=== PATIENT | female | born 1935 | race Caucasian/White ===

== ENCOUNTER → 2016-09-13 | Outpatient (REF) | payer MEDICARE, BC ==
[~2016-09-13] MED LIST: /RISE35TA OR; /WARF25TA OR; ACET65TA OR; ALBU83IN IN; AMITRIPTYLINE PO; ATENOLOL PO; DARV100T OR; I CAPS PO; LANOXIN 0.25 MG PO; NEXIUM PO; OYST500T58 OR; PRED5TAB OR; SIMVASTIN PO; THERGRAN OR; ZOVI5OIN EX; [UNRECOGNIZED DRUG - OTHER]; [UNRECOGNIZED DRUG - OTHER]; cholecalciferol OR; patient comment
[2016-09-13 12:52] LABS: INR 0.9
== END ==
LOC: M LAB REF 11:21
PROVIDERS: ATTEND Nurse Practitioner Adult Health
DX: R23.3 Spontaneous ecchymoses (principal)

== ENCOUNTER 2016-11-22 17:57 | Emergency (ER) | payer MEDICARE, BC ==
[~2016-11-22] VITALS: Ht 152.4 cm; Wt 50.0 kg
[2016-11-22] MEDS ORDERED: LANO0.1211 PO (18:19)
[2016-11-22] MEDS ORDERED: CALC600T60 PO (18:19)
[2016-11-22] MEDS ORDERED: SIMV40TA2 PO (18:19)
[2016-11-22] MEDS ORDERED: ICAPCAP PO (18:19)
[2016-11-22] MEDS ORDERED: AMIT10TA PO (18:19)
[2016-11-22] MEDS ORDERED: ATEN25TA PO (18:19)
[2016-11-22] MEDS ORDERED: VITA-137 PO (18:19)
[2016-11-22] MEDS ORDERED: PRED5TA PO (18:19)
[2016-11-22] MEDS ORDERED: NEXI40CA PO (18:19)
[2016-11-22] MEDS ORDERED: LEVALBUTEROL 1.25 MG/0.5 ML CONCENTRATE NEB NEB ONE (18:30)
[2016-11-22 18:45] LABS: BASO # 0.2 K/mm3 (0.0-0.2); EOS # 0.2 K/mm3 (0.0-0.50); EOS % 1.4 % (0.0-3.0); LARGE UNSTAINED CELL # 0.3 K/mm3 (0.0-0.4); LARGE UNSTAINED CELL % 1.9 % (0.0-4.0); LYMPH # 0.9 K/mm3 (1.5-4.5); LYMPH % 4.9 % (24.0-44.0); MEAN CORPUSCULAR HEMOGLOBIN 31.4 pg (27.0-33.0); MEAN CORPUSCULAR HGB CONC 34.3 g/dl (32.0-36.5); MEAN CORPUSCULAR VOLUME 91.6 fl (80.0-96.0); MONO # 0.7 K/mm3 (0.0-0.8); MONO % 4.1 % (0.0-5.0); NEUTROPHILS # 15.6 K/mm3 (1.8-7.7); NEUTROPHILS % 86.8 % (36.0-66.0); PLATELET COUNT, AUTOMATED 221 k/mm3 (150-450); RED CELL DISTRIBUTION WIDTH 13.8 % (11.5-14.5)
[2016-11-22 18:53] LABS: INR 0.97
[2016-11-22 19:19] LABS: ALBUMIN 3.5 GM/DL (3.2-5.2); ALKALINE PHOSPHATASE 36 U/L (45-117); ALT/SGPT 28 U/L (12-78); ANION GAP 11 MEQ/L (8-16); AST/SGOT 23 U/L (15-37); BILIRUBIN,DIRECT 0.1 MG/DL (0.0-0.2); BILIRUBIN,TOTAL 0.4 MG/DL (0.2-1.0); BLOOD UREA NITROGEN 24 MG/DL (7-18); CALCIUM LEVEL 8.8 MG/DL (8.8-10.2); CARBON DIOXIDE LEVEL 23 MEQ/L (21-32); CHLORIDE LEVEL 104 MEQ/L (98-107); CREATININE FOR GFR 1.08 MG/DL (0.55-1.02); GLUCOSE, FASTING 122 MG/DL (83-110); POTASSIUM SERUM 4.1 MEQ/L (3.5-5.1); SODIUM LEVEL 138 MEQ/L (136-145); TOTAL PROTEIN 7.9 GM/DL (6.4-8.2)
--- NOTE | 2016-11-22 19:41 | REP ---
Soft-tissue neck x-ray: Three views: History: Dyspnea and cough. Findings: The epiglottis and aryepiglottic folds are unremarkable. The patient is status post ventral discectomy and fusion plating across the C4-5 intervertebral disc space. There is straightening. Alignment is normal. Some vascular calcification is noted in the right neck. Glottic and subglottic airway are unremarkable. Impression: Status post ventral discectomy and fusion C4-5. Otherwise negative. Signed by Niraj Hernandez MD 11/23/2016 08:34 A
--- NOTE | 2016-11-22 19:41 | REP ---
Chest x-ray: Two views. History: Dyspnea and cough. Findings: The lungs are symmetrically aerated. There are some increased markings in the posterior lung base on the right consistent with an early infiltrate. These changes are subtle on frontal and lateral film. Lung zimmerman are otherwise clear. Pleural angles are sharp. Heart is not enlarged. The aorta is calcific and tortuous. EKG electrodes are seen. There is periarticular soft-tissue calcification adjacent to both shoulders. Impression: Subtle infiltrate right lower lobe posterolaterally. Consistent with pneumonia. Signed by Niraj Hernandez MD 11/23/2016 08:35 A
[2016-11-22 20:37] VITALS: BP 144/64
[2016-11-22] MEDS ORDERED: CEFUROXIME 500 MG TAB PO ONE (21:15)
[2016-11-22] MEDS ORDERED: CEFT500T3 PO (21:19)
--- NOTE | 2016-11-23 10:39 | ECGEPIP ---
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
== END 2016-11-22 21:39 | disposition home or self-care (01) ==
LOC: EDBD 17:57 → M ED 17:57
DX: R06.02 Shortness of breath (principal); R91.8 Other nonspecific abnormal finding of lung field; J45.909 Unspecified asthma, uncomplicated; J47.9 Bronchiectasis, uncomplicated; K21.9 Gastro-esophageal reflux disease without esophagitis; J32.9 Chronic sinusitis, unspecified; Z86.79 Personal history of other diseases of the circulatory system; Z88.8 Allergy status to other drugs, medicaments and biological substances; Z88.1 Allergy status to other antibiotic agents; Z88.6 Allergy status to analgesic agent; Z88.5 Allergy status to narcotic agent; Z88.2 Allergy status to sulfonamides; Z79.899 Other long term (current) drug therapy

== ENCOUNTER 2016-11-26 15:27 | Emergency (ER) | payer MEDICARE, BC ==
[~2016-11-26] VITALS: Ht 152.4 cm; Wt 50.9 kg
[~2016-11-26 15:27] MED LIST changes: +AMIT10TA PO; +ATEN25TA PO; +CALC600T60 PO; +CEFT500T3 PO; +ICAPCAP PO; +LANO0.1211 PO; +NEXI40CA PO; +PRED5TA PO; +SIMV40TA2 PO; +VITA-137 PO
[2016-11-26] MEDS ORDERED: CEFT500T3 (15:45)
[2016-11-26] MEDS ORDERED: PRED20TA (15:45)
[2016-11-26] MEDS ORDERED: methylPREDNISolone INJ 125 MG/2 ML VIAL (J2930) IV ONE (16:30)
[2016-11-26 16:48] LABS: EOS % 0.2 % (0.0-3.0); LARGE UNSTAINED CELL # 0.2 K/mm3 (0.0-0.4); LARGE UNSTAINED CELL % 1.7 % (0.0-4.0); LYMPH # 1.6 K/mm3 (1.5-4.5); LYMPH % 11.6 % (24.0-44.0); MEAN CORPUSCULAR HEMOGLOBIN 31.8 pg (27.0-33.0); MEAN CORPUSCULAR VOLUME 93.3 fl (80.0-96.0); MONO # 0.6 K/mm3 (0.0-0.8); MONO % 4.9 % (0.0-5.0); NEUTROPHILS # 10.1 K/mm3 (1.8-7.7); NEUTROPHILS % 81.5 % (36.0-66.0); PLATELET COUNT, AUTOMATED 260 k/mm3 (150-450); RED CELL DISTRIBUTION WIDTH 14.2 % (11.5-14.5); WHITE BLOOD COUNT 12.3 K/mm3 (4.0-10.0)
[2016-11-26 17:00] LABS: ANION GAP 11 MEQ/L (8-16); BLOOD UREA NITROGEN 40 MG/DL (7-18); CALCIUM LEVEL 9.1 MG/DL (8.8-10.2); CARBON DIOXIDE LEVEL 25 MEQ/L (21-32); CHLORIDE LEVEL 103 MEQ/L (98-107); CREATININE FOR GFR 1.27 MG/DL (0.55-1.02); GLOMERULAR FILTRATION RATE 43.1 (>32); GLUCOSE, FASTING 149 MG/DL (83-110); POTASSIUM SERUM 4.6 MEQ/L (3.5-5.1); SODIUM LEVEL 139 MEQ/L (136-145)
[2016-11-26] MEDS: IPRATROPIUM 0.5MG/ALBUTEROL 2.5MG INH SOL UD 3ML (DUONEB)(J7620) NEB PRN ×3 (17:02→17:34)
[2016-11-26 17:10] LABS: DIGOXIN LEVEL 0.9 NG/ML (0.5-2.0)
[2016-11-26 17:21] LABS: ABG BASE EXCESS 1.1 (-2.0-2.0); ABG HCO3 24.7 MEQ/L (22.0-26.0); ABG PARTIAL PRESSURE CO2 35.4 mmHg (35.0-45.0); ABG PARTIAL PRESSURE O2 112.3 mmHg (75.0-100.0); ABG STANDARD HCO3 25.5 MEQ/L (22.0-26.0); ABG TOTAL CO2 25.8 MEQ/L (23.0-31.0); ABG pH (ARTERIAL) 7.461 UNITS (7.350-7.450)
[2016-11-26] MEDS ORDERED: ISOVUE-370 76% 100ML VIAL (Q9967) As Ordered ONE (18:01)
--- NOTE | 2016-11-26 18:17 | REP ---
Chest x-ray: Two views: History: Dyspnea and cough. Comparison chest x-ray 11/22/2016. Findings: The aorta is slightly tortuous and calcific. There are clips in right upper quadrant of the abdomen. There are increased markings again noted in the right base. These are similar to but improved compared to the 11/22/2016. No new infiltrate is seen. There is no evidence of pleural effusion. Heart is not enlarged. Impression: Increased markings right base somewhat improved from 11/22/2016 study. No new infiltrate seen. Signed by Niraj Hernandez MD 11/26/2016 06:41 P
[2016-11-26] MEDS ORDERED: HYDROCORTISONE 0.5% CREAM 30 GM TOP ONE (18:30)
--- NOTE | 2016-11-26 18:37 | REP ---
CT pulmonary angiogram: With IV contrast: History: Shortness of breath. Comparison studies: 08/17/2004. Contrast dose: 75 cc's of Isovue [address] technique: Helical scanning is acquired and overlapping 1.5 mm and contiguous 3 mm axial images are reformatted. In addition, a 3-D work station is deployed to generate thick slab maximum intensity projection images in sagittal and coronal imaging projections. CT pulmonary angiographic findings: There is good opacification of the pulmonary arterial tree. There is no CT evidence of pulmonary embolism. The thoracic aorta shows some atherosclerotic calcification but is otherwise normal in contour and caliber and enhances homogeneously. There is a small sliding-type hiatal hernia. No pleural or pericardial effusion is seen. No hilar or mediastinal mass or adenopathy is observed. No pleural or pericardial effusion is seen. No adrenal lesion is observed. The visualized upper abdominal structures are otherwise unremarkable. Lung window settings show no evidence of infiltrate or mass. There is a calcified granuloma in the right upper lobe. Another tiny calcified granuloma is seen in the left upper lobe on page #29 of 105. There is a noncalcified pulmonary nodule in the superior segment of the left lower lobe visible on image number 46 of 105. This is 3 mm in greatest diameter. No other significant pulmonary nodule is seen. Maximal intensity projection images show no filling defect or vessel cutoff. Impression: 1. No CT evidence of pulmonary embolism. 2. Old granulomatous changes. 3. 3 mm noncalcified nodule superior segment left lower lobe. Consider follow-up chest CT study in 6-12 months. There are two other calcified granulomatous nodules. 4. Hiatal hernia. Signed by Niraj Hernandez MD 11/26/2016 06:43 P
[2016-11-26 19:01] VITALS: O2SAT 96
[2016-11-26] MEDS ORDERED: IPRASOL4 IN (19:23)
[2016-11-26 19:40] VITALS: BP 139/66
--- NOTE | 2016-11-27 09:41 | ECGEPIP ---
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
--- NOTE | 2016-11-27 10:05 | ED PDOC ---
Post-Departure Follow-Up radiology report faxed to Nida Zelaya MD Nov 27, 2016 10:05
== END 2016-11-26 19:41 | disposition home or self-care (01) ==
LOC: M ED 15:27
DX: J44.1 Chronic obstructive pulmonary disease with (acute) exacerbation (principal); R91.1 Solitary pulmonary nodule; R00.1 Bradycardia, unspecified; I10 Essential (primary) hypertension; J45.909 Unspecified asthma, uncomplicated; E78.5 Hyperlipidemia, unspecified; D64.9 Anemia, unspecified; M47.9 Spondylosis, unspecified; Z87.891 Personal history of nicotine dependence; Z88.8 Allergy status to other drugs, medicaments and biological substances; Z88.1 Allergy status to other antibiotic agents; Z88.5 Allergy status to narcotic agent; Z88.7 Allergy status to serum and vaccine; Z88.2 Allergy status to sulfonamides; Z79.899 Other long term (current) drug therapy; Z79.52 Long term (current) use of systemic steroids
CPT/HCPCS: 36600; 71020; 71275; 80048; 80162; 82550; 82553; 82803; 83880; 84484; 85025; 87040; 93005; 93041; 94640; 96374; 99284; J2930; Q9967

== ENCOUNTER → 2017-03-01 | Outpatient (REF) | payer MEDICARE, BC ==
[~2017-03-01] MED LIST changes: +CEFT500T3; +IPRASOL4 IN; +PRED20TA
== END ==
LOC: M LAB REF 13:23
PROVIDERS: ATTEND Internal Medicine
DX: Z79.899 Other long term (current) drug therapy (principal)

== ENCOUNTER 2017-06-14 09:11 | Emergency (ER) | payer MEDICARE, BC ==
[2017-06-14 10:14] LABS: BASO # 0.1 10^3/uL (0.0-0.2); BASO % 0.5 % (0.0-1.0); EOS # 0.7 10^3/uL (0.0-0.50); EOS % 5.7 % (0.0-3.0); HEMATOCRIT 34.1 % (36.0-47.0); HEMOGLOBIN 11.3 g/dl (12.0-16.0); IMMATURE GRANULOCYTE % 0.5 % (0-3.0); LYMPH # 1.8 10^3/uL (1.5-4.5); LYMPH % 13.9 % (24.0-44.0); MEAN CORPUSCULAR HEMOGLOBIN 31.2 pg (27.0-33.0); MEAN CORPUSCULAR HGB CONC 33.1 g/dl (32.0-36.5); MEAN CORPUSCULAR VOLUME 94.2 fl (80.0-96.0); MONO # 1.1 10^3/uL (0.0-0.8); MONO % 8.4 % (0.0-5.0); NEUTROPHILS # 9.2 10^3/uL (1.8-7.7); PLATELET COUNT, AUTOMATED 290 10^3/uL (150-450); RED BLOOD COUNT 3.62 10^6/uL (4.00-5.40); RED CELL DISTRIBUTION WIDTH 12.8 % (11.5-14.5); WHITE BLOOD COUNT 12.9 10^3/uL (4.0-10.0)
[2017-06-14 10:37] LABS: ANION GAP 7 MEQ/L (8-16); BLOOD UREA NITROGEN 20 MG/DL (7-18); C REACTIVE PROTEIN QUANTITATIV 1.82 MG/DL (0.00-0.30); CARBON DIOXIDE LEVEL 30 MEQ/L (21-32); CHLORIDE LEVEL 102 MEQ/L (98-107); CREATININE FOR GFR 1.19 MG/DL (0.55-1.30); GLOMERULAR FILTRATION RATE 46.3 (>32); GLUCOSE, FASTING 131 MG/DL (70-100); POTASSIUM SERUM 3.6 MEQ/L (3.5-5.1); SODIUM LEVEL 139 MEQ/L (136-145); URIC ACID 5.3 MG/DL (2.6-6.0)
[2017-06-14 10:47] LABS: ERYTHROCYTE SEDIMENTATION RATE 60 mm/hr (0-30)
== END 2017-06-14 11:42 | disposition home or self-care (01) ==
LOC: M ED 09:11
DX: M25.562 Pain in left knee (principal); I10 Essential (primary) hypertension; J45.909 Unspecified asthma, uncomplicated; K21.9 Gastro-esophageal reflux disease without esophagitis; Z79.899 Other long term (current) drug therapy; Z88.1 Allergy status to other antibiotic agents; Z88.8 Allergy status to other drugs, medicaments and biological substances; Z87.891 Personal history of nicotine dependence
CPT/HCPCS: 73590

== ENCOUNTER → 2017-08-20 | Outpatient (REF) | payer MEDICARE, BC ==
[2017-08-20 17:29] LABS: VITAMIN B12 LEVEL 576 PG/ML (247-911)
== END ==
LOC: M LAB REF 16:44
DX: N18.3 Chronic kidney disease, stage 3 (moderate) (principal)
CPT/HCPCS: 82607

== ENCOUNTER → 2017-09-02 | Outpatient (REF) | payer MEDICARE, BC ==
[2017-09-02 15:23] LABS: DIGOXIN LEVEL 0.8 NG/ML (0.5-2.0)
== END ==
LOC: M LAB REF 14:30
DX: Z79.899 Other long term (current) drug therapy (principal)
CPT/HCPCS: 80162

== ENCOUNTER 2017-09-22 08:21 | Emergency (ER) | payer MEDICARE, BC ==
[2017-09-22 08:57] LABS: BASO % 0.1 % (0.0-1.0); EOS # 3.1 10^3/uL (0.0-0.50); HEMATOCRIT 34.3 % (36.0-47.0); HEMOGLOBIN 11.6 g/dl (12.0-15.5); IMMATURE GRANULOCYTE % 0.5 % (0-3.0); LYMPH # 1.3 10^3/uL (1.5-4.5); LYMPH % 8.3 % (24.0-44.0); MEAN CORPUSCULAR HEMOGLOBIN 30.6 pg (27.0-33.0); MEAN CORPUSCULAR HGB CONC 33.8 g/dl (32.0-36.5); MEAN CORPUSCULAR VOLUME 90.5 fl (80.0-96.0); MONO # 1.3 10^3/uL (0.0-0.8); MONO % 8.1 % (0.0-5.0); NEUTROPHILS # 10.3 10^3/uL (1.8-7.7); PLATELET COUNT, AUTOMATED 307 10^3/uL (150-450); RED BLOOD COUNT 3.79 10^6/uL (4.00-5.40); RED CELL DISTRIBUTION WIDTH 13.9 % (11.5-14.5); WHITE BLOOD COUNT 16.1 10^3/uL (4.0-10.0)
[2017-09-22 09:01] LABS: KETONE, URINE AUTO RFX NEGATIVE (NEGATIVE); LEUKOCYTE ESTERASE UR AUTO RFX NEGATIVE (NEGATIVE); MUCUS, URINE RFX SMALL (NEGATIVE); NITRITE, URINE AUTO RFX NEGATIVE (NEGATIVE); RBC, URINE AUTO RFX 1 /HPF (0-3); SPECIFIC GRAVITY UR AUTO RFX 1.009 (1.002-1.035); SQUAM EPITHELIAL CELL UR AURFX 0 /HPF (0-6); WBC, URINE AUTO RFX 1 /HPF (0-3)
[2017-09-22] MEDS: NS 1,000 ML IV (09:09)
[2017-09-22] MEDS: ONDANSETRON 4MG/2ML VIAL (J2405) IV (09:11)
[2017-09-22] MEDS: MORPHINE 2 MG/ML 1ML SYRINGE (J2270) IV (09:12)
[2017-09-22 09:14] LABS: ALBUMIN 3.3 GM/DL (3.2-5.2); ALBUMIN/GLOBULIN RATIO 0.85 (1.00-1.93); ALKALINE PHOSPHATASE 69 U/L (45-117); ALT/SGPT 31 U/L (12-78); ANION GAP 9 MEQ/L (8-16); AST/SGOT 20 U/L (7-37); BILIRUBIN,DIRECT 0.1 MG/DL (0.0-0.2); BILIRUBIN,TOTAL 0.3 MG/DL (0.2-1.0); BLOOD UREA NITROGEN 20 MG/DL (7-18); CALCIUM LEVEL 8.5 MG/DL (8.8-10.2); CARBON DIOXIDE LEVEL 28 MEQ/L (21-32); CHLORIDE LEVEL 101 MEQ/L (98-107); CREATININE FOR GFR 1.06 MG/DL (0.55-1.30); GLUCOSE, FASTING 106 MG/DL (70-100); LIPASE 441 U/L (73-393); POTASSIUM SERUM 3.7 MEQ/L (3.5-5.1); SODIUM LEVEL 138 MEQ/L (136-145); TOTAL PROTEIN 7.2 GM/DL (6.4-8.2)
[2017-09-22] MEDS ORDERED: ISOVUE-370 76% 100ML VIAL (Q9967) As Ordered (09:26)
[2017-09-22] MEDS: NORCO, ANEXSIA 5/325MG TABLET (HYDROcodone/ACETAMINOPHEN) PO (12:11)
== END 2017-09-22 12:55 | disposition home or self-care (01) ==
LOC: M ED 08:21
DX: R10.9 Unspecified abdominal pain (principal); I10 Essential (primary) hypertension; E78.5 Hyperlipidemia, unspecified; N28.89 Other specified disorders of kidney and ureter; Z98.890 Other specified postprocedural states; Z87.891 Personal history of nicotine dependence; Z88.8 Allergy status to other drugs, medicaments and biological substances; Z88.1 Allergy status to other antibiotic agents; Z88.5 Allergy status to narcotic agent; Z88.2 Allergy status to sulfonamides
CPT/HCPCS: J2405

== ENCOUNTER → 2018-01-15 | Outpatient (CLI) | payer MEDICARE, BC ==
[~2018-01-15] MED LIST changes: -/RISE35TA OR; -/WARF25TA OR; -ACET65TA OR; -ALBU83IN IN; -AMIT10TA PO; -AMITRIPTYLINE PO; -ATEN25TA PO; -ATENOLOL PO; -CALC600T60 PO; -CEFT500T3; -CEFT500T3 PO; -DARV100T OR; +GASTROGRAFIN SOLUTION 30ML (Q9963) As Ordered; -I CAPS PO; -ICAPCAP PO; -IPRASOL4 IN; +ISOVUE-370 76% 100ML VIAL (Q9967) As Ordered; -LANO0.1211 PO; -LANOXIN 0.25 MG PO; -NEXI40CA PO; -NEXIUM PO; -OYST500T58 OR; -PRED20TA; -PRED5TA PO; -PRED5TAB OR; -SIMV40TA2 PO; -SIMVASTIN PO; -THERGRAN OR; -VITA-137 PO; -ZOVI5OIN EX; -[UNRECOGNIZED DRUG - OTHER]; -[UNRECOGNIZED DRUG - OTHER]; -cholecalciferol OR; -patient comment
== END ==
LOC: M RAD 15:41
DX: D30.00 Benign neoplasm of unspecified kidney (principal); K57.30 Diverticulosis of large intestine without perforation or abscess without bleeding; R10.31 Right lower quadrant pain; Z98.890 Other specified postprocedural states
CPT/HCPCS: Q9963

== ENCOUNTER 2018-02-24 11:32 | Emergency (ER) | payer MEDICARE, BC ==
[2018-02-24] MEDS: ONDANSETRON 4 MG ORAL DISINTEGRATING TAB (Q0162 PER 1MG) PO (15:30)
[2018-02-24] MEDS: MORPHINE 4 MG/ML 1ML VIAL/SYRINGE (J2270) IM (15:43)
[2018-02-24 15:48] LABS: BASO % 0.2 % (0.0-1.0); EOS # 0.4 10^3/uL (0.0-0.50); EOS % 3.3 % (0.0-3.0); HEMATOCRIT 37.2 % (36.0-47.0); HEMOGLOBIN 12.1 g/dl (12.0-15.5); IMMATURE GRANULOCYTE % 0.3 % (0-3.0); LYMPH # 1.3 10^3/uL (1.5-4.5); LYMPH % 11.4 % (24.0-44.0); MEAN CORPUSCULAR HEMOGLOBIN 31.6 pg (27.0-33.0); MEAN CORPUSCULAR HGB CONC 32.5 g/dl (32.0-36.5); MEAN CORPUSCULAR VOLUME 97.1 fl (80.0-96.0); MONO # 0.6 10^3/uL (0.0-0.8); MONO % 5.2 % (0.0-5.0); NEUTROPHILS # 9.2 10^3/uL (1.8-7.7); NEUTROPHILS % 79.6 % (36.0-66.0); PLATELET COUNT, AUTOMATED 223 10^3/uL (150-450); RED BLOOD COUNT 3.83 10^6/uL (4.00-5.40); RED CELL DISTRIBUTION WIDTH 14.4 % (11.5-14.5); WHITE BLOOD COUNT 11.6 10^3/uL (4.0-10.0)
[2018-02-24 16:10] LABS: ALBUMIN/GLOBULIN RATIO 1.14 (1.00-1.93); ALKALINE PHOSPHATASE 49 U/L (45-117); ALT/SGPT 36 U/L (12-78); ANION GAP 6 MEQ/L (8-16); AST/SGOT 22 U/L (7-37); BILIRUBIN,DIRECT 0.1 MG/DL (0.0-0.2); BILIRUBIN,TOTAL 0.4 MG/DL (0.2-1.0); BLOOD UREA NITROGEN 19 MG/DL (7-18); C REACTIVE PROTEIN QUANTITATIV 1.01 MG/DL (0.00-0.30); CALCIUM LEVEL 9.5 MG/DL (8.8-10.2); CARBON DIOXIDE LEVEL 27 MEQ/L (21-32); CHLORIDE LEVEL 103 MEQ/L (98-107); CREATININE FOR GFR 1.05 MG/DL (0.55-1.30); GLOMERULAR FILTRATION RATE 53.4 (>32); GLUCOSE, FASTING 117 MG/DL (70-100); POTASSIUM SERUM 4.7 MEQ/L (3.5-5.1); SODIUM LEVEL 136 MEQ/L (136-145); TOTAL PROTEIN 7.5 GM/DL (6.4-8.2)
[2018-02-24 18:31] LABS: ERYTHROCYTE SEDIMENTATION RATE 37 mm/hr (0-30)
[2018-02-24] MEDS: MORPHINE 10 MG/ML 1ML VIAL (J2270) IM (18:54)
== END 2018-02-24 20:40 | disposition home or self-care (01) ==
LOC: M ED 11:32
DX: G89.29 Other chronic pain (principal); M25.552 Pain in left hip; I10 Essential (primary) hypertension; E78.5 Hyperlipidemia, unspecified; K21.9 Gastro-esophageal reflux disease without esophagitis; K44.9 Diaphragmatic hernia without obstruction or gangrene; N28.1 Cyst of kidney, acquired; Z88.1 Allergy status to other antibiotic agents; Z88.5 Allergy status to narcotic agent; Z88.8 Allergy status to other drugs, medicaments and biological substances
CPT/HCPCS: J2270

== ENCOUNTER → 2018-03-12 | Outpatient (CLI) | payer MEDICARE, BC | LOC: M RAD 09:24 | DX: R60.0 Localized edema (principal); M89.9 Disorder of bone, unspecified; M16.12 Unilateral primary osteoarthritis, left hip | CPT/HCPCS: 73721 ==

== ENCOUNTER → 2018-04-18 | Outpatient (REF) | payer MEDICARE, BC ==
[~2018-04-18] MED LIST changes: +/RISE35TA OR; +/WARF25TA OR; +ACET65TA OR; +ALBU83IN IN; +AMIT10TA PO; +AMITRIPTYLINE PO; +ATEN25TA PO; +ATENOLOL PO; +CALC600T60 PO; +CEFT500T3; +CEFT500T3 PO; +COLA100C5 PO; +DARV100T OR; +GABA-1171 PO; -GASTROGRAFIN SOLUTION 30ML (Q9963) As Ordered; +I CAPS PO; +ICAPCAP PO; +IPRA0.00 IN; -ISOVUE-370 76% 100ML VIAL (Q9967) As Ordered; +LANO0.1211 PO; +LANOXIN 0.25 MG PO; +LIDO4SO TOP; +NEXI1CAP4 PO; +NEXI40CA PO; +NEXIUM PO; +NORCOTAB PO; +OMEP40CA2 PO; +OYST500T58 OR; +PRED20TA; +PRED5TA PO; +PRED5TAB OR; +SIMV40TA2 PO; +SIMVASTIN PO; +THERGRAN OR; +TIZA4CAP PO; +TRAM-533 PO; +VENTAER PO; +VITA-137 PO; +ZOFR4TAB14 PO; +ZOVI5OIN EX; +[UNRECOGNIZED DRUG - OTHER]; +[UNRECOGNIZED DRUG - OTHER]; +cholecalciferol OR; +patient comment
[2018-04-18 16:51] LABS: PERCENT SATURATION 28.7 % (13.2-45.0)
== END ==
LOC: M LAB REF 16:18
PROVIDERS: ATTEND Internal Medicine
DX: Z01.818 Encounter for other preprocedural examination (principal); D63.8 Anemia in other chronic diseases classified elsewhere; M25.552 Pain in left hip

== ENCOUNTER → 2018-04-21 | Outpatient (CLI) | payer MEDICARE, BC ==
--- NOTE | 2018-04-21 11:14 | REP ---
CHEST, TWO VIEWS: HISTORY: Preprocedure. COMPARISON: 11/26/2016 The lungs are clear. The heart is normal in size. The pulmonary vasculature is normal in appearance. The bony structure is intact. IMPRESSION: No acute disease. Electronically Signed by Irineo Jane MD 04/21/2018 11:22 A
== END ==
LOC: M SMT 10:21
PROVIDERS: ATTEND Internal Medicine Pulmonary Disease
DX: Z01.811 Encounter for preprocedural respiratory examination (principal)

== ENCOUNTER → 2018-05-06 | Outpatient (REF) | payer MEDICARE, BC | LOC: M LAB REF 17:33 | PROVIDERS: ATTEND Internal Medicine | DX: I47.1 Supraventricular tachycardia (principal) ==

== ENCOUNTER → 2018-05-27 | Outpatient (REF) | payer MEDICARE, BC ==
[2018-05-27 09:47] LABS: HEMATOCRIT 31.5 % (36.0-47.0); HEMOGLOBIN 10.1 g/dl (12.0-15.5); MEAN CORPUSCULAR HEMOGLOBIN 30.1 pg (27.0-33.0); MEAN CORPUSCULAR HGB CONC 32.1 g/dl (32.0-36.5); PLATELET COUNT, AUTOMATED 338 10^3/uL (150-450); RED BLOOD COUNT 3.35 10^6/uL (4.00-5.40); WHITE BLOOD COUNT 11.9 10^3/uL (4.0-10.0)
[2018-05-27 10:13] LABS: BLOOD UREA NITROGEN 15 MG/DL (7-18); CARBON DIOXIDE LEVEL 28 MEQ/L (21-32); CHLORIDE LEVEL 101 MEQ/L (98-107); CREATININE FOR GFR 0.92 MG/DL (0.55-1.30); GLOMERULAR FILTRATION RATE > 60.0 (>32); GLUCOSE, FASTING 100 MG/DL (70-100); POTASSIUM SERUM 3.5 MEQ/L (3.5-5.1); SODIUM LEVEL 138 MEQ/L (136-145)
== END ==
PROVIDERS: ATTEND Internal Medicine
DX: Z47.89 Encounter for other orthopedic aftercare (principal); Z98.890 Other specified postprocedural states; Z79.899 Other long term (current) drug therapy

== ENCOUNTER → 2018-06-03 | Outpatient (REF) | payer BC, MEDICARE ==
[2018-06-03 10:04] LABS: HEMOGLOBIN 10.7 g/dl (12.0-15.5); MEAN CORPUSCULAR HEMOGLOBIN 30.1 pg (27.0-33.0); MEAN CORPUSCULAR HGB CONC 31.5 g/dl (32.0-36.5); MEAN CORPUSCULAR VOLUME 95.8 fl (80.0-96.0); PLATELET COUNT, AUTOMATED 423 10^3/uL (150-450); RED BLOOD COUNT 3.55 10^6/uL (4.00-5.40); WHITE BLOOD COUNT 9.4 10^3/uL (4.0-10.0)
[2018-06-03 11:22] LABS: CALCIUM LEVEL 9.1 MG/DL (8.8-10.2); CREATININE FOR GFR 1.05 MG/DL (0.55-1.30); GLOMERULAR FILTRATION RATE 53.4 (>32); POTASSIUM SERUM 3.8 MEQ/L (3.5-5.1)
== END ==
PROVIDERS: ATTEND Internal Medicine
DX: Z47.1 Aftercare following joint replacement surgery (principal); Z98.890 Other specified postprocedural states; Z79.899 Other long term (current) drug therapy

== ENCOUNTER → 2018-08-28 | Outpatient (CLI) | payer MEDICARE, BC ==
[~2018-08-28] MED LIST changes: -/WARF25TA OR; +COUM1TAB18 OR; +HYDR-3715 PO; +LANO0.12 PO; -LANO0.1211 PO; -NORCOTAB PO
[2018-08-28 12:24] LABS: ALBUMIN 3.6 GM/DL (3.2-5.2); BILIRUBIN,TOTAL 0.4 MG/DL (0.2-1.0); CALCIUM LEVEL 9.2 MG/DL (8.8-10.2); CREATININE FOR GFR 1.18 MG/DL (0.55-1.30); GLOMERULAR FILTRATION RATE 46.7 (>32); POTASSIUM SERUM 3.9 MEQ/L (3.5-5.1); TOTAL PROTEIN 7.2 GM/DL (6.4-8.2)
== END ==
LOC: M LAB 10:45
PROVIDERS: ATTEND Internal Medicine Gastroenterology
DX: N28.9 Disorder of kidney and ureter, unspecified (principal)

== ENCOUNTER → 2018-09-08 | Outpatient (CLI) | payer MEDICARE, BC ==
--- NOTE | 2018-09-08 15:30 | REP ---
MRI abdomen without and with IV contrast: History: Evaluate right renal lesion. 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 Comparison is also made with July 27, [address] study. Technique: Axial and coronal T1 and T2-weighted scans are obtained. Sequences include spin-echo, fast spin echo, in and [id number], and dynamically acquired post contrast images. Gadolinium enhancement dose: 5 mL of intravenous Isovue 370 is administered. MRI findings: Pre and postcontrast imaging confirms the presence of a predominately fat containing peripheral right renal mass with areas of contrast enhancement consistent with the CT findings of angiomyolipoma. The lesion is more conspicuous by CT than it is by MRI scanning. No suspicious features. It is difficult to measure on MRI because its borders are not well demarcated between the fat containing lesion and the perinephric fat adjacent to it. It measures approximately 2.3 cm in right to left dimension by 3.4 cm cranial to caudal . No other renal mass lesion is observed. Kidneys enhance symmetrically. No adrenal lesion is seen. No hepatic or splenic masses observed. No pancreatic lesion is seen. There is evidence of fatty infiltration of the liver. 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 The lesions margins are better demarcated by CT scanning then by MRI imaging. Electronically Signed by Niraj Hernandez MD 09/08/2018 03:50 P
== END ==
LOC: M RAD 12:49
PROVIDERS: ATTEND Internal Medicine Gastroenterology
DX: N28.9 Disorder of kidney and ureter, unspecified (principal)

== ENCOUNTER → 2018-10-06 | Outpatient (REF) | payer MEDICARE, BC | LOC: M LAB REF 16:41 | PROVIDERS: ATTEND Internal Medicine | DX: Z79.899 Other long term (current) drug therapy (principal) ==

== ENCOUNTER → 2018-12-11 | Outpatient (CLI) | payer MEDICARE, BC ==
--- NOTE | 2018-12-11 13:04 | REP ---
MRI of the lumbar spine without contrast Indication: Low back pain. Comparison: CT abdomen pelvis of 01/15/2018. Technique: MRI of the lumbar spine was performed utilizing sagittal STIR, T1 and T2, and axial T1 and T2 weighted imaging. No intravenous contrast was administered. Findings: There is levoscoliosis of the lumbar spine with apex at L4-L5. There is right lateral subluxation of L3 on L4. There is one - 2 mm retrolisthesis of L2 on L3 and L3 on L4. There is heterogeneity of the marrow signal without suspicious focal lesion. There are multilevel degenerative changes including loss of disc height, disc desiccation, endplate irregularity and endplate marrow signal changes at L2-S1. There are focal superior endplate compression deformities of L3 and L4. Vertebral body heights are grossly maintained. The visualized spinal cord is normal. The conus medullaris terminates at the level of L1. There is similar asymmetric fatty atrophy of the right psoas muscle. There is partial fatty atrophy of the posterior paraspinal muscles, at the level of the sacrum. Level specific observations: L1-L2: Diffuse disc bulge. L2-L3: Diffuse disc bulge eccentric to the left. Moderate left neural foraminal narrowing. L3-L4: Diffuse disc bulge eccentric to the left. Lateral subluxation and retrolisthesis. Distortion of the thecal sac and moderate narrowing of the spinal canal. Severe bilateral neural foraminal narrowing. L4-L5: Diffuse disc bulge. Right greater than left facet hypertrophy. Mild narrowing of the spinal canal. Moderate to severe right and moderate left neural foraminal narrowing. L5-S1: Diffuse disc bulge with superimposed central disc protrusion. Bilateral facet arthropathy. Moderate to severe neural foraminal narrowing bilaterally. Impression: Right lateral subluxation of L3 on L4. Grade 1 retrolisthesis of L2 on L3 and L3 on L4. 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 Additionally, mild narrowing of the spinal canal at L4-L5. Multilevel bilateral neural foraminal narrowing, severe at L3-L4, moderate to severe at L4-L5 and L5-S1, and moderate left neural foraminal narrowing at L2-L3. Electronically Signed by Chucky Clark MD 12/11/2018 12:56 P
== END ==
LOC: M RAD 08:14
PROVIDERS: ATTEND Orthopaedic Surgery Orthopaedic Surgery of the Spine
DX: M47.816 Spondylosis without myelopathy or radiculopathy, lumbar region (principal); M48.061 Spinal stenosis, lumbar region without neurogenic claudication; M41.86 Other forms of scoliosis, lumbar region; M51.26 Other intervertebral disc displacement, lumbar region; M51.27 Other intervertebral disc displacement, lumbosacral region

== ENCOUNTER → 2018-12-30 | Outpatient (CLI) | payer MEDICARE, BC ==
--- NOTE | 2018-12-30 17:08 | REP ---
Maxillofacial CT study without contrast: History: Chronic pansinusitis. Comparison CT maxillofacial study August 16, 2015. CT findings: There is complete opacification of the frontal sinuses bilaterally. Extensive opacification is seen bilaterally through the ethmoid air cells. There is moderate mucosal thickening affecting the right sphenoid and mild fluid is seen in the left sphenoid sinus. Mastoid aeration is normal and symmetric. There is moderate mucosal thickening and some fluid in the maxillary sinuses bilaterally. Widely patent nasoantral windows are seen bilaterally. There is moderate mucosal thickening along the superior nolan of the maxillary sinuses bilaterally. This mucosal thickening is actually improved from the August 19, 2015 prior study. Bony nasal septum is in the midline. Turbinate soft tissues are unremarkable. The nasal ethmoid recesses are opacified with mucosal thickening but also improved somewhat from July 2015. There is thickening of the bony sinus nolan of the maxillary ethmoid and frontal sinuses indicating chronicity. Minimal carotid siphon vascular calcification is observed. No intraorbital abnormality is seen. Visualized intracranial structures show mild generalized atrophy. Impression: Findings consistent with chronic polysinusitis. Status post nasoantral window procedure bilaterally. These are widely patent. Moderate mucosal changes. Electronically Signed by Niraj Hernandez MD 12/30/2018 05:11 P
== END ==
LOC: M RAD 14:53
PROVIDERS: ATTEND Otolaryngology
DX: J32.4 Chronic pansinusitis (principal)

== ENCOUNTER → 2019-01-21 | Outpatient (CLI) | payer MEDICARE, BC ==
[~2019-01-21] MED LIST changes: -OMEP40CA2 PO; +OMEP40CA97 PO
--- NOTE | 2019-01-24 23:05 | ECWPNPC ---
PATIENT NAME: ASHER PRADHAN : 1935 GENDER: FEMALE VISIT DATE: 01/21/2019 DISCHARGE DATE: 01/21/19 0000 VISIT LOCKED DATE TIME: PHYSICIAN: ALEX MARROQUIN MD RESOURCE: ALEX MARROQUIN MD REASON FOR APPOINTMENT 1. LOW BACK PAIN HISTORY OF PRESENT ILLNESS PAIN SCREENING: PATIENT HAS A COMPLAINT OF ACUTE OR CHRONIC PAIN :YES 83 YEAR OLD FEMALE PATIENT WITH A HISTORY OF CHRONIC LOW BACK PAIN. THE PATIENT DESCRIBES THE PAIN ACHING, VERY PAINFUL, AND DAILY WITH A PAIN SCORE OF 7-10/10 DEPENDING ON PHYSICAL ACTIVITY. THE PATIENT STATES HER PAIN IS MAINLY OVER HER RIGHT LOW BACK AREA. THE PATIENT SAYS SHE HAS BEEN SUFFERING FROM THIS PAIN FOR A LONG TIME AND IT HAS BEEN AFFECTING HER ABILITY TO PERFORM HER DAILY ACTIVITIES SUCH COOKING, BAKING COOKIES, CLEANING HER HOUSE, AND GROCERY SHOPPING. THE PATIENT SAYS HER PAIN BEGINS WHILE SHE IS STANDING UP, AND SHE MUST SIT DOWN TO REST FOR A WHILE AND TAKE TYLENOL TO HELP RELIEVE HER PAIN. THE PATIENT MENTIONS SHE HAS HAD BILATERAL HIP REPLACEMENT WITH THE LEFT HIP DONE IN MAY OF THIS YEAR BY DR. RYAN VILLEGAS IN [place] AND THE RIGHT HIP REPLACED [place] [address] MAYBERRY AT [facility]. PATIENT DENIES UNEXPLAINABLE WEIGHT LOSS, FEVER, CHILLS, NEW CHANGES ON HER URINARY OR BOWEL CONTROL. FALL RISK SCREENING: SCREENING :NO FALLS REPORTED IN THE LAST YEAR CURRENT MEDICATIONS TAKING LANOXIN 0.[address] ARRIAGA 1 TABLET ORALLY ONCE A DAY TAKING ATENOLOL [address] ARRIAGA 1 TABLET ORALLY ONCE A DAY TAKING PREDNISONE [address] LAFLEUR 1 TABLET WITH FOOD OR MILK ORALLY ONCE A DAY TAKING AMITRIPTYLINE HCL [address] ARRIAGA 1 TABLET AT BEDTIME ORALLY AT NIGHT TAKING ICAPS MV OTC TABLET 2 TAB ORALLY DAILY TAKING CALCIUM 1200MG TABLET 1 TAB ORALLY DAILY TAKING VITAMIN D3 1000 UNIT TABLET 1 TABLET ORALLY ONCE A DAY TAKING SIMVASTATIN 20 MG TABLET 1 TABLET EVERY EVENING ORALLY DAILY TAKING BUDESONIDE 1 MG/2ML DR LAFLEUR NASAL INHALATION ONCE A DAY TAKING VANIQA 13.9 % CREAM 1 APPLICATION A THIN FILM TO AFFECTED AREA EXTERNALLY TWICE A DAY TO CHIN AND UPPER LIP TAKING TRETINOIN (EMOLLIENT) 0.05 % CREAM 1 APPLICATION A ARETHA-SIZED AMOUNT TO FACE IN THE EVENING EXTERNALLY ONCE A DAY TO FACE AT PM TAKING ESOMEPRAZOLE MAGNESIUM 20 MG CAPSULE DELAYED RELEASE 1 CAPSULE ORALLY ONCE A DAY TAKING HYDROCODONE-ACETAMINOPHEN 5-325 MG TABLET 1 TABLET NEEDED ORALLY EVERY 6 HRS NEEDED TAKING METFORMIN HCL ER 750 MG TABLET EXTENDED RELEASE 24 HOUR 1 TABLET WITH EVENING MEAL ORALLY ONCE A DAY NOT-TAKING NEXIUM [address] ZEPEDA 1 TAB ORALLY DAILY NOT-TAKING SALEX 6 % (LOTION) LOTION 1 APPLICATION TO BODY EXTERNALLY DAILY TO BODY MEDICATION LIST REVIEWED AND RECONCILED WITH THE PATIENT PAST MEDICAL HISTORY HYPERTENSION IRREGULAR HEART BEAT HYPERLIPIDEMIA ARTHRITIS ASTHMA ALLERGIES SULFA: RASH - ALLERGY TAVIST: SEVERE HEADACHES - ALLERGY GUIATEX: RASH - ALLERGY BIAXIN: RASH - ALLERGY CODEINE: SICK TO STOMACH - SIDE EFFECTS ERTHROMYCIN: RASH - ALLERGY DECLAMYCIN: RASH - ALLERGY DOXYCYCLINE: RASH/HEADACHE - ALLERGY TUSSIONEX: SICK TO STOMACH - SIDE EFFECTS DEMEROL: SICK TO STOMACH - SIDE EFFECTS ORUVAIL: RASH - ALLERGY SODIUM PENATOL: SICK TO STOMACH - SIDE EFFECTS SELDANE: HEADACHE - ALLERGY ROBITUSSIN: NOSEBLEED - ALLERGY AVELOX: SICK TO STOMACH/SORE MUSCLES - ALLERGY PNEUMONIA SHOT: ARM SWELL - ALLERGY ASPIRIN: COUGHING/WHEEZING - ALLERGY IBUPROFEN: CIUGHING/WHEEZING - ALLERGY CIPROFLOXACIN: DIARRHEA - SIDE EFFECTS LEVAQUIN: HEADACHE - SIDE EFFECTS CIPHENOXYLATE WITH ATROPINE: DIARRHEA - SIDE EFFECTS ALEVE: DYSPNEA - SIDE EFFECTS AMBIEN: NAUSEA/VOMITING - SIDE EFFECTS ATIVAN: NAUSEA/VOMITING - SIDE EFFECTS MORPHINE: NAUSEA/VOMITING - SIDE EFFECTS TOBRAMYCIN: HEADACHE - SIDE EFFECTS ALAZOPRAM: HEADACHE - SIDE EFFECTS AMOXICILLIN: HIVES - ALLERGY CEPHALEXIN: CHEST TIGHTNESS - ALLERGY CEFDINIR: NAUSEA/VOMITING - SIDE EFFECTS SURGICAL HISTORY CATARACT RIGHT EYE 11/23/09 HYSTERECTOMY 1981 RIGHT TOTAL HIP 01/2010 NASAL POLYPS REMOVED 02/29/2016 CATARACT LEFT EYE TONSILECTOMY 194 GALLBLADDER REMOVAL 08/2005 DISCECTOMY WITH PLATE IN NECK 1996 BOWEL RESECTION 1979 RIGHT HIP REPLACEMENT 02/07/2011 SINUS SURGERY 09/12/2010 RIGHT FOOT SURGERY 08/13/14 TOTAL LEFT HIP REPLACEMENT 05/19/18 FAMILY HISTORY FATHER: , DIAGNOSED WITH HYPERTENSION MOTHER: , HYPERTENSION SIBLINGS: , SISTER SKIN CANCER MOTHER NAD FATHER HAD HEART ISSUES, 2 SISTERS HAD BREAST CANCER. SOCIAL HISTORY GENERAL: TOBACCO USE ARE YOU A:FORMER SMOKER HOW LONG HAS IT BEEN SINCE YOU LAST SMOKED?> 10 YEARS OTHERS AT HOME: NONE. HOUSING: OWNS HOME. EDUCATION LEVEL OF EDUCATION:NOT FINISHED COLLEGE DIET: REGULAR. LANGUAGE LANGUAGES SPOKEN:[place] NEW PATIENT PAIN DIARY PATIENT DESCRIBES PAIN :ACHING, IT COMES AND GOES FROM 0-10, WHAT LEVEL IS YOUR PAIN TODAY?8 PRECIPITATING FACTORS ACTIVITIES LIKE CLEANING, VACCUMMING ECT ALLEVIATING FACTORS TYLENOL, REST IMPACT ON FUNCTION STATES SHE IS NOT ABLE TO DO MUCH SHE WOULD LIKE TO DO HAVE YOU BEEN SICK IN THE LAST WEEK (COLD, COUGH, FEVER, FLU, ETC)NO DO YOU TAKE ANY BLOOD THINNERS?NO DO YOU HAVE ANY RASHES OR OPEN SORES?NO ANY CHANGE IN BOWEL OR BLADDER CONTROL?NO ARE YOU ALLERGIC TO SHELLFISH OR IV DYE?NO ARE YOU DIABETIC?YES DO YOU HAVE A PACEMAKER OR DEFIBRILLATOR?NO HAVE YOU FALLEN IN THE LAST 6 MONTHS?NO DO YOU USE ANY TYPE OF TOBACCO (SMOKE, SMOKELESS, CHEW, ETC.)NO ARE YOU ABUSED, NEGLECTED, OR IN AN UNSAFE ENVIRONMENT?NO DO YOU HAVE THOUGHTS OF HURTING YOURSELF OR SOMEONE ELSE?NO DO YOU NEED ANY PRESCRIPTIONS?YES DO YOU HAVE ANY OTHER QUESTIONS OR CONCERNS?YES OPTIONS FOR PAIN CONTROL INTENSITY SCALE REVIEWEDNUMBER RECREATIONAL DRUG USE DRUG USE?NO PATIENT DENIES ABUSE OR MISSUSED OF ANY MEDICATION DENIES PATIENT DENIES USE OF ANY ILLEGAL SUBSTANCE INCLUDING MARIJUANA OR COCAINE DENIES EXERCISE: NO REGULAR EXERCISE. LEARNING BARRIERS / SPECIAL NEEDS BARRIERS TO LEARNING?NO HEARING IMPAIRED?NO VISION IMPAIRED?YES :CORRECTIVE LENSES COGNITIVELY IMPAIRED?NO READINESS TO LEARN?YES LEARNING PREFERENCES?NO LEARNING CAPABILITIES PRESENT?YES EMOTIONAL BARRIERS?NO SPECIAL DEVICES?NO STILL CLEANER NEEDED?NO PAIN CLINIC PFS, CLERGY, PUBLIC HEALTH REFERRALS PFS REFERRAL NEEDED?NO CLERGY REFERRAL NEEDED?NO PUBLIC HEALTH REFERRAL NEEDED?NO WAS THE PROVIDER NOTIFIED OF ANY PERTINENT INFO?YES HAS THE PATIENT BEEN EDUCATED REGARDING HIS/HER PLAN OF CARE?YES HAS THE PATIENT BEEN EDUCATED REGARDING PAIN, THE RISK FOR PAIN, THE IMPORTANCE OF EFFECTIVE PAIN MANAGEMENT, AND THE PAIN ASSESSMENT PROCESS?YES LATEX QUESTIONNAIRE LATEX ALLERGY : HAVE YOU EVER DEVELOPED ANY TYPE OF REACTION AFTER HANDLING LATEX PRODUCTS SUCH RUBBER GLOVES, CONDOMS, DIAPHRAGMS, BALLOONS, SOCKS, OR UNDERWEAR?NO LATEX ALLERGY : HAVE YOU EVER DEVELOPED ANY TYPE OF REACTION DURING OR AFTER DENTAL APPOINTMENT, VAGINAL/RECTAL EXAMINATION, SURGICAL PROCEDURE, OR ANY OTHER EXPOSURE?NO LATEX RISK : HAVE YOU EVER HAD ANY DIFFICULTY BREATHING OR HIVES AFTER EATING OR HANDLING ANY FRUITS, OR VEGETABLES; SUCH KIWI, BANANAS, STONE FRUITS, OR CHESTNUTSNO LATEX RISK : DO YOU HAVE A PREVIOUS PERSONAL HISTORY OF MORE THAN NINE SURGERIES, SPINA BIFIDA, OR REPEATED CATHERIZATIONS? YES - PLEASE INDICATE : > 9 SURGERIES LATEX RISK : ARE YOU FREQUENTLY EXPOSED TO LATEX PRODUCTS IN YOUR OCCUPATION?NO DATE ASKED : 01/21/2019 CAFFEINE CAFFEINE USE?NO ADVANCE DIRECTIVE ADVANCE DIRECTIVE DISCUSSED WITH PATIENT:YES WILLAM SUAREZ (DAUGHTER) [phone] SPIRITISM [id number] BAPTISM MARITAL STATUS: . ALCOHOL SCREENING DID YOU HAVE A DRINK CONTAINING ALCOHOL IN THE PAST YEAR?NO POINTS0 INTERPRETATIONNEGATIVE OCCUPATION: RETIRED. REVIEWED WITH PATIENT 01/21/19 1615 NLJ. HOSPITALIZATION/MAJOR DIAGNOSTIC PROCEDURE CATARACTS SURGERIES REVIEW OF SYSTEMS REVIEWED BY: PROVIDER: ALEX MARROQUIN MD . CONSTITUTIONAL: ANY CHANGE IN YOUR MEDICAL CONDITION? NO . CHILLS NO . FEVER NO . INFECTION: DO YOU HAVE NEW INFECTIONS? NO . DO YOU HAVE HISTORY OF MRSA? NO . MUSCULOSKELETAL: ANY NEW PATTERNS OF PAIN OR NUMBNESS? YES- ACHING PAIN IN LOW RIGHT SIDE OF BACK . SYTEMIC LUPUS NO . GASTROENTEROLOGY: ANY NEW CHANGE IN BOWEL CONTROL? NO . BARRETTS ESOPHAGUS NO . CIRRHOSIS NO . HEPATITIS NO . LIVER FAILURE NO . ACID REFLUX NO . UNEXPLAINED WEIGHT LOSS NO . GENITOURINARY: ANY NEW CHANGE IN BLADDER CONTROL? NO . IS THERE A CHANCE YOU COULD BE ? NO . HEMATOLOGY/LYMPH: DO YOU TAKE ANY BLOOD THINNERS? (FOR EXAMPLE- COUMADIN, PLAVIX, AGGRENOX, PLATEL, PRADAXA, OR XARELTO) NO . WHEN WAS YOUR LAST DOSE? DATE: TIME: . LOW PLATELET COUNT NO . SICKLE CELL DISEASE NO . VON WILLIEBRANDS NO . FACTOR V LEIDEN NO . THALLASEMIA NO . ANEMIA YES . EASY BRUISING NO . NEUROLOGY: HAVE YOU FALLEN IN THE PAST 12 MONTHS? NO . ANY NEW EXTREMITY NUMBNESS OR WEAKNESS? NO . HEAD INJURY NO . DEMENTIA NO . CEREBRAL PALSY NO . MULTIPLE SCLEROSIS NO . DIZZINESS NO . HEADACHE NO . STROKES NO . VERTIGO NO . CARDIOLOGY: DO YOU HAVE A PACEMAKER OR DEFIBRILLATOR? NO . ANGINA NO . HEART ATTACK NO . HEART SURGERY NO . CONGESTIVE HEART FAILURE/FLUID OVERLOAD NO . CHEST PAIN NO . HIGH BLOOD PRESSURE ON MEDICATION(S) . IRREGULAR HEART BEAT DIAGNOSED . RESPIRATORY: HAVE YOU BEEN SICK IN THE PAST WEEK? NO . FEVER NO . FLU LIKE SYMPTOMS? NO . CPAP NO . BYPAP NO . ASTHMA YES . EMPHYSEMA NO . CHRONIC LUNG DISEASES YES . SHORTNESS OF BREATH ON EXERTION NO . COUGH NO . SNORING NO . INTEGUMENTARY: DO YOU HAVE ANY RASHES OR OPEN SORES? NO . ALLERGIC/IMMUNO: ARE YOU ALLERGIC TO IV DYE? NO . ANY NEW ALLERGIES? NO . PSYCHIATRIC: DO YOU HAVE THOUGHTS OF HURTING YOURSELF OR SOMEONE ELSE? NO . ARE YOU ABUSED, NEGLECTED, OR IN AN UNSAFE ENVIRONMENT? NO . ENDOCRINOLOGY: ARE YOU DIABETIC? YES . THYROID DISORDER NO . OTHER: DO YOU NEED ANY PRESCRIPTIONS? NO . IF YES, PLEASE LIST: ____ . ANY NEW PROBLEMS WITH YOUR MEDICATIONS? NO . WHEN DID YOU LAST EAT? ____ . WHEN DID YOU LAST DRINK? ____ . WHAT DID YOU LAST DRINK? ____ . NAME OF PERSON DRIVING YOU HOME? ____ . DO YOU HAVE ANY OTHER QUESTIONS OR CONCERNS YES- WOULD LIKE TO KNOW WHAT OPTIONS ARE TO HELP WITH LOWER RIGHT BACK PAIN . VITAL SIGNS WT 112.2 LBS, HT 60 IN, BMI 21.91 INDEX, BP 143/67 MM HG, HR 78 /MIN, RR 18 /MIN, TEMP 97.2 F, OXYGEN SAT % 95%, SAFE IN ENV? (Y/N) YES, NA INITIALS AW 1502, REVIEWED BY: REILLY. EXAMINATION GENERAL EXAMINATION: PATIENT IS ALERT O X 3 AND COOPERATIVE. LUNGS CLEAR, TO AUSCULTATION. HEART: NO MURMURS OR GALLOPS; FACIAL CRANIAL NERVES ARE GROSSLY NORMAL. GOOD SYMMETRY OF FACIAL MUSCLE MOVEMENT. NORMAL VISUAL MALONEY. ANTALGIC WALK. TENDERNESS IN THE RIGHT LOW BACK AREA. PRESENCE OF BANDS OF TISSUE AND TRIGGER POINTS WITH RESTRICTION OF MOVEMENT OF THE RIGHT LOW BACK. MOVEMENT OVER THE RIGHT HIP PRODUCES PAIN. ASSESSMENTS MYALGIA, OTHER SITE - M79.18 (PRIMARY) LOW BACK PAIN - M54.5 OTHER CHRONIC PAIN - G89.29 RIGHT HIP PAIN - M25.551 TREATMENT MYALGIA, OTHER SITE CLINICAL NOTES: WE DISCUSSED SEVERAL ISSUES WITH MS. PRADHAN'S PAIN MANAGEMENT CASE. DUE TO THE TRIGGER POINTS, BANDS OF TISSUE, AND RESTRICTION OF MOVEMENT, I WOULD LIKE TO MOVE FORWARD WITH A TRIGGER POINT INJECTION AT THIS TIME. WE DISCUSSED THE BENEFITS, RISKS, AND ALTERNATIVES OF THE INJECTION AND THE PATIENT WOULD LIKE TO PROCEED. I WILL REQUEST FOR COPIES OF THE PATIENT'S RIGHT HIP IMAGING REPORTS. DEPENDING ON THE TRIGGER POINT INJECTION RESULTS, I MAY HAVE TO DISCUSS THE PATIENT'S CASE WITH HER ORTHOPEDIC SURGEON, DR. RYAN VILLEGAS IN [facility], REGARDING THE PATIENT'S RIGHT HIP PAIN. THE PATIENT WILL FOLLOW UP IN SEVERAL WEEKS AFTER HER INJECTION TO SEE HOW IT IS HELPING WITH HER PAIN. INSTRUCTIONS WERE GIVEN, QUESTIONS WERE ANSWERED, PATIENT REPORTS UNDERSTANDING AND AGREES WITH THE PLAN. I, DANIELE GAMBOA, DOCUMENTED THE ABOVE INFORMATION ACTING A SCRIBE FOR DR. MARROQUIN. I HAVE REVIEWED THE ABOVE DOCUMENT, WRITTEN BY DANIELE HENNING AND I VERIFY THAT IT IS ACCURATE. DEAR RONEL ZEPEDA MD: THANK YOU FOR YOUR KIND REFERRAL OF ASHER PRADHAN. IF YOU WANT TO DISCUSS HER CASE WITH ME PLEASE CALL ME AT THE PAIN CENTER AT [phone]. SINCERELY, ALEX MARROQUIN MD PAIN MEDICINE . PROCEDURE CODES FA211 ESTABILISHED PATIENT [facility] FACILITY CHARGE G8427 CURRENT MEDS W/DOSAGES DOCUMENTED G8730 PAIN ASSESS POS TOOL F/U PLAN DOC DISPOSITION & COMMUNICATION FOLLOW UP REASON: TPI ELECTRONICALLY SIGNED BY ALEX MARROQUIN MD, MD ON 01/24/2019 AT 04:54 PM EDT DISCLAIMER : THIS IS A VISIT SUMMARY EXTRACTED FROM THE Down CHART. IT IS NOT A COPY OF THE Blue [facility] PROGRESS NOTE. MONA
== END ==
LOC: M PAIN 15:00
PROVIDERS: ATTEND Anesthesiology
DX: M79.18 Myalgia, other site (principal); M54.5 Low back pain; G89.29 Other chronic pain; M25.551 Pain in right hip; I10 Essential (primary) hypertension; E11.9 Type 2 diabetes mellitus without complications; E78.5 Hyperlipidemia, unspecified; J45.909 Unspecified asthma, uncomplicated; Z96.643 Presence of artificial hip joint, bilateral; Z87.891 Personal history of nicotine dependence; Z88.1 Allergy status to other antibiotic agents; Z88.2 Allergy status to sulfonamides; Z88.5 Allergy status to narcotic agent; Z88.6 Allergy status to analgesic agent; Z88.7 Allergy status to serum and vaccine; Z88.8 Allergy status to other drugs, medicaments and biological substances; Z79.84 Long term (current) use of oral hypoglycemic drugs; Z79.899 Other long term (current) drug therapy

== ENCOUNTER → 2019-02-02 | Outpatient (CLI) | payer MEDICARE, BC ==
[~2019-02-02] MED LIST changes: +BUPIVACAINE HCL 0.25% 10 ML VIAL As Ordered ONE; +BUPIVACAINE HCL 0.25% 30 ML VIAL As Ordered ONE; +TRIAMCINOLONE ACETONIDE SUSP 40 MG/ML VIAL (J3301) As Ordered ONE; +diazePAM 2 MG TAB As Ordered ONE; +diphenhydrAMINE 25 MG CAP As Ordered ONE
--- NOTE | 2019-02-17 03:11 | ECWPNPC ---
PATIENT NAME: ASHER PRADHAN : 1935 GENDER: FEMALE VISIT DATE: 02/02/2019 DISCHARGE DATE: 02/02/19 1017 VISIT LOCKED DATE TIME: PHYSICIAN: ALEX MARROQUIN MD RESOURCE: ALEX MARROQUIN MD REASON FOR APPOINTMENT 1. PER SUNNI YOUSSEF WITH SONDRA HISTORY OF PRESENT ILLNESS HISTORY OF PRESENT ILLNESS: PAIN THE PATIENT DESCRIBES THE PAIN... FALL RISK SCREENING: SCREENING :NO FALLS REPORTED IN THE LAST YEAR CURRENT MEDICATIONS TAKING LANOXIN 0.[address] ARRIAGA 1 TABLET ORALLY ONCE A DAY TAKING ATENOLOL [address] ARRIAGA 1 TABLET ORALLY ONCE A DAY TAKING PREDNISONE [address] LAFLEUR 1 TABLET WITH FOOD OR MILK ORALLY ONCE A DAY, NOTES: 02/02/19 TAKING AMITRIPTYLINE HCL [address] ARRIAGA 1 TABLET AT BEDTIME ORALLY AT NIGHT TAKING ICAPS MV OTC TABLET 2 TAB ORALLY DAILY TAKING CALCIUM 1200MG TABLET 1 TAB ORALLY DAILY TAKING VITAMIN D3 1000 UNIT TABLET 1 TABLET ORALLY ONCE A DAY TAKING SIMVASTATIN 20 MG TABLET 1 TABLET EVERY EVENING ORALLY DAILY TAKING BUDESONIDE 1 MG/2ML DR LAFLEUR NASAL INHALATION ONCE A DAY TAKING VANIQA 13.9 % CREAM 1 APPLICATION A THIN FILM TO AFFECTED AREA EXTERNALLY TWICE A DAY TO CHIN AND UPPER LIP TAKING TRETINOIN (EMOLLIENT) 0.05 % CREAM 1 APPLICATION A ARETHA-SIZED AMOUNT TO FACE IN THE EVENING EXTERNALLY ONCE A DAY TO FACE AT PM TAKING ESOMEPRAZOLE MAGNESIUM 20 MG CAPSULE DELAYED RELEASE 1 CAPSULE ORALLY ONCE A DAY TAKING HYDROCODONE-ACETAMINOPHEN 5-325 MG TABLET 1 TABLET NEEDED ORALLY EVERY 6 HRS NEEDED, NOTES: > 2 WEEKS AGO TAKING METFORMIN HCL ER 750 MG TABLET EXTENDED RELEASE 24 HOUR 1 TABLET WITH EVENING MEAL ORALLY ONCE A DAY, NOTES: 02/01/19 NOT-TAKING NEXIUM [address] ZEPEDA 1 TAB ORALLY DAILY NOT-TAKING SALEX 6 % (LOTION) LOTION 1 APPLICATION TO BODY EXTERNALLY DAILY TO BODY MEDICATION LIST REVIEWED AND RECONCILED WITH THE PATIENT PAST MEDICAL HISTORY HYPERTENSION IRREGULAR HEART BEAT HYPERLIPIDEMIA ARTHRITIS ASTHMA ALLERGIES SULFA: RASH - ALLERGY TAVIST: SEVERE HEADACHES - ALLERGY GUIATEX: RASH - ALLERGY BIAXIN: RASH - ALLERGY CODEINE: SICK TO STOMACH - SIDE EFFECTS ERTHROMYCIN: RASH - ALLERGY DECLAMYCIN: RASH - ALLERGY DOXYCYCLINE: RASH/HEADACHE - ALLERGY TUSSIONEX: SICK TO STOMACH - SIDE EFFECTS DEMEROL: SICK TO STOMACH - SIDE EFFECTS ORUVAIL: RASH - ALLERGY SODIUM PENATOL: SICK TO STOMACH - SIDE EFFECTS SELDANE: HEADACHE - ALLERGY ROBITUSSIN: NOSEBLEED - ALLERGY AVELOX: SICK TO STOMACH/SORE MUSCLES - ALLERGY PNEUMONIA SHOT: ARM SWELL - ALLERGY ASPIRIN: COUGHING/WHEEZING - ALLERGY IBUPROFEN: CIUGHING/WHEEZING - ALLERGY CIPROFLOXACIN: DIARRHEA - SIDE EFFECTS LEVAQUIN: HEADACHE - SIDE EFFECTS CIPHENOXYLATE WITH ATROPINE: DIARRHEA - SIDE EFFECTS ALEVE: DYSPNEA - SIDE EFFECTS AMBIEN: NAUSEA/VOMITING - SIDE EFFECTS ATIVAN: NAUSEA/VOMITING - SIDE EFFECTS MORPHINE: NAUSEA/VOMITING - SIDE EFFECTS TOBRAMYCIN: HEADACHE - SIDE EFFECTS ALAZOPRAM: HEADACHE - SIDE EFFECTS AMOXICILLIN: HIVES - ALLERGY CEPHALEXIN: CHEST TIGHTNESS - ALLERGY CEFDINIR: NAUSEA/VOMITING - SIDE EFFECTS SURGICAL HISTORY CATARACT RIGHT EYE 11/23/09 HYSTERECTOMY 1980 RIGHT TOTAL HIP 01/2010 NASAL POLYPS REMOVED 02/29/2016 CATARACT LEFT EYE TONSILECTOMY 1943 GALLBLADDER REMOVAL 08/2005 DISCECTOMY WITH PLATE IN NECK 1995 BOWEL RESECTION 1979 RIGHT HIP REPLACEMENT 02/07/2011 SINUS SURGERY 09/12/2010 RIGHT FOOT SURGERY 08/13/14 TOTAL LEFT HIP REPLACEMENT 05/19/18 FAMILY HISTORY FATHER: , DIAGNOSED WITH HYPERTENSION MOTHER: , HYPERTENSION SIBLINGS: , SISTER SKIN CANCER MOTHER NAD FATHER HAD HEART ISSUES, 2 SISTERS HAD BREAST CANCER. SOCIAL HISTORY GENERAL: TOBACCO USE ARE YOU A:: FORMER SMOKER , HOW LONG HAS IT BEEN SINCE YOU LAST SMOKED?: > 10 YEARS. OTHERS AT HOME: NONE. HOUSING: OWNS HOME. EDUCATION LEVEL OF EDUCATION:NOT FINISHED COLLEGE DIET: REGULAR. LANGUAGE LANGUAGES SPOKEN:MEXICAN NEW PATIENT PAIN DIARY PATIENT DESCRIBES PAIN :ACHING, IT COMES AND GOES FROM 0-10, WHAT LEVEL IS YOUR PAIN TODAY?8 PRECIPITATING FACTORS ACTIVITIES LIKE CLEANING, VACCUMMING ECT ALLEVIATING FACTORS TYLENOL, REST IMPACT ON FUNCTION STATES SHE IS NOT ABLE TO DO MUCH SHE WOULD LIKE TO DO HAVE YOU BEEN SICK IN THE LAST WEEK (COLD, COUGH, FEVER, FLU, ETC)NO DO YOU TAKE ANY BLOOD THINNERS?NO DO YOU HAVE ANY RASHES OR OPEN SORES?NO ANY CHANGE IN BOWEL OR BLADDER CONTROL?NO ARE YOU ALLERGIC TO SHELLFISH OR IV DYE?NO ARE YOU DIABETIC?YES DO YOU HAVE A PACEMAKER OR DEFIBRILLATOR?NO HAVE YOU FALLEN IN THE LAST 6 MONTHS?NO DO YOU USE ANY TYPE OF TOBACCO (SMOKE, SMOKELESS, CHEW, ETC.)NO ARE YOU ABUSED, NEGLECTED, OR IN AN UNSAFE ENVIRONMENT?NO DO YOU HAVE THOUGHTS OF HURTING YOURSELF OR SOMEONE ELSE?NO DO YOU NEED ANY PRESCRIPTIONS?YES DO YOU HAVE ANY OTHER QUESTIONS OR CONCERNS?YES OPTIONS FOR PAIN CONTROL INTENSITY SCALE REVIEWEDNUMBER RECREATIONAL DRUG USE DRUG USE?NO PATIENT DENIES ABUSE OR MISSUSED OF ANY MEDICATION DENIES PATIENT DENIES USE OF ANY ILLEGAL SUBSTANCE INCLUDING MARIJUANA OR COCAINE DENIES EXERCISE: NO REGULAR EXERCISE. LEARNING BARRIERS / SPECIAL NEEDS BARRIERS TO LEARNING?NO HEARING IMPAIRED?NO VISION IMPAIRED?YES COGNITIVELY IMPAIRED?NO :CORRECTIVE LENSES READINESS TO LEARN?YES LEARNING PREFERENCES?NO LEARNING CAPABILITIES PRESENT?YES EMOTIONAL BARRIERS?NO SPECIAL DEVICES?NO ENCHILADA MAKER NEEDED?NO PAIN CLINIC PFS, CLERGY, PUBLIC HEALTH REFERRALS PFS REFERRAL NEEDED?NO CLERGY REFERRAL NEEDED?NO PUBLIC HEALTH REFERRAL NEEDED?NO WAS THE PROVIDER NOTIFIED OF ANY PERTINENT INFO?YES HAS THE PATIENT BEEN EDUCATED REGARDING HIS/HER PLAN OF CARE?YES HAS THE PATIENT BEEN EDUCATED REGARDING PAIN, THE RISK FOR PAIN, THE IMPORTANCE OF EFFECTIVE PAIN MANAGEMENT, AND THE PAIN ASSESSMENT PROCESS?YES LATEX QUESTIONNAIRE LATEX ALLERGY : HAVE YOU EVER DEVELOPED ANY TYPE OF REACTION AFTER HANDLING LATEX PRODUCTS SUCH RUBBER GLOVES, CONDOMS, DIAPHRAGMS, BALLOONS, SOCKS, OR UNDERWEAR?NO LATEX ALLERGY : HAVE YOU EVER DEVELOPED ANY TYPE OF REACTION DURING OR AFTER DENTAL APPOINTMENT, VAGINAL/RECTAL EXAMINATION, SURGICAL PROCEDURE, OR ANY OTHER EXPOSURE?NO DATE ASKED : 01/21/2019 LATEX RISK : HAVE YOU EVER HAD ANY DIFFICULTY BREATHING OR HIVES AFTER EATING OR HANDLING ANY FRUITS, OR VEGETABLES; SUCH KIWI, BANANAS, STONE FRUITS, OR CHESTNUTSNO LATEX RISK : DO YOU HAVE A PREVIOUS PERSONAL HISTORY OF MORE THAN NINE SURGERIES, SPINA BIFIDA, OR REPEATED CATHERIZATIONS? YES - PLEASE INDICATE : > 9 SURGERIES LATEX RISK : ARE YOU FREQUENTLY EXPOSED TO LATEX PRODUCTS IN YOUR OCCUPATION?NO CAFFEINE CAFFEINE USE?NO ADVANCE DIRECTIVE ADVANCE DIRECTIVE DISCUSSED WITH PATIENT:YES WILLAM SUAREZ (DAUGHTER) [phone] EPISCOPAL [id number] YAZDANISM MARITAL STATUS: . ALCOHOL SCREENING DID YOU HAVE A DRINK CONTAINING ALCOHOL IN THE PAST YEAR?NO POINTS0 INTERPRETATIONNEGATIVE OCCUPATION: RETIRED. REVIEWED WITH PATIENT 01/21/19 1615 NLJREVIEWED WITH PATIENT 02/02/19 LAS. HOSPITALIZATION/MAJOR DIAGNOSTIC PROCEDURE CATARACTS SURGERIES REVIEW OF SYSTEMS REVIEWED BY: PROVIDER: . CONSTITUTIONAL: ANY CHANGE IN YOUR MEDICAL CONDITION? NO . CHILLS NO . FEVER NO . INFECTION: DO YOU HAVE NEW INFECTIONS? YES WAS TREATED RECENTLY FOR A SINUS INFECTION, COMPLETED DOSE OF ANTIBIOTICS . DO YOU HAVE HISTORY OF MRSA? NO . MUSCULOSKELETAL: ANY NEW PATTERNS OF PAIN OR NUMBNESS? NO . GASTROENTEROLOGY: ANY NEW CHANGE IN BOWEL CONTROL? NO . GENITOURINARY: ANY NEW CHANGE IN BLADDER CONTROL? NO . IS THERE A CHANCE YOU COULD BE ? NO . HEMATOLOGY/LYMPH: DO YOU TAKE ANY BLOOD THINNERS? (FOR EXAMPLE- COUMADIN, PLAVIX, AGGRENOX, PLATEL, PRADAXA, OR XARELTO) NO . WHEN WAS YOUR LAST DOSE? DATE: TIME: . NEUROLOGY: HAVE YOU FALLEN IN THE PAST 12 MONTHS? NO . ANY NEW EXTREMITY NUMBNESS OR WEAKNESS? NO . CARDIOLOGY: DO YOU HAVE A PACEMAKER OR DEFIBRILLATOR? NO . RESPIRATORY: HAVE YOU BEEN SICK IN THE PAST WEEK? NO . FEVER NO . FLU LIKE SYMPTOMS? NO . COUGH NO . INTEGUMENTARY: DO YOU HAVE ANY RASHES OR OPEN SORES? NO . ALLERGIC/IMMUNO: ARE YOU ALLERGIC TO IV DYE? NO . ANY NEW ALLERGIES? NO . PSYCHIATRIC: DO YOU HAVE THOUGHTS OF HURTING YOURSELF OR SOMEONE ELSE? NO . ARE YOU ABUSED, NEGLECTED, OR IN AN UNSAFE ENVIRONMENT? NO . ENDOCRINOLOGY: ARE YOU DIABETIC? YES FBS 110 THIS AM . OTHER: DO YOU NEED ANY PRESCRIPTIONS? NO . IF YES, PLEASE LIST: ____ . ANY NEW PROBLEMS WITH YOUR MEDICATIONS? NO . WHEN DID YOU LAST EAT? ____02/01/19 1600 . WHEN DID YOU LAST DRINK? ____02/01/19 2100 . WHAT DID YOU LAST DRINK? ____WATER . NAME OF PERSON DRIVING YOU HOME? ____NIRANJAN PRADHAN . DO YOU HAVE ANY OTHER QUESTIONS OR CONCERNS NO . VITAL SIGNS WT 112.0 LBS, HT 60 IN, BMI 21.87 INDEX, BP 188/84 MM HG, HR 85 /MIN, RR 18 /MIN, TEMP 97.5 F, OXYGEN SAT % 97%, SAFE IN ENV? (Y/N) YES, NA INITIALS AW 0840, REVIEWED BY: ASSESSMENTS MYALGIA, OTHER SITE - M79.18 (PRIMARY) PROCEDURES PN TRIGGER POINT INJECTION WITH STEROIDS PRE PROCEDURE DIAGNOSIS 1. MYALGIA 2. PAIN AT RIGHT LOWER BACK AREA. POST PROCEDURE DIAGNOSIS 1. MYALGIA 2. PAIN AT RIGHT LOWER BACK AREA. PROCEDURE TRIGGER POINT INJECTION AT RIGHT LOWER BACK AREA. SURGEON DR. ALEX MARROQUIN CLINICAL LABORATORY SCIENCE PROFESSOR NONE ANESTHESIA LOCAL PRE PROCEDURE NOTE THE PATIENT HAS A HISTORY OF CHRONIC PAIN AT THE RIGHT LOWER BACK AREA. I EVALUATED THE PATIENT AND REVIEWED THE CHART. THERE IS EVIDENCE OF BANDS OF TISSUE WITH RESTRICTION OF MOVEMENT AND PRESENCE OF TRIGGER POINT AT THE AFFECTED AREA. I WENT OVER THE RISKS, ALTERNATIVES, AND BENEFITS ASSOCIATED WITH THIS PROCEDURE. THE PATIENT WOULD LIKE TO PROCEED AND GIVES CONSENT TO PERFORM THE PROCEDURE. THE PATIENT DENIES UNEXPLAINABLE WEIGHT LOSS, FEVER, CHILLS, OR NEW CHANGES IN URINARY OR BOWEL CONTROL DESCRIPTION OF PROCEDURE THE PATIENT WAS BROUGHT TO THE PROCEDURE ROOM AND PLACED IN THE SITTING POSITION. THE AREA WAS CLEANED WITH ALCOHOL. THE PROCEDURE WAS DONE USING ASEPTIC STERILE TECHNIQUE. I CHECKED LATERALITY AND THE LEVEL WHERE THE PROCEDURE WAS GOING TO BE PERFORMED WITH THE PATIENT AND THE SUPPORTING STAFF AT THE MOMENT OF THE TIME OUT IN THE PROCEDURE ROOM. USING A 25-GAUGE NEEDLE, TRIGGER POINTS WERE INJECTED AT THE RIGHT LOWER BACK AREA WITH A TOTAL OF 40 ML OF BUPIVACAINE 0.25% AND KENALOG 40 MG. THERE WAS NO EVIDENCE OF BLOOD, PARESTHESIA OR CEREBROSPINAL FLUID DURING THE PROCEDURE. THE PATIENT WAS SENT TO THE RECOVERY ROOM. THE PATIENT WAS MOVING THE EXTREMITIES AND DOING WELL. THERE WAS NO COMPLICATION DURING THE PROCEDURE POST PROCEDURE NOTE THE PATIENT WILL BE SEEN IN A FOLLOW UP IN THE NEXT FEW WEEKS. INSTRUCTIONS WERE GIVEN, QUESTIONS WERE ANSWERED, AND THE PATIENT EXPRESSED UNDERSTANDING AND AGREES WITH THE PLAN. I, DANIELE GAMBOA, DOCUMENTED THE ABOVE INFORMATION ACTING A SCRIBE FOR DR. MARROQUIN. I HAVE REVIEWED THE ABOVE DOCUMENT, WRITTEN BY DANIELE HENNING AND I VERIFY THAT IT IS ACCURATE. PROCEDURE CODES 97734 INJ TRIGGER POINT /2 [facility] [place] DISPOSITION & COMMUNICATION FOLLOW UP 3 WEEKS ELECTRONICALLY SIGNED BY ALEX MARROQUIN MD, MD ON 02/16/2019 AT 05:28 PM EST DISCLAIMER : THIS IS A VISIT SUMMARY EXTRACTED FROM THE [employer] CHART. IT IS NOT A COPY OF THE [employer] PROGRESS NOTE. MONA
== END ==
LOC: M PAIN 08:30
PROVIDERS: ATTEND Anesthesiology
DX: M79.18 Myalgia, other site (principal); I10 Essential (primary) hypertension; E11.9 Type 2 diabetes mellitus without complications; E78.5 Hyperlipidemia, unspecified; J45.909 Unspecified asthma, uncomplicated; Z96.643 Presence of artificial hip joint, bilateral; Z87.891 Personal history of nicotine dependence; Z88.1 Allergy status to other antibiotic agents; Z88.2 Allergy status to sulfonamides; Z88.5 Allergy status to narcotic agent; Z88.6 Allergy status to analgesic agent; Z88.7 Allergy status to serum and vaccine; Z88.8 Allergy status to other drugs, medicaments and biological substances; Z79.84 Long term (current) use of oral hypoglycemic drugs; Z79.899 Other long term (current) drug therapy
CPT/HCPCS: 20552; J3301

== ENCOUNTER → 2019-02-17 | Outpatient (CLI) | payer MEDICARE, BC ==
[~2019-02-17] MED LIST changes: -BUPIVACAINE HCL 0.25% 10 ML VIAL As Ordered ONE; -BUPIVACAINE HCL 0.25% 30 ML VIAL As Ordered ONE; -SIMV40TA2 PO; +SIMV40TA20 PO; -TRIAMCINOLONE ACETONIDE SUSP 40 MG/ML VIAL (J3301) As Ordered ONE; -diazePAM 2 MG TAB As Ordered ONE; -diphenhydrAMINE 25 MG CAP As Ordered ONE
--- NOTE | 2019-03-05 02:23 | ECWPNPC ---
PATIENT NAME: ASHER PRADHAN : 1935 GENDER: FEMALE VISIT DATE: 02/17/2019 DISCHARGE DATE: 02/17/19 0000 VISIT LOCKED DATE TIME: PHYSICIAN: JESSICA ANDERSON RESOURCE: JESSICA ANDERSON REASON FOR APPOINTMENT 1. POST TPI HISTORY OF PRESENT ILLNESS HISTORY OF PRESENT ILLNESS: HERE FOR POST PROCEDURE F/U.HAD TPI RIGHT LOW BACK AREA ON 02/02/19.REPORTING IMPROVED PAIN CONTROL SINCE PROCEDURE.REPORTING IMPROVED TOLERANCE TO SITTING IN CAR AND DRIVING.RATING PAIN VAS 0-5/10. PAIN THE PATIENT DESCRIBES THE PAIN... FALL RISK SCREENING: SCREENING :NO FALLS REPORTED IN THE LAST YEAR CURRENT MEDICATIONS TAKING LANOXIN 0.[address] ARRIAGA 1 TABLET ORALLY ONCE A DAY TAKING ATENOLOL [address] ARRIAGA 1 TABLET ORALLY ONCE A DAY TAKING PREDNISONE [address] LAFLEUR 1 TABLET WITH FOOD OR MILK ORALLY ONCE A DAY TAKING AMITRIPTYLINE HCL [address] ARRIAGA 1 TABLET AT BEDTIME ORALLY AT NIGHT TAKING ICAPS MV OTC TABLET 2 TAB ORALLY DAILY TAKING CALCIUM 1200MG TABLET 1 TAB ORALLY DAILY TAKING VITAMIN D3 1000 UNIT TABLET 1 TABLET ORALLY ONCE A DAY TAKING SIMVASTATIN 20 MG TABLET 1 TABLET EVERY EVENING ORALLY DAILY TAKING BUDESONIDE 1 MG/2ML DR LAFLEUR NASAL INHALATION ONCE A DAY TAKING VANIQA 13.9 % CREAM 1 APPLICATION A THIN FILM TO AFFECTED AREA EXTERNALLY TWICE A DAY TO CHIN AND UPPER LIP TAKING TRETINOIN (EMOLLIENT) 0.05 % CREAM 1 APPLICATION A ARETHA-SIZED AMOUNT TO FACE IN THE EVENING EXTERNALLY ONCE A DAY TO FACE AT PM TAKING ESOMEPRAZOLE MAGNESIUM 20 MG CAPSULE DELAYED RELEASE 1 CAPSULE ORALLY ONCE A DAY TAKING HYDROCODONE-ACETAMINOPHEN 5-325 MG TABLET 1 TABLET NEEDED ORALLY EVERY 6 HRS NEEDED TAKING METFORMIN HCL ER 750 MG TABLET EXTENDED RELEASE 24 HOUR 1 TABLET WITH EVENING MEAL ORALLY ONCE A DAY NOT-TAKING NEXIUM [address] ZEPEDA 1 TAB ORALLY DAILY NOT-TAKING SALEX 6 % (LOTION) LOTION 1 APPLICATION TO BODY EXTERNALLY DAILY TO BODY MEDICATION LIST REVIEWED AND RECONCILED WITH THE PATIENT PAST MEDICAL HISTORY HYPERTENSION IRREGULAR HEART BEAT HYPERLIPIDEMIA ARTHRITIS ASTHMA DM ALLERGIES SULFA: RASH - ALLERGY TAVIST: SEVERE HEADACHES - ALLERGY GUIATEX: RASH - ALLERGY BIAXIN: RASH - ALLERGY CODEINE: SICK TO STOMACH - SIDE EFFECTS ERTHROMYCIN: RASH - ALLERGY DECLAMYCIN: RASH - ALLERGY DOXYCYCLINE: RASH/HEADACHE - ALLERGY TUSSIONEX: SICK TO STOMACH - SIDE EFFECTS DEMEROL: SICK TO STOMACH - SIDE EFFECTS ORUVAIL: RASH - ALLERGY SODIUM PENATOL: SICK TO STOMACH - SIDE EFFECTS SELDANE: HEADACHE - ALLERGY ROBITUSSIN: NOSEBLEED - ALLERGY AVELOX: SICK TO STOMACH/SORE MUSCLES - ALLERGY PNEUMONIA SHOT: ARM SWELL - ALLERGY ASPIRIN: COUGHING/WHEEZING - ALLERGY IBUPROFEN: CIUGHING/WHEEZING - ALLERGY CIPROFLOXACIN: DIARRHEA - SIDE EFFECTS LEVAQUIN: HEADACHE - SIDE EFFECTS CIPHENOXYLATE WITH ATROPINE: DIARRHEA - SIDE EFFECTS ALEVE: DYSPNEA - SIDE EFFECTS AMBIEN: NAUSEA/VOMITING - SIDE EFFECTS ATIVAN: NAUSEA/VOMITING - SIDE EFFECTS MORPHINE: NAUSEA/VOMITING - SIDE EFFECTS TOBRAMYCIN: HEADACHE - SIDE EFFECTS ALAZOPRAM: HEADACHE - SIDE EFFECTS AMOXICILLIN: HIVES - ALLERGY CEPHALEXIN: CHEST TIGHTNESS - ALLERGY CEFDINIR: NAUSEA/VOMITING - SIDE EFFECTS SURGICAL HISTORY CATARACT RIGHT EYE 11/23/09 HYSTERECTOMY 1980 RIGHT TOTAL HIP 01/2010 NASAL POLYPS REMOVED 02/29/2016 CATARACT LEFT EYE TONSILECTOMY 1943 GALLBLADDER REMOVAL 08/2005 DISCECTOMY WITH PLATE IN NECK 1995 BOWEL RESECTION 1979 RIGHT HIP REPLACEMENT 02/07/2011 SINUS SURGERY 09/12/2010 RIGHT FOOT SURGERY 08/13/14 TOTAL LEFT HIP REPLACEMENT 05/19/18 FAMILY HISTORY FATHER: , DIAGNOSED WITH HYPERTENSION MOTHER: , HYPERTENSION SIBLINGS: , SISTER SKIN CANCER MOTHER NAD FATHER HAD HEART ISSUES, 2 SISTERS HAD BREAST CANCER. SOCIAL HISTORY GENERAL: TOBACCO USE ARE YOU A:: FORMER SMOKER , HOW LONG HAS IT BEEN SINCE YOU LAST SMOKED?: > 10 YEARS. OTHERS AT HOME: NONE. HOUSING: OWNS HOME. EDUCATION LEVEL OF EDUCATION:NOT FINISHED COLLEGE DIET: REGULAR. LANGUAGE LANGUAGES SPOKEN:CENTRAL AFRICAN NEW PATIENT PAIN DIARY PATIENT DESCRIBES PAIN :ACHING, IT COMES AND GOES FROM 0-10, WHAT LEVEL IS YOUR PAIN TODAY?8 PRECIPITATING FACTORS ACTIVITIES LIKE CLEANING, VACCUMMING ECT ALLEVIATING FACTORS TYLENOL, REST IMPACT ON FUNCTION STATES SHE IS NOT ABLE TO DO MUCH SHE WOULD LIKE TO DO HAVE YOU BEEN SICK IN THE LAST WEEK (COLD, COUGH, FEVER, FLU, ETC)NO DO YOU TAKE ANY BLOOD THINNERS?NO DO YOU HAVE ANY RASHES OR OPEN SORES?NO ANY CHANGE IN BOWEL OR BLADDER CONTROL?NO ARE YOU ALLERGIC TO SHELLFISH OR IV DYE?NO ARE YOU DIABETIC?YES DO YOU HAVE A PACEMAKER OR DEFIBRILLATOR?NO HAVE YOU FALLEN IN THE LAST 6 MONTHS?NO DO YOU USE ANY TYPE OF TOBACCO (SMOKE, SMOKELESS, CHEW, ETC.)NO ARE YOU ABUSED, NEGLECTED, OR IN AN UNSAFE ENVIRONMENT?NO DO YOU HAVE THOUGHTS OF HURTING YOURSELF OR SOMEONE ELSE?NO DO YOU NEED ANY PRESCRIPTIONS?YES DO YOU HAVE ANY OTHER QUESTIONS OR CONCERNS?YES OPTIONS FOR PAIN CONTROL INTENSITY SCALE REVIEWEDNUMBER RECREATIONAL DRUG USE DRUG USE?NO PATIENT DENIES ABUSE OR MISSUSED OF ANY MEDICATION DENIES PATIENT DENIES USE OF ANY ILLEGAL SUBSTANCE INCLUDING MARIJUANA OR COCAINE DENIES EXERCISE: NO REGULAR EXERCISE. LEARNING BARRIERS / SPECIAL NEEDS BARRIERS TO LEARNING?NO HEARING IMPAIRED?NO VISION IMPAIRED?YES COGNITIVELY IMPAIRED?NO :CORRECTIVE LENSES READINESS TO LEARN?YES LEARNING PREFERENCES?NO LEARNING CAPABILITIES PRESENT?YES EMOTIONAL BARRIERS?NO SPECIAL DEVICES?NO MACHINE SETTER AND REPAIRER NEEDED?NO PAIN CLINIC PFS, CLERGY, PUBLIC HEALTH REFERRALS PFS REFERRAL NEEDED?NO CLERGY REFERRAL NEEDED?NO PUBLIC HEALTH REFERRAL NEEDED?NO WAS THE PROVIDER NOTIFIED OF ANY PERTINENT INFO?YES HAS THE PATIENT BEEN EDUCATED REGARDING HIS/HER PLAN OF CARE?YES HAS THE PATIENT BEEN EDUCATED REGARDING PAIN, THE RISK FOR PAIN, THE IMPORTANCE OF EFFECTIVE PAIN MANAGEMENT, AND THE PAIN ASSESSMENT PROCESS?YES LATEX QUESTIONNAIRE LATEX ALLERGY : HAVE YOU EVER DEVELOPED ANY TYPE OF REACTION AFTER HANDLING LATEX PRODUCTS SUCH RUBBER GLOVES, CONDOMS, DIAPHRAGMS, BALLOONS, SOCKS, OR UNDERWEAR?NO LATEX ALLERGY : HAVE YOU EVER DEVELOPED ANY TYPE OF REACTION DURING OR AFTER DENTAL APPOINTMENT, VAGINAL/RECTAL EXAMINATION, SURGICAL PROCEDURE, OR ANY OTHER EXPOSURE?NO LATEX RISK : HAVE YOU EVER HAD ANY DIFFICULTY BREATHING OR HIVES AFTER EATING OR HANDLING ANY FRUITS, OR VEGETABLES; SUCH KIWI, BANANAS, STONE FRUITS, OR CHESTNUTSNO LATEX RISK : DO YOU HAVE A PREVIOUS PERSONAL HISTORY OF MORE THAN NINE SURGERIES, SPINA BIFIDA, OR REPEATED CATHERIZATIONS? YES - PLEASE INDICATE : > 9 SURGERIES LATEX RISK : ARE YOU FREQUENTLY EXPOSED TO LATEX PRODUCTS IN YOUR OCCUPATION?NO DATE ASKED : 01/21/2019 CAFFEINE CAFFEINE USE?NO ADVANCE DIRECTIVE ADVANCE DIRECTIVE DISCUSSED WITH PATIENT:YES WILLAM SUAREZ (DAUGHTER) [phone] AND YOGI PRADHAN (SON) RESTORATIONISM [id number] ALEVISM MARITAL STATUS: . ALCOHOL SCREENING DID YOU HAVE A DRINK CONTAINING ALCOHOL IN THE PAST YEAR?NO POINTS0 INTERPRETATIONNEGATIVE OCCUPATION: RETIRED. REVIEWED WITH PATIENT 01/21/19 1615 NLJREVIEWED WITH PATIENT 02/02/19 LASREVIEWED WITH PATIENT 02/17/19 [id number] JS. HOSPITALIZATION/MAJOR DIAGNOSTIC PROCEDURE CATARACTS SURGERIES REVIEW OF SYSTEMS REVIEWED BY: PROVIDER: JESSICA ROMERO . CONSTITUTIONAL: ANY CHANGE IN YOUR MEDICAL CONDITION? NO . CHILLS NO . FEVER NO . INFECTION: DO YOU HAVE NEW INFECTIONS? NO . DO YOU HAVE HISTORY OF MRSA? NO . MUSCULOSKELETAL: ANY NEW PATTERNS OF PAIN OR NUMBNESS? YES, PAIN HAS DECREASED SINCE INJECTION . GASTROENTEROLOGY: ANY NEW CHANGE IN BOWEL CONTROL? NO . GENITOURINARY: ANY NEW CHANGE IN BLADDER CONTROL? NO . IS THERE A CHANCE YOU COULD BE ? NO . HEMATOLOGY/LYMPH: DO YOU TAKE ANY BLOOD THINNERS? (FOR EXAMPLE- COUMADIN, PLAVIX, AGGRENOX, PLATEL, PRADAXA, OR XARELTO) NO . WHEN WAS YOUR LAST DOSE? DATE: TIME: . NEUROLOGY: HAVE YOU FALLEN IN THE PAST 12 MONTHS? NO . ANY NEW EXTREMITY NUMBNESS OR WEAKNESS? NO . CARDIOLOGY: DO YOU HAVE A PACEMAKER OR DEFIBRILLATOR? NO . RESPIRATORY: HAVE YOU BEEN SICK IN THE PAST WEEK? NO . FEVER NO . FLU LIKE SYMPTOMS? NO . COUGH NO . INTEGUMENTARY: DO YOU HAVE ANY RASHES OR OPEN SORES? NO . ALLERGIC/IMMUNO: ARE YOU ALLERGIC TO IV DYE? NO . ANY NEW ALLERGIES? NO . PSYCHIATRIC: DO YOU HAVE THOUGHTS OF HURTING YOURSELF OR SOMEONE ELSE? NO . ARE YOU ABUSED, NEGLECTED, OR IN AN UNSAFE ENVIRONMENT? NO . ENDOCRINOLOGY: ARE YOU DIABETIC? YES . OTHER: DO YOU NEED ANY PRESCRIPTIONS? NO . IF YES, PLEASE LIST: ____ . ANY NEW PROBLEMS WITH YOUR MEDICATIONS? NO . WHEN DID YOU LAST EAT? ____ . WHEN DID YOU LAST DRINK? ____ . WHAT DID YOU LAST DRINK? ____ . NAME OF PERSON DRIVING YOU HOME? ____ . DO YOU HAVE ANY OTHER QUESTIONS OR CONCERNS NO . VITAL SIGNS WT 112.8 LBS, HT 60 IN, BMI 22.03 INDEX, BP 159/71 MM HG, HR 57 /MIN, RR 16 /MIN, TEMP 97.5 F, OXYGEN SAT % 97%, SAFE IN ENV? (Y/N) YES, NA INITIALS RI 09:49, REVIEWED BY: AVELINA. EXAMINATION GENERAL EXAMINATION: GENERAL AWAKE,ALERT ,PLEASANT . PSYCH AFFECT NORMAL . LUNGS: LUNG MALONEY ARE CLEAR TO AUSCULTATION BILATERALLY. GOOD MOVEMENT OF AIR . HEART: S1, S2 IN A REGULAR RATE AND RHYTHM. NO SIGNIFICANT MURMURS, RUBS OR GALLOPS NOTED . MUSCULOSKELETAL: MUSCLE STRENGTH TESTING 4/5 BILATERAL LOWER EXTREMITIES. LUMBAR SACRAL SPINE TRIGGER POINTS:, ELICITED WITH PALPATION OVER RIGHT LUMBAR PARAVERTEBRAL MUSCLES AND RESTRICTION OF ROM IN THIS AREA. TENDER OVER RIGHT LUMBAR FACETS. ASSESSMENTS MYALGIA, OTHER SITE - M79.18 (PRIMARY) TREATMENT MYALGIA, OTHER SITE NOTES: CONTINUE HOME STRETCHING AND WALKING PROGRAM. PROCEDURE CODES FA211 ESTABILISHED PATIENT [facility] CHARGE DISPOSITION & COMMUNICATION FOLLOW UP 2 MONTHS ELECTRONICALLY SIGNED BY HEATHER MENARD ON 03/04/2019 AT 08:35 AM EST DISCLAIMER : THIS IS A VISIT SUMMARY EXTRACTED FROM THE [employer] CHART. IT IS NOT A COPY OF THE [employer] PROGRESS NOTE. MONA
== END ==
LOC: M PAIN 09:30
PROVIDERS: ATTEND Nurse Practitioner Family
DX: M79.18 Myalgia, other site (principal); I10 Essential (primary) hypertension; E78.5 Hyperlipidemia, unspecified; J45.909 Unspecified asthma, uncomplicated; E11.9 Type 2 diabetes mellitus without complications; Z96.643 Presence of artificial hip joint, bilateral; Z87.891 Personal history of nicotine dependence; Z88.1 Allergy status to other antibiotic agents; Z88.2 Allergy status to sulfonamides; Z88.5 Allergy status to narcotic agent; Z88.7 Allergy status to serum and vaccine; Z88.8 Allergy status to other drugs, medicaments and biological substances; Z79.84 Long term (current) use of oral hypoglycemic drugs; Z79.899 Other long term (current) drug therapy

== ENCOUNTER → 2019-04-06 | Outpatient (CLI) | payer MEDICARE, BC ==
--- NOTE | 2019-04-06 12:34 | REP ---
CT ABDOMEN AND PELVIS WITHOUT IV OR ORAL CONTRAST: HISTORY: Right lower quadrant pain and tenderness to palpation persists. Comparison CT study is from January 15, 2018. CT FINDINGS: Preliminary digital manager of internal audit radiograph demonstrates a normal bowel gas pattern and bilateral hip arthroplasties. There is a dextroconvex lumbar curve, and there are clips in the right upper quadrant. The lung bases are clear except for some right and left lower lobe fibrosis. No pleural effusion. The liver and the spleen are normal in size and homogeneous in texture. Gallbladder surgically absent. No adrenal lesion is seen. There is a small sliding-type hiatal hernia. No abnormality is noted in the pancreas. There is a peripheral, predominately fat-containing right renal mass measuring 2.4 cm in greatest diameter consistent with an angiomyolipoma. This is unchanged from the January 15, 2018 prior study. No other renal mass lesion is observed. No hydronephrosis or calculus is seen. Vascular calcifications noted in the aorta without evidence of aneurysm. The appendix is surgically absent. There is some scattered diverticulosis affecting the ascending colon. There is no CT evidence of diverticulitis. There is an anastomosis in the region of the rectosigmoid colon. Formed stool is present in this location. There is no evidence of obstructive findings. No abdominal wall defect is appreciated. No bony destructive lesion. IMPRESSION: Moderate formed stool in the region of the rectosigmoid anastomosis. Scattered right colonic diverticula. Vascular calcification. Stable benign angiomyolipoma right kidney. No acute abdominal or pelvic abnormality. Electronically Signed by Niraj Hernandez MD 04/06/2019 01:24 P
== END ==
LOC: M RAD 10:46
PROVIDERS: ATTEND Registered Nurse
DX: R10.9 Unspecified abdominal pain (principal)

== ENCOUNTER → 2019-04-24 | Outpatient (REF) | payer MEDICARE, BC | LOC: M LAB REF 11:59 | PROVIDERS: ATTEND Internal Medicine | DX: Z79.899 Other long term (current) drug therapy (principal); I12.9 Hypertensive chronic kidney disease with stage 1 through stage 4 chronic kidney disease, or unspecified chronic kidney disease; T38.0X5D Adverse effect of glucocorticoids and synthetic analogues, subsequent encounter ==

== ENCOUNTER → 2019-06-05 | Outpatient (CLI) | payer MEDICARE, BC ==
--- NOTE | 2019-06-09 00:18 | ECWPNPC ---
PATIENT NAME: TOO PRADHAN : 1935 GENDER: FEMALE VISIT DATE: 06/05/2019 DISCHARGE DATE: 06/05/19 1047 VISIT LOCKED DATE TIME: PHYSICIAN: JESSICA ANDERSON RESOURCE: JESSICA ANDERSON REASON FOR APPOINTMENT 1. LOW BACK PAIN HISTORY OF PRESENT ILLNESS HISTORY OF PRESENT ILLNESS: HERE FOR FOLLOW-UP OF CHRONIC LOW BACK PAIN, RIGHT GREATER THAN LEFT. HEAD TRIGGER POINT INJECTIONS IN JANUARY AND CONTINUES TO BENEFIT FROM THEM TO A CERTAIN EXTENT. DOES REPORT LEVELS OF 5-10 OVER 10 PERIODICALLY AND DESCRIBES PAIN STABBING AND BURNING. REVIEWED MRI. DISCUSSED TREATMENT OPTIONS. PAIN THE PATIENT DESCRIBES THE PAIN... FALL RISK SCREENING: SCREENING :NO FALLS REPORTED IN THE LAST YEAR CURRENT MEDICATIONS TAKING LANOXIN 0.[address] ARRIAGA 1 TABLET ORALLY ONCE A DAY TAKING ATENOLOL [address] ARRIAGA 1 TABLET ORALLY ONCE A DAY TAKING PREDNISONE [address] LAFLEUR 1 TABLET WITH FOOD OR MILK ORALLY ONCE A DAY TAKING AMITRIPTYLINE HCL [address] ARRIAGA 1 TABLET AT BEDTIME ORALLY AT NIGHT TAKING ICAPS MV OTC TABLET 2 TAB ORALLY DAILY TAKING CALCIUM 1200MG TABLET 1 TAB ORALLY DAILY TAKING VITAMIN D3 1000 UNIT TABLET 1 TABLET ORALLY ONCE A DAY TAKING SIMVASTATIN 20 MG TABLET 1 TABLET EVERY EVENING ORALLY DAILY TAKING BUDESONIDE 1 MG/2ML DR LAFLEUR NASAL INHALATION ONCE A DAY TAKING VANIQA 13.9 % CREAM 1 APPLICATION A THIN FILM TO AFFECTED AREA EXTERNALLY TWICE A DAY TO CHIN AND UPPER LIP TAKING TRETINOIN (EMOLLIENT) 0.05 % CREAM 1 APPLICATION A ARETHA-SIZED AMOUNT TO FACE IN THE EVENING EXTERNALLY ONCE A DAY TO FACE AT PM TAKING ESOMEPRAZOLE MAGNESIUM 20 MG CAPSULE DELAYED RELEASE 1 CAPSULE ORALLY ONCE A DAY TAKING HYDROCODONE-ACETAMINOPHEN 5-325 MG TABLET 1 TABLET NEEDED ORALLY EVERY 6 HRS NEEDED NOT-TAKING METFORMIN HCL ER 750 MG TABLET EXTENDED RELEASE 24 HOUR 1 TABLET WITH EVENING MEAL ORALLY ONCE A DAY NOT-TAKING NEXIUM [address] ZEPEDA 1 TAB ORALLY DAILY NOT-TAKING SALEX 6 % (LOTION) LOTION 1 APPLICATION TO BODY EXTERNALLY DAILY TO BODY MEDICATION LIST REVIEWED AND RECONCILED WITH THE PATIENT PAST MEDICAL HISTORY HYPERTENSION IRREGULAR HEART BEAT HYPERLIPIDEMIA ARTHRITIS ASTHMA DM ALLERGIES SULFA: RASH - ALLERGY TAVIST: SEVERE HEADACHES - ALLERGY GUIATEX: RASH - ALLERGY BIAXIN: RASH - ALLERGY CODEINE: SICK TO STOMACH - SIDE EFFECTS ERTHROMYCIN: RASH - ALLERGY DECLAMYCIN: RASH - ALLERGY DOXYCYCLINE: RASH/HEADACHE - ALLERGY TUSSIONEX: SICK TO STOMACH - SIDE EFFECTS DEMEROL: SICK TO STOMACH - SIDE EFFECTS ORUVAIL: RASH - ALLERGY SODIUM PENATOL: SICK TO STOMACH - SIDE EFFECTS SELDANE: HEADACHE - ALLERGY ROBITUSSIN: NOSEBLEED - ALLERGY AVELOX: SICK TO STOMACH/SORE MUSCLES - ALLERGY PNEUMONIA SHOT: ARM SWELL - ALLERGY ASPIRIN: COUGHING/WHEEZING - ALLERGY IBUPROFEN: CIUGHING/WHEEZING - ALLERGY CIPROFLOXACIN: DIARRHEA - SIDE EFFECTS LEVAQUIN: HEADACHE - SIDE EFFECTS CIPHENOXYLATE WITH ATROPINE: DIARRHEA - SIDE EFFECTS ALEVE: DYSPNEA - SIDE EFFECTS AMBIEN: NAUSEA/VOMITING - SIDE EFFECTS ATIVAN: NAUSEA/VOMITING - SIDE EFFECTS MORPHINE: NAUSEA/VOMITING - SIDE EFFECTS TOBRAMYCIN: HEADACHE - SIDE EFFECTS ALAZOPRAM: HEADACHE - SIDE EFFECTS AMOXICILLIN: HIVES - ALLERGY CEPHALEXIN: CHEST TIGHTNESS - ALLERGY CEFDINIR: RASH - SIDE EFFECTS SURGICAL HISTORY CATARACT RIGHT EYE 11/23/09 HYSTERECTOMY 1980 RIGHT TOTAL HIP 01/2010 NASAL POLYPS REMOVED 02/29/2016 CATARACT LEFT EYE TONSILECTOMY 1943 GALLBLADDER REMOVAL 08/2005 DISCECTOMY WITH PLATE IN NECK 1995 BOWEL RESECTION 1979 RIGHT HIP REPLACEMENT 02/07/2011 SINUS SURGERY 09/12/2010 RIGHT FOOT SURGERY 08/13/14 TOTAL LEFT HIP REPLACEMENT 05/19/18 FAMILY HISTORY FATHER: , DIAGNOSED WITH HYPERTENSION MOTHER: , HYPERTENSION SIBLINGS: , SISTER SKIN CANCER MOTHER NAD FATHER HAD HEART ISSUES, 2 SISTERS HAD BREAST CANCER. SOCIAL HISTORY GENERAL: TOBACCO USE ARE YOU A:: FORMER SMOKER , HOW LONG HAS IT BEEN SINCE YOU LAST SMOKED?: > 10 YEARS. OTHERS AT HOME: NONE. HOUSING: OWNS HOME. EDUCATION LEVEL OF EDUCATION:NOT FINISHED COLLEGE DIET: REGULAR. LANGUAGE LANGUAGES SPOKEN:WOLOF NEW PATIENT PAIN DIARY PATIENT DESCRIBES PAIN :ACHING, IT COMES AND GOES FROM 0-10, WHAT LEVEL IS YOUR PAIN TODAY?8 PRECIPITATING FACTORS ACTIVITIES LIKE CLEANING, VACCUMMING ECT ALLEVIATING FACTORS TYLENOL, REST IMPACT ON FUNCTION STATES SHE IS NOT ABLE TO DO MUCH SHE WOULD LIKE TO DO HAVE YOU BEEN SICK IN THE LAST WEEK (COLD, COUGH, FEVER, FLU, ETC)NO DO YOU TAKE ANY BLOOD THINNERS?NO DO YOU HAVE ANY RASHES OR OPEN SORES?NO ANY CHANGE IN BOWEL OR BLADDER CONTROL?NO ARE YOU ALLERGIC TO SHELLFISH OR IV DYE?NO ARE YOU DIABETIC?YES DO YOU HAVE A PACEMAKER OR DEFIBRILLATOR?NO HAVE YOU FALLEN IN THE LAST 6 MONTHS?NO DO YOU USE ANY TYPE OF TOBACCO (SMOKE, SMOKELESS, CHEW, ETC.)NO ARE YOU ABUSED, NEGLECTED, OR IN AN UNSAFE ENVIRONMENT?NO DO YOU HAVE THOUGHTS OF HURTING YOURSELF OR SOMEONE ELSE?NO DO YOU NEED ANY PRESCRIPTIONS?YES DO YOU HAVE ANY OTHER QUESTIONS OR CONCERNS?YES OPTIONS FOR PAIN CONTROL INTENSITY SCALE REVIEWEDNUMBER RECREATIONAL DRUG USE DRUG USE?NO PATIENT DENIES ABUSE OR MISSUSED OF ANY MEDICATION DENIES PATIENT DENIES USE OF ANY ILLEGAL SUBSTANCE INCLUDING MARIJUANA OR COCAINE DENIES EXERCISE: NO REGULAR EXERCISE. LEARNING BARRIERS / SPECIAL NEEDS BARRIERS TO LEARNING?NO HEARING IMPAIRED?NO VISION IMPAIRED?YES COGNITIVELY IMPAIRED?NO :CORRECTIVE LENSES READINESS TO LEARN?YES LEARNING PREFERENCES?NO LEARNING CAPABILITIES PRESENT?YES EMOTIONAL BARRIERS?NO SPECIAL DEVICES?NO CANE LOADER NEEDED?NO PAIN CLINIC PFS, CLERGY, PUBLIC HEALTH REFERRALS PFS REFERRAL NEEDED?NO CLERGY REFERRAL NEEDED?NO PUBLIC HEALTH REFERRAL NEEDED?NO WAS THE PROVIDER NOTIFIED OF ANY PERTINENT INFO?YES HAS THE PATIENT BEEN EDUCATED REGARDING HIS/HER PLAN OF CARE?YES HAS THE PATIENT BEEN EDUCATED REGARDING PAIN, THE RISK FOR PAIN, THE IMPORTANCE OF EFFECTIVE PAIN MANAGEMENT, AND THE PAIN ASSESSMENT PROCESS?YES LATEX QUESTIONNAIRE LATEX ALLERGY : HAVE YOU EVER DEVELOPED ANY TYPE OF REACTION AFTER HANDLING LATEX PRODUCTS SUCH RUBBER GLOVES, CONDOMS, DIAPHRAGMS, BALLOONS, SOCKS, OR UNDERWEAR?NO LATEX ALLERGY : HAVE YOU EVER DEVELOPED ANY TYPE OF REACTION DURING OR AFTER DENTAL APPOINTMENT, VAGINAL/RECTAL EXAMINATION, SURGICAL PROCEDURE, OR ANY OTHER EXPOSURE?NO DATE ASKED : 01/21/2019 LATEX RISK : HAVE YOU EVER HAD ANY DIFFICULTY BREATHING OR HIVES AFTER EATING OR HANDLING ANY FRUITS, OR VEGETABLES; SUCH KIWI, BANANAS, STONE FRUITS, OR CHESTNUTSNO LATEX RISK : DO YOU HAVE A PREVIOUS PERSONAL HISTORY OF MORE THAN NINE SURGERIES, SPINA BIFIDA, OR REPEATED CATHERIZATIONS? YES - PLEASE INDICATE : > 9 SURGERIES LATEX RISK : ARE YOU FREQUENTLY EXPOSED TO LATEX PRODUCTS IN YOUR OCCUPATION?NO CAFFEINE CAFFEINE USE?NO ADVANCE DIRECTIVE ADVANCE DIRECTIVE DISCUSSED WITH PATIENT:YES WILLAM SUAREZ (DAUGHTER) [phone] AND YOGI PRADHAN (SON) ANABAPTISM [id number] [facility] MARITAL STATUS: . ALCOHOL SCREENING DID YOU HAVE A DRINK CONTAINING ALCOHOL IN THE PAST YEAR?NO POINTS0 INTERPRETATIONNEGATIVE OCCUPATION: RETIRED. REVIEWED WITH PATIENT 01/21/19 3145 NLJREVIEWED WITH PATIENT 02/02/19 LASREVIEWED WITH PATIENT 02/17/19 8042 JS. HOSPITALIZATION/MAJOR DIAGNOSTIC PROCEDURE CATARACTS SURGERIES REVIEW OF SYSTEMS REVIEWED BY: PROVIDER: JESSICA ROMERO . CONSTITUTIONAL: ANY CHANGE IN YOUR MEDICAL CONDITION? NO . CHILLS NO . FEVER NO . INFECTION: DO YOU HAVE NEW INFECTIONS? NO . DO YOU HAVE HISTORY OF MRSA? NO . MUSCULOSKELETAL: ANY NEW PATTERNS OF PAIN OR NUMBNESS? NO . GASTROENTEROLOGY: ANY NEW CHANGE IN BOWEL CONTROL? NO . GENITOURINARY: ANY NEW CHANGE IN BLADDER CONTROL? NO . IS THERE A CHANCE YOU COULD BE ? NO . HEMATOLOGY/LYMPH: DO YOU TAKE ANY BLOOD THINNERS? (FOR EXAMPLE- COUMADIN, PLAVIX, AGGRENOX, PLATEL, PRADAXA, OR XARELTO) NO . WHEN WAS YOUR LAST DOSE? DATE: TIME: . NEUROLOGY: HAVE YOU FALLEN IN THE PAST 12 MONTHS? NO . ANY NEW EXTREMITY NUMBNESS OR WEAKNESS? NO . CARDIOLOGY: DO YOU HAVE A PACEMAKER OR DEFIBRILLATOR? NO . RESPIRATORY: HAVE YOU BEEN SICK IN THE PAST WEEK? NO . FEVER NO . FLU LIKE SYMPTOMS? NO . COUGH NO . INTEGUMENTARY: DO YOU HAVE ANY RASHES OR OPEN SORES? NO . ALLERGIC/IMMUNO: ARE YOU ALLERGIC TO IV DYE? NO . ANY NEW ALLERGIES? NO . PSYCHIATRIC: DO YOU HAVE THOUGHTS OF HURTING YOURSELF OR SOMEONE ELSE? NO . ARE YOU ABUSED, NEGLECTED, OR IN AN UNSAFE ENVIRONMENT? NO . ENDOCRINOLOGY: ARE YOU DIABETIC? NO, PRE-DIABETIC, DIET CONTROL . OTHER: DO YOU NEED ANY PRESCRIPTIONS? NO . IF YES, PLEASE LIST: ____ . ANY NEW PROBLEMS WITH YOUR MEDICATIONS? NO . WHEN DID YOU LAST EAT? ____ . WHEN DID YOU LAST DRINK? ____ . WHAT DID YOU LAST DRINK? ____ . NAME OF PERSON DRIVING YOU HOME? ____ . DO YOU HAVE ANY OTHER QUESTIONS OR CONCERNS NO . VITAL SIGNS WT 119.0 LBS, HT 60 IN, BMI 23.24 INDEX, BP 196/77 MM HG, HR 58 /MIN, RR 16 /MIN, TEMP 96.7 F, OXYGEN SAT % 98%, NA INITIALS AW 0942, REVIEWED BY: ELVIN SULLIVAN LPN. EXAMINATION GENERAL EXAMINATION: GENERAL AWAKE,ALERT ,PLEASANT . PSYCH AFFECT NORMAL . LUNGS: LUNG MALONEY ARE CLEAR TO AUSCULTATION BILATERALLY. GOOD MOVEMENT OF AIR . HEART: S1, S2 IN A REGULAR RATE AND RHYTHM. NO SIGNIFICANT MURMURS, RUBS OR GALLOPS NOTED . MUSCULOSKELETAL: MUSCLE STRENGTH TESTING 4/5 BILATERAL LOWER EXTREMITIES. LUMBAR: TRIGGER POINTS:, ELICITED WITH PALPATION OVER RIGHT LUMBAR PARAVERTEBRAL MUSCLES AND RESTRICTION OF ROM IN THIS AREA. TENDER OVER RIGHT LUMBAR FACETS. ASSESSMENTS MYALGIA, OTHER SITE - M79.18 (PRIMARY) TREATMENT MYALGIA, OTHER SITE NOTES: TPI RIGHT LOW BACK. PREVENTIVE MEDICINE PAIN CLINIC TEACHING: PROCEDURE TEACHING TRIGGER POINT INJECTION INFORMATION REVIEWED WITH PT, PT VERBALIZES UNDERSTANDING OF PROCEDURE INFORMATION REVIEWED. PT DECLINED PRINTED INFORMATION. PT ALSO VERBALIZES UNDERTANDING OF PRE PROCEDURE INSTRUCTIONS REVIEWED. 06/05/2019 1050 NLJ. DISPOSITION & COMMUNICATION FOLLOW UP POST (REASON: TPI RIGHT LOW BACK) ELECTRONICALLY SIGNED BY HEATHER MENARD ON 06/08/2019 AT 09:04 AM EDT DISCLAIMER : THIS IS A VISIT SUMMARY EXTRACTED FROM THE [employer] CHART. IT IS NOT A COPY OF THE [facility] PROGRESS NOTE. MONA
== END ==
LOC: M PAIN 09:45
PROVIDERS: ATTEND Nurse Practitioner Family
DX: M79.18 Myalgia, other site (principal)

== ENCOUNTER → 2019-09-15 | Outpatient (REF) | payer MEDICARE, BC ==
[~2019-09-15] MED LIST changes: +DIGO0.253 PO; +ESOM20CA25 PO; +GABA-1171; +HYDR-3713; +ICAPTAB PO
== END ==
LOC: M LAB REF 11:38
PROVIDERS: ATTEND Internal Medicine
DX: I47.1 Supraventricular tachycardia (principal)

== ENCOUNTER → 2019-10-30 | Outpatient (CLI) | payer MEDICARE, BC ==
--- NOTE | 2019-11-23 08:52 | REPMRS ---
Patient History The patient states she has not had a clinical breast exam in over a year. Family history of breast cancer at age 79 in sister, breast cancer at age 70 in sister. Digital Woman Screen Mammo: October 30, 2019 - Exam #: [id number] Bilateral CC and MLO view(s) were taken. Technologist: Jacqueline Babin, Technologist Prior study comparison: October 21, 2018, bilateral digital mammo screening bilat, performed at [facility]. September 29, 2014, bilateral digital mammo screening bilat, performed at [facility]. September 03, 2013, bilateral digital mammo screening bilat, performed at [facility]. FINDINGS: The breast tissue is heterogeneously dense. This may lower the sensitivity of mammography. There is a moderate amount of heterogeneously dense fibroglandular tissue which is fairly symmetric. There is no interval development of dominant mass, architectural distortion, or grouped microcalcification typical of malignancy. There has been no change in the appearance of the mammogram from the prior studies. 3-D tomosynthesis shows no additional findings. Report was delayed due to a malware attack on this facility. Assessment: BI-RADS/ACR category 1 mammogram. Negative Mammogram. Recommendation Routine screening mammogram of both breasts in 1 year (for women over age 40). This patient's Lifetime Breast Cancer RIsk is estimated at 1.2 %. This mammogram was interpreted with the aid of an FDA-approved computer-aided dectection system. Electronically Signed By: Denzel Hernandez MD 11/23/19 0857
== END ==
LOC: M WHC 12:55
PROVIDERS: ATTEND Internal Medicine
DX: Z12.31 Encounter for screening mammogram for malignant neoplasm of breast (principal)

== ENCOUNTER → 2019-12-28 | Outpatient (REF) | payer MEDICARE, BC | LOC: M LAB REF 16:35 | PROVIDERS: ATTEND Internal Medicine | DX: I47.1 Supraventricular tachycardia (principal) ==

== ENCOUNTER 2020-01-19 12:09 | Emergency (ER) | payer MEDICARE, BC ==
[~2020-01-19] VITALS: Ht 152.4 cm; Wt 47.7 kg
[~2020-01-19 12:09] MED LIST changes: -DIGO0.253 PO; -ESOM20CA25 PO; -GABA-1171; -HYDR-3713; -ICAPTAB PO
[2020-01-19] MEDS ORDERED: ESOM20CA25 PO (12:35)
[2020-01-19] MEDS ORDERED: ONDANSETRON 4 MG ORAL DISINTEGRATING TAB PO ONE (13:30)
[2020-01-19] MEDS ORDERED: MORPHINE 2 MG/ML 1ML VIAL (J2270) IM ONE (13:30)
--- NOTE | 2020-01-19 14:23 | REPVR ---
PROCEDURE INFORMATION: Exam: CT Lumbar Spine Without Contrast Exam date and time: 01/19/2020 1:52 PM Age: 84 years old Clinical indication: Low back pain; Additional info: Severe low back pain into R hip TECHNIQUE: Imaging protocol: Computed tomography images of the lumbar spine without contrast. Radiation optimization: All CT scans at this facility use at least one of these dose optimization techniques: automated exposure control; mA and/or kV adjustment per patient size (includes targeted exams where dose is matched to clinical indication); or iterative reconstruction. COMPARISON: MRI-Spine, L.S. 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 There is associated disc space narrowing most prominent to the left of midline at L2-L3 and L3-L4 levels and to the right of midline at L4-L5. Endplate sclerosis is also most prominent at these 3 levels. Intravertebral body disc herniations through the superior endplates of L3 and L4 to the right of midline are again noted. There is diffuse degenerative facet arthropathy and ligamentum flavum hypertrophy. T12-L1:No significant spinal canal stenosis or neural foraminal narrowing. L1-L2: No significant spinal canal stenosis or neural foraminal narrowing. L2-L3: Probable [id number] spinal canal stenosis. There is an asymmetrically bulging annulus which may narrow the left lateral recess where it could affect the left L3 nerve root. There is moderate narrowing of the left neural foramen. L3-L4: Mild retrolisthesis of L3 on L4 with diffusely bulging annulus results in probable moderate spinal canal stenosis with narrowing of both lateral recesses greater on right than left which may affect the exiting L4 nerve roots. There is bony stenosis of the right neural foramen and annular material narrows the left which may affect both L3 nerve roots. L4-L5: There is a large central/right paracentral disc herniation which is partially calcified. It extends inferiorly from the disc space causing moderate to severe spinal canal stenosis in combination with degenerative facet arthropathy and ligamentum flavum hypertrophy. There appears to be compression of both exiting L5 nerve roots greater on right than left. There is narrowing of the right neural foramen which may affect the right L4 nerve root. The left L4 nerve root does not appear to be compressed. L5-S1: There is a diffusely bulging annulus and possible central subligamentous disc herniation without significant spinal canal stenosis. There may be narrowing of the right lateral recess which could affect the right S1 nerve root. Both neural foramen are narrowed which may affect the L5 nerve roots. Soft tissues: Atherosclerosis. Other findings: There are bilateral total hip replacements. IMPRESSION: Most likely level of neural compromise is L4-L5 where there is a central/right paracentral disc herniation compressing the exiting right L5 nerve root. Other levels of neural compromise as above. Electronically signed by: Daija Wells On 01/19/2020 14:23:07 PM
--- NOTE | 2020-01-19 15:04 | REPVR ---
PROCEDURE INFORMATION: Exam: XR Right Hip with Pelvis when Performed Exam date and time: 01/19/2020 1:25 PM Age: 84 years old Clinical indication: Hip pain; Right hip; Additional info: Severe pain, no known injury TECHNIQUE: Imaging protocol: XR Right hip with pelvis when performed. Views: 2 or 3 views. COMPARISON: CT ABD PELVIS W/O CONTRAST 04/06/2019 11:01 AM FINDINGS: Bones/joints: No acute fracture or dislocation. There is a right total hip replacement. Hypertrophic bone formation is seen about the greater trochanter but it does not appear to be fused to the pelvis. There is also calcification likely due to enthesophyte or prior trauma among the inferior margin of the right inferior pubic ramus. Degeneration of the right sacroiliac joint. Degeneration is seen in the spine. Soft tissues: Surgical sutures or clips are seen within the pelvis. IMPRESSION: No acute fracture or dislocation is identified. Electronically signed by: Daija Wells On 01/19/2020 15:04:34 PM
[2020-01-19] MEDS ORDERED: LIDOCAINE 5% (LIDODERM) PATCH TD ONE (15:30)
[2020-01-19] MEDS ORDERED: ACETAMINOPHEN TAB 650MG DOSE (2X325MG) PO ONE (16:00)
[2020-01-19 16:02] VITALS: BP 160/72
--- NOTE | 2020-01-19 19:41 | ED PDOC ---
Post-Departure Follow-Up dr tsang faxed formal report of ct ls spine for fu Chris Ortiz MD Jan 19, 2020 19:41
[2020-01-19] MEDS ORDERED: **NOTE PATIENT COMMENT** MISC XX SCH (21:00)
== END 2020-01-19 16:16 | disposition home or self-care (01) ==
LOC: M ED 12:09
DX: M51.26 Other intervertebral disc displacement, lumbar region (principal); M54.16 Radiculopathy, lumbar region; M25.551 Pain in right hip; I48.91 Unspecified atrial fibrillation; E11.9 Type 2 diabetes mellitus without complications; I10 Essential (primary) hypertension; E78.5 Hyperlipidemia, unspecified; M19.90 Unspecified osteoarthritis, unspecified site; K21.9 Gastro-esophageal reflux disease without esophagitis; K44.9 Diaphragmatic hernia without obstruction or gangrene; Z87.891 Personal history of nicotine dependence; Z88.8 Allergy status to other drugs, medicaments and biological substances; Z88.2 Allergy status to sulfonamides; Z88.5 Allergy status to narcotic agent; Z88.6 Allergy status to analgesic agent; Z88.1 Allergy status to other antibiotic agents; Z88.7 Allergy status to serum and vaccine; Z88.4 Allergy status to anesthetic agent; Z79.899 Other long term (current) drug therapy
CPT/HCPCS: 72131; 73502; 96372; 99283; J2270; Q0162

== ENCOUNTER 2020-01-27 10:12 | Emergency (ER) | payer MEDICARE, BC ==
[~2020-01-27] VITALS: Ht 152.4 cm; Wt 52.4 kg
[~2020-01-27 10:12] MED LIST changes: +ESOM20CA25 PO
[2020-01-27] MEDS ORDERED: ICAPTAB PO (10:58)
[2020-01-27] MEDS ORDERED: DIGO0.253 PO (10:58)
--- NOTE | 2020-01-27 11:06 | REP ---
INDICATION: fall, prior THR. COMPARISON: Comparison pelvic x-ray is from November 20, 2013.. TECHNIQUE: AP view of the pelvis and AP and frogleg views of the right hip are presented. FINDINGS: The bony pelvic ring is intact. There are bilateral hip arthroplasties in place. There are surgical sutures in the central pelvis and clips bilaterally in the lower abdomen and pelvis. There is degenerative spondylosis change and a levoconvex curvature in the lower lumbar spine. The left hip arthroplasty is new since the 2013 study. There is no evidence of fracture of the pelvis or sacrum. SI joints and symphysis pubis are intact. AP and frogleg views of the right hip demonstrate some heterotopic bone formation adjacent to the greater trochanter superior and lateral aspect of the arthroplasty. There is tendon insertion site to calcification and spurring at the ischium. No fracture is seen. No subluxation. IMPRESSION: No acute fracture or subluxation. Status post bilateral hip arthroplasties and pelvic and abdominal surgery. <Electronically signed by Denezl Hernandez > 01/27/20 [id number]
[2020-01-27] MEDS ORDERED: NORCO, ANEXSIA 5/325MG TABLET (HYDROcodone/ACETAMINOPHEN) PO ONE (11:45)
[2020-01-27 12:15] VITALS: BP 148/74
== END 2020-01-27 12:26 | disposition home or self-care (01) ==
LOC: EDBD 10:12 → M ED 10:12
DX: S70.01XA Contusion of right hip, initial encounter (principal); W18.30XA Fall on same level, unspecified, initial encounter; Y92.098 Other place in other non-institutional residence as the place of occurrence of the external cause; I48.91 Unspecified atrial fibrillation; I10 Essential (primary) hypertension; E11.9 Type 2 diabetes mellitus without complications; E78.5 Hyperlipidemia, unspecified; K21.9 Gastro-esophageal reflux disease without esophagitis; K44.9 Diaphragmatic hernia without obstruction or gangrene; M51.36 Other intervertebral disc degeneration, lumbar region; Z96.643 Presence of artificial hip joint, bilateral; Z88.8 Allergy status to other drugs, medicaments and biological substances; Z88.1 Allergy status to other antibiotic agents; Z88.2 Allergy status to sulfonamides; Z88.6 Allergy status to analgesic agent; Z88.5 Allergy status to narcotic agent; Z88.7 Allergy status to serum and vaccine; Z79.899 Other long term (current) drug therapy

== ENCOUNTER 2020-01-30 15:17 | Emergency (ER) | payer MEDICARE, BC ==
[~2020-01-30] VITALS: Ht 157.5 cm; Wt 50.2 kg
[~2020-01-30 15:17] MED LIST changes: +DIGO0.253 PO; +ICAPTAB PO
[2020-01-30] MEDS ORDERED: GABA-1171 (15:46)
[2020-01-30] MEDS ORDERED: HYDR-3713 (15:46)
--- NOTE | 2020-01-30 16:59 | REP ---
INDICATION: pain swelling below knee. COMPARISON: Comparison study 12/21/2009.. FINDINGS: The deep veins are anechoic and fully compressible from the groin to the popliteal fossa in the right lower extremity. Color flow imaging is homogeneous. Spectral Doppler interrogation demonstrates intact respiratory variation in flow and normal manual augmentation of flow. There is no evidence of deep vein thrombosis. IMPRESSION: Negative right lower extremity duplex venous ultrasound. No evidence of deep vein thrombosis. <Electronically signed by Denzel Hernandez > 01/30/20 [id number]
[2020-01-30 17:41] VITALS: BP 173/71
== END 2020-01-30 17:44 | disposition home or self-care (01) ==
LOC: M ED 15:17
DX: M79.604 Pain in right leg (principal); M79.89 Other specified soft tissue disorders; I11.9 Hypertensive heart disease without heart failure; M54.9 Dorsalgia, unspecified; G89.29 Other chronic pain; Z87.891 Personal history of nicotine dependence; Z88.8 Allergy status to other drugs, medicaments and biological substances; Z88.1 Allergy status to other antibiotic agents; Z88.7 Allergy status to serum and vaccine; Z88.5 Allergy status to narcotic agent; Z88.4 Allergy status to anesthetic agent; Z79.899 Other long term (current) drug therapy

== ENCOUNTER → 2020-03-04 | Outpatient (CLI) | payer MEDICARE, BC ==
[~2020-03-04] MED LIST changes: +GABA-1171; +HYDR-3713
== END ==
LOC: M LABSMTC 10:29
PROVIDERS: ATTEND Anesthesiology
DX: Z20.828 Contact with and (suspected) exposure to other viral communicable diseases (principal)

== ENCOUNTER → 2020-03-09 | Outpatient (CLI) | payer MEDICARE, BC ==
[~2020-03-09] MED LIST changes: +BUPIVACAINE HCL 0.25% 10ML VIAL As Ordered ONE; +BUPIVACAINE HCL 0.25% 30ML VIAL As Ordered ONE; +TRIAMCINOLONE ACETONIDE SUSP 40 MG/ML VIAL (J3301) As Ordered ONE; +diazePAM 2 MG TAB As Ordered ONE; +diphenhydrAMINE 25MG CAP As Ordered ONE
--- NOTE | 2020-03-10 01:51 | ECWPNPC ---
PATIENT NAME: TOO PRADHAN : 1935 GENDER: FEMALE VISIT DATE: 03/09/2020 DISCHARGE DATE: 03/09/20 1010 VISIT LOCKED DATE TIME: PHYSICIAN: ALEX MARROQUIN MD RESOURCE: ALEX MARROQUIN MD REASON FOR APPOINTMENT 1. TRIGGER POINT INJECTION RIGHT LOWER BACK HISTORY OF PRESENT ILLNESS GENERAL: -. FALL RISK SCREENING: SCREENING :ONE FALL WITH INJURY IN THE PAST YEAR PAIN SCREENING: PATIENT HAS A COMPLAINT OF ACUTE OR CHRONIC PAIN :YES LOCATION OF PAIN:RIGHT HIP INTENSITY OF PAIN (SCALE OF 1 TO 10):10 WHAT DOES YOUR PAIN FEEL LIKE:ACHING, INTERMITTENT, SHARP, TENDER DURATION:INTERMITTENT PAIN IS INCREASED BY:ACTIVITIES, PROLONGED STANDING PAIN IS DECREASED BY:USE OF PAIN MEDICATIONS, SITTING NURSING NOTE: -. PAIN CENTER INTAKE QUESTIONS: DO YOU HAVE A HISTORY OF MRSA? :NO DO YOU TAKE A BLOOD THINNERS? :NO DO YOU HAVE ANY BLEEDING DISORDERS? :NO ANY NEW NUMBNESS OR WEAKNESS IN YOUR LEGS OR ARMS? :YES NOTES NEW NUMBNESS RIGHT LEG KNEE TO FOOT ANY PACEMAKER,DEFIBRILLATOR, OR DORSAL COLUMN STIMULATOR? :NO DO YOU HAVE ANY RASHES OR OPEN SORES? :NO ARE YOU ALLERGIC TO IV DYE? :NO ARE YOU DIABETIC? :YES FSBS THIS AM 103 ANY NEW PROBLEMS WITH YOUR MEDICATIONS? :NO HAVE YOU RECEIVED A VACCINE IN THE PAST 30 DAYS? :NO DO YOU PLAN TO RECEIVE A VACCINE IN THE NEXT 21 DAYS? :NO DO YOU TAKE ANY IMMUNOSUPPRESSIVE MEDICATIONS? :YES ON PREDNISONE DAILY ANY HISTORY OF SEIZURES? :NO ANY HISTORY OF CARDIAC ISSUES OR EVENTS? :NO DO YOU HAVE SLEEP APNEA? :NO ANY RECENT HEAD INJURY? :NO DO YOU HAVE ANY NEW INFECTIONS? :NO IS THERE A CHANCE YOU COULD BE ? :NO ARE YOU BREAST FEEDING? :NO WHEN DID YOU LAST EAT? : 03/08 1700 WHEN DID YOU LAST DRINK? : 03/09 0500 WHAT DID YOU LAST DRINK? : WATER NAME OF PERSON DRIVING YOU HOME? : NIRANJAN PRADHAN DO YOU HAVE ANY OTHER QUESTIONS OR CONCERNS? : NONE CURRENT MEDICATIONS TAKING LANOXIN 0.[address] ARRIAGA 1 TABLET ORALLY ONCE A DAY, NOTES: 03/07 TAKING ATENOLOL [address] ARRIAGA 1 TABLET ORALLY ONCE A DAY, NOTES: 03/08 0800 TAKING PREDNISONE [address] LAFLEUR 1 TABLET WITH FOOD OR MILK ORALLY ONCE A DAY, NOTES: 03/08 800 TAKING AMITRIPTYLINE HCL [address] ARRIAGA 1 TABLET AT BEDTIME ORALLY AT NIGHT, NOTES: 03/08 2000 TAKING ICAPS MV OTC TABLET 2 TAB ORALLY DAILY, NOTES: 03/08 800 TAKING CALCIUM 1200MG TABLET 1 TAB ORALLY DAILY, NOTES: 03/08 800 TAKING VITAMIN D3 1000 UNIT TABLET 1 TABLET ORALLY ONCE A DAY, NOTES: 03/08 800 TAKING SIMVASTATIN 20 MG TABLET 1 TABLET EVERY EVENING ORALLY DAILY, NOTES: 03/08 2000 TAKING BUDESONIDE 1 MG/2ML DR LAFLEUR NASAL INHALATION ONCE A DAY, NOTES: 03/07 TAKING ESOMEPRAZOLE MAGNESIUM 20 MG CAPSULE DELAYED RELEASE 1 CAPSULE ORALLY ONCE A DAY, NOTES: 03/08 800 TAKING HYDROCODONE-ACETAMINOPHEN 5-325 MG TABLET 1 TABLET NEEDED ORALLY EVERY 6 HRS NEEDED, NOTES: NONE RECENT TAKING BENADRYL 25 MG TABLET 1-2 TAB ORALLY BEFORE BEDTIME NEEDED, NOTES: 03/08 2000 NOT-TAKING VANIQA 13.9 % CREAM 1 APPLICATION A THIN FILM TO AFFECTED AREA EXTERNALLY TWICE A DAY TO CHIN AND UPPER LIP NOT-TAKING TRETINOIN (EMOLLIENT) 0.05 % CREAM 1 APPLICATION A ARETHA-SIZED AMOUNT TO FACE IN THE EVENING EXTERNALLY ONCE A DAY TO FACE AT PM NOT-TAKING METFORMIN HCL ER 750 MG TABLET EXTENDED RELEASE 24 HOUR 1 TABLET WITH EVENING MEAL ORALLY ONCE A DAY NOT-TAKING NEXIUM [address] ZEPEDA 1 TAB ORALLY DAILY NOT-TAKING SALEX 6 % (LOTION) LOTION 1 APPLICATION TO BODY EXTERNALLY DAILY TO BODY MEDICATION LIST REVIEWED AND RECONCILED WITH THE PATIENT PAST MEDICAL HISTORY HYPERTENSION IRREGULAR HEART BEAT HYPERLIPIDEMIA ARTHRITIS ASTHMA DM CATARACTS LOW BACK PAIN ALLERGIES SULFA: RASH - ALLERGY TAVIST: SEVERE HEADACHES - ALLERGY GUIATEX: RASH - ALLERGY BIAXIN: RASH - ALLERGY CODEINE: SICK TO STOMACH - SIDE EFFECTS ERTHROMYCIN: RASH - ALLERGY DECLAMYCIN: RASH - ALLERGY DOXYCYCLINE: RASH/HEADACHE - ALLERGY TUSSIONEX: SICK TO STOMACH - SIDE EFFECTS DEMEROL: SICK TO STOMACH - SIDE EFFECTS ORUVAIL: RASH - ALLERGY SODIUM PENATOL: SICK TO STOMACH - SIDE EFFECTS SELDANE: HEADACHE - ALLERGY ROBITUSSIN: NOSEBLEED - ALLERGY AVELOX: SICK TO STOMACH/SORE MUSCLES - ALLERGY PNEUMONIA SHOT: ARM SWELL - ALLERGY ASPIRIN: COUGHING/WHEEZING - ALLERGY IBUPROFEN: CIUGHING/WHEEZING - ALLERGY CIPROFLOXACIN: DIARRHEA - SIDE EFFECTS LEVAQUIN: HEADACHE - SIDE EFFECTS CIPHENOXYLATE WITH ATROPINE: DIARRHEA - SIDE EFFECTS ALEVE: DYSPNEA - SIDE EFFECTS AMBIEN: NAUSEA/VOMITING - SIDE EFFECTS ATIVAN: NAUSEA/VOMITING - SIDE EFFECTS MORPHINE: NAUSEA/VOMITING - SIDE EFFECTS TOBRAMYCIN: HEADACHE - SIDE EFFECTS ALAZOPRAM: HEADACHE - SIDE EFFECTS AMOXICILLIN: HIVES - ALLERGY CEPHALEXIN: CHEST TIGHTNESS - ALLERGY CEFDINIR: RASH - SIDE EFFECTS SURGICAL HISTORY CATARACT RIGHT EYE 11/23/09 HYSTERECTOMY 1981 RIGHT TOTAL HIP 01/2010 NASAL POLYPS REMOVED 02/29/2016 CATARACT LEFT EYE TONSILECTOMY 194 GALLBLADDER REMOVAL 08/2005 DISCECTOMY WITH PLATE IN NECK 1995 BOWEL RESECTION 1979 RIGHT HIP REPLACEMENT 02/07/2011 SINUS SURGERY 09/12/2010 RIGHT FOOT SURGERY 08/13/14 TOTAL LEFT HIP REPLACEMENT 05/19/18 FAMILY HISTORY FATHER: , DIAGNOSED WITH HYPERTENSION MOTHER: , HYPERTENSION SIBLINGS: , SISTER SKIN CANCER MOTHER NAD FATHER HAD HEART ISSUES, 2 SISTERS HAD BREAST CANCER. SOCIAL HISTORY GENERAL: TOBACCO USE ARE YOU A:: FORMER SMOKER , HOW LONG HAS IT BEEN SINCE YOU LAST SMOKED?: > 10 YEARS. LATEX QUESTIONNAIRE LATEX ALLERGY : HAVE YOU EVER DEVELOPED ANY TYPE OF REACTION AFTER HANDLING LATEX PRODUCTS SUCH RUBBER GLOVES, CONDOMS, DIAPHRAGMS, BALLOONS, SOCKS, OR UNDERWEAR?NO LATEX ALLERGY : HAVE YOU EVER DEVELOPED ANY TYPE OF REACTION DURING OR AFTER DENTAL APPOINTMENT, VAGINAL/RECTAL EXAMINATION, SURGICAL PROCEDURE, OR ANY OTHER EXPOSURE?NO LATEX RISK : HAVE YOU EVER HAD ANY DIFFICULTY BREATHING OR HIVES AFTER EATING OR HANDLING ANY FRUITS, OR VEGETABLES; SUCH KIWI, BANANAS, STONE FRUITS, OR CHESTNUTSNO LATEX RISK : DO YOU HAVE A PREVIOUS PERSONAL HISTORY OF MORE THAN NINE SURGERIES, SPINA BIFIDA, OR REPEATED CATHERIZATIONS? YES - PLEASE INDICATE : > 9 SURGERIES LATEX RISK : ARE YOU FREQUENTLY EXPOSED TO LATEX PRODUCTS IN YOUR OCCUPATION?NO DATE ASKED : 03/08/2020 ALCOHOL SCREENING DID YOU HAVE A DRINK CONTAINING ALCOHOL IN THE PAST YEAR?NO POINTS0 INTERPRETATIONNEGATIVE RECREATIONAL DRUG USE DRUG USE?NO PATIENT DENIES ABUSE OR MISSUSED OF ANY MEDICATION DENIES PATIENT DENIES USE OF ANY ILLEGAL SUBSTANCE INCLUDING MARIJUANA OR COCAINE DENIES CAFFEINE CAFFEINE USE?NO SABIANIST [id number] YAZDANISM LANGUAGE LANGUAGES SPOKEN:CAPE VERDEAN EDUCATION LEVEL OF EDUCATION:NOT FINISHED COLLEGE LEARNING BARRIERS / SPECIAL NEEDS BARRIERS TO LEARNING?NO HEARING IMPAIRED?NO VISION IMPAIRED?YES COGNITIVELY IMPAIRED?NO :CORRECTIVE LENSES READINESS TO LEARN?YES LEARNING PREFERENCES?NO LEARNING CAPABILITIES PRESENT?YES EMOTIONAL BARRIERS?NO SPECIAL DEVICES?NO 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 DIET: REGULAR. EXERCISE: NO REGULAR EXERCISE. MARITAL STATUS: . OTHERS AT HOME: NONE. PAIN CLINIC PFS, CLERGY, PUBLIC HEALTH REFERRALS PFS REFERRAL NEEDED?NO CLERGY REFERRAL NEEDED?NO PUBLIC HEALTH REFERRAL NEEDED?NO WAS THE PROVIDER NOTIFIED OF ANY PERTINENT INFO?YES HAS THE PATIENT BEEN EDUCATED REGARDING HIS/HER PLAN OF CARE?YES HAS THE PATIENT BEEN EDUCATED REGARDING PAIN, THE RISK FOR PAIN, THE IMPORTANCE OF EFFECTIVE PAIN MANAGEMENT, AND THE PAIN ASSESSMENT PROCESS?YES HOUSING: OWNS HOME. ADVANCE DIRECTIVE ADVANCE DIRECTIVE DISCUSSED WITH PATIENT:YES WILLAM SUAREZ (DAUGHTER) [phone] AND YOGI PRADHAN (SON) PAT REVIEWED 03/08/20. HOSPITALIZATION/MAJOR DIAGNOSTIC PROCEDURE SURGERIES VITAL SIGNS WT 108.4 LBS, HT 60 IN, BMI 21.17 INDEX, BP 179/78 MM HG, HR 76 /MIN, RR 18 /MIN, TEMP 97.9 F, OXYGEN SAT % 97%, SAFE IN ENV? (Y/N) Y, NA INITIALS AW 0846, REVIEWED BY: Heydi GABRIEL RN 0907. EXAMINATION GENERAL EXAMINATION: THE PATIENT IS ALERT, ORIENTED TIMES THREE AND COOPERATIVE. HEART SHOWS REGULAR RHYTHM, NO MURMURS AND NO GALLOPS. LUNGS ARE CLEAR TO AUSCULTATION. ASSESSMENTS MYALGIA, OTHER SITE - M79.18 (PRIMARY) TREATMENT MYALGIA, OTHER SITE MEDICATION: BENADRYL TAB 25MG ORALLY (DIPHENHYDRAMINE)LUDWIG GABRIEL 03/09/2020 9:17:19 AM > LOT #[id number] EXP 05/2022 AYO VALENTIN 03/09/2020 9:19:49 AM > VERIFIED LUDWIG GABRIEL 03/09/2020 9:21:56 AM > ADMINISTERED MEDICATION: VALIUM TAB 2MG ORALLY (DIAZEPAM)LUDWIG GABRIEL 03/09/2020 9:18:09 AM > LOT # [id number] EXP. 04/2020 AYO VALENTIN 03/09/2020 9:19:19 AM > VERIFIED LUDWIG GABRIEL 03/09/2020 9:22:21 AM > ADMINISTERED PROCEDURES PAIN NURSING RECORD PRE-PROCEDURE IV SITE N/A, PRE-PROCEDURE ORAL MEDICATIONS SEE MEDICATION ORDERS PROCEDURE IN ROOM 0846, PHYSICIAN IN ROOM 0945, START 0949, FINISH 0953, PHYSICIAN OUT OF ROOM 0954, OUT OF ROOM 1009, STEROID KENALOG, O2 N/A, RA, ECG N/A, PATIENT SHIELDED NO, SAFETY STRAP NO, PREP ALCOHOL BY DR. MARROQUIN, IV INFUSED N/A, DRESSING TEGADERM BY Heydi GABRIEL RN LOC: ROSSI GABRIELITA 03/09/2020 9:25:00 AM > 1. ALERT, ORIENTED RESP: HARVEYLUDWIG 03/09/2020 9:25:06 AM > 1. REGULAR, NO DYSPNEA COLOR: HARVEYLUDWIG 03/09/2020 9:25:09 AM > 1. PINK SKIN: HARVEYLUDWIG 03/09/2020 9:25:12 AM > 1. WARM, DRY POSITION: HARVEYLUDWIG 03/09/2020 9:25:15 AM > 4. OTHER-SITTING NOTES POST PAIN 0, DRESSING SITE DRY AND INTACT, IV N/A, GAIT STEADY, TEACHING COMPLETED, PATIENT ACKNOWLEDGES UNDERSTANDING YES, PATIENT DISCHARGED AT 1009 DISCHARGE: POST PAIN 0, DRESSING SITE DRY AND INTACT, IV N/A, GAIT STEADY, TEACHING COMPLETED, PATIENT ACKNOWLEDGES UNDERSTANDING YES, PATIENT DISCHARGED AT 1009 PN TRIGGER POINT INJECTION WITH STEROIDS PRE PROCEDURE DIAGNOSIS 1. MYALGIA 2. PAIN AT RIGHT LOWER BACK AREA POST PROCEDURE DIAGNOSIS 1. MYALGIA 2. PAIN AT RIGHT LOWER BACK AREA PROCEDURE TRIGGER POINT INJECTION AT RIGHT LOWER BACK AREA SURGEON DR. ALEX MARROQUIN CAUL FAT PULLER NONE ANESTHESIA LOCAL PRE PROCEDURE NOTE THE PATIENT HAS A HISTORY OF CHRONIC PAIN AT THE RIGHT LOWER BACK AREA. I EVALUATED THE PATIENT AND REVIEWED THE CHART. THERE IS EVIDENCE OF BANDS OF TISSUE WITH RESTRICTION OF MOVEMENT AND PRESENCE OF TRIGGER POINT AT THE RIGHT LOWER BACK AREA. I WENT OVER THE RISKS, ALTERNATIVES, AND BENEFITS ASSOCIATED WITH THIS PROCEDURE. I DISCUSSED THAT THE USE OF STEROIDS MAY CONTRIBUTE TO IMMUNOSUPPRESSION OF THE PATIENT'S BODY AGAINST INFECTIONS SUCH COVID-19. THE PATIENT IS AWARE OF THE POTENTIAL COMPLICATIONS ASSOCIATED WITH THIS VIRUS, INCLUDING, BUT NOT LIMITED TO, . THE PATIENT WOULD LIKE TO PROCEED AND GIVE CONSENT TO PERFORMED THE PROCEDURE. THE PATIENT DENIES UNEXPLAINABLE WEIGHT LOSS, FEVER, CHILLS, OR NEW CHANGES IN URINARY OR BOWEL CONTROL. THE PATIENT IS COVID-19 NEGATIVE DESCRIPTION OF PROCEDURE THE PATIENT WAS BROUGHT TO THE PROCEDURE ROOM AND PLACED IN THE SITTING POSITION. THE AREA WAS CLEANED WITH ALCOHOL. THE PROCEDURE WAS DONE USING ASEPTIC STERILE TECHNIQUE. A TIMEOUT WAS PERFORMED WHERE LATERALITY AND THE SITE OF THE PROCEDURE WERE CHECKED AND CONFIRMED WITH EVERYONE IN THE ROOM. USING A 25-GAUGE NEEDLE, TRIGGER POINTS WERE INJECTED AT THE RIGHT LOWER BACK AREA WITH A TOTAL OF 40 ML OF BUPIVACAINE 0.25% AND KENALOG 40 MG. THE MEDICATIONS WERE VERIFIED WITH THE NURSE. THERE WAS NO EVIDENCE OF BLOOD OR PARESTHESIA DURING THE PROCEDURE. THE PATIENT WAS SENT TO THE RECOVERY ROOM. THE PATIENT WAS MOVING THE EXTREMITIES AND DOING WELL. THERE WERE NO COMPLICATIONS DURING THE PROCEDURE. ESTIMATED BLOOD LOSS WAS LESS THAN 5 ML POST PROCEDURE NOTE DEPENDING ON THE RESULT, CONSIDER AN EPIDURAL AT L4-L5. THE PROCEDURE DONE WAS DISCUSSED WITH THE PATIENT. THE PATIENT WILL BE SEEN IN A FOLLOW UP IN THE NEXT FEW WEEKS. I AM LOOKING FOR LONG LASTING PAIN RELIEF FOR THE PATIENT WITH THIS INTERVENTION. INSTRUCTIONS WERE GIVEN, QUESTIONS WERE ANSWERED, AND THE PATIENT EXPRESSED UNDERSTANDING AND AGREES WITH THE PLAN. I, CLINT HAMILTON, DOCUMENTED THE ABOVE INFORMATION ACTING A SCRIBE FOR DR. MARROQUIN. I HAVE REVIEWED THE ABOVE DOCUMENT, WRITTEN BY CLINT HAMILTON, RUST PROOFER, AND I VERIFY THAT IT IS ACCURATE PROCEDURE CODES 88055 INJ TRIGGER POINT 04/02 [facility] DISPOSITION & COMMUNICATION FOLLOW UP FOLLOW UP WITH HEAT TREATER APPRENTICE (REASON: POST TRIGGER POINT INJECTION RIGHT LOWER BACK ) ELECTRONICALLY SIGNED BY ALEX MARROQUIN MD, MD ON 03/09/2020 AT 12:07 PM EST DISCLAIMER : THIS IS A VISIT SUMMARY EXTRACTED FROM THE [employer] CHART. IT IS NOT A COPY OF THE [employer] PROGRESS NOTE. MONA
== END ==
LOC: M PAIN 08:30
PROVIDERS: ATTEND Anesthesiology
DX: M79.18 Myalgia, other site (principal); E11.9 Type 2 diabetes mellitus without complications; J45.909 Unspecified asthma, uncomplicated; Z96.643 Presence of artificial hip joint, bilateral; Z87.891 Personal history of nicotine dependence; Z88.1 Allergy status to other antibiotic agents; Z88.2 Allergy status to sulfonamides; Z88.5 Allergy status to narcotic agent; Z88.6 Allergy status to analgesic agent; Z88.7 Allergy status to serum and vaccine; Z88.8 Allergy status to other drugs, medicaments and biological substances; Z79.899 Other long term (current) drug therapy
CPT/HCPCS: 20552; J3301

== ENCOUNTER → 2020-04-07 | Outpatient (CLI) | payer MEDICARE, BC ==
[~2020-04-07] MED LIST changes: -BUPIVACAINE HCL 0.25% 10ML VIAL As Ordered ONE; -BUPIVACAINE HCL 0.25% 30ML VIAL As Ordered ONE; -TRIAMCINOLONE ACETONIDE SUSP 40 MG/ML VIAL (J3301) As Ordered ONE; -diazePAM 2 MG TAB As Ordered ONE; -diphenhydrAMINE 25MG CAP As Ordered ONE
--- NOTE | 2020-04-09 00:16 | ECWPNPC ---
PATIENT NAME: TOO PRADHAN : 1935 GENDER: FEMALE VISIT DATE: 04/07/2020 DISCHARGE DATE: 04/07/20 1526 VISIT LOCKED DATE TIME: PHYSICIAN: JESSICA ANDERSON RESOURCE: JESSICA ANDERSON REASON FOR APPOINTMENT 1. POST TPI [id number] HISTORY OF PRESENT ILLNESS GENERAL: PATIENT IS AGREEABLE TO TELEPHONE VISIT TODAY. HAD TRIGGER POINT INJECTIONS OF RIGHT LOWER BACK ON 03/09/2020. REPORTING ONLY A FEW DAYS OF RELIEF AND THEN PAIN RETURNED TO BASELINE. PAIN HAS BEEN SEVERE OVER THE PAST 3 WEEKS. STATES SHE WAS ATTENDING PHYSICAL THERAPY PER REFERRAL OF PRIMARY CARE AND FEELS THOUGH THEY INJURED HER RIGHT LOWER EXTREMITY. SHE FINDS IT DIFFICULT TO STAND OR VACUUM. MRI OF THE LUMBOSACRAL SPINE DONE IN DECEMBER 2019 IS REVIEWED. 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 SHE WANTS TO TALK TO A SURGEON IN [place] BUT IS UNABLE TO GO AT THIS POINT DUE TO COVID 19. DENIES BOWEL OR BLADDER INCONTINENCE. REPORTING NORMAL SLEEP AT NIGHT. HAS MULTIPLE MEDICATION INTOLERANCES. CANNOT TAKE MEDICATION TOPICAL DUE TO LOCAL REACTION. ALLERGIC TO NONSTEROIDAL ANTI-INFLAMMATORY DRUGS. USING TYLENOL DURING THE DAY WITH SOME IMPROVEMENT. DISCUSSED POSSIBILITY OF DOING LUMBAR EPIDURAL STEROID INJECTION. SHE IS AWARE OF POTENTIAL RISKS TO INCLUDE DECREASED IMMUNE STATUS WITH USE OF PREDNISONE FOR 7-10 DAYS POSTPROCEDURE. UNDERSTANDS THE POTENTIAL FOR INCREASE RISK OF INFECTION POST PROCEDURE. PATIENT WOULD LIKE TO DISCUSS WITH HER DAUGHTER AND MAY CALL US BACK TO MOVE FORWARD WITH THIS BUT AT THIS POINT DOES NOT WANT TO PROCEED. -. FALL RISK SCREENING: SCREENING :NO FALLS REPORTED IN THE LAST YEAR PAIN SCREENING: PATIENT HAS A COMPLAINT OF ACUTE OR CHRONIC PAIN :YES LOCATION OF PAIN:RIGHT HIP INTENSITY OF PAIN (SCALE OF 1 TO 10):8 WHAT DOES YOUR PAIN FEEL LIKE:ACHING, SHARP DURATION:CONTINOUS, CONSTANT, ALL DAY PAIN IS INCREASED BY:OTHERS MAKING COOKIES PAIN IS DECREASED BY:SITTING NURSING NOTE: -. PAIN CENTER INTAKE QUESTIONS: DO YOU HAVE A HISTORY OF MRSA? :NO DO YOU TAKE A BLOOD THINNERS? :YES DO YOU HAVE ANY BLEEDING DISORDERS? :NO ANY PACEMAKER,DEFIBRILLATOR, OR DORSAL COLUMN STIMULATOR? :NO DO YOU HAVE ANY RASHES OR OPEN SORES? :NO ARE YOU ALLERGIC TO IV DYE? :NO ARE YOU DIABETIC? :NO ANY NEW PROBLEMS WITH YOUR MEDICATIONS? :NO HAVE YOU RECEIVED A VACCINE IN THE PAST 30 DAYS? :NO DO YOU PLAN TO RECEIVE A VACCINE IN THE NEXT 21 DAYS? :NO DO YOU NEED ANY PRESCRIPTION? :NO DO YOU TAKE ANY IMMUNOSUPPRESSIVE MEDICATIONS? :NO IS THERE A CHANCE YOU COULD BE ? :NO ARE YOU BREAST FEEDING? :NO CURRENT MEDICATIONS TAKING LANOXIN 0.[address] ARRIAGA 1 TABLET ORALLY ONCE A DAY TAKING ATENOLOL [address] ARRIAGA 1 TABLET ORALLY ONCE A DAY TAKING PREDNISONE [address] LAFLEUR 1 TABLET WITH FOOD OR MILK ORALLY ONCE A DAY TAKING AMITRIPTYLINE HCL [address] ARRIAGA 1 TABLET AT BEDTIME ORALLY AT NIGHT TAKING ICAPS MV OTC TABLET 2 TAB ORALLY DAILY TAKING CALCIUM 1200MG TABLET 1 TAB ORALLY DAILY TAKING VITAMIN D3 1000 UNIT TABLET 1 TABLET ORALLY ONCE A DAY TAKING SIMVASTATIN 20 MG TABLET 1 TABLET EVERY EVENING ORALLY DAILY TAKING BUDESONIDE 1 MG/2ML DR LAFLEUR NASAL INHALATION ONCE A DAY TAKING ESOMEPRAZOLE MAGNESIUM 20 MG CAPSULE DELAYED RELEASE 1 CAPSULE ORALLY ONCE A DAY TAKING BENADRYL 25 MG TABLET 1-2 TAB ORALLY BEFORE BEDTIME NEEDED NOT-TAKING HYDROCODONE-ACETAMINOPHEN 5-325 MG TABLET 1 TABLET NEEDED ORALLY EVERY 6 HRS NEEDED NOT-TAKING VANIQA 13.9 % CREAM 1 APPLICATION A THIN FILM TO AFFECTED AREA EXTERNALLY TWICE A DAY TO CHIN AND UPPER LIP NOT-TAKING TRETINOIN (EMOLLIENT) 0.05 % CREAM 1 APPLICATION A ARETHA-SIZED AMOUNT TO FACE IN THE EVENING EXTERNALLY ONCE A DAY TO FACE AT PM NOT-TAKING METFORMIN HCL ER 750 MG TABLET EXTENDED RELEASE 24 HOUR 1 TABLET WITH EVENING MEAL ORALLY ONCE A DAY NOT-TAKING NEXIUM [address] ZEPEDA 1 TAB ORALLY DAILY NOT-TAKING SALEX 6 % (LOTION) LOTION 1 APPLICATION TO BODY EXTERNALLY DAILY TO BODY MEDICATION LIST REVIEWED AND RECONCILED WITH THE PATIENT PAST MEDICAL HISTORY HYPERTENSION IRREGULAR HEART BEAT HYPERLIPIDEMIA ARTHRITIS ASTHMA DM CATARACTS LOW BACK PAIN ALLERGIES SULFA: RASH - ALLERGY TAVIST: SEVERE HEADACHES - ALLERGY GUIATEX: RASH - ALLERGY BIAXIN: RASH - ALLERGY CODEINE: SICK TO STOMACH - SIDE EFFECTS ERTHROMYCIN: RASH - ALLERGY DECLAMYCIN: RASH - ALLERGY DOXYCYCLINE: RASH/HEADACHE - ALLERGY TUSSIONEX: SICK TO STOMACH - SIDE EFFECTS DEMEROL: SICK TO STOMACH - SIDE EFFECTS ORUVAIL: RASH - ALLERGY SODIUM PENATOL: SICK TO STOMACH - SIDE EFFECTS SELDANE: HEADACHE - ALLERGY ROBITUSSIN: NOSEBLEED - ALLERGY AVELOX: SICK TO STOMACH/SORE MUSCLES - ALLERGY PNEUMONIA SHOT: ARM SWELL - ALLERGY ASPIRIN: COUGHING/WHEEZING - ALLERGY IBUPROFEN: CIUGHING/WHEEZING - ALLERGY CIPROFLOXACIN: DIARRHEA - SIDE EFFECTS LEVAQUIN: HEADACHE - SIDE EFFECTS CIPHENOXYLATE WITH ATROPINE: DIARRHEA - SIDE EFFECTS ALEVE: DYSPNEA - SIDE EFFECTS AMBIEN: NAUSEA/VOMITING - SIDE EFFECTS ATIVAN: NAUSEA/VOMITING - SIDE EFFECTS MORPHINE: NAUSEA/VOMITING - SIDE EFFECTS TOBRAMYCIN: HEADACHE - SIDE EFFECTS ALAZOPRAM: HEADACHE - SIDE EFFECTS AMOXICILLIN: HIVES - ALLERGY CEPHALEXIN: CHEST TIGHTNESS - ALLERGY CEFDINIR: RASH - SIDE EFFECTS SURGICAL HISTORY CATARACT RIGHT EYE 11/23/09 HYSTERECTOMY 1980 RIGHT TOTAL HIP 01/2010 NASAL POLYPS REMOVED 02/29/2016 CATARACT LEFT EYE TONSILECTOMY 1943 GALLBLADDER REMOVAL 08/2005 DISCECTOMY WITH PLATE IN NECK 1995 BOWEL RESECTION 1979 RIGHT HIP REPLACEMENT 02/07/2011 SINUS SURGERY 09/12/2010 RIGHT FOOT SURGERY 08/13/14 TOTAL LEFT HIP REPLACEMENT 05/19/18 FAMILY HISTORY FATHER: , DIAGNOSED WITH HYPERTENSION MOTHER: , HYPERTENSION SIBLINGS: , SISTER SKIN CANCER MOTHER NAD FATHER HAD HEART ISSUES, 2 SISTERS HAD BREAST CANCER. SOCIAL HISTORY GENERAL: TOBACCO USE ARE YOU A:: FORMER SMOKER , HOW LONG HAS IT BEEN SINCE YOU LAST SMOKED?: > 10 YEARS. LATEX QUESTIONNAIRE LATEX ALLERGY : HAVE YOU EVER DEVELOPED ANY TYPE OF REACTION AFTER HANDLING LATEX PRODUCTS SUCH RUBBER GLOVES, CONDOMS, DIAPHRAGMS, BALLOONS, SOCKS, OR UNDERWEAR?NO LATEX ALLERGY : HAVE YOU EVER DEVELOPED ANY TYPE OF REACTION DURING OR AFTER DENTAL APPOINTMENT, VAGINAL/RECTAL EXAMINATION, SURGICAL PROCEDURE, OR ANY OTHER EXPOSURE?NO LATEX RISK : HAVE YOU EVER HAD ANY DIFFICULTY BREATHING OR HIVES AFTER EATING OR HANDLING ANY FRUITS, OR VEGETABLES; SUCH KIWI, BANANAS, STONE FRUITS, OR CHESTNUTSNO LATEX RISK : DO YOU HAVE A PREVIOUS PERSONAL HISTORY OF MORE THAN NINE SURGERIES, SPINA BIFIDA, OR REPEATED CATHERIZATIONS? YES - PLEASE INDICATE : > 9 SURGERIES LATEX RISK : ARE YOU FREQUENTLY EXPOSED TO LATEX PRODUCTS IN YOUR OCCUPATION?NO DATE ASKED : 04/07/2020 ALCOHOL SCREENING DID YOU HAVE A DRINK CONTAINING ALCOHOL IN THE PAST YEAR?NO POINTS0 INTERPRETATIONNEGATIVE RECREATIONAL DRUG USE DRUG USE?NO PATIENT DENIES ABUSE OR MISSUSED OF ANY MEDICATION DENIES PATIENT DENIES USE OF ANY ILLEGAL SUBSTANCE INCLUDING MARIJUANA OR COCAINE DENIES CAFFEINE CAFFEINE USE?NO ORIENTAL ORTHODOX [id number] VOODOO LANGUAGE LANGUAGES SPOKEN:KAZAKH EDUCATION LEVEL OF EDUCATION:NOT FINISHED COLLEGE LEARNING BARRIERS / SPECIAL NEEDS BARRIERS TO LEARNING?NO HEARING IMPAIRED?NO VISION IMPAIRED?YES COGNITIVELY IMPAIRED?NO :CORRECTIVE LENSES READINESS TO LEARN?YES LEARNING PREFERENCES?NO LEARNING CAPABILITIES PRESENT?YES EMOTIONAL BARRIERS?NO SPECIAL DEVICES?NO 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 DIET: REGULAR. EXERCISE: NO REGULAR EXERCISE. MARITAL STATUS: . OTHERS AT HOME: NONE. PAIN CLINIC PFS, CLERGY, PUBLIC HEALTH REFERRALS PFS REFERRAL NEEDED?NO CLERGY REFERRAL NEEDED?NO PUBLIC HEALTH REFERRAL NEEDED?NO WAS THE PROVIDER NOTIFIED OF ANY PERTINENT INFO?YES HAS THE PATIENT BEEN EDUCATED REGARDING HIS/HER PLAN OF CARE?YES HAS THE PATIENT BEEN EDUCATED REGARDING PAIN, THE RISK FOR PAIN, THE IMPORTANCE OF EFFECTIVE PAIN MANAGEMENT, AND THE PAIN ASSESSMENT PROCESS?YES HOUSING: OWNS HOME. ADVANCE DIRECTIVE ADVANCE DIRECTIVE DISCUSSED WITH PATIENT:YES WILLAM SUAREZ (DAUGHTER) [phone] AND YOGI PRADHAN (SON) PAT REVIEWED 03/08/20. HOSPITALIZATION/MAJOR DIAGNOSTIC PROCEDURE SURGERIES REVIEW OF SYSTEMS CONSTITUTIONAL: ANY RECENT FEVER NO . CHILLS NO . WEIGHT CHANGE OF UNKNOWN REASONS NO . GASTROENTEROLOGY: NEW UNEXPLAINABLE CHANGES IN BOWEL CONTROL NO . CONSTIPATION NO . GENITOURINARY: ANY NEW CHANGE IN BLADDER CONTROL? NO . NEUROLOGY: NEW ONSET DIZZINESS OR NEUROLOGICAL CHANGES NOT MENTIONED NO . NEW NUMBNESS OR PAIN PATTERNS NOT MENTIONED AND PERTINENT TO TODAY'S VISIT NO . CARDIOLOGY: NEW CHEST PRESSURE NO . NEW CHEST PAIN NO . RESPIRATORY: UNEXPLAINABLE COUGH NO . NEW SHORTNESS OF BREATH NO . 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 SHE WILL CALL US BACK IF SHE WOULD LIKE TO PROCEED. DISPOSITION & COMMUNICATION FOLLOW UP PATIENT WILL CALL FOR FOLLOW-UP (REASON: LOW BACK PAIN/RIGHT LEG PAIN/L4-5 DISC HERNIATION WITH RADICULOPATHY) ELECTRONICALLY SIGNED BY HEATHER MENARD ON 04/08/2020 AT 02:49 PM EST DISCLAIMER : THIS IS A VISIT SUMMARY EXTRACTED FROM THE [employer] CHART. IT IS NOT A COPY OF THE [employer] PROGRESS NOTE. MONA
== END ==
LOC: M PAIN 14:45
PROVIDERS: ATTEND Nurse Practitioner Family
DX: M51.27 Other intervertebral disc displacement, lumbosacral region (principal); M54.17 Radiculopathy, lumbosacral region; I10 Essential (primary) hypertension; E78.5 Hyperlipidemia, unspecified; J45.909 Unspecified asthma, uncomplicated; E11.9 Type 2 diabetes mellitus without complications; Z79.52 Long term (current) use of systemic steroids; Z79.899 Other long term (current) drug therapy; Z88.2 Allergy status to sulfonamides; Z88.5 Allergy status to narcotic agent; Z88.6 Allergy status to analgesic agent; Z88.1 Allergy status to other antibiotic agents; Z88.8 Allergy status to other drugs, medicaments and biological substances; Z88.0 Allergy status to penicillin

== ENCOUNTER → 2020-06-07 | Outpatient (CLI) | payer MEDICARE, BC ==
[~2020-06-07] MED LIST changes: -AMIT10TA PO; +AMIT10TA7 PO
--- NOTE | 2020-06-07 15:00 | REP ---
INDICATION: PAIN COMPARISON: None. TECHNIQUE: AP and frog-lateral views of the right hip hip FINDINGS: Evidence for prior replacement with normal positioning and appearance to the femoral and acetabular components. Underlying age-related degenerative changes are appreciated. No acute fracture or dislocation. IMPRESSION: Osteopenia and degenerative changes. <Electronically signed by Som Rico > 06/07/20 [id number]
--- NOTE | 2020-06-07 15:00 | REP ---
INDICATION: PAIN COMPARISON: None. TECHNIQUE: AP and frog-lateral views of the right femur. FINDINGS: Right hip replacement with associated degenerative changes. No acute fracture or dislocation. Surrounding soft tissues are normal. IMPRESSION: Degenerative changes. No acute fracture or dislocation. <Electronically signed by Som Rico > 06/07/20 1994
--- NOTE | 2020-06-07 15:01 | REP ---
INDICATION: PAIN COMPARISON: None. TECHNIQUE: AP, lateral, bilateral oblique and sunrise views. FINDINGS: Generalized age-related changes are appreciated. No evidence for acute fracture or dislocation. No effusion. IMPRESSION: Generalized age-related changes. <Electronically signed by Som Rico > 06/07/20 [id number]
--- NOTE | 2020-06-07 15:02 | REP ---
INDICATION: PAIN COMPARISON: None. TECHNIQUE: AP and lateral views of the right tibia/fibula. FINDINGS: Generalized age-related changes. No acute fracture or dislocation. Surrounding soft tissues are unremarkable. IMPRESSION: Generalized age-related changes. No acute fracture or dislocation. <Electronically signed by Som Rico > 06/07/20 2141
== END ==
LOC: M WUC 14:18
PROVIDERS: ATTEND Physician Assistant Medical
DX: M16.11 Unilateral primary osteoarthritis, right hip (principal); M85.88 Other specified disorders of bone density and structure, other site; Z96.641 Presence of right artificial hip joint; M25.551 Pain in right hip; M79.661 Pain in right lower leg; I47.1 Supraventricular tachycardia

== ENCOUNTER → 2020-06-07 | Outpatient (REF) | payer MEDICARE, BC | LOC: M LAB REF 12:23 | PROVIDERS: ATTEND Internal Medicine | DX: I47.1 Supraventricular tachycardia (principal) ==

== ENCOUNTER → 2020-06-21 | Outpatient (CLI) | payer MEDICARE, BC ==
--- NOTE | 2020-06-21 14:55 | REP ---
INDICATION: LOW BACK PAIN. COMPARISON: Comparison radiographs are from October 28, 2018.. TECHNIQUE: Five views. FINDINGS: Bilateral hip prostheses are noted. There are clips in the right upper quadrant the abdomen and sclera since sutures are scattered about the pelvis. Moderate stool is seen. Bowel gas pattern is unremarkable. Sacrum and SI joints are intact. There is a dextroconvex lumbar scoliotic curve which is unchanged. There is moderate diffuse degenerative disc narrowing and sclerosis at each level from 05/04 through 07 04. Vascular calcifications noted in a normal caliber aorta. Lumbar vertebral body heights are preserved. There is some straightening visible on lateral radiograph unchanged. There is no evidence of spondylolysis or spondylolisthesis. Lateral view shows vacuum phenomena at L2-3 and L4-5 disc level unchanged. IMPRESSION: Moderate degenerative spondylosis changes in the lumbar spine radiographically stable from October 28, 2018. There is a dextroconvex lumbar curvature. No acute abnormality. <Electronically signed by Denzel Hernandez > 06/21/20 [id number]
[2020-06-21 18:27] LABS: FREE T3 3.2 PG/ML (2.2-4.0); FREE T4 0.79 NG/DL (0.76-1.46); FREE THYROXINE INDEX 2.3 % (1.3-4.8); THYROID STIMULATING HORMONE 1.78 uIU/ML (0.358-3.740); THYROXINE (T4) 6.8 UG/DL (4.5-12.0)
[2020-06-23 11:08] LABS: SSA SJOGRENS A <0.2 AI (0.0-0.9); SSB SJOGRENS B <0.2 AI (0.0-0.9)
== END ==
LOC: M WUC 10:21
PROVIDERS: ATTEND Physician Assistant Medical
DX: H02.89 Other specified disorders of eyelid (principal); M47.816 Spondylosis without myelopathy or radiculopathy, lumbar region; Z79.899 Other long term (current) drug therapy

== ENCOUNTER → 2020-06-27 | Outpatient (REF) | payer MEDICARE, BC | LOC: M LAB REF 16:32 | PROVIDERS: ATTEND Internal Medicine | DX: N39.0 Urinary tract infection, site not specified (principal) ==

== ENCOUNTER → 2020-08-13 | Outpatient (CLI) | payer MEDICARE, BC ==
--- NOTE | 2020-08-15 10:01 | REPVR ---
PROCEDURE INFORMATION: Exam: MR Lumbar Spine Without Contrast Exam date and time: 08/13/2020 10:24 AM Age: 85 years old Clinical indication: Low back pain. TECHNIQUE: Imaging protocol: Multiplanar magnetic resonance images of the lumbar spine without intravenous contrast. COMPARISON: MRI-Spine, L.S. without con 12/11/2018 8:48 AM FINDINGS: Vertebrae: There is moderate right lateral subluxation of L3 on L4, reported previously. Spinal cord: Normal signal. No cord compression. L1-L2: There is degenerative disc disease including disc space narrowing and dessication. There is mild disc bulging. There is facet arthropathy and ligamentum flavum hypertrophy. There is mild bilateral neuroforaminal narrowing. L2-L3: There is disc space narrowing and desiccation. There are moderate degenerative end plate changes at this level. There is a moderate disc/osteophyte complex that flattens the ventral thecal sac. There is a superimposed left foraminal disc herniation. There is severe left-sided neuroforaminal narrowing. There is mild right-sided neuroforaminal narrowing. There is facet arthropathy and ligamentum flavum hypertrophy. L3-L4: There is mild retrolisthesis at this level. There is disc space narrowing and desiccation. There are moderate degenerative end plate changes at this level. There is exuberant bilateral facet arthropathy and ligamentum flavum hypertrophy. There is severe bilateral neural foraminal narrowing. There is severe spinal canal stenosis, worse than prior study. L4-L5: There is disc space narrowing and desiccation. There are moderate degenerative end plate changes at this level. There is a moderate disc bulge with a moderate superimposed broad-based right paracentral/foraminal disc herniation. There is severe right-sided neuroforaminal narrowing. There is compromise of the right lateral recess. There is moderate left-sided neuroforaminal narrowing. There is facet arthropathy and ligamentum flavum hypertrophy. There is moderate spinal canal stenosis. L5-S1: There is disc space narrowing and desiccation. There are moderate degenerative end plate changes at this level. There is a moderate disc/osteophyte complex that flattens the ventral thecal sac. Disc bulging extends into both neural foramen causing moderate/severe bilateral neural foraminal narrowing. There is facet arthropathy and ligamentum flavum hypertrophy. Soft tissues: Unremarkable. Stomach and bowel: There is a large amount of dense stool in the rectosigmoid colon. IMPRESSION: 1. Advanced multilevel degenerative changes causing variable degrees of spinal canal and neuroforaminal narrowing as described above. There is severe spinal canal stenosis at L3/4, worse compared to prior study. There is severe multilevel neural foraminal narrowing. Please see details above. 2. There is moderate right lateral subluxation of L3 on L4, reported previously. 3. There is a large amount of dense stool in the rectosigmoid colon. Electronically signed by: Hunter Fisher On 08/15/2020 10:00:49 AM
== END ==
LOC: M RAD 09:25
PROVIDERS: ATTEND Physician Assistant Surgical
DX: M54.5 Low back pain (principal)

== ENCOUNTER → 2020-09-07 | Outpatient (CLI) | payer MEDICARE, BC ==
--- NOTE | 2020-09-09 00:49 | ECWPNPC ---
PATIENT NAME: TOO PRADHAN : 1935 GENDER: FEMALE VISIT DATE: 09/07/2020 DISCHARGE DATE: 09/07/20 1022 VISIT LOCKED DATE TIME: PHYSICIAN: JESSICA ANDERSON RESOURCE: JESSICA ANDERSON REASON FOR APPOINTMENT 1. SIJ/TRAMADOL HISTORY OF PRESENT ILLNESS DEPRESSION SCREENING: PHQ-2 (2015 EDITION) LITTLE INTEREST OR PLEASURE IN DOING THINGS?NOT AT ALL FEELING DOWN, DEPRESSED, OR HOPELESS?NOT AT ALL TOTAL SCORE0 GENERAL: HERE FOR FOLLOW-UP OF CHRONIC LOW BACK PAIN. WAS SEEN IN [facility] RECENTLY AND MRI WAS DONE ON 08/13/2020. THIS IS SHOWING ADVANCED MULTILEVEL DEGENERATIVE CHANGES AND SEVERE SPINAL STENOSIS THAT IS WORSE COMPARED TO THE PRIOR STUDY. THEY HAD SUGGESTED WE DO A SACROILIAC JOINT BLOCK. SPOKE AT LENGTH TODAY REGARDING INJECTIONS AND POTENTIAL RISKS AND BENEFITS. PATIENT HAS A HISTORY OF MULTIPLE DRUG ALLERGIES AND HAS AN ALLERGY TO LOCAL ANESTHETICS WELL. SHE ALSO TAKES PREDNISONE DAILY. WE DISCUSSED INCREASED RISK FOR IMMUNE SYSTEM SUPPRESION WITH USE OF STEROIDS. CURRENTLY USING TRAMADOL 50 MG TABLET A HALF TABLET WHEN SHE IS HAVING SEVERE PAIN THAT IS VERY HELPFUL. SHE IS AFRAID TO BECOME ADDICTED TO MEDICATION. AFTER A LONG DISCUSSION SHE HAS AGREED TO CONTINUE WITH MEDICATION RATHER THEN RISKING INJECTIONS. -. FALL RISK SCREENING: SCREENING : NO FALLS REPORTED IN THE LAST YEAR. PAIN SCREENING: PATIENT HAS A COMPLAINT OF ACUTE OR CHRONIC PAIN :YES LOCATION OF PAIN:LOW BACK INTENSITY OF PAIN (SCALE OF 1 TO 10):0 WHAT DOES YOUR PAIN FEEL LIKE: NOT IN ANY PAIN RIGHT NOW BECAUSE SHE IS SITTING DOWN DURATION:CONTINOUS, CONSTANT, ALL DAY PAIN IS INCREASED BY:ACTIVITIES PAIN IS DECREASED BY:SITTING NURSING NOTE: -. PAIN CENTER INTAKE QUESTIONS: DO YOU HAVE A HISTORY OF MRSA? :NO DO YOU TAKE A BLOOD THINNERS? :YES DO YOU HAVE ANY BLEEDING DISORDERS? :NO ANY PACEMAKER,DEFIBRILLATOR, OR DORSAL COLUMN STIMULATOR? :NO DO YOU HAVE ANY RASHES OR OPEN SORES? :NO ARE YOU ALLERGIC TO IV DYE? :NO ARE YOU DIABETIC? :NO BORDER LINE ANY NEW PROBLEMS WITH YOUR MEDICATIONS? :NO HAVE YOU RECEIVED A VACCINE IN THE PAST 30 DAYS? :NO DO YOU PLAN TO RECEIVE A VACCINE IN THE NEXT 21 DAYS? :NO DO YOU NEED ANY PRESCRIPTION? :NO DO YOU TAKE ANY IMMUNOSUPPRESSIVE MEDICATIONS? :NO IS THERE A CHANCE YOU COULD BE ? :NO ARE YOU BREAST FEEDING? :NO CURRENT MEDICATIONS TAKING LANOXIN 0.[address] ARRIAGA 1 TABLET ORALLY ONCE A DAY TAKING ATENOLOL [address] ARRIAGA 1 TABLET ORALLY ONCE A DAY TAKING PREDNISONE [address] LAFLEUR 1 TABLET WITH FOOD OR MILK ORALLY ONCE A DAY TAKING AMITRIPTYLINE HCL [address] ARRIAGA 1 TABLET AT BEDTIME ORALLY AT NIGHT TAKING ICAPS MV OTC TABLET 2 TAB ORALLY DAILY TAKING CALCIUM 1200MG TABLET 1 TAB ORALLY DAILY TAKING VITAMIN D3 1000 UNIT TABLET 1 TABLET ORALLY ONCE A DAY TAKING SIMVASTATIN 20 MG TABLET 1 TABLET EVERY EVENING ORALLY DAILY TAKING BUDESONIDE 1 MG/2ML DR LAFLEUR NASAL INHALATION ONCE A DAY TAKING ESOMEPRAZOLE MAGNESIUM 20 MG CAPSULE DELAYED RELEASE 1 CAPSULE ORALLY ONCE A DAY TAKING BENADRYL 25 MG TABLET 1-2 TAB ORALLY BEFORE BEDTIME NEEDED TAKING TRAMADOL HCL 50 MG TABLET 1.2 TABLET NEEDED ORALLY ONCE A DAY NOT-TAKING HYDROCODONE-ACETAMINOPHEN 5-325 MG TABLET 1 TABLET NEEDED ORALLY EVERY 6 HRS NEEDED NOT-TAKING VANIQA 13.9 % CREAM 1 APPLICATION A THIN FILM TO AFFECTED AREA EXTERNALLY TWICE A DAY TO CHIN AND UPPER LIP NOT-TAKING TRETINOIN (EMOLLIENT) 0.05 % CREAM 1 APPLICATION A ARETHA-SIZED AMOUNT TO FACE IN THE EVENING EXTERNALLY ONCE A DAY TO FACE AT PM NOT-TAKING METFORMIN HCL ER 750 MG TABLET EXTENDED RELEASE 24 HOUR 1 TABLET WITH EVENING MEAL ORALLY ONCE A DAY NOT-TAKING NEXIUM [address] ARRIAGAG 1 TAB ORALLY DAILY NOT-TAKING SALEX 6 % (LOTION) LOTION 1 APPLICATION TO BODY EXTERNALLY DAILY TO BODY MEDICATION LIST REVIEWED AND RECONCILED WITH THE PATIENT PAST MEDICAL HISTORY HYPERTENSION IRREGULAR HEART BEAT HYPERLIPIDEMIA ARTHRITIS ASTHMA DM CATARACTS LOW BACK PAIN ALLERGIES SULFA: RASH - ALLERGY TAVIST: SEVERE HEADACHES - ALLERGY GUIATEX: RASH - ALLERGY BIAXIN: RASH - ALLERGY CODEINE: SICK TO STOMACH - SIDE EFFECTS ERTHROMYCIN: RASH - ALLERGY DECLAMYCIN: RASH - ALLERGY DOXYCYCLINE: RASH/HEADACHE - ALLERGY TUSSIONEX: SICK TO STOMACH - SIDE EFFECTS DEMEROL: SICK TO STOMACH - SIDE EFFECTS ORUVAIL: RASH - ALLERGY SODIUM PENATOL: SICK TO STOMACH - SIDE EFFECTS SELDANE: HEADACHE - ALLERGY ROBITUSSIN: NOSEBLEED - ALLERGY AVELOX: SICK TO STOMACH/SORE MUSCLES - ALLERGY PNEUMONIA SHOT: ARM SWELL - ALLERGY ASPIRIN: COUGHING/WHEEZING - ALLERGY IBUPROFEN: CIUGHING/WHEEZING - ALLERGY CIPROFLOXACIN: DIARRHEA - SIDE EFFECTS LEVAQUIN: HEADACHE - SIDE EFFECTS CIPHENOXYLATE WITH ATROPINE: DIARRHEA - SIDE EFFECTS ALEVE: DYSPNEA - SIDE EFFECTS AMBIEN: NAUSEA/VOMITING - SIDE EFFECTS ATIVAN: NAUSEA/VOMITING - SIDE EFFECTS MORPHINE: NAUSEA/VOMITING - SIDE EFFECTS TOBRAMYCIN: HEADACHE - SIDE EFFECTS ALAZOPRAM: HEADACHE - SIDE EFFECTS AMOXICILLIN: HIVES - ALLERGY CEPHALEXIN: CHEST TIGHTNESS - ALLERGY CEFDINIR: RASH - SIDE EFFECTS HYDROCODONE-ACETAMINOPHEN: ISTING - SIDE EFFECTS SOCIAL HISTORY GENERAL: TOBACCO USE ARE YOU A:FORMER SMOKER 1969 HOW LONG HAS IT BEEN SINCE YOU LAST SMOKED?> 10 YEARS LATEX QUESTIONNAIRE LATEX ALLERGY : HAVE YOU EVER DEVELOPED ANY TYPE OF REACTION AFTER HANDLING LATEX PRODUCTS SUCH RUBBER GLOVES, CONDOMS, DIAPHRAGMS, BALLOONS, SOCKS, OR UNDERWEAR?NO LATEX ALLERGY : HAVE YOU EVER DEVELOPED ANY TYPE OF REACTION DURING OR AFTER DENTAL APPOINTMENT, VAGINAL/RECTAL EXAMINATION, SURGICAL PROCEDURE, OR ANY OTHER EXPOSURE?NO LATEX RISK : HAVE YOU EVER HAD ANY DIFFICULTY BREATHING OR HIVES AFTER EATING OR HANDLING ANY FRUITS, OR VEGETABLES; SUCH KIWI, BANANAS, STONE FRUITS, OR CHESTNUTSNO LATEX RISK : DO YOU HAVE A PREVIOUS PERSONAL HISTORY OF MORE THAN NINE SURGERIES, SPINA BIFIDA, OR REPEATED CATHERIZATIONS? YES - PLEASE INDICATE : > 9 SURGERIES LATEX RISK : ARE YOU FREQUENTLY EXPOSED TO LATEX PRODUCTS IN YOUR OCCUPATION?NO DATE ASKED : 09/07/2020 ALCOHOL USE: YES, VERY LITTLE ON JALYN. ALCOHOL SCREENING DID YOU HAVE A DRINK CONTAINING ALCOHOL IN THE PAST YEAR?NO POINTS0 INTERPRETATIONNEGATIVE RECREATIONAL DRUG USE DRUG USE?NO PATIENT DENIES ABUSE OR MISSUSED OF ANY MEDICATION DENIES PATIENT DENIES USE OF ANY ILLEGAL SUBSTANCE INCLUDING MARIJUANA OR COCAINE DENIES CAFFEINE CAFFEINE USE?NO CAODAISM [id number] LANGUAGE LANGUAGES SPOKEN:SLOVENIAN EDUCATION LEVEL OF EDUCATION:NOT FINISHED COLLEGE LEARNING BARRIERS / SPECIAL NEEDS BARRIERS TO LEARNING?NO HEARING IMPAIRED?NO VISION IMPAIRED?YES :CORRECTIVE LENSES COGNITIVELY IMPAIRED?NO READINESS TO LEARN?YES LEARNING PREFERENCES?NO LEARNING CAPABILITIES PRESENT?YES EMOTIONAL BARRIERS?NO SPECIAL DEVICES?YES :CANE, WALKER NEEDED BOOKING CLERK NEEDED?NO DOMESTIC VIOLENCE DO YOU FEEL SAFE IN YOUR ENVIRONMENT?YES OCCUPATION: RETIRED. DIET: REGULAR. EXERCISE: NO REGULAR EXERCISE. MARITAL STATUS: . OTHERS AT HOME: NONE. - PFS REFERRAL NEEDED?NO CLERGY REFERRAL NEEDED?NO PUBLIC HEALTH REFERRAL NEEDED?NO WAS THE PROVIDER NOTIFIED OF ANY PERTINENT INFO?YES HAS THE PATIENT BEEN EDUCATED REGARDING HIS/HER PLAN OF CARE?YES HAS THE PATIENT BEEN EDUCATED REGARDING PAIN, THE RISK FOR PAIN, THE IMPORTANCE OF EFFECTIVE PAIN MANAGEMENT, AND THE PAIN ASSESSMENT PROCESS?YES HOUSING: OWNS HOME. ADVANCE DIRECTIVE ADVANCE DIRECTIVE DISCUSSED WITH PATIENT:YES WILLAM SUAREZ (DAUGHTER) [phone] AND YOGI PRADHAN (SON) PAT REVIEWED 03/08/20. REVIEW OF SYSTEMS CONSTITUTIONAL: ANY RECENT FEVER NO . CHILLS NO . WEIGHT CHANGE OF UNKNOWN REASONS NO . GASTROENTEROLOGY: NEW UNEXPLAINABLE CHANGES IN BOWEL CONTROL NO . CONSTIPATION NO . GENITOURINARY: ANY NEW CHANGE IN BLADDER CONTROL? NO . NEUROLOGY: NEW ONSET DIZZINESS OR NEUROLOGICAL CHANGES NOT MENTIONED NO . NEW NUMBNESS OR PAIN PATTERNS NOT MENTIONED AND PERTINENT TO TODAY'S VISIT NO . CARDIOLOGY: NEW CHEST PRESSURE NO . PATIENT DENIES NO . RESPIRATORY: UNEXPLAINABLE COUGH NO . NEW SHORTNESS OF BREATH NO . VITAL SIGNS WT 111.4 LBS, HT 60 IN, BMI 21.75 INDEX, BP 150/67 MM HG, REPEAT BP 138/60 MM HG, HR 61 /MIN, RR 18 /MIN, TEMP 98.0 F, OXYGEN SAT % 97%, SAFE IN ENV? (Y/N) YES, NA INITIALS [place] 09:14T.JUANITA CALLE. EXAMINATION GENERAL EXAMINATION: GENERALNO ACUTE DISTRESS, WELL NOURISHED AND HYDRATED. PSYCHAPPROPRIATE MOOD AND AFFECT . LUNGS:CLEAR TO AUSCULTATION BILATERALLY, NO WHEEZES, RHONCHI, RALES. HEART:NO MURMURS, REGULAR RATE AND RHYTHM. LUMBAR:TENDERNESS NOTED OVER RIGHT SACROILIAC JOINT . . DIAGNOSTIC TESTS REVIEWED MRI L/S SPINE-08/13/20. 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 ADVISED TO USE TRAMADOL 50 MG TABLET HALF A TABLET MORNING AND NIGHT FOR CHRONIC PAIN. ADVISED TO TAKE COLACE 100 MG CAPSULE DAILY TO PREVENT CONSTIPATION. FOLLOW-UP IS SCHEDULED IN 6 WEEKS. PROCEDURE CODES FA211 ESTABILISHED PATIENT [facility] CHARGE DISPOSITION & COMMUNICATION FOLLOW UP 6 WEEKS (REASON: MED MGMNT/TRAMADOL) ELECTRONICALLY SIGNED BY HEATHER MENARD ON 09/08/2020 AT 01:28 PM EDT DISCLAIMER : THIS IS A VISIT SUMMARY EXTRACTED FROM THE [employer] CHART. IT IS NOT A COPY OF THE [employer] PROGRESS NOTE. STEVEND
== END ==
LOC: M PAIN 09:30
PROVIDERS: ATTEND Nurse Practitioner Family
DX: M51.36 Other intervertebral disc degeneration, lumbar region (principal); I10 Essential (primary) hypertension; E78.5 Hyperlipidemia, unspecified; J45.909 Unspecified asthma, uncomplicated; E11.9 Type 2 diabetes mellitus without complications; Z79.891 Long term (current) use of opiate analgesic; Z79.52 Long term (current) use of systemic steroids; Z79.899 Other long term (current) drug therapy; Z87.891 Personal history of nicotine dependence; Z88.2 Allergy status to sulfonamides; Z88.1 Allergy status to other antibiotic agents; Z88.8 Allergy status to other drugs, medicaments and biological substances; Z88.5 Allergy status to narcotic agent; Z88.0 Allergy status to penicillin; Z88.6 Allergy status to analgesic agent

== ENCOUNTER → 2020-10-25 | Outpatient (CLI) | payer MEDICARE, BC ==
[~2020-10-25] MED LIST changes: +OMEP40CA4 PO; -OMEP40CA97 PO
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
== END ==
LOC: M PAIN 09:45
PROVIDERS: ATTEND Nurse Practitioner Family
DX: M51.36 Other intervertebral disc degeneration, lumbar region (principal); G62.9 Polyneuropathy, unspecified; I10 Essential (primary) hypertension; E78.5 Hyperlipidemia, unspecified; J45.909 Unspecified asthma, uncomplicated; E11.9 Type 2 diabetes mellitus without complications; M54.5 Low back pain; Z87.891 Personal history of nicotine dependence; Z79.891 Long term (current) use of opiate analgesic; Z79.899 Other long term (current) drug therapy; Z88.1 Allergy status to other antibiotic agents; Z88.2 Allergy status to sulfonamides; Z88.8 Allergy status to other drugs, medicaments and biological substances; Z88.5 Allergy status to narcotic agent; Z88.6 Allergy status to analgesic agent

== ENCOUNTER → 2020-11-04 | Outpatient (CLI) | payer MEDICARE, BC ==
[~2020-11-04] MED LIST changes: +AMLO1TAB25 PO; +D31000TA2 PO; +ESOM0.1C PO; +FLUT22IN INH; +IPRA2IN NEB; +MI-A80CH PO; +MORP15TASA PO; +MORP4INJ2 IV; +SIMV20TA22 PO; +VENTAER INH; -VENTAER PO
== END ==
LOC: M WHC 09:39
PROVIDERS: ATTEND Internal Medicine
DX: R92.2 Inconclusive mammogram (principal)

== ENCOUNTER → 2020-11-10 | Outpatient (CLI) | payer MEDICARE, BC ==
[~2020-11-10] MED LIST changes: -AMLO1TAB25 PO; -D31000TA2 PO; -ESOM0.1C PO; -FLUT22IN INH; -IPRA2IN NEB; -MI-A80CH PO; -MORP15TASA PO; -MORP4INJ2 IV; -SIMV20TA22 PO; -VENTAER INH; +VENTAER PO
--- NOTE | 2020-11-10 11:25 | REP ---
INDICATION: ADDL VIEWS/LEFT BREAST ONEYDA DENSITY. COMPARISON: Comparison mammography November 04, 2020, October 30, 2019, October 21, 2018. TECHNIQUE: Magnified focal spot-compression CC, mL, and MLO views of the left breast upper outer quadrant region are acquired. This mammogram was interpreted with the aid of an FDA-approved computer-aided detection system. FINDINGS: The area in question on the screening mammogram from November 04, 2020 is seen to compress away to stromal elements which appear normal and are unchanged from remote prior mammograms. No mass lesion seen. No spiculation or suspicious calcification noted. Breast parenchyma remains dense as before. The Volpara volumetric breast density pattern is C. : IMPRESSION: BIRADS/ACR category 1 negative mammographic and sonographic findings. This patient's Tyrer-Cuzick lifetime breast cancer risk assessment score is 0.6%. RECOMMENDATION: Repeat screening mammography recommended 1 year (for women over 40). The patient letter being requested is M1 dense. <Electronically signed by Denzel Hernandez > 11/10/20 [id number]
== END ==
LOC: M WHC 10:45
PROVIDERS: ATTEND Internal Medicine
DX: R92.8 Other abnormal and inconclusive findings on diagnostic imaging of breast (principal)
CPT/HCPCS: 77065; G0279

== ENCOUNTER → 2020-11-29 | Outpatient (REF) | payer MEDICARE, BC ==
[~2020-11-29] MED LIST changes: +AMLO1TAB25 PO; +D31000TA2 PO; +ESOM0.1C PO; +FLUT22IN INH; +IPRA2IN NEB; +MI-A80CH PO; +MORP15TASA PO; +MORP4INJ2 IV; +SIMV20TA22 PO; +VENTAER INH; -VENTAER PO
== END ==
LOC: M LAB REF 16:15
PROVIDERS: ATTEND Physician Assistant Medical
DX: N39.0 Urinary tract infection, site not specified (principal)

== ENCOUNTER → 2021-01-26 | Outpatient (CLI) | payer MEDICARE, BC ==
[~2021-01-26] MED LIST changes: -AMLO1TAB25 PO; -MI-A80CH PO; -SIMV20TA22 PO
== END ==
LOC: M PAIN 10:00
PROVIDERS: ATTEND Anesthesiology
DX: M51.16 Intervertebral disc disorders with radiculopathy, lumbar region (principal); M79.10 Myalgia, unspecified site; J45.909 Unspecified asthma, uncomplicated; E11.9 Type 2 diabetes mellitus without complications; Z96.643 Presence of artificial hip joint, bilateral; Z87.891 Personal history of nicotine dependence; Z88.1 Allergy status to other antibiotic agents; Z88.2 Allergy status to sulfonamides; Z88.5 Allergy status to narcotic agent; Z88.6 Allergy status to analgesic agent; Z88.7 Allergy status to serum and vaccine; Z88.8 Allergy status to other drugs, medicaments and biological substances; Z79.899 Other long term (current) drug therapy

== ENCOUNTER 2021-01-31 10:06 | Inpatient (IN) | payer OTHER, MEDICARE, BC ==
[~2021-01-31] VITALS: Ht 144.8 cm; Wt 51.7 kg
[2021-01-31] MEDS: VITAMIN D 1,000 INTERNATIONAL UNITS TABLET PO SCH (09:00)
[~2021-01-31 10:06] MED LIST changes: -D31000TA2 PO; -ESOM0.1C PO; -FLUT22IN INH; -IPRA2IN NEB; -MORP15TASA PO; -MORP4INJ2 IV
[2021-01-31] MEDS ORDERED: MORPHINE 4 MG/ML 1ML VIAL/SYRINGE (J2270) IV ONE (10:15)
[2021-01-31] MEDS ORDERED: MORPHINE 4 MG/ML 1ML VIAL/SYRINGE (J2270) As Ordered ONE (10:15)
[2021-01-31] MEDS ORDERED: ONDANSETRON 4MG/2ML VIAL IV ONE (10:15)
[2021-01-31] MEDS ORDERED: ONDANSETRON 4MG/2ML VIAL As Ordered ONE (10:15)
[2021-01-31 10:31] LABS: VENOUS BASE EXCESS -1.6 (-2.0-2.0); VENOUS HCO3 22.7 MEQ/L (23.0-27.0); VENOUS O2 SATURATION 99.2 % (60.0-80.0); VENOUS PARTIAL PRESSURE CO2 36.9 mmHg (38.0-50.0); VENOUS PH 7.406 UNITS (7.330-7.430); VENOUS STANDARD HCO3 23.2 MEQ/L; VENOUS TOTAL CO2 23.8 MEQ/L (24.0-28.0)
--- NOTE | 2021-01-31 10:36 | REP ---
INDICATION: trauma. COMPARISON: 01/27/2020. TECHNIQUE: AP view pelvis. FINDINGS: There is no evidence of acute fracture or dislocation. Bilateral hip prostheses are in place and well aligned. Degenerative changes are noted of the lower lumbar spine. Metallic clips are seen in the pelvis. IMPRESSION: No acute fracture or dislocation. <Electronically signed by León Baum > 01/31/21 1033
--- NOTE | 2021-01-31 10:37 | REP ---
INDICATION: trauma. COMPARISON: None. TECHNIQUE: Single portable AP view of the chest was performed. FINDINGS: There is no acute infiltrate or pulmonary edema. Lungs are clear. The heart is not significantly enlarged. The mediastinal silhouette is unremarkable. There is calcific plaque in the thoracic aorta. The visualized osseous structures are intact. IMPRESSION: No acute pulmonary disease. <Electronically signed by León Baum > 01/31/21 1031
[2021-01-31 10:38] LABS: BASO % 0.3 % (0.0-1.0); EOS # 0.7 10^3/uL (0.0-0.5); EOS % 5.3 % (0.0-3.0); HEMATOCRIT 36.1 % (36.0-47.0); HEMOGLOBIN 11.9 g/dl (12.0-15.5); LYMPH % 16.2 % (24.0-44.0); MEAN CORPUSCULAR HEMOGLOBIN 31.9 pg (27.0-33.0); MEAN CORPUSCULAR VOLUME 96.8 fl (80.0-96.0); MONO # 0.9 10^3/uL (0.0-0.8); MONO % 7.5 % (2.0-8.0); NEUTROPHILS # 8.4 10^3/uL (1.5-8.5); NEUTROPHILS % 68.8 % (36.0-66.0); PLATELET COUNT, AUTOMATED 189 10^3/uL (150-450); RED BLOOD COUNT 3.73 10^6/uL (4.00-5.40); WHITE BLOOD COUNT 12.2 10^3/uL (4.0-10.0)
[2021-01-31] MEDS ORDERED: ISOVUE-370 76% 100ML VIAL As Ordered ONE (10:45)
[2021-01-31 10:58] LABS: INR 0.95; PARTIAL THROMBOPLASTIN TIME 26.1 SECONDS (25.9-37.0); PROTHROMBIN TIME 13.1 SECONDS (12.7-14.5)
[2021-01-31 11:00] LABS: ALBUMIN 3.4 GM/DL (3.2-5.2); ALT/SGPT 41 U/L (12-78); AMYLASE 63 U/L (25-115); BILIRUBIN,DIRECT 0.1 MG/DL (0.0-0.2); BILIRUBIN,TOTAL 0.4 MG/DL (0.2-1.0); CK-MB VALUE MASS < 1.0 NG/ML (<3.6); CPK CREATINE PHOSPHOKINASE 72 U/L (26-192); LIPASE 179 U/L (73-393); MB/CK RELATIVE INDEX 1.39 (< OR =4); TOTAL PROTEIN 7.1 GM/DL (6.4-8.2); TROPONIN I < 0.02 NG/ML (< 0.10)
--- NOTE | 2021-01-31 11:17 | REP ---
INDICATION: trauma. COMPARISON: CT maxillofacial 12/30/2018. TECHNIQUE: Axial soft tissue and bone window images performed with coronal reconstructions provided. FINDINGS: Lateral ventricles are dilated in proportion to the diffuse cerebral atrophy is greatest in the temporal and frontal lobes but present throughout 3rd and 4th ventricles are also proportionate periventricular, centrum semiovale and subcortical white matter low-density changes consistent with chronic small vessel ischemic disease. Basal ganglia are symmetric and without acute finding there is no intra or extra-axial hemorrhage, acute infarct, mass or mass effect. No midline shift. The posterior fossa shows no hemorrhage or gross mass. Basal cisterns are intact. The calvarium is without fracture. Mastoid aeration symmetric and normal. The sinuses show opacification of most of the ethmoids with mucosal thickening and air-fluid levels in the frontal and sphenoids as well as portions of maxillary sinuses included. IMPRESSION: 1. Ventricular atrophy with proportionate ventricular size. No vascular territory infarct, intracranial hemorrhage, mass or mass effect. Chronic small vessel white matter ischemic changes, diffuse. 2. Extensive chronic sinus disease with acute and chronic changes. Mastoids intact. Skull base and calvarium otherwise unremarkable. 3. No other significant or acute finding. <Electronically signed by Jaime More > 01/31/21 [id number]
--- NOTE | 2021-01-31 11:25 | REP ---
INDICATION: trauma. COMPARISON: Soft tissue neck x-rays 11/22/2016. TECHNIQUE: Trauma protocol with coronal and sagittal bone window reconstructions. FINDINGS: Plate and screw fixation anteriorly at C4-5 noted as on radiographs. This is a solid bony fusion. Hardware intact. A couple of mm of anterolisthesis of C3 on C4. C2-3 and C3-4 disc space heights are generally maintained. There is marked narrowing at C5-6 less at C6-7 posterior osteophytes are seen at both of those levels. Couple of mm of anterolisthesis of C7 on T1 noted, all of this chronic change. No acute compression deformity. Dens intact. There are degenerative changes at the dens articulation with the anterior arch of C1. The dens shows normal relationship to the lateral masses of C1 on coronal images. The ring of C1 is intact. Craniocervical and cervicothoracic junction alignment are normal. The spinous processes, lamina, pedicles and facets are without acute fracture. Transverse processes and foramina were intact. There is facet arthropathy at multiple levels in the posterior osteophytes as described these contribute to central canal stenosis at C5-6 minimally at C6-7 and uncinate spurring with mild foraminal encroachment on the right at C2-3, C3-4 and on the left at C5-6. Foramina marginally adequate at C6-7 an ample at C7-T1. Those portions of the 1st 4 ribs included were unremarkable. There is no prevertebral swelling or malalignment. Visualized soft tissues unremarkable. Lung apices the were clear IMPRESSION: 1. Status post C4-5 anterior cervical discectomy and fusion with hardware intact in the disc space solidly fused. 2. No compression fracture or malalignment there are a couple of mm of anterolisthesis of C4 on 5 and C7 on T1 related to some facet arthropathy. 3. Foraminal encroachment at levels of described due to uncinate spurring. No acute finding there. Some mild central canal stenosis at levels described. No definite acute finding. <Electronically signed by Jaime More > 01/31/21 1120
[2021-01-31] MEDS: MORPHINE 4 MG/ML 1ML VIAL/SYRINGE (J2270) IV PRN ×3 (11:32→21:01)
--- NOTE | 2021-01-31 11:34 | REP ---
INDICATION: trauma. COMPARISON: 06/23/2018. TECHNIQUE: CT chest performed following the intravenous administration of 100 cc of Isovue 370. Sagittal and coronal reconstruction images are performed. FINDINGS: Lungs: There is a calcified granuloma in the right apex. There is mild scattered interstitial fibrosis bilaterally. Mediastinum: No adenopathy. Mariely: No adenopathy. Axilla: No adenopathy. Pleura: No effusion. Heart: Not enlarged. Thoracic aorta: No aneurysm or dissection. Upper abdominal structures: There is a small hiatal hernia. Visualized osseous structures: There are mild degenerative changes of the spine without compression deformity. IMPRESSION: No acute findings in the chest as discussed above. <Electronically signed by León Baum > 01/31/21 [id number]
--- NOTE | 2021-01-31 11:38 | REP ---
INDICATION: trauma. COMPARISON: 04/06/2019 TECHNIQUE: Bolus 100 mL Isovue 370 scanning through the abdomen and pelvis with coronal and sagittal reconstructions. FINDINGS: Utility Clerk image shows the bilateral total hip arthroplasties. CT abdomen: There is no hepatosplenomegaly, focal hepatic or splenic lesion nor adjacent ascites. Gallbladder surgically absent. A small hiatal hernia. Adrenal glands are normal. Kidneys show some lobation and peripherally at the interpolar region on the right is a complex predominately fatty lesion from renal cortex representing an angiomyolipoma, stable. There is no hydronephrosis, stone or other renal mass. Pancreas is unremarkable. There are few scattered diverticula in the colon without signs of diverticulitis in the abdomen proper. Small bowel loops are without dilatation or air-fluid levels. The aorta shows atherosclerotic calcification without aneurysm or dissection. There is no periaortic, other retroperitoneal or mesenteric pathologic sized lymphadenopathy. Lung window review of all CT slices shows no perforation or free air in the abdomen or pelvis. Bone windows show degenerative disc changes and vacuum phenomena throughout the lumbar region with small Schmorl's nodes but findings all stable compared to 2020. Some facet arthropathy noted. Visualized lower ribs intact. No acute fractures. CT pelvis: Sacrum, SI joints and iliac bones show no acute finding. There is bilateral total hip arthroplasty with spray artifact limiting evaluation of the pelvis but the acetabulae visible were unremarkable and without evidence of an acute fracture. Superior and inferior pubic rami, symphysis pubis and that portion of the proximal femur included are unremarkable on each side. I do not see pelvic free fluid. Bladder is only partially evaluated and shows evidence for pelvic floor muscular relaxation. Anastomotic suture line again noted in the rectosigmoid colon. No midline ventral hernia. Cecum extends toward the inguinal canal but not into it. No obstruction, mass or air-fluid levels in the small bowel loops or colon. No sign of colitis or diverticulitis. No ascites. Subcutaneous fat in the abdominal wall shows no hematoma. IMPRESSION: 1. There is no intra-abdominal or pelvic mass, free fluid or free air. No retroperitoneal hematomas, subcutaneous contusions or other traumatic signs. 2. 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 3. Status post bilateral total hip arthroplasty. No visible fracture or bony destructive lesion. There are chronic degenerative changes in the spine. 4. No solid organ traumatic changes. 5. Small hiatal hernia. No acute inflammatory process. <Electronically signed by Jaime More > 01/31/21 [id number]
[2021-01-31 12:11] LABS: APPEARANCE, URINE CLEAR (CLEAR); BACTERIA, URINE AUTO NEGATIVE (NEGATIVE); BILIRUBIN, URINE AUTO NEGATIVE (NEGATIVE); BLOOD, URINE BLOOD NEGATIVE (NEGATIVE); COLOR, URINE STRAW (YELLOW); GLUCOSE, URINE (UA) AUTO NEGATIVE (NEGATIVE); KETONE, URINE AUTO NEGATIVE (NEGATIVE); LEUKOCYTE ESTERASE, URINE AUTO NEGATIVE (NEGATIVE); NITRITE, URINE AUTO NEGATIVE (NEGATIVE); PROTEIN, URINE AUTO NEGATIVE (NEGATIVE); RBC, URINE AUTO 1 /HPF (0-3); SPECIFIC GRAVITY URINE AUTO 1.026 (1.002-1.035); SQUAMOUS EPITHELIAL CELL UR AU 0 /HPF (0-6); UROBILINOGEN, URINE AUTO 0.2 mg/dL (0.0-2.0); WBC, URINE AUTO 1 /HPF (0-3)
[2021-01-31 12:29] LABS: RSV AMPLIFICATION NEGATIVE (NEGATIVE)
--- NOTE | 2021-01-31 12:58 | REP ---
INDICATION: trauma COMPARISON: Right lower leg 06/07/2020. Left lower leg 06/14/2017. TECHNIQUE: AP and lateral lower legs bilaterally. FINDINGS: There is no evidence of acute fracture, dislocation, or intrinsic bone disease. IMPRESSION: No fracture or dislocation. <Electronically signed by León Baum > 01/31/21 1063
[2021-01-31] MEDS ORDERED: HumuLIN R (REGULAR) INSULIN (NovoLIN R) **100U/ML** PER UNIT IV ONE (13:20)
[2021-01-31] MEDS ORDERED: MAALOX 30 ML SUSP *UDC PO PRN (14:00)
[2021-01-31] MEDS ORDERED: ONDANSETRON 4MG/2ML VIAL IV PRN (14:00)
[2021-01-31] MEDS ORDERED: MOM 30ML SUSPENSION UDC PO PRN (14:00)
[2021-01-31] MEDS ORDERED: FLUT22IN INH (14:05)
[2021-01-31] MEDS ORDERED: IPRA2IN NEB (14:05)
[2021-01-31] MEDS ORDERED: PRED5TA PO (14:05)
[2021-01-31] MEDS ORDERED: D31000TA2 PO (14:05)
[2021-01-31] MEDS ORDERED: ESOM0.1C PO (14:06)
[2021-01-31] MEDS ORDERED: HOME MED LIST COMPLETE! XX SCH (14:10)
[2021-01-31] MEDS ORDERED: IPRATROPIUM 0.5MG/ALBUTEROL 2.5MG INH SOL UD 3ML (DUONEB) NEB PRN (14:10)
--- OUTSIDE RECORDS SUMMARY | 2021-01-31 14:10 | CCD | Continuity of Care Document ---
Author Author Chloe CALABRESE PA Organization Unknown Address [address] [place] [address] Phone [phone] Care Team Providers Care De Icer Element Winder Name Role Phone Aki Pugh MD AUTM [phone] David Mccoy JR, MD AUTM Unavailable Zoie Aldrich MD AUTM [phone] Kris Roa MD AUTM [phone] [facility] [phone] Dale Rommel DO AUTM [phone] [facility] - biomedical engineering technologist AUTM Problems Active Problems Provider Date Conduction disorder of the heart David Mccoy MD Onset : 12/17/1997 Palpitations David Mccoy MD Onset: 12/17/1997 Pain in limb HEATHER Pleitez Onset: 12/07/2010 Paroxysmal supraventricular tachycardia HEATHER Pleitez Onset: 01/16/2011 Nasal polyp David Mccoy MD Onset: 01/16/2011 Pure hypercholesterolemia David Mccoy MD Onset: 01/16 Bronchiolectasis David Mccoy MD Onset: 01/16/2011 Essential hypertension David Mccoy MD Onset: 01/17/20 11 Gastroesophageal reflux disease GARRETT Dawn Onset : 01/16/2011 Asthma without status asthmaticus David Mccoy MD Onse t: 01/16/2011 Chronic sinusitis David Mccoy MD Onset: 01/16/2011 Anemia David Mccoy MD Onset: 05/08/2018 Social History Type Date Description Comments Sex Unknown ETOH Use Rarely consumes wine Tobacco Use Start: Unknown End: Unknown Patient is a former smoker SMOKED FOR 30YRS 1 1/2 PACKS A DAY Allergies, Adverse Reactions, Alerts Active Allergies Criticality Reaction | Severity Comments Date Sulfa Unable to assess criticality 01/20/2010 Tavist D Unable to assess criticality 01/20/2010 Ibuprofen Unable to assess criticality asthma asthma 12/01/2010 Lidoderm Unable to assess criticality rash 12/01/2010 Amoxicillin Unable to assess criticality Hives,Troubl e Breathing 02/20/2013 Cephalexin Unable to assess criticality Chest Pain R ed Head To Toe 05/19/2013 Guiatex LA Unable to assess criticality Rash 05/19/2013 Aleve Unable to assess criticality Wheezing 05/19/2013 Ambien Unable to assess criticality Dizzy, Stoma ch Upset 05/19/2013 Ativan Unable to assess criticality SOB, Dizzy C oordination 05/19/2013 Penicillins Unable to assess criticality | Severe 10/19/2013 Cefuroxime Unable to assess criticality Rash 01/30/2017 Erythromycin Unable to assess criticality Rash 01/30/2017 Cipro Unable to assess criticality Rash 01/30/2017 Doxycycline Unable to assess criticality Rash 01/30/2017 Biaxin Unable to assess criticality Rash 01/30/2017 Avelox Unable to assess criticality Nausea 01/30/2017 Declomycin Unable to assess criticality Rash 01/30/2017 Tussionex Unable to assess criticality N/V 01/30/2017 Demerol Unable to assess criticality N/V 01/30/2017 Guaifenesin Unable to assess criticality Nose bleed 01/30/2017 Codeine Unable to assess criticality Nausea 01/30/2017 Pneumovax Unable to assess criticality Arm swelled 01/30/2017 Aspirin Unable to assess criticality Cough, wheez ing 01/30/2017 Levaquin Unable to assess criticality bad headache 01/30/2017 Morphine Unable to assess criticality N/V 01/30/2017 Alprazolam Unable to assess criticality Terrible Hea dache 01/30/2017 Tobramycin Unable to assess criticality Headache, As thma problems 01/30/2017 Medications Active Medications SIG Qnty Indications Ordering Provide r Date Nitrofurantoin Monohyd Macro 100mg Capsules 1 by mouth twice a day x 5 days 10caps AMI Saha JR 11/29/2020 Shingrix 50mcg/0.5ML Suspension Re c administer 0.5 milliliters intramuscular, repeat in 2 to 6 months 2units David Mccoy MD 09/20/2020 Albuterol Sulfate (2 .5mg/3ML) 0.083% Nebulizer Use Via Via Nebulizer Four Times A Day 1050units Co quinten Mccoy MD 02/18/2020 Esomeprazole Magnesium 20mg Capsul es DR 1 by mouth every day 90caps David Mccoy MD 020 Benzonatate 200mg Capsules take one capsule three times daily as needed for cough 30caps J01.90 David Mccoy MD 01/16/2019 Flovent HFA 220mcg/Act Aerosol 2 puffs bid J45.21 Lore Hyde M.D. 10/07/19 19 Prednisone 5mg Tablets Take 1 Tablet Daily 90tabs David Mccoy MD 10/06/2018 Ipratropium [place] 0.03% Solution 2 sprays each nostril 2-3x/day as needed 90ml John Claros FNP 07/23/2018 Atenolol 25mg Tablets take 1 tablet daily 90tabs David Mccoy MD 06/24/2017 Ipratropium [place] 0.02% Solution use 1 vial via nebulizer four times a day 360units David newell MD 12/04/2016 Vitamin D-3 1000Unit Capsules 1 by mouth every day Acacia Renteria, GARRETT 06/06/2016 Digoxin 250mcg Tablets Take 1 Tablet Every Other Day 45tabs David Mccoy MD 12/29/2013 Icaps Capsules 1 po qd David Mccoy MD 07/18/2011 Vaniqa 13.9% Cream apply a thin layer to face two times a day 8 hours apart. do not wash for 4 hours 45units David Mccoy MD 02/13/2011 Amitriptyline HCL 10mg Tablets Take 1 Tablet AT Bedtime 90tabs Ally Campos DO 01/16/2011 Ventolin HFA 108(90Base) mcg/Act A erosol inhale 2 puffs by mouth four times a day as needed 54units David Mccoy MD 09/01/2010 Cod Liver Oil/Low Vitamin A Capsules Acacia Renteria, GARRETT 08/23/2010 Simvastatin 20mg Tablets take 1 tablet at bedtime *lupin* 90tabs David Mccoy MD 09/17/2008 Nebulizer Misc use as direct ed 1units David Mccoy MD 05/07/2008 Calcium 1200 [id number] Chew tabs 1 by mouth every day Unknown Budesonide 0.5mg/2ML Suspension via neb twice a day 120ml David Mccoy MD Gabapentin 100mg Capsules take one capsule by mouth three times a day Unknown Medications Administered in Office Medication SIG Qnty Indications Ordering Provider Date Covid-19 vaccine, Unspecified Inj ection Unknown 05/23/2020 Covid-19 vaccine, Unspecified Inj ection Unknown 04/25/2020 Administration Of Flu Vaccine Inj suzanne Mccoy MD 12/28/2019 Administration Of Flu Vaccine Inj suzanne Mccoy MD 01/08/2019 Administration Of Flu Vaccine Inj suzanne Mccoy MD 01/02/2018 Administration Of Flu Vaccine Inj suzanne Mccoy MD 01/08/2017 Administration Of Flu Vaccine Inj suzanne Mccoy MD 02/13/2016 Administration Of Flu Vaccine Inj ection Acacia Renteria, GARRETT 12/27/2014 Administration Of Flu Vaccine Inj suzanne Mccoy MD 01/22/2014 Administration Of Flu Vaccine Inj ectkatelyn Mccoy MD 01/16/2013 Administration Of Flu Vaccine Inj suzanne Mccoy MD 01/04/2012 Administration Of Flu Vaccine Inj suzanne Mccoy MD 01/16/2011 Administration Of Flu Vaccine Inj ection Hyacinth Lovell [facility] 12/20/2009 Administration Of Flu Vaccine Inj suzanne Mccoy MD 01/03/2009 Administration Of Flu Vaccine Inj suzanne Mccoy MD 01/06/2008 Administration Of Flu Vaccine Inj ection David Mccoy MD 01/23/2007 Administration Of Flu Vaccine Inj olegarioion David Mccoy MD 01/11/2005 Administration Of Flu Vaccine Inj olegarioion David Mccoy MD 01/06/2004 Administration Of Flu Vaccine Inj ection AcaciaGARRETT Mendoza 01/05/2003 Administration Of Flu Vaccine Inj ection GARRETT Nunez 01/05/2002 Administration Of Flu Vaccine Inj ection David Mccoy MD 01/09/2001 Immunizations CPT Code Status Date Vaccine Lot # [id number] Given 12/28/2019 Influenza Vaccin e Quadrivalent Preser/Antibiotic Free Im Use [id number] 88700 Given 01/08/2019 Influenza Vaccin e Quadrivalent Preser/Antibiotic Free Im Use [id number] 25093 Given 01/02/2018 Influenza Virus Vaccine, Quadrivalent ([id number]), Derived From Cell 73852 Given 01/08/2017 Influenza Vaccin e Quadrivalent Preser/Antibiotic Free Im Use [id number] Q2037 Given 02/13/2016 Fluvirin Virus Vaccine 31631 01 32431 Given 12/20/2015 Adacel- Tetanus Diphtheria P ertussis (Age64 & Under) [id number] Q2037 Given 12/27/2014 Fluvirin Virus Vaccine 90179 01 Q2037 Given 01/22/2014 Fluvirin Virus Vaccine 07375 21 Q2037 Given 01/16/2013 Fluvirin Virus Vaccine 77682 01 Q2037 Given 01/04/2012 Fluvirin Virus Vaccine Q2037 Given 01/04/2012 Fluvirin Virus Vaccine Q2037 Given 01/16/2011 Fluvirin Virus Vaccine 80734 Given 05/22/2009 Influenza Virus Vaccine 34860 Given 01/03/2009 Influenza Virus Vaccine 44338 Given 01/06/2008 Influenza Virus Vaccine 91845 Given 01/23/2007 Influenza Virus Vaccine 95995 Given 01/11/2005 Influenza Virus Vaccine 37778 Given 01/06/2004 Influenza Virus Vaccine 60615 Given 01/05/2003 Influenza Virus Vaccine 56944 Given 01/05/2002 Influenza Virus Vaccine 73271 Given 01/09/2001 Influenza Virus Vaccine 91588 Given 03/06/2000 Pneumovax 23 90455 Given 01/20/1999 Influenza Virus Vaccine 08883 Given 01/03/1998 Influenza Virus Vaccine Vital Signs Date Vital Result Comment 11/29/2020 2:32pm BP Systolic 120 mmHg BP Diastolic 60 mmHg Heart Rate 60 /min Height 59 inches 4'11" Weight 107.00 lb BMI (Body Mass Index) 21.6 kg/m2 11/01/2020 10:27am BP Systolic 132 mmHg BP Diastolic 678 mmHg Heart Rate 70 /min Height 59 inches 4'11" Weight 108.00 lb BMI (Body Mass Index) 21.8 kg/m2 Results Test Acquired Date Facility Test Result H/L Range Note Ua Dipstick Only 11/29/2020 [facility] Supervisor Wound: [place] [address] [phone] Urine Color YELLOW Yellow Urine Appearance CLOUDY Abnormal Clear Urine PH 6.5 units 5.0 - 9.0 Urine Specific [place] 1.015 1.005 - 1.030 Urine Leukocytes LARGE Abnormal Negative Urine Blood SMALL Abnormal Negative Urine Protein 1+ Abnormal Negative -Trace Urine Glucose NEGATIVE mg/dL Negative Urine Nitrite POSITIVE Abnormal Negative Urine Ketone NEGATIVE mg/dL Negative Urine Bilirubin NEGATIVE Negative Urine Urobilinogen 0.2 mg/dL 0.2 - 1.0 Laboratory test finding 11/29/2020 [facility] [address] [place] [address] [phone] Urine Culture FULL REPORT IN L <SEE NOTE> Normal 1 Complete Blood Count 11/01/2020 [facility] Supervisor Wound: [place] [address] [phone] WBC 12.7 x10*3/UL High 4.1 - 10.9 RBC 3.80 x10*6/UL Low 4.20 - 6.30 Hemoglobin 12.0 g/dL 12.0 - 18.0 Hematocrit 34.4 % Low 37.0 - 51.0 MCV 90.6 fL 80.0 - 97.0 MCH 31.5 pg 26.0 - 32.0 MCHC 34.8 g/dL 31.0 - 38.0 RDW 14.0 % High 11.6 - 13.7 PLT 246 x10*3/UL 140 - 440 MPV 9.1 FL 7.8 - 11.0 Lymph % 10.1 % 10.0 - 58.5 Mid % 3.3 % 1.7 - 9.3 Neut % 86.6 % 37.0 - 92.0 Lymph # 1.2 x10*3/UL 0.6 - 4.1 Mid # 0.5 x10*3/UL 0.1 - 0.6 Neut # 11.0 x10*3/UL High 2.0 - 7.8 A1c 11/01/2020 [facility] , Supervisor Wound: [place] [address] [phone] Hba1c 6.3 % High <5.7 2 Est Avg Glucose 134 mg/dL High 60 - 110 Comprehensive Chem Profile 11/01/2020 [facility], Supervisor Wound: [place] [address] [phone] Glucose 136 mg/dL High 74 - 99 3 BUN 37 mg/dL High 7 - 18 Creatinine 1.4 mg/dL High 0.6 - 1.3 Sodium 140 mEq/L 136 - 145 Potassium 4.6 mEq/L 3.5 - 5.1 Chloride 102 mEq/L 98 - 107 Carbon Dioxide 27 mEq/L 21 - 32 Calcium 9.7 mg/dL 8.5 - 10.1 Alk. Phosphatase 43 mg/dL Low 46 - 116 Total Bilirubin 0.6 mg/dL 0.2 - 1.0 Ast (Sgot) 24 U/L 15 - 37 Alt (SGPT) 42 U/L 12 - 78 Albumin 3.7 g/dL 3.4 - 5.0 Total Protein 7.3 g/dL 6.4 - 8.2 A/G Ratio 1.03 CALC 1.00 - 1.90 GFR 36 mL/min Low >60 GFR 43 mL/min Low >60 4 Ua Dipstick Only 06/27/2020 [facility] , Supervisor Wound: [place] [address] [phone] Urine Color YELLOW Yellow Urine Appearance CLOUDY Abnormal Clear Urine PH 6.0 units 5.0 - 9.0 Urine Specific [place] 1.020 1.005 - 1.030 Urine Leukocytes LARGE Abnormal Negative Urine Blood LARGE Abnormal Negative Urine Protein 3+ Abnormal Negative -Trace Urine Glucose NEGATIVE mg/dL Negative Urine Nitrite POSITIVE Abnormal Negative Urine Ketone NEGATIVE mg/dL Negative Urine Bilirubin NEGATIVE Negative Urine Urobilinogen 0.2 mg/dL 0.2 - 1.0 Laboratory test finding 06/27/[address] [address] [phone] Urine Culture FULL REPORT IN L <SEE NOTE> Normal 5 Thyroid Profile 06/21/2020 [facility] nter [address] [place] [address] [phone] T Uptake 34 % Normal 30-39 Thyroxine (T4) 6.8 g/dL Normal 4.5-12.0 Free Thyroxine Index 2.3 % Normal 1.3-4.8 Thyroid Stimulating Hormone 1.780 uIU/ML Normal 0.358-3.740 Anti-Sjogrens A&B Antibodies 06/21/[address] [address] [phone] Ssa Sjogrens A <0.2 AI Normal 0.0-0.9 SSB Sjogrens B <0.2 AI Normal 0.0-0.9 6 Laboratory test finding 06/21/[address] [address] [phone] Free T3 3.2 pg/mL Normal 2.2-4.0 7 Free T4 0.79 ng/dL Normal 0.76-1.46 8 Laboratory test finding 06/07/[address] [address] [phone] Digoxin Level 0.7 NG/ML Normal 0.5-2.0 9 Complete Blood Count 06/07/2020 [facility] Supervisor Wound: [place] [address] [phone] WBC 8.3 x10*3/UL 4.1 - 10.9 RBC 3.65 x10*6/UL Low 4.20 - 6.30 Hemoglobin 12.0 g/dL 12.0 - 18.0 Hematocrit 34.0 % Low 37.0 - 51.0 MCV 93.2 fL 80.0 - 97.0 MCH 33.0 pg High 26.0 - 32.0 MCHC 35.4 g/dL 31.0 - 38.0 RDW 12.6 % 11.6 - 13.7 PLT 218 x10*3/UL 140 - 440 MPV 8.3 FL 7.8 - 11.0 Lymph % 22.4 % 10.0 - 58.5 Mid % 6.3 % 1.7 - 9.3 Neut % 71.3 % 37.0 - 92.0 Lymph # 1.8 x10*3/UL 0.6 - 4.1 Mid # 0.6 x10*3/UL 0.1 - 0.6 Neut # 5.9 x10*3/UL 2.0 - 7.8 Comprehensive Chem Profile 06/07/2020 [facility] Supervisor Wound: [place] [address] [phone] Glucose 95 mg/dL 74 - 99 10 BUN 30 mg/dL High 7 - 18 Creatinine 1.3 mg/dL 0.6 - 1.3 Sodium 142 mEq/L 136 - 145 Potassium 3.9 mEq/L 3.5 - 5.1 Chloride 103 mEq/L 98 - 107 Carbon Dioxide 30 mEq/L 21 - 32 Calcium 8.9 mg/dL 8.5 - 10.1 Alk. Phosphatase 34 mg/dL Low 46 - 116 Total Bilirubin 0.4 mg/dL 0.2 - 1.0 Ast (Sgot) 22 U/L 15 - 37 Alt (SGPT) 35 U/L 12 - 78 Albumin 3.8 g/dL 3.4 - 5.0 Total Protein 7.4 g/dL 6.4 - 8.2 A/G Ratio 1.06 CALC 1.00 - 1.90 GFR 39 mL/min Low >60 GFR 47 mL/min Low >60 11 1 FULL REPORT IN LAB NOTES ([facility] and [facility]). ORGANISM 1: ESCHERICHIA COLI COLONY COUNT >100,000 ORGANISM 1: ESCHERICHIA COLI ESCHERICHIA COLI: REACTION TRIMETHOPRIM/SULFAMETHOXAZOLE IV 160mg TMP & 800mg SMXq6h <=20 S TRIMETHOPRIM/SULFAMETHOXAZOLE PO Bactrim DS Bid <=20 S AMPICILLIN IV 500mg q6h <=2 S AMPICILLIN PO 500mg q6h fasting <=2 S GENTAMICIN IV 80mg q8h <=1 S NITROFURANTOIN PO 100mg BID <=16 S CEFAZOLIN IV 1gm q8h <=4 S LEVOFLOXACIN IV 500mg qd <=0.12 S LEVOFLOXACIN PO 250mg qd <=0.12 S LEVOFLOXACIN PO 500mg qd <=0.12 S TOBRAMYCIN IV 80mg q8h <=1 S CEFTRIAXONE IV 1gm q24h <=1 S CEFTAZIDIME IV 1gm q8h <=1 S AMPICILLIN/SULBACTAM IV 1.5g q6h <=2 S PIPERACILLIN/TAZOBACTAM IV 2.25 gm q6h <=4 S AZTREONAM IV 1gm q8h <=1 S ERTAPENEM IV 1gm qd <=0.5 S MEROPENEM IV 1 gm q8h <=0.25 S MEROPENEM IV 500 mg q8h <=0.25 S TIGECYCLINE IV 50mg q12h <=0.5 S CEFEPIME IV 1 gm q12h <=1 S CEFEPIME IV 2 gm q12h <=1 S EXTD BRD SPCTRM BETA LACTAMASE IV NEGATIVE FOR ESBL 2 Lab Result Notes: Pre-Diabetes 5.7 - 6.4 % Diabetes = or > 6.5% 3 100-125 mg/dL PRE-DIABET ES/FASTING >126 mg/dL DIABETES/FASTING 4 CHRONIC KIDNEY DISEASE STAGI NG PER NKF STAGE I & II GFR >= 60 NORMAL TO MILDLY DECREASED STAGE III GFR 30-59 MODERATELY DECREASED STAGE IV GFR 15-29 SEVERELY DECREASED STAGE V GFR <15 VERY LITTLE GFR LEFT ESRD GFR <15 ON AGING DEPARTMENT SUPERVISOR 5 FULL REPORT IN LAB NOTES ([facility] and [facility]). ORGANISM 1: ESCHERICHIA COLI COLONY COUNT >100,000 ORGANISM 1: ESCHERICHIA COLI ESCHERICHIA COLI: REACTION TRIMETHOPRIM/SULFAMETHOXAZOLE IV 160mg TMP & 800mg SMXq6h <=20 S TRIMETHOPRIM/SULFAMETHOXAZOLE PO Bactrim DS Bid <=20 S AMPICILLIN IV 500mg q6h 4 S AMPICILLIN PO 500mg q6h fasting 4 S GENTAMICIN IV 80mg q8h <=1 S NITROFURANTOIN PO 100mg BID <=16 S CEFAZOLIN IV 1gm q8h <=4 S LEVOFLOXACIN IV 500mg qd <=0.12 S LEVOFLOXACIN PO 250mg qd <=0.12 S LEVOFLOXACIN PO 500mg qd <=0.12 S TOBRAMYCIN IV 80mg q8h <=1 S CEFTRIAXONE IV 1gm q24h <=1 S CEFTAZIDIME IV 1gm q8h <=1 S AMPICILLIN/SULBACTAM IV 1.5g q6h <=2 S PIPERACILLIN/TAZOBACTAM IV 2.25 gm q6h <=4 S AZTREONAM IV 1gm q8h <=1 S ERTAPENEM IV 1gm qd <=0.5 S MEROPENEM IV 1 gm q8h <=0.25 S MEROPENEM IV 500 mg q8h <=0.25 S TIGECYCLINE IV 50mg q12h <=0.5 S CEFEPIME IV 1 gm q12h <=1 S CEFEPIME IV 2 gm q12h <=1 S EXTD BRD SPCTRM BETA LACTAMASE IV NEGATIVE FOR ESBL 6 Performed at: RN - [facility] [address] [id number] Supervisor Wound: Cathryn Presley MD, Phone: [phone] 7 note:<nlbl:demographic_chang ed> 8 note:<nlbl:demographic_chang ed> 9 note:<nlbl:demographic_chang ed> 10 100-125 mg/dL PRE-DIABET ES/FASTING >126 mg/dL DIABETES/FASTING 11 CHRONIC KIDNEY DISEASE STAGI NG PER NKF STAGE I & II GFR >= 60 NORMAL TO MILDLY DECREASED STAGE III GFR 30-59 MODERATELY DECREASED STAGE IV GFR 15-29 SEVERELY DECREASED STAGE V GFR <15 VERY LITTLE GFR LEFT ESRD GFR <15 ON AGING DEPARTMENT SUPERVISOR Procedures Date Code Description Status 11/29/2020 64762 Office/Outpatient Established SF MDM 10-19 Min Completed 11/10/2020 [id number] Mammogram Completed 11/01/2020 29103 Office/Outpatient Established Mo d MDM 30-39 Min Completed 06/27/2020 44599 Office/Outpatient Established Mo d MDM 30-39 Min Completed 06/07/2020 40537 Office/Outpatient Established Lo w MDM 20-29 Min Completed 12/15/2019 [id number] Diabetic Retinal Eye Exam Comple [facility] 11/23/2019 [id number] Mammogram Completed 10/21/2018 [id number] Mammogram Completed 10/10/2017 [id number] Bone Mineral Density Test Comple [facility] 10/10/2017 [id number] Mammogram Completed 10/04/2016 [id number] Mammogram Completed 09/04/2016 [id number] Colonoscopy Completed 08/13/2016 [id number] Colonoscopy Completed 10/04/2015 [id number] Mammogram Completed 09/01/2015 [id number] Bone Mineral Density Test Comple joycelyn 02/03/2015 [id number] Mammogram Completed 09/29/2014 [id number] Mammogram Completed 09/03/2013 [id number] Mammogram Completed 02/05/2013 [id number] Bone Mineral Density Test Comple joycelyn 09/02/2012 [id number] Mammogram Completed 08/08/2012 [id number] Diabetic Foot Exam Completed 05/26/2012 [id number] Diabetic Foot Exam Completed 09/17/2011 [id number] Mammogram Completed 08/28/2011 [id number] Diabetic Retinal Eye Exam Comple joycelyn 03/19/2011 [id number] Mammogram Completed 12/15/2010 [id number] Diabetic Retinal Eye Exam Comple joycelyn 09/13/2010 [id number] Mammogram Completed 09/07/2010 [id number] Mammogram Completed 05/05/2010 [id number] Mammogram Completed 08/30/2009 [id number] Mammogram Completed 09/07/2008 [id number] Mammogram Completed 08/26/2008 [id number] Bone Mineral Density Test Comple joycelyn 08/20/2008 [id number] Mammogram Completed Medical Devices Description No Information Available Encounters Type Date Location Provider Dx Diagnosis Office Visit 11/29/2020 2:40p [facility] Calabrese JR, PA N39.0 Urinary tract infection, sit e not specified Office Visit 11/01/2020 10:40a [facility] PA[facility]ree Mccoy MD 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 N18.30 Chronic kidney disease, stag e 3 unspecified J45.40 Moderate persistent asthma, uncomplicated Z79.52 extermination inspector (current) use of s ystemic steroids 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 I47.1 Supraventricular tachycardia K21.9 Gastro-esophageal reflux dis ease without esophagitis R31.9 Hematuria, unspecified Z13.89 Encounter for screening for other disorder Office Visit 06/07/2020 2:00p [facility] Robles JR M54.5 Low back pain M79.604 Pain in right leg Assessments Date Code Description Provider 11/29/2020 N39.0 Urinary tract infection, site no t specified AMI Saha JR 11/01/2020 I12.9 Hypertensive chronic kidney disease with stage 1 through stage 4 chronic kidney disease, or unspecified chronic kidney disease David cMcoy MD 11/01/2020 N18.30 Chronic kidney disease, stage 3 unspecified David Mccoy MD 11/01/2020 J45.40 Moderate persistent asthma, unco mplicated David Mccoy MD 11/01/2020 Z79.52 group home (current) use of syste amira steroids David Mccoy MD 11/01/2020 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 David Mccoy MD 11/01/2020 T38.0x5D Adverse effect of gl ucocorticoids and synthetic analogues, subsequent encounter David Mccoy MD 11/01/2020 K21.9 Gastro-esophageal reflux disease without esophagitis David Mccoy MD 11/01/2020 I47.1 Supraventricular tachycardia Col jackson Mccoy MD 11/01/2020 M54.5 Low back pain David bowers MD 06/27/2020 M79.604 Pain in right leg David arcos MD 06/27/2020 I12.9 Hypertensive chronic kidney disease with stage 1 through stage 4 chronic kidney disease, or unspecified chronic kidney disease Dvaid Mccoy MD 06/27/2020 N18.30 Chronic kidney disease, stage 3 unspecified David Mccoy MD 06/27/2020 J45.40 Moderate persistent asthma, unco mplicated David Mccoy MD 06/27/2020 Z79.52 extermination inspector (current) use of syste amira steroids David Mccoy MD 06/27/2020 T38.0x5A Adverse effect of gl ucocorticoids and synthetic analogues, initial encounter David Mccoy MD 06/27/2020 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 David Mccoy MD 06/27/2020 I47.1 Supraventricular tachycardia Col jackson Mccoy MD 06/27/2020 K21.9 Gastro-esophageal reflux disease without esophagitis David Mccoy MD 06/27/2020 R31.9 Hematuria, unspecified David Mccoy MD 06/27/2020 Z13.89 Encounter for screening for othe r disorder David Mccoy MD 06/21/2020 M35.00 Sicca syndrome, unspecified Geo jennifer Mccoy MD 06/21/2020 M35.00 Sicca syndrome, unspecified Lab Schedule 06/07/2020 M54.5 Low back pain AMI Grimaldo JR 06/07/2020 I47.1 Supraventricular tachycardia Col jackson Mccoy MD 06/07/2020 M79.604 Pain in right leg AMI Yeh JR 06/07/2020 I47.1 Supraventricular tachycardia Lab Schedule 06/07/2020 I12.9 Hypertensive chronic kidney disease with stage 1 through stage 4 chronic kidney disease, or unspecified chronic kidney disease David Mccoy MD 06/07/2020 I12.9 Hypertensive chronic kidney disease with stage 1 through stage 4 chronic kidney disease, or unspecified chronic kidney disease Lab Schedule 06/07/2020 N18.30 Chronic kidney disease, stage 3 unspecified David Mccoy MD 06/07/2020 N18.30 Chronic kidney disease, stage 3 unspecified Lab Schedule Plan of Treatment Future Appointment(s):* 05/05/2021 9:20 am - David Mccoy MD at [facility] * 12/19/2020 8:30 am - Nurse Schedule at [facility] 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
--- OUTSIDE RECORDS SUMMARY | 2021-01-31 14:10 | CCD | Continuity of Care Document ---
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 Onset: 06/30/2015 Steroid Aki Pugh M.D. Onset: 06/16/2014 Extrinsic asthma with asthma attack Aki Pugh M.D. O nset: 12/17/2013 Chronic rhinitis Aki Pugh M.D. Onset: 06/16/2013 Underweight Aki Pugh M.D. Onset: 11/06/2010 Ex-smoker Aki Pugh M.D. Onset: 11/06/2010 Diagnostic dye allergy Aki Pugh M.D. Onset: 011 Allergic asthma without status asthmaticus Aki Pugh M.D. Onset: 05/16/2010 Steroid Aki Pugh M.D. Onset: 05/16/2010 Bronchiolectasis Aki Pugh M.D. Onset: 05/16/2010 Chronic sinusitis Aki Pugh M.D. Onset: 05/16/2010 Mild intermittent asthma Rommel Barr D.O. Onset: 04/15/19 18 Other nonspecific abnormal finding of lung field Rommel Barr D.O. Onset: 04/15/2017 Drug-induced bradycardia Rommel Barr D.O. Onset: 07/30/19 18 Cough Rommel Barr D.O. Onset: 06/25/2018 Social History Type Date Description Comments Sex Unknown Tobacco Use Start: Unknown End: Unknown Patient is a former smoker hx: 1ppd x 24 yrs, quit 1977 Smoking Status Reviewed: 12/02/20 Patient is a former smoker hx : 1ppd x 24 yrs, quit 1977 Allergies, Adverse Reactions, Alerts Active Allergies Criticality Reaction | Severity Comments Date Tylenol Unable to assess criticality 09/04/2011 Sulfa Unable to assess criticality 09/04/2011 Biaxin Unable to assess criticality 09/04/2011 Robitussin Allery/Cough Unable to assess criticality 09/04/2011 Tavist Unable to assess criticality 09/04/2011 Codeine Unable to assess criticality 09/04/2011 Erythromycin Unable to assess criticality 09/04/2011 Demerol Unable to assess criticality 09/04/2011 Doxycycline Unable to assess criticality 09/04/2011 Ibuprofen Unable to assess criticality 09/04/2011 Clindamycin Unable to assess criticality 09/04/2011 Avelox Unable to assess criticality 09/04/2011 Tobramycin Unable to assess criticality 09/04/2011 Morphine Unable to assess criticality 09/04/2011 Ciprofloxacin Unable to assess criticality BAD DIARRHEA 09/10/2011 Amoxicillin Unable to assess criticality 03/10/2013 Penicillin Unable to assess criticality 07/09/2013 Cephalexin Unable to assess criticality 07/09/2013 Cefuroxime Unable to assess criticality 11/30/2016 Xanax Unable to assess criticality H/A 01/24/2009 IVP Dye Unable to assess criticality Skin Rashes/Hives 09/23/2007 Diphenoxylate/Atropine Unable to assess criticality 03/14/2007 Aleve Unable to assess criticality 03/14/2007 Ciprofloxacin HCL Unable to assess criticality 03/14/2007 Aspirin Unable to assess criticality 03/14/2007 Clindamycin HCL Unable to assess criticality 03/14/2007 Pneumovax 23/1 Dose Unable to assess criticality 03/14/2007 Robitussin Allergy/Cough Unable to assess criticality 03/14/2007 Seldane Unable to assess criticality 03/14/2007 Oruvail Unable to assess criticality 03/14/2007 Tussionex Pennkinetic Extended Release Unable to assess criticality 03/14/2007 Declomycin Unable to assess criticality 03/14/2007 Guiadex DH Unable to assess criticality 03/14/2007 Ropivacaine Unable to assess criticality 04/22/2018 Cefdinir Unable to assess criticality Hives 09/01/2019 Hydrocodone Unable to assess criticality Itching 06/06/2020 Medications Active Medications SIG Qnty Indications Ordering Provide r Date Ipratropium [place] 0.06% Solution 2 intranasal puffs twice a day 1units R91.8 Rommel Barr D.O. Flovent HFA 220mcg/Act Aerosol 2 puff twice a day 12gm Rommel Barr D.O. 04/22/2018 Atenolol 25mg Tablets 1 by mouth every day 30tabs Unknown Lanoxin 0.25mg Tablets 1 by mouth every other day Unknown Icaps Capsules 2 by mouth ev mckinley Unknown Amitriptyline HCL 10mg Tablets 1 by mouth every day 90tabs Unknown Simvastatin 20mg Tablets 1 by mouth every day Unknown Vitamin D3 Complete Tablets 1 by mouth every day Unknown Ipratropium [place]/Albuterol Sulfate 0.5-2.5(3)mg/3ML Solution 1 vial via neb four times a day as needed Unknown Prednisone 5mg Tablets 1 by mouth every day 90tabs J32.4 Unknown Ventolin HFA 108(90Base) mcg/Act A erosol 2 puffs four times a day as needed Unknown Budesonide 32mcg/Act Suspension 2 intranasal puffs twice a day Unknown Immunizations CPT Code Status Date Vaccine Lot # [id number] Given 01/07/2019 Afluria, Quadrivalent, 0.5ml , [facility]# [id number] 90659 Given 01/25/2016 Influenza Virus Split 3 Yrs And Above For Intramuscular Use 58676 Given 01/14/2014 Influenza Virus Split 3 Yrs And Above For Intramuscular Use Q2036 Given 01/09/2012 Influenza Vaccine 3 Years Of Age Or Older (Flulaval) Q2036 Given 01/10/2011 Influenza Vaccine 3 Years Of Age Or Older (Flulaval) 07137 Given 01/11/2010 Influenza Virus Split 3 Yrs And Above For Intramuscular Use 48521 Given 12/09/2007 Influenza Vaccine 84307 Given Unknown Influenza Vaccine Vital Signs Date Vital Result Comment 12/02/2020 8:44am BP Systolic 128 mmHg BP Diastolic 72 mmHg Heart Rate 59 /min O2 % BldC Oximetry 99 % Height 60 inches 5'0" Weight 108.00 lb BMI (Body Mass Index) 21.1 kg/m2 [facility] Body Weight 100 lb Weight 48.989 kg BSA (Body Surface Area) 1.44 m2 11/23/2020 8:42am BP Systolic 110 mmHg BP Diastolic 60 mmHg Heart Rate 63 /min O2 % BldC Oximetry 97 % Height 60 inches 5'0" Weight 109.00 lb BMI (Body Mass Index) 21.3 kg/m2 [facility] Body Weight 100 lb Weight 49.442 kg BSA (Body Surface Area) 1.44 m2 Results Test Acquired Date Facility Test Result H/L Range Note FVL/[place] 12/02/2020 [facility] SEE IMAGE FVC-Pred 1.96 L FVC-Pre 2.00 L FVC-%Pred-Pre 102 L FVC-LLN 1.35 L Fev1-Pred 1.43 L Fev1-Pre 1.53 L Fev1-%Pred-Pre 107 L Fev1-LLN 0.92 L Fev6-Pred 1.83 L Fev6-Pre 2.00 L Fev6-%Pred-Pre 109 L Fev6-LLN 1.23 L Psd5gqz-Lojl 73 % Cou9maa-Zgj 76 % Vhq5kvf-%Pred-Pre 104 % Mrj7lbk-SRW 63 % Izr2zho-Ceeo 93 % Apr4tqp-Wbi 100 % Ewb2wrx-%Pred-Pre 107 % FEFMax-Pred 3.80 L/E/sec FEFMax-Pre 4.30 L/E/sec FEFMax-%Pred-Pre 113 L/E/sec FEFMax-LLN 2.29 L/E/sec Ovc9999-Jzpf 0.98 L/E/sec Urz2989-Xwd 1.23 L/E/sec Csf7671-%Pred-Pre 125 L/E/sec Llj3967-POV -0.11 L/E/sec ExpTime-Pre 5.64 sec Usx5rau9-Yecm 77 % Bqc3yyt0-Gzd 76 % Jre8vwu2-%Pred-Pre 99 % Nyi0mfr1-CFK 68 % FVL/Severo 11/23/2020 [facility] PD[facility]eport SEE IMAGE FVC-Pred 1.96 L FVC-Pre 1.71 L FVC-%Pred-Pre 87 L FVC-LLN 1.35 L Fev1-Pred 1.43 L Fev1-Pre 1.10 L Fev1-%Pred-Pre 76 L Fev1-LLN 0.92 L Fev6-Pred 1.83 L Fev6-Pre 1.71 L Fev6-%Pred-Pre 93 L Fev6-LLN 1.23 L Jdh1xno-Bwka 73 % Skg8yto-Jsc 65 % Fnl4aap-%Pred-Pre 88 % Har3tum-RVY 63 % Lcj6cov-Edne 93 % Vqt3jbv-Rob 100 % Dhu2vnb-%Pred-Pre 107 % FEFMax-Pred 3.80 L/E/sec FEFMax-Pre 2.93 L/E/sec FEFMax-%Pred-Pre 77 L/E/sec FEFMax-LLN 2.29 L/E/sec Vzb4603-Czso 0.98 L/E/sec Qjv2844-Agu 0.57 L/E/sec Afx6647-%Pred-Pre 57 L/E/sec Hak7205-ZLN -0.11 L/E/sec ExpTime-Pre 5.84 sec Mle6hnv2-Rgnw 77 % Xpt9ksm2-Nta 65 % Iqn2bta3-%Pred-Pre 83 % Hns3qvw2-OYJ 68 % FVL/Severo 06/06/2020 [facility] PDFReport SEE IMAGE FVC-Pred 1.96 L FVC-Pre 1.83 L FVC-%Pred-Pre 93 L FVC-LLN 1.35 L Fev1-Pred 1.43 L Fev1-Pre 1.24 L Fev1-%Pred-Pre 86 L Fev1-LLN 0.92 L Fev6-Pred 1.83 L Fev6-Pre 1.83 L Fev6-%Pred-Pre 100 L Fev6-LLN 1.23 L Yrp5ano-Rscc 73 % Mvw8oal-Vii 68 % Qpy5njr-%Pred-Pre 92 % Ldi0kna-OTU 63 % Dnl9tup-Nbbk 93 % Kvo0tfe-Fat 100 % Ufn8mmu-%Pred-Pre 107 % FEFMax-Pred 3.80 L/E/sec FEFMax-Pre 3.73 L/E/sec FEFMax-%Pred-Pre 98 L/E/sec FEFMax-LLN 2.29 L/E/sec Beq1851-Kwda 0.98 L/E/sec Prl7148-Ude 0.71 L/E/sec Cxx0396-%Pred-Pre 72 L/E/sec Mes5854-FTU -0.11 L/E/sec ExpTime-Pre 6.03 sec Btz2qmv8-Ozgs 77 % Vqf8kpv4-Col 68 % Fvq9jdm3-%Pred-Pre 88 % Xnm6jdl5-LNO 68 % Procedures Date Code Description Status 11/23/2020 08669 Office/Outpatient Established Mo d MDM 30-39 Min Completed 11/23/2020 82836 Spirometry Completed 06/06/2020 80847 Office/Outpatient Established Lo w MDM 20-29 Min Completed 06/06/2020 27483 Spirometry Completed Medical Devices Description No Information Available Encounters Type Date Location Provider Dx Diagnosis Office Visit 11/23/2020 9:00a [facility] Rommel Se garrett D.O. J45.20 Mild intermittent asthma, uncomplicated Z87.891 Personal history of nicotine dependence Office Visit 06/06/2020 10:30a [facility] Rommel Se tami, D.O. J45.20 Mild intermittent asthma, uncomplicated Z87.891 Personal history of nicotine dependence Assessments Date Code Description Provider 12/02/2020 J45.20 Mild intermittent asthma, uncomp licated Rommel Sears, D.O. 12/02/2020 Z87.891 Personal history of nicotine dep endence Rommel Sears, D.O. 11/23/2020 J45.20 Mild intermittent asthma, uncomp licated Rommel Sears, D.O. 11/23/2020 Z87.891 Personal history of nicotine dep endence Rommel Sears, D.O. 06/06/2020 J45.20 Mild intermittent asthma, uncomp licated Rommel Barr D.O. 06/06/2020 Z87.891 Personal history of nicotine dep salazar Barr D.O. Plan of Treatment 12/02/2020 - Rommel Barr D.O.* J45.20 Mild intermittent asthma, uncomplicated * Z87.891 Personal history of nicotine dependence * * New Labs:* FVL/Severo, Ordered: 12/02/20 * Follow up:* Follow up in 4 months with severo Functional Status Functional Condition Comment Date Status Independent with all ADL's Activ e Independent with all IADL's Acti ve Mental Status Mental Condition Comment Date Status Cognitive ability not impaired A ctive Referrals Description No Information Available
--- OUTSIDE RECORDS SUMMARY | 2021-01-31 14:10 | CCD | Continuity of Care Document ---
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 Name Role Phone Aki Pugh MD AUTM [phone] David Mccoy JR, MD AUTM Unavailable Zoie Aldrich MD AUTM [phone] Kris Roa MD AUTM [phone] [facility] AUT[facility] [phone] Dale Rommel DO AUTM [phone] [facility] - director of pediatric rehabilitation AUTM [phone] Problems Active Problems Provider Date Conduction disorder [...] FOR 30YRS 1 1/2 PACKS A DAY Allergies and adverse reactions Active Allergies Criticality Reaction | Severity Comments [...] Daily 90tabs David Mccoy MD 10/06/2018 Ipratropium [place] 0.03% Solution 2 sprays each nostril 2-3x/day as needed 90ml John Claros FNP 07/23/2018 Atenolol 25mg Tablets take 1 tablet daily 90tabs David Mccoy MD 06/24/2017 Ipratropium [place] 0.02% Solution use 1 vial via nebulizer [...] 1units David Mccoy MD 05/07/2008 Calcium 1200 [id number] Chew tabs 1 by mouth every day Unknown Budesonide 0.5mg/2ML Suspension via neb twice a day 120ml David Mccoy MD Gabapentin 100mg Capsules take one capsule by mouth three times a day Unknown Medications Administered in Office Medication SIG Qnty Indications Ordering Provider Date Administration Of Flu Vaccine Inj suzanne Mccoy MD 12/29/2020 Covid-19 vaccine, Unspecified Inj ection Unknown 05/23/2020 Covid-19 vaccine, Unspecified Inj ection Unknown 04/25/2020 Administration Of Flu Vaccine Inj suzanne Mccoy MD 12/28/2019 Administration Of Flu Vaccine Inj olegarioion David Mccoy MD 01/08/2019 Administration Of Flu Vaccine Inj suzanne Mccoy MD 01/02/2018 Administration Of Flu Vaccine Inj suzanne Mccoy MD 01/08/2017 Administration Of Flu Vaccine Inj suzanne Mccoy MD 02/13/2016 Administration Of Flu Vaccine Inj ection Acacia Renteria, GARRETT 12/27/2014 Administration Of Flu Vaccine Inj ection David Mccoy MD 01/22/2014 Administration Of Flu Vaccine Inj suzanne Mccoy MD 01/16/2013 Administration Of Flu Vaccine Inj olegarioion David Mccoy MD 01/04/2012 Administration Of Flu Vaccine Inj suzanne Mccoy MD 01/16/2011 Administration Of Flu Vaccine Inj ection JONNATHAN PleitezP 12/20/2009 Administration Of Flu Vaccine Inj suzanne Mccoy MD 01/03/2009 Administration Of Flu Vaccine Inj suzanne Mccoy MD 01/06/2008 Administration Of Flu Vaccine Inj ection David Mccoy MD 01/23/2007 Administration Of Flu Vaccine Inj ection David Mccoy MD 01/11/2005 Administration Of Flu Vaccine Inj olegarioion David Mccoy MD 01/06/2004 Administration Of Flu Vaccine Inj ection Acacia Renteria, GARRETT 01/05/2003 Administration Of Flu Vaccine Inj ection Acacia Renteria, GARRETT 01/05/2002 Administration Of Flu Vaccine Inj ection David Mccoy MD 01/09/2001 Immunizations CPT Code Status Date Vaccine Lot # [id number] Given 12/29/2020 Influenza Vaccin e Quadrivalent Preser/Antibiotic Free Im Use [id number] 59155 Given 12/28/2019 Influenza Vaccin e Quadrivalent Preser/Antibiotic Free Im Use [id number] 27422 Given 01/08/2019 Influenza Vaccin e Quadrivalent Preser/Antibiotic Free Im Use [id number] 81536 Given 01/02/2018 Influenza Virus Vaccine, Quadrivalent (Cciiv4), Derived From Cell 63454 Given 01/08/2017 Influenza Vaccin e Quadrivalent Preser/Antibiotic Free Im Use [id number] Q2037 Given 02/13/2016 Fluvirin Virus Vaccine 89690 01 80923 Given 12/20/2015 Adacel- Tetanus Diphtheria P ertussis [id number] Q2037 Given 12/27/2014 Fluvirin Virus Vaccine 82770 01 Q2037 Given 01/22/2014 Fluvirin Virus Vaccine 61711 21 Q2037 Given 01/16/2013 Fluvirin Virus Vaccine 56909 01 Q2037 Given 01/04/2012 Fluvirin Virus Vaccine Q2037 Given 01/04/2012 Fluvirin Virus Vaccine Q2037 Given 01/16/2011 Fluvirin Virus Vaccine 01232 Given 05/22/2009 Influenza Virus Vaccine 53596 Given 01/03/2009 Influenza Virus Vaccine 39292 Given 01/06/2008 Influenza Virus Vaccine 91983 Given 01/23/2007 Influenza Virus Vaccine 83095 Given 01/11/2005 Influenza Virus Vaccine 98221 Given 01/06/2004 Influenza Virus Vaccine 59008 Given 01/05/2003 Influenza Virus Vaccine 73135 Given 01/05/2002 Influenza Virus Vaccine 33364 Given 01/09/2001 Influenza Virus Vaccine 81105 Given 03/06/2000 Pneumovax 23 18062 Given 01/20/1999 Influenza Virus Vaccine 87280 Given 01/03/1998 Influenza Virus Vaccine Vital Signs [...] H/L Range Note Ua Dipstick Only 11/29/2020 [facility] Sort Line: Dr David Mccoy [place], [place] [id number] [phone] Urine Color YELLOW Yellow Urine Appearance CLOUDY Abnormal Clear Urine PH 6.5 units 5.0 - 9.0 Urine Specific [place] 1.015 1.005 - 1.030 Urine Leukocytes LARGE Abnormal Negative Urine Blood SMALL Abnormal Negative Urine Protein 1+ Abnormal Negative -Trace Urine Glucose NEGATIVE mg/dL Negative Urine Nitrite POSITIVE Abnormal Negative Urine Ketone NEGATIVE mg/dL Negative Urine Bilirubin NEGATIVE Negative Urine Urobilinogen 0.2 mg/dL 0.2 - 1.0 Laboratory test finding 11/29/2020 [facility] [address] [place] [address] [phone] Urine Culture FULL REPORT IN L <SEE NOTE> Normal 1 Complete Blood Count 11/01/2020 [facility] Sort Line: [place] [address] [phone] WBC 12.7 x10*3/UL High 4.1 - 10.9 [...] x10*3/UL High 2.0 - 7.8 A1c 11/01/2020 [facility] Sort Line: Dr David Mccoy [place], [place] [address] [phone] Hba1c 6.3 % High <5.7 2 Est Avg Glucose 134 mg/dL High 60 - 110 Comprehensive Chem Profile 11/01/2020 [facility], Sort Line: Dr David Mccoy [place], [place] [id number] [phone] Glucose 136 mg/dL High 74 - 99 [...] >60 GFR 43 mL/min Low >60 4 1 FULL REPORT IN LAB NOTES (eC [...] LITTLE GFR LEFT ESRD GFR <15 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 Procedures Date Code Description Status 11/29/2020 60511 Office/Outpatient Established SF MDM 10-19 Min Completed 11/10/2020 [id number] Mammogram Completed 11/01/2020 37754 Office/Outpatient Established Mo d MDM 30-39 Min Completed 12/15/2019 [id number] [facility] 11/23/2019 [id number] Mammogram Completed 10/21/2018 [id number] Mammogram Completed 10/10/2017 [id number] [facility] 10/10/2017 [id number] Mammogram Completed 10/04/2016 [id number] Mammogram Completed 09/04/2016 [id number] Colonoscopy Completed 08/13/2016 [id number] Colonoscopy Completed 10/04/2015 [id number] Mammogram Completed 09/01/2015 [id number] Bone Mineral Density Test Comple [facility] 02/03/2015 [id number] Mammogram Completed 09/29/2014 [id number] Mammogram Completed 09/03/2013 [id number] Mammogram Completed 02/05/2013 [id number] Bone Mineral Density Test Comple joycelyn 09/02/2012 [id number] Mammogram Completed 08/08/2012 [id number] Diabetic Foot Exam Completed 05/26/2012 [id number] Diabetic Foot Exam Completed 09/17/2011 [id number] Mammogram Completed 08/28/2011 [id number] Diabetic Retinal Eye Exam Comple joycelyn 03/19/2011 [id number] Mammogram Completed 12/15/2010 [id number] Diabetic Retinal Eye Exam Comple joycelyn 09/13/2010 [id number] Mammogram Completed 09/07/2010 [id number] Mammogram Completed 05/05/2010 [id number] Mammogram Completed 08/30/2009 [id number] Mammogram Completed 09/07/2008 [id number] Mammogram Completed 08/26/2008 [id number] Bone Mineral Density Test Comple joycelyn 08/20/2008 [id number] Mammogram Completed Medical Devices Description No Information Available Encounters Type Date Location Provider Dx Diagnosis Office Visit 11/29/2020 2:40p [facility], PA N39.0 Urinary tract infection, sit e not specified Office Visit 11/01/2020 10:40a [facility] M[facility]oy MD 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 N18.30 Chronic kidney disease, stag e 3 unspecified J45.40 Moderate persistent asthma, uncomplicated Z79.52 over 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 targeting 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 (current) use of s ystemic steroids 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 T38.0x5D Adverse effect of glucocort/ synth analog, subs K21.9 Gastro-esophageal reflux dis ease without esophagitis I47.1 Supraventricular tachycardia M54.5 Low back pain Assessments Date Code Description Provider 12/29/2020 Z23 Encounter for immunization Colli hiwot Mccoy MD 12/29/2020 Z23 Encounter for immunization Nurse Schedule 11/29/2020 N39.0 Urinary tract infection, site no t specified AMI Saha JR 11/01/2020 I12.9 Hypertensive chronic kidney disease with stage 1 through stage 4 chronic kidney disease, or unspecified chronic kidney disease David Mccoy MD 11/01/2020 N18.30 Chronic kidney disease, stage 3 unspecified David Mccoy MD 11/01/2020 J45.40 Moderate persistent asthma, unco mplicated David Mccoy MD 11/01/2020 Z79.52 USP (current) use of syste amira steroids David [...] M54.5 Low back pain David bowers MD Plan of Treatment Future Appointment(s):* 05/05/2021 9:20 am - David Mccoy MD at [facility] 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
--- OUTSIDE RECORDS SUMMARY | 2021-01-31 14:10 | CCD | Continuity of Care Document ---
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 [phone] Problems Active Problems Provider Date Conduction disorder [...] Daily 90tabs David Mccoy MD 10/06/2018 Ipratropium [place] 0.03% Solution 2 sprays each nostril 2-3x/day as needed 90ml John Claros FNP 07/23/2018 Atenolol 25mg Tablets take 1 tablet daily 90tabs David Mccoy MD 06/24/2017 Ipratropium [place] 0.02% Solution use 1 vial via nebulizer [...] 1units David Mccoy MD 05/07/2008 Calcium 1200 [id number] Chew tabs 1 by mouth every day [...] 12/28/2019 Administration Of Flu Vaccine Inj olegarioion Dvaid Mccoy MD 01/08/2019 Administration Of Flu Vaccine Inj olegarioion David Mccoy MD 01/02/2018 Administration Of Flu Vaccine [...] MD 01/04/2012 Administration Of Flu Vaccine Inj ection David Mccoy MD 01/16/2011 Administration Of Flu Vaccine Inj ection Hyacinth Lovell TIE SAWYER 12/20/2009 Administration Of Flu Vaccine Inj suzanne Mccoy MD 01/03/2009 Administration Of Flu Vaccine Inj suzanne Mccoy MD 01/06/2008 Administration Of Flu Vaccine Inj ection David Mccoy MD 01/23/2007 Administration Of Flu Vaccine Inj olegarioion David Mccoy MD 01/11/2005 Administration Of Flu Vaccine Inj olegarioion David Mccoy MD 01/06/2004 Administration Of Flu Vaccine Inj ection Acaciacarline Renteria, GARRETT 01/05/2003 Administration Of Flu Vaccine Inj ection Acacia Renteria, GARRETT 01/05/2002 Administration Of Flu Vaccine Inj ection David Mccoy MD 01/09/2001 Immunizations CPT Code Status Date Vaccine Lot # [id number] Given 12/29/2020 Influenza Vaccin e Quadrivalent Preser/Antibiotic Free Im Use [id number] 66862 Given 12/28/2019 Influenza Vaccin e Quadrivalent Preser/Antibiotic Free Im Use [id number] 12158 Given 01/08/2019 Influenza Vaccin e Quadrivalent Preser/Antibiotic Free Im Use [id number] 70202 Given 01/02/2018 Influenza Virus Vaccine, Quadrivalent ([id number]), Derived From Cell 46122 Given 01/08/2017 Influenza Vaccin e Quadrivalent Preser/Antibiotic Free Im Use [id number] Q2037 Given 02/13/2016 Fluvirin Virus Vaccine 30557 01 22440 Given 12/20/2015 Adacel- Tetanus Diphtheria P ertussis [id number] Q2037 Given 12/27/2014 Fluvirin Virus Vaccine 20530 01 Q2037 Given 01/22/2014 Fluvirin Virus Vaccine 48990 21 Q2037 Given 01/16/2013 Fluvirin Virus Vaccine 14909 01 Q2037 Given 01/04/2012 Fluvirin Virus Vaccine Q2037 Given 01/04/2012 Fluvirin Virus Vaccine Q2037 Given 01/16/2011 Fluvirin Virus Vaccine 55215 Given 05/22/2009 Influenza Virus Vaccine 75898 Given 01/03/2009 Influenza Virus Vaccine 81174 Given 01/06/2008 Influenza Virus Vaccine 87464 Given 01/23/2007 Influenza Virus Vaccine 03991 Given 01/11/2005 Influenza Virus Vaccine 95710 Given 01/06/2004 Influenza Virus Vaccine 82024 Given 01/05/2003 Influenza Virus Vaccine 97907 Given 01/05/2002 Influenza Virus Vaccine 20836 Given 01/09/2001 Influenza Virus Vaccine 16448 Given 03/06/2000 Pneumovax 23 51773 Given 01/20/1999 Influenza Virus Vaccine 44617 Given 01/03/1998 Influenza Virus Vaccine Vital Signs [...] H/L Range Note Ua Dipstick Only 11/29/2020 [facility] Primary Teacher: Dr David Mccoy [place], [place] [id number] [phone] Urine Color YELLOW Yellow Urine Appearance CLOUDY Abnormal Clear Urine PH 6.5 units 5.0 - 9.0 Urine Specific [place] 1.015 1.005 - 1.030 Urine Leukocytes LARGE Abnormal Negative Urine Blood SMALL Abnormal Negative Urine Protein 1+ Abnormal Negative -Trace Urine Glucose NEGATIVE mg/dL Negative Urine Nitrite POSITIVE Abnormal Negative Urine Ketone NEGATIVE mg/dL Negative Urine Bilirubin NEGATIVE Negative Urine Urobilinogen 0.2 mg/dL 0.2 - 1.0 Laboratory test finding 11/29/2020 [facility] [address] [place] [address] [phone] Urine Culture FULL REPORT IN L <SEE NOTE> Normal 1 Complete Blood Count 11/01/2020 [facility] Primary Teacher: Dr David Mccoy [place], [place] [id number] [phone] WBC 12.7 x10*3/UL High 4.1 - 10.9 [...] x10*3/UL High 2.0 - 7.8 A1c 11/01/2020 [facility] , Primary Teacher: Dr David Mccoy [place], [place] [id number] [phone] Hba1c 6.3 % High <5.7 2 Est Avg Glucose 134 mg/dL High 60 - 110 Comprehensive Chem Profile 11/01/2020 [facility], Primary Teacher: Dr David Mccoy [place], [place] [id number] [phone] Glucose 136 mg/dL High 74 - 99 [...] LITTLE GFR LEFT ESRD GFR <15 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 Procedures Date Code Description Status 11/29/2020 50927 Office/Outpatient Established SF MDM 10-19 Min Completed 11/10/2020 [id number] Mammogram Completed 11/01/2020 18759 Office/Outpatient Established Mo d MDM 30-39 Min Completed 12/15/2019 [id number] Diabetic Retinal Eye Exam Comple [facility] 11/23/2019 [id number] Mammogram Completed 10/21/2018 [id number] Mammogram Completed 10/10/2017 [id number] Bone Mineral Density Test Comple [facility] 10/10/2017 [id number] Mammogram Completed 10/04/2016 [id number] Mammogram Completed 09/04/2016 [id number] Colonoscopy Completed 08/13/2016 [id number] Colonoscopy Completed 10/04/2015 [id number] Mammogram Completed 09/01/2015 [id number] Bone Mineral Density Test Comple joycelyn 02/03/2015 [id number] Mammogram Completed 09/29/2014 [id number] Mammogram Completed 09/03/2013 [id number] Mammogram Completed 02/05/2013 [id number] Bone Mineral Density Test Comple joycelyn 09/02/2012 [id number] Mammogram Completed 08/08/2012 [id number] Diabetic Foot Exam Completed 05/26/2012 [id number] Diabetic Foot Exam Completed 09/17/2011 [id number] Mammogram Completed 08/28/2011 [id number] Diabetic Retinal Eye Exam Comple joycelyn 03/19/2011 [id number] Mammogram Completed 12/15/2010 [id number] Diabetic Retinal Eye Exam Comple joycelyn 09/13/2010 [id number] Mammogram Completed 09/07/2010 [id number] Mammogram Completed 05/05/2010 [id number] Mammogram Completed 08/30/2009 [id number] Mammogram Completed 09/07/2008 [id number] Mammogram Completed 08/26/2008 [id number] Bone Mineral Density Test Comple joycelyn 08/20/2008 [id number] Mammogram Completed Medical Devices Description No Information Available Encounters Type Date Location Provider Dx Diagnosis Office Visit 11/29/2020 2:40p [facility] Robles JR N39.0 Urinary tract infection, sit e not specified Office Visit 11/01/2020 10:40a [facility] PAubree Mccoy MD 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 N18.30 Chronic kidney disease, stag e 3 unspecified J45.40 Moderate persistent asthma, uncomplicated Z79.52 correction (current) use of s ystemic steroids 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 T38.0x5D Adverse effect of glucocort/ synth analog, subs K21.9 Gastro-esophageal reflux dis ease without esophagitis I47.1 Supraventricular tachycardia M54.5 Low back pain Assessments Date Code Description Provider 11/29/2020 N39.0 Urinary tract infection, site no t specified AMI Saha JR 11/01/2020 I12.9 Hypertensive chronic kidney disease with stage 1 through stage 4 chronic kidney disease, or unspecified chronic kidney disease David Mccoy MD 11/01/2020 N18.30 Chronic kidney disease, stage 3 unspecified David Mccoy MD 11/01/2020 J45.40 Moderate persistent asthma, unco mplicated David Mccoy MD 11/01/2020 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
--- OUTSIDE RECORDS SUMMARY | 2021-01-31 14:11 | CCD | Continuity of Care Document ---
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 [phone] Problems Active Problems Provider Date Conduction disorder [...] Daily 90tabs David Mccoy MD 10/06/2018 Ipratropium [place] 0.03% Solution 2 sprays each nostril 2-3x/day as needed 90ml John Claros FNP 07/23/2018 Atenolol 25mg Tablets take 1 tablet daily 90tabs David Mccoy MD 06/24/2017 Ipratropium [place] 0.02% Solution use 1 vial via nebulizer [...] 1units David Mccoy MD 05/07/2008 Calcium 1200 [id number] Chew tabs 1 by mouth every day [...] Of Flu Vaccine Inj ection Hyacinth Lovell [facility] 12/20/2009 Administration Of Flu Vaccine Inj [...] CPT Code Status Date Vaccine Lot # [id number] Given 12/28/2019 Influenza Vaccin e Quadrivalent Preser/Antibiotic Free Im Use 267449 89836 Given 01/08/2019 Influenza Vaccin e Quadrivalent Preser/Antibiotic Free Im Use 996238 31221 Given 01/02/2018 Influenza Virus Vaccine, Quadrivalent (Cciiv4), Derived From Cell 95326 Given 01/08/2017 Influenza Vaccin e Quadrivalent Preser/Antibiotic Free Im Use [id number] Q2037 Given 02/13/2016 Fluvirin Virus Vaccine 23090 01 92961 Given 12/20/2015 Adacel- Tetanus Diphtheria P ertussis (Age64 & Under) [id number] Q2037 Given 12/27/2014 Fluvirin Virus Vaccine 78176 01 Q2037 Given 01/22/2014 Fluvirin Virus Vaccine 85708 21 Q2037 Given 01/16/2013 Fluvirin Virus Vaccine 36106 01 Q2037 Given 01/04/2012 Fluvirin Virus Vaccine Q2037 Given 01/04/2012 Fluvirin Virus Vaccine Q2037 Given 01/16/2011 Fluvirin Virus Vaccine 17799 Given 05/22/2009 Influenza Virus Vaccine 86449 Given 01/03/2009 Influenza Virus Vaccine 85044 Given 01/06/2008 Influenza Virus Vaccine 73553 Given 01/23/2007 Influenza Virus Vaccine 36664 Given 01/11/2005 Influenza Virus Vaccine 72877 Given 01/06/2004 Influenza Virus Vaccine 77373 Given 01/05/2003 Influenza Virus Vaccine 15084 Given 01/05/2002 Influenza Virus Vaccine 80667 Given 01/09/2001 Influenza Virus Vaccine 57703 Given 03/06/2000 Pneumovax 23 60209 Given 01/20/1999 Influenza Virus Vaccine 44766 Given 01/03/1998 Influenza Virus Vaccine Vital Signs [...] H/L Range Note Ua Dipstick Only 11/29/2020 [facility] Feeder Catcher: [place] [address] [phone] Urine Color YELLOW Yellow Urine Appearance CLOUDY Abnormal Clear Urine PH 6.5 units 5.0 - 9.0 Urine Specific [place] 1.015 1.005 - 1.030 Urine Leukocytes LARGE Abnormal Negative Urine Blood SMALL Abnormal Negative Urine Protein 1+ Abnormal Negative -Trace Urine Glucose NEGATIVE mg/dL Negative Urine Nitrite POSITIVE Abnormal Negative Urine Ketone NEGATIVE mg/dL Negative Urine Bilirubin NEGATIVE Negative Urine Urobilinogen 0.2 mg/dL 0.2 - 1.0 Laboratory test finding 11/29/2020 [facility] [address] [place] [address] [phone] Urine Culture <pending> Complete Blood Count 11/01/2020 [facility] Feeder Catcher: [place] [address] [phone] WBC 12.7 x10*3/UL High 4.1 - 10.9 [...] x10*3/UL High 2.0 - 7.8 A1c 11/01/2020 [facility] , Feeder Catcher: [place] [address] [phone] Hba1c 6.3 % High <5.7 1 Est Avg Glucose 134 mg/dL High 60 - 110 Comprehensive Chem Profile 11/01/2020 [facility], Feeder Catcher: Dr [place] [address] [phone] Glucose 136 mg/dL High 74 - 99 2 BUN 37 mg/dL High 7 - 18 [...] Low >60 GFR 43 mL/min Low >60 3 Ua Dipstick Only 06/27/2020 [facility] Fe[facility] Cat[facility]: Dr David [place] [address] [phone] Urine Color YELLOW Yellow Urine Appearance CLOUDY Abnormal Clear Urine PH 6.0 units 5.0 - 9.0 Urine Specific Abrams 1.020 1.005 - 1.030 Urine Leukocytes LARGE Abnormal Negative Urine Blood LARGE Abnormal Negative Urine Protein 3+ Abnormal Negative -Trace Urine Glucose NEGATIVE mg/dL Negative Urine Nitrite POSITIVE Abnormal Negative Urine Ketone NEGATIVE mg/dL Negative Urine Bilirubin NEGATIVE Negative Urine Urobilinogen 0.2 mg/dL 0.2 - 1.0 Laboratory test finding 06/27/[address] [address] [phone] Urine Culture FULL REPORT IN L <SEE NOTE> Normal 4 Thyroid Profile 06/21/2020 [facility] [address] [place] [address] [phone] T Uptake 34 % Normal 30-39 Thyroxine (T4) 6.8 g/dL Normal 4.5-12.0 Free Thyroxine Index 2.3 % Normal 1.3-4.8 Thyroid Stimulating Hormone 1.780 uIU/ML Normal 0.358-3.740 Anti-Sjogrens A&B Antibodies 06/21/[address] [address] [phone] Ssa Sjogrens A <0.2 AI Normal 0.0-0.9 SSB Sjogrens B <0.2 AI Normal 0.0-0.9 5 Laboratory test finding 06/21/[address] [address] [phone] Free T3 3.2 pg/mL Normal 2.2-4.0 6 Free T4 0.79 ng/dL Normal 0.76-1.46 7 Laboratory test finding 06/07/[address] [address] [phone] Digoxin Level 0.7 NG/ML Normal 0.5-2.0 8 Complete Blood Count 06/07/2020 [facility] Feeder Catcher: [place] [address] [phone] WBC 8.3 x10*3/UL 4.1 - 10.9 RBC [...] 2.0 - 7.8 Comprehensive Chem Profile 06/07/2020 [facility] Feeder Catcher: [place] [address] [phone] Glucose 95 mg/dL 74 - 99 9 BUN 30 mg/dL High 7 - 18 [...] Low >60 GFR 47 mL/min Low >60 10 1 Lab Result Notes: Pre-Diabetes 5.7 - 6.4 % Diabetes = or > 6.5% 2 100-125 mg/dL PRE-DIABET ES/FASTING >126 mg/dL DIABETES/FASTING 3 CHRONIC KIDNEY DISEASE STAGI NG PER NKF STAGE I & II GFR >= 60 NORMAL TO MILDLY DECREASED STAGE III GFR 30-59 MODERATELY DECREASED STAGE IV GFR 15-29 SEVERELY DECREASED STAGE V GFR <15 VERY LITTLE GFR LEFT ESRD GFR <15 ON INDUSTRIAL GAS 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 4 FULL REPORT IN LAB NOTES (eC W [...] SPCTRM BETA LACTAMASE IV NEGATIVE FOR ESBL 5 Performed at: RN - [facility] [address] [id number] Feeder Catcher: Cathryn Presley MD, Phone: [phone] 6 note:<nlbl:demographic_chang ed> 7 note:<nlbl:demographic_chang ed> 8 note:<nlbl:demographic_[facility] ed> 9 100-125 mg/dL PRE-DIABET ES/FASTING >126 mg/dL DIABETES/FASTING 10 CHRONIC KIDNEY DISEASE STAGI NG PER NKF STAGE I & II GFR >= 60 NORMAL TO MILDLY DECREASED STAGE III GFR 30-59 MODERATELY DECREASED STAGE IV GFR 15-29 SEVERELY DECREASED STAGE V GFR <15 VERY LITTLE GFR LEFT ESRD GFR <15 ON INDUSTRIAL GAS SERVICER HELPER Procedures Date Code Description Status 11/10/2020 [id number] Mammogram Completed 11/01/2020 12406 Office/Outpatient Established Mo d MDM 30-39 Min Completed 06/27/2020 16835 Office/Outpatient Established Mo d MDM 30-39 Min Completed 06/07/2020 01426 Office/Outpatient Established Lo w MDM 20-29 Min Completed 12/15/2019 [id number] Diabetic Retinal Eye Exam Comple joycelyn 11/23/2019 [id number] Mammogram Completed 10/21/2018 [id number] Mammogram Completed 10/10/2017 [id number] Bone Mineral Density Test Comple joycelyn 10/10/2017 [id number] Mammogram Completed 10/04/2016 [id number] Mammogram Completed 09/04/2016 [id number] Colonoscopy Completed 08/13/2016 [id number] Colonoscopy Completed 10/04/2015 [id number] Mammogram Completed 09/01/2015 [id number] Bone Mineral Density Test Comple joycelyn 02/03/2015 [id number] Mammogram Completed 09/29/2014 [id number] Mammogram Completed 09/03/2013 [id number] Mammogram Completed 02/05/2013 [id number] Bone Mineral Density Test Comple joycelyn 09/02/2012 [id number] Mammogram Completed 08/08/2012 [id number] Diabetic Foot Exam Completed 05/26/2012 [id number] Diabetic Foot Exam Completed 09/17/2011 [id number] Mammogram Completed 08/28/2011 [id number] Diabetic Retinal Eye Exam Comple [facility] 03/19/2011 [id number] Mammogram Completed 12/15/2010 [id number] Diabetic Retinal Eye Exam Comple [facility] 09/13/2010 [id number] Mammogram Completed 09/07/2010 [id number] Mammogram Completed 05/05/2010 [id number] Mammogram Completed 08/30/2009 [id number] Mammogram Completed 09/07/2008 [id number] Mammogram Completed 08/26/2008 [id number] Bone Mineral Density Test Comple joycelyn 08/20/2008 [id number] Mammogram Completed Medical Devices Description No Information Available Encounters Type Date Location Provider Dx Diagnosis Office Visit 11/01/2020 10:40a [facility] 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 AMI Henderson JR M54.5 Low back pain M79.604 Pain [...] unco mplicated David Mccoy MD 11/01/2020 Z79.52 halfway (current) use of syste amira steroids David [...] unspecified chronic kidney disease David Mccoy MD 06/27/2020 N18.30 Chronic kidney disease, stage 3 unspecified David Mccoy MD 06/27/2020 J45.40 Moderate persistent asthma, unco mplicated David Mccoy MD 06/27/2020 Z79.52 halfway (current) use of syste amira steroids David [...] 9:20 am - David Mccoy MD at [facility] * 12/19/2020 8:30 am - Nurse Schedule at [facility] 11/29/2020 - AMI Saha JR* N39.0 Urinary tract infection, site not specified * All * New Medication:* Nitrofurantoin Monohyd Macro 100 mg - 1 by mouth twice a day x 5 days Functional Status Description No Information Available Mental Status Description No Information Available Referrals Refer to Reason for Referral Status Appt Date Kris Roa MD CONSULT FOR RT LOWER LEG PAIN Closed 07/25/2020 [facility] [address] [place] [address] [phone]
--- OUTSIDE RECORDS SUMMARY | 2021-01-31 14:11 | CCD | Continuity of Care Document ---
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 Problems Active Problems Provider Date Conduction [...] Daily 90tabs David Mccoy MD 10/06/2018 [facility] 0.03% Solution 2 sprays each nostril 2-3x/day as needed 90ml John Claros FNP 07/23/2018 Atenolol 25mg Tablets take 1 tablet daily 90tabs aDvid Mccoy MD 06/24/2017 [facility] 0.02% Solution use 1 vial via nebulizer [...] 1units David Mccoy MD 05/07/2008 Calcium 1200 [id number] Chew tabs 1 by mouth every day [...] Of Flu Vaccine Inj ection Hyacinth [facility] 12/20/2009 Administration Of Flu Vaccine Inj [...] CPT Code Status Date Vaccine Lot # [id number] Given 12/28/2019 Influenza Vaccin e Quadrivalent Preser/Antibiotic Free Im Use [id number] 68817 Given 01/08/2019 Influenza Vaccin e Quadrivalent Preser/Antibiotic Free Im Use [id number] 06235 Given 01/02/2018 Influenza Virus Vaccine, Quadrivalent ([id number]), Derived From Cell 48162 Given 01/08/2017 Influenza Vaccin e Quadrivalent Preser/Antibiotic Free Im Use [id number] Q2037 Given 02/13/2016 Fluvirin Virus Vaccine 75292 01 45082 Given 12/20/2015 Adacel- Tetanus Diphtheria P ertussis (Age64 & Under) [id number] Q2037 Given 12/27/2014 Fluvirin Virus Vaccine 94703 01 Q2037 Given 01/22/2014 Fluvirin Virus Vaccine 18382 21 Q2037 Given 01/16/2013 Fluvirin Virus Vaccine 53420 01 Q2037 Given 01/04/2012 Fluvirin Virus Vaccine Q2037 Given 01/04/2012 Fluvirin Virus Vaccine Q2037 Given 01/16/2011 Fluvirin Virus Vaccine 33744 Given 05/22/2009 Influenza Virus Vaccine 40783 Given 01/03/2009 Influenza Virus Vaccine 30119 Given 01/06/2008 Influenza Virus Vaccine 09401 Given 01/23/2007 Influenza Virus Vaccine 57153 Given 01/11/2005 Influenza Virus Vaccine 27377 Given 01/06/2004 Influenza Virus Vaccine 26030 Given 01/05/2003 Influenza Virus Vaccine 29616 Given 01/05/2002 Influenza Virus Vaccine 28829 Given 01/09/2001 Influenza Virus Vaccine 93379 Given 03/06/2000 Pneumovax 23 32138 Given 01/20/1999 Influenza Virus Vaccine 88963 Given 01/03/1998 Influenza Virus Vaccine Vital Signs [...] H/L Range Note Ua Dipstick Only 11/29/2020 [facility] Drafter Apprentice: [place] [address] [phone] Urine Color YELLOW Yellow Urine Appearance CLOUDY Abnormal Clear Urine PH 6.5 units 5.0 - 9.0 Urine Specific [place] 1.015 1.005 - 1.030 Urine Leukocytes LARGE Abnormal Negative Urine Blood SMALL Abnormal Negative Urine Protein 1+ Abnormal Negative -Trace Urine Glucose NEGATIVE mg/dL Negative Urine Nitrite POSITIVE Abnormal Negative Urine Ketone NEGATIVE mg/dL Negative Urine Bilirubin NEGATIVE Negative Urine Urobilinogen 0.2 mg/dL 0.2 - 1.0 Laboratory test finding 11/29/2020 [facility] [address] [place] [address] [phone] Urine Culture <pending> Complete Blood Count 11/01/2020 [facility] Drafter Apprentice: [place] [address] [phone] WBC 12.7 x10*3/UL High 4.1 - 10.9 [...] x10*3/UL High 2.0 - 7.8 A1c 11/01/2020 [facility] , Drafter Apprentice: [place] [address] [phone] Hba1c 6.3 % High <5.7 1 Est Avg Glucose 134 mg/dL High 60 - 110 Comprehensive Chem Profile 11/01/2020 [facility], Drafter Apprentice: [place] [address] [phone] Glucose 136 mg/dL High 74 - 99 [...] Low >60 3 Ua Dipstick Only 06/27/2020 [facility] Drafter Apprentice: Dr [place] [address] [phone] Urine Color YELLOW Yellow Urine Appearance CLOUDY Abnormal Clear Urine PH 6.0 units 5.0 - 9.0 Urine Specific [place] 1.020 1.005 - 1.030 Urine Leukocytes LARGE Abnormal Negative Urine Blood LARGE Abnormal Negative Urine Protein 3+ Abnormal Negative -Trace Urine Glucose NEGATIVE mg/dL Negative Urine Nitrite POSITIVE Abnormal Negative Urine Ketone NEGATIVE mg/dL Negative Urine Bilirubin NEGATIVE Negative Urine Urobilinogen 0.2 mg/dL 0.2 - 1.0 Laboratory test finding 06/27/[address] [address] [phone] Urine Culture FULL REPORT IN L <SEE NOTE> Normal 4 Thyroid Profile 06/21/2020 [facility] nter [address] [place] [address] [phone] T Uptake 34 % Normal 30-39 Thyroxine (T4) 6.8 g/dL Normal 4.5-12.0 Free Thyroxine Index 2.3 % Normal 1.3-4.8 Thyroid Stimulating Hormone 1.780 uIU/ML Normal 0.358-3.740 Anti-Sjogrens A&B Antibodies 06/21/[address] [address] [phone] Ssa Sjogrens A <0.2 AI Normal 0.0-0.9 SSB Sjogrens B <0.2 AI Normal 0.0-0.9 5 Laboratory test finding 06/21/[address] [address] [phone] Free T3 3.2 pg/mL Normal 2.2-4.0 6 Free T4 0.79 ng/dL Normal 0.76-1.46 7 Laboratory test finding 06/07/[address] [address] [phone] Digoxin Level 0.7 NG/ML Normal 0.5-2.0 8 Complete Blood Count 06/07/2020 [facility] Drafter Apprentice: [place] [address] [phone] WBC 8.3 x10*3/UL 4.1 - 10.9 RBC [...] 2.0 - 7.8 Comprehensive Chem Profile 06/07/2020 [facility] Drafter Apprentice: [place] [address] [phone] Glucose 95 mg/dL 74 - 99 9 [...] LITTLE GFR LEFT ESRD GFR <15 ON HEAD MACHINIST 4 FULL REPORT IN LAB NOTES (eC [...] ESBL 5 Performed at: RN - [facility] [address] [id number] Drafter Apprentice: Cathryn Presley MD, Phone: [phone] 6 note:<nlbl:demographic_chang ed> 7 note:<nlbl:demographic_chang ed> 8 note:<nlbl:demographic_[facility] ed> 9 100-125 mg/dL PRE-DIABET ES/FASTING >126 mg/dL DIABETES/FASTING 10 CHRONIC KIDNEY DISEASE STAGI NG PER NKF STAGE I & II GFR >= 60 NORMAL TO MILDLY DECREASED STAGE III GFR 30-59 MODERATELY DECREASED STAGE IV GFR 15-29 SEVERELY DECREASED STAGE V GFR <15 VERY LITTLE GFR LEFT ESRD GFR <15 ON HEAD MACHINIST Procedures Date Code Description Status 11/10/2020 [id number] Mammogram Completed 11/01/2020 44090 Office/Outpatient Established Mo d MDM 30-39 Min Completed 06/27/2020 86245 Office/Outpatient Established Mo d MDM 30-39 Min Completed 06/07/2020 84219 Office/Outpatient Established Lo w MDM 20-29 Min Completed 12/15/2019 [id number] Diabetic Retinal Eye Exam Comple joycelyn 11/23/2019 [id number] Mammogram Completed 10/21/2018 [id number] Mammogram Completed 10/10/2017 [id number] Bone Mineral Density Test Comple joycelyn 10/10/2017 [id number] Mammogram Completed 10/04/2016 [id number] Mammogram Completed 09/04/2016 [id number] Colonoscopy Completed 08/13/2016 [id number] Colonoscopy Completed 10/04/2015 [id number] Mammogram Completed 09/01/2015 [id number] Bone Mineral Density Test Comple joycelyn 02/03/2015 [id number] Mammogram Completed 09/29/2014 [id number] Mammogram Completed 09/03/2013 [id number] Mammogram Completed 02/05/2013 [id number] Bone Mineral Density Test Comple joycelyn 09/02/2012 [id number] Mammogram Completed 08/08/2012 [id number] Diabetic Foot Exam Completed 05/26/2012 [id number] Diabetic Foot Exam Completed 09/17/2011 [id number] Mammogram Completed 08/28/2011 [id number] Diabetic Retinal Eye Exam Comple [facility] 03/19/2011 [id number] Mammogram Completed 12/15/2010 [id number] Diabetic Retinal Eye Exam Comple [facility] 09/13/2010 [id number] Mammogram Completed 09/07/2010 [id number] Mammogram Completed 05/05/2010 [id number] Mammogram Completed 08/30/2009 [id number] Mammogram Completed 09/07/2008 [id number] Mammogram Completed 08/26/2008 [id number] Bone Mineral Density Test Comple joycelyn 08/20/2008 [id number] Mammogram Completed Medical Devices Description No Information Available Encounters Type Date Location Provider Dx Diagnosis Office Visit 11/01/2020 10:40a [facility] 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 AMI Henderson JR M54.5 Low [...] unco mplicated David Mccoy MD 11/01/2020 Z79.52 longterm (current) use of syste amira steroids David [...] unco mplicated David Mccoy MD 06/27/2020 Z79.52 longterm (current) use of syste amira steroids David [...] 9:20 am - David Mccoy MD at [facility] * 12/19/2020 8:30 am - Nurse Schedule at [facility] 11/29/2020 - AMI Saha JR* [...] FOR RT LOWER LEG PAIN Closed 07/25/2020 [facility] [address] [place] [address] [phone]
--- OUTSIDE RECORDS SUMMARY | 2021-01-31 14:11 | CCD | Continuity of Care Document ---
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 10/07/19 19 Prednisone 5mg Tablets Take 1 Tablet Daily 90tabs David Mccoy MD 10/06/2018 Ipratropium [place] 0.03% Solution 2 sprays each nostril 2-3x/day as needed 90ml John Claros FNP 07/23/2018 Atenolol 25mg Tablets take 1 tablet daily 90tabs David Mccoy MD 06/24/2017 Ipratropium [place] 0.02% Solution use 1 vial via nebulizer [...] 1units David Mccoy MD 05/07/2008 Calcium 1200 [id number]-Kdyk Chew tabs 1 by mouth every day [...] Of Flu Vaccine Inj ection Hyacinth Lovell [facility] 12/20/2009 Administration Of Flu Vaccine Inj [...] CPT Code Status Date Vaccine Lot # [id number] Given 12/28/2019 Influenza Vaccin e Quadrivalent Preser/Antibiotic Free Im Use [id number] 01926 Given 01/08/2019 Influenza Vaccin e Quadrivalent Preser/Antibiotic Free Im Use [id number] 54016 Given 01/02/2018 Influenza Virus Vaccine, Quadrivalent (Cciiv4), Derived From Cell 09096 Given 01/08/2017 Influenza Vaccin e Quadrivalent Preser/Antibiotic Free Im Use 146249 Q2037 Given 02/13/2016 Fluvirin Virus Vaccine 45227 01 48369 Given 12/20/2015 Adacel- Tetanus Diphtheria P ertussis (Age64 & Under) [id number] Q2037 Given 12/27/2014 Fluvirin Virus Vaccine 55022 01 Q2037 Given 01/22/2014 Fluvirin Virus Vaccine 76219 21 Q2037 Given 01/16/2013 Fluvirin Virus Vaccine 21602 01 Q2037 Given 01/04/2012 Fluvirin Virus Vaccine Q2037 Given 01/04/2012 Fluvirin Virus Vaccine Q2037 Given 01/16/2011 Fluvirin Virus Vaccine 00375 Given 05/22/2009 Influenza Virus Vaccine 89288 Given 01/03/2009 Influenza Virus Vaccine 98780 Given 01/06/2008 Influenza Virus Vaccine 76573 Given 01/23/2007 Influenza Virus Vaccine 74161 Given 01/11/2005 Influenza Virus Vaccine 83883 Given 01/06/2004 Influenza Virus Vaccine 88056 Given 01/05/2003 Influenza Virus Vaccine 80310 Given 01/05/2002 Influenza Virus Vaccine 38007 Given 01/09/2001 Influenza Virus Vaccine 54599 Given 03/06/2000 Pneumovax 23 14120 Given 01/20/1999 Influenza Virus Vaccine 70625 Given 01/03/1998 Influenza Virus Vaccine Vital Signs [...] H/L Range Note Ua Dipstick Only 11/29/2020 [facility] Car Cleaning Supervisor: [place] [address] [phone] Urine Color YELLOW Yellow Urine Appearance CLOUDY Abnormal Clear Urine PH 6.5 units 5.0 - 9.0 Urine Specific [place] 1.015 1.005 - 1.030 Urine Leukocytes LARGE Abnormal Negative Urine Blood SMALL Abnormal Negative Urine Protein 1+ Abnormal Negative -Trace Urine Glucose NEGATIVE mg/dL Negative Urine Nitrite POSITIVE Abnormal Negative Urine Ketone NEGATIVE mg/dL Negative Urine Bilirubin NEGATIVE Negative Urine Urobilinogen 0.2 mg/dL 0.2 - 1.0 Laboratory test finding 11/29/2020 [facility] [address] [place] [address] [phone] Urine Culture <pending> Complete Blood Count 11/01/2020 [facility] Car Cleaning Supervisor: [place] [address] [phone] WBC 12.7 x10*3/UL High 4.1 - 10.9 [...] x10*3/UL High 2.0 - 7.8 A1c 11/01/2020 [facility] , Car Cleaning Supervisor: [place] [address] [phone] Hba1c 6.3 % High <5.7 1 Est Avg Glucose 134 mg/dL High 60 - 110 Comprehensive Chem Profile 11/01/2020 [facility], Car Cleaning Supervisor: [place] [address] [phone] Glucose 136 mg/dL High 74 - 99 [...] Low >60 3 Ua Dipstick Only 06/27/2020 [facility] Car Cleaning Supervisor: [place] [address] [phone] Urine Color YELLOW Yellow Urine Appearance CLOUDY Abnormal Clear Urine PH 6.0 units 5.0 - 9.0 Urine Specific [place] 1.020 1.005 - 1.030 Urine Leukocytes LARGE Abnormal Negative Urine Blood LARGE Abnormal Negative Urine Protein 3+ Abnormal Negative -Trace Urine Glucose NEGATIVE mg/dL Negative Urine Nitrite POSITIVE Abnormal Negative Urine Ketone NEGATIVE mg/dL Negative Urine Bilirubin NEGATIVE Negative Urine Urobilinogen 0.2 mg/dL 0.2 - 1.0 Laboratory test finding 06/27/[address] [address] [phone] Urine Culture FULL REPORT IN L <SEE NOTE> Normal 4 Thyroid Profile 06/21/2020 [facility] nter [address] [place] [address] [phone] T Uptake 34 % Normal 30-39 Thyroxine (T4) 6.8 g/dL Normal 4.5-12.0 Free Thyroxine Index 2.3 % Normal 1.3-4.8 Thyroid Stimulating Hormone 1.780 uIU/ML Normal 0.358-3.740 Anti-Sjogrens A&B Antibodies 06/21/[address] [address] [phone] Ssa Sjogrens A <0.2 AI Normal 0.0-0.9 SSB Sjogrens B <0.2 AI Normal 0.0-0.9 5 Laboratory test finding 06/21/[address] [address] [phone] Free T3 3.2 pg/mL Normal 2.2-4.0 6 Free T4 0.79 ng/dL Normal 0.76-1.46 7 Laboratory test finding 06/07/[address] [address] [phone] Digoxin Level 0.7 NG/ML Normal 0.5-2.0 8 Complete Blood Count 06/07/2020 [facility] Car Cleaning Supervisor: [place] [address] [phone] WBC 8.3 x10*3/UL 4.1 - 10.9 RBC [...] 2.0 - 7.8 Comprehensive Chem Profile 06/07/2020 [facility] Car Cleaning Supervisor: [place] [address] [phone] Glucose 95 mg/dL 74 - 99 9 [...] LITTLE GFR LEFT ESRD GFR <15 ON HANDICRAFTS TEACHER 4 FULL REPORT IN LAB NOTES (eC [...] ESBL 5 Performed at: RN - [facility] [address] [id number] Car Cleaning Supervisor: Cathryn Presley MD, Phone: [phone] 6 note:<nlbl:demographic_chang ed> 7 note:<nlbl:demographic_chang ed> 8 note:<nlbl:demographic_[facility] ed> 9 100-125 mg/dL PRE-DIABET ES/FASTING >126 mg/dL DIABETES/FASTING 10 CHRONIC KIDNEY DISEASE STAGI NG PER NKF STAGE I & II GFR >= 60 NORMAL TO MILDLY DECREASED STAGE III GFR 30-59 MODERATELY DECREASED STAGE IV GFR 15-29 SEVERELY DECREASED STAGE V GFR <15 VERY LITTLE GFR LEFT ESRD GFR <15 ON HANDICRAFTS TEACHER Procedures Date Code Description Status 11/10/2020 [id number] Mammogram Completed 11/01/2020 53623 Office/Outpatient Established Mo d MDM 30-39 Min Completed 06/27/2020 53263 Office/Outpatient Established Mo d MDM 30-39 Min Completed 06/07/2020 25405 Office/Outpatient Established Lo w MDM 20-29 Min Completed 12/15/2019 [id number] Diabetic Retinal Eye Exam Comple joycelyn 11/23/2019 [id number] Mammogram Completed 10/21/2018 [id number] Mammogram Completed 10/10/2017 [id number] Bone Mineral Density Test Comple joycelyn 10/10/2017 [id number] Mammogram Completed 10/04/2016 [id number] Mammogram Completed 09/04/2016 [id number] Colonoscopy Completed 08/13/2016 [id number] Colonoscopy Completed 10/04/2015 [id number] Mammogram Completed 09/01/2015 [id number] Bone Mineral Density Test Comple joycelyn 02/03/2015 [id number] Mammogram Completed 09/29/2014 [id number] Mammogram Completed 09/03/2013 [id number] Mammogram Completed 02/05/2013 [id number] Bone Mineral Density Test Comple joycelyn 09/02/2012 [id number] Mammogram Completed 08/08/2012 [id number] Diabetic Foot Exam Completed 05/26/2012 [id number] Diabetic Foot Exam Completed 09/17/2011 [id number] Mammogram Completed 08/28/2011 [id number] Diabetic Retinal Eye Exam Comple [facility] 03/19/2011 [id number] Mammogram Completed 12/15/2010 [id number] Diabetic Retinal Eye Exam Comple [facility] 09/13/2010 [id number] Mammogram Completed 09/07/2010 [id number] Mammogram Completed 05/05/2010 [id number] Mammogram Completed 08/30/2009 [id number] Mammogram Completed 09/07/2008 [id number] Mammogram Completed 08/26/2008 [id number] Bone Mineral Density Test Comple joycelyn 08/20/2008 [id number] Mammogram Completed Medical Devices Description No Information Available Encounters Type Date Location Provider Dx Diagnosis Office Visit 11/01/2020 10:40a [facility] 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 AMI Henderson JR M54.5 Low [...] unco mplicated David Mccoy MD 11/01/2020 Z79.52 detention (current) use of syste amira steroids David [...] unco mplicated David Mccoy MD 06/27/2020 Z79.52 detention (current) use of syste amira steroids David [...] 9:20 am - David Mccoy MD at [facility] * 12/19/2020 8:30 am - Nurse Schedule at [facility] 11/29/2020 - AMI Saha JR* [...] FOR RT LOWER LEG PAIN Closed 07/25/2020 [facility] [address] [place] [address] [phone]
--- OUTSIDE RECORDS SUMMARY | 2021-01-31 14:11 | CCD | Continuity of Care Document ---
Author Author Chloe SIMS PA Organization Unknown Address [address] [place] [address] Phone [phone] Care Team Providers Care Hand Miter Operator Name Role Phone Aki Pugh MD AUTM [phone] David Mccoy JR, MD AUTM Unavailable Zoie Aldrich MD AUTM [phone] Kris Roa MD AUTM [phone] [facility] AUTM [phone] Dale Rommel DO AUTM [phone] [facility] - bonderizer operator AUTM [phone] Problems Active Problems Provider Date Conduction disorder [...] Daily 90tabs David Mccoy MD 10/06/2018 Ipratropium [place] 0.03% Solution 2 sprays each nostril 2-3x/day as needed 90ml John Claros FNP 07/23/2018 Atenolol 25mg Tablets take 1 tablet daily 90tabs David Mccoy MD 06/24/2017 Ipratropium [place] 0.02% Solution use 1 vial via nebulizer [...] 1units David Mccoy MD 05/07/2008 Calcium 1200 [id number] Chew tabs 1 by mouth every day [...] Of Flu Vaccine Inj ection Hyacinth Lovell [facility] 12/20/2009 Administration Of Flu Vaccine Inj suzanne [...] CPT Code Status Date Vaccine Lot # 34274 Given 12/28/2019 Influenza Vaccin e Quadrivalent Preser/Antibiotic Free Im Use [id number] 00256 Given 01/08/2019 Influenza Vaccin e Quadrivalent Preser/Antibiotic Free Im Use 085549 31973 Given 01/02/2018 Influenza Virus Vaccine, Quadrivalent ([id number]), Derived From Cell 78601 Given 01/08/2017 Influenza Vaccin e Quadrivalent Preser/Antibiotic Free Im Use 252179 Q2037 Given 02/13/2016 Fluvirin Virus Vaccine 31784 01 39962 Given 12/20/2015 Adacel- Tetanus Diphtheria P ertussis (Age64 & Under) [id number] Q2037 Given 12/27/2014 Fluvirin Virus Vaccine 24201 01 Q2037 Given 01/22/2014 Fluvirin Virus Vaccine 11465 21 Q2037 Given 01/16/2013 Fluvirin Virus Vaccine 92932 01 Q2037 Given 01/04/2012 Fluvirin Virus Vaccine Q2037 Given 01/04/2012 Fluvirin Virus Vaccine Q2037 Given 01/16/2011 Fluvirin Virus Vaccine 91015 Given 05/22/2009 Influenza Virus Vaccine 46136 Given 01/03/2009 Influenza Virus Vaccine 49111 Given 01/06/2008 Influenza Virus Vaccine 51120 Given 01/23/2007 Influenza Virus Vaccine 23696 Given 01/11/2005 Influenza Virus Vaccine 94280 Given 01/06/2004 Influenza Virus Vaccine 73611 Given 01/05/2003 Influenza Virus Vaccine 78453 Given 01/05/2002 Influenza Virus Vaccine 65160 Given 01/09/2001 Influenza Virus Vaccine 09529 Given 03/06/2000 Pneumovax 23 88052 Given 01/20/1999 Influenza Virus Vaccine 03904 Given 01/03/1998 Influenza Virus Vaccine Vital Signs [...] H/L Range Note Ua Dipstick Only 11/29/2020 [facility] Steam Tank Operator: [place] [address] [phone] Urine Color YELLOW Yellow Urine Appearance CLOUDY Abnormal Clear Urine PH 6.5 units 5.0 - 9.0 Urine Specific [place] 1.015 1.005 - 1.030 Urine Leukocytes LARGE Abnormal Negative Urine Blood SMALL Abnormal Negative Urine Protein 1+ Abnormal Negative -Trace Urine Glucose NEGATIVE mg/dL Negative Urine Nitrite POSITIVE Abnormal Negative Urine Ketone NEGATIVE mg/dL Negative Urine Bilirubin NEGATIVE Negative Urine Urobilinogen 0.2 mg/dL 0.2 - 1.0 Laboratory test finding 11/29/2020 [facility] [address] [place] [address] [phone] Urine Culture FULL REPORT IN L <SEE NOTE> Normal 1 Complete Blood Count 11/01/2020 [facility] Steam Tank Operator: [place] [address] [phone] WBC 12.7 x10*3/UL High 4.1 - 10.9 [...] x10*3/UL High 2.0 - 7.8 A1c 11/01/2020 [facility] , Steam Tank Operator: [place] [address] [phone] Hba1c 6.3 % High <5.7 2 Est Avg Glucose 134 mg/dL High 60 - 110 Comprehensive Chem Profile 11/01/2020 [facility], Steam Tank Operator: [place] [address] [phone] Glucose 136 mg/dL High 74 - 99 [...] Low >60 4 Ua Dipstick Only 06/27/2020 [facility] , Steam Tank Operator: Dr [place] [address] [phone] Urine Color YELLOW Yellow Urine Appearance CLOUDY Abnormal Clear Urine PH 6.0 units 5.0 - 9.0 Urine Specific [place] 1.020 1.005 - 1.030 Urine Leukocytes LARGE Abnormal Negative Urine Blood LARGE Abnormal Negative Urine Protein 3+ Abnormal Negative -Trace Urine Glucose NEGATIVE mg/dL Negative Urine Nitrite POSITIVE Abnormal Negative Urine Ketone NEGATIVE mg/dL Negative Urine Bilirubin NEGATIVE Negative Urine Urobilinogen 0.2 mg/dL 0.2 - 1.0 Laboratory test finding 06/27/[address] [address] [phone] Urine Culture FULL REPORT IN L <SEE NOTE> Normal 5 Thyroid Profile 06/21/2020 [facility] nter [address] [place] [address] [phone] T Uptake 34 % Normal 30-39 Thyroxine (T4) 6.8 g/dL Normal 4.5-12.0 Free Thyroxine Index 2.3 % Normal 1.3-4.8 Thyroid Stimulating Hormone 1.780 uIU/ML Normal 0.358-3.740 Anti-Sjogrens A&B Antibodies 06/21/[address] [address] [phone] Ssa Sjogrens A <0.2 AI Normal 0.0-0.9 SSB Sjogrens B <0.2 AI Normal 0.0-0.9 6 Laboratory test finding 06/21/[address] [address] [phone] Free T3 3.2 pg/mL Normal 2.2-4.0 7 Free T4 0.79 ng/dL Normal 0.76-1.46 8 Laboratory test finding 06/07/[address] [address] [phone] Digoxin Level 0.7 NG/ML Normal 0.5-2.0 9 Complete Blood Count 06/07/2020 [facility] Steam Tank Operator: [place] [address] [phone] WBC 8.3 x10*3/UL 4.1 - 10.9 RBC [...] 2.0 - 7.8 Comprehensive Chem Profile 06/07/2020 [facility] Steam Tank Operator: [place] [address] [phone] Glucose 95 mg/dL 74 - 99 10 [...] LITTLE GFR LEFT ESRD GFR <15 ON SPECIAL SERVICES DIRECTOR 5 FULL REPORT IN LAB NOTES (eC [...] ESBL 6 Performed at: RN - [facility] [address] [id number] Steam Tank Operator: Cathryn Presley MD, Phone: [phone] 7 note:<nlbl:demographic_chang ed> 8 note:<nlbl:demographic_chang ed> 9 note:<nlbl:demographic_chang ed> 10 100-125 mg/dL PRE-DIABET ES/FASTING >126 mg/dL DIABETES/FASTING 11 CHRONIC KIDNEY DISEASE STAGI NG PER NKF STAGE I & II GFR >= 60 NORMAL TO MILDLY DECREASED STAGE III GFR 30-59 MODERATELY DECREASED STAGE IV GFR 15-29 SEVERELY DECREASED STAGE V GFR <15 VERY LITTLE GFR LEFT ESRD GFR <15 ON SPECIAL SERVICES DIRECTOR Procedures Date Code Description Status 11/10/2020 [id number] Mammogram Completed 11/01/2020 96478 Office/Outpatient Established Mo d MDM 30-39 Min Completed 06/27/2020 46530 Office/Outpatient Established Mo d MDM 30-39 Min Completed 06/07/2020 35483 Office/Outpatient Established Lo w MDM 20-29 Min Completed 12/15/2019 [id number] Diabetic Retinal Eye Exam Comple [facility] 11/23/2019 [id number] Mammogram Completed 10/21/2018 [id number] Mammogram Completed 10/10/2017 [id number] Bone Mineral Density Test Comple [facility] 10/10/2017 [id number] Mammogram Completed 10/04/2016 [id number] Mammogram Completed 09/04/2016 [id number] Colonoscopy Completed 08/13/2016 [id number] Colonoscopy Completed 10/04/2015 [id number] Mammogram Completed 09/01/2015 [id number] Bone Mineral Density Test Comple joycelyn 02/03/2015 [id number] Mammogram Completed 09/29/2014 [id number] Mammogram Completed 09/03/2013 [id number] Mammogram Completed 02/05/2013 [id number] Bone Mineral Density Test Comple joycelyn 09/02/2012 [id number] Mammogram Completed 08/08/2012 [id number] Diabetic Foot Exam Completed 05/26/2012 [id number] Diabetic Foot Exam Completed 09/17/2011 [id number] Mammogram Completed 08/28/2011 [id number] Diabetic Retinal Eye Exam Comple joycelyn 03/19/2011 [id number] Mammogram Completed 12/15/2010 [id number] Diabetic Retinal Eye Exam Comple joycelyn 09/13/2010 [id number] Mammogram Completed 09/07/2010 [id number] Mammogram Completed 05/05/2010 [id number] Mammogram Completed 08/30/2009 [id number] Mammogram Completed 09/07/2008 [id number] Mammogram Completed 08/26/2008 [id number] Bone Mineral Density Test Comple joycelyn 08/20/2008 [id number] Mammogram Completed Medical Devices Description No Information Available Encounters Type Date Location Provider Dx Diagnosis Office Visit 11/01/2020 10[facility] 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 N18.30 Chronic kidney disease, stag e 3 unspecified J45.40 Moderate persistent asthma, uncomplicated 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 s ystemic steroids 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 T38.0x5D Adverse effect of glucocort/ synth analog, subs K21.9 Gastro-esophageal reflux dis ease without esophagitis I47.1 Supraventricular tachycardia M54.5 Low back pain Office Visit 06/27/2020 11:00a [facility] MD M79.604 Pain in right leg I12.9 Hypertensive chronic kidney disease w stg 1-4/unsp chr kdny N18.30 Chronic kidney disease, stag e 3 unspecified J45.40 Moderate persistent asthma, uncomplicated 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 AMI Henderson JR M54.5 Low [...] unco mplicated David Mccoy MD 11/01/2020 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 syste amira steroids David [...] mplicated David Mccoy MD 06/27/2020 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 syste amira steroids David Mccoy MD 06/27/2020 T38.0x5A Adverse effect of gl ucocorticoids and synthetic analogues, initial encounter David Mcocy MD 06/27/2020 E09.22 Drug or chemical ind [...] 9:20 am - David Mccoy MD at [facility] * 12/19/2020 8:30 am - Nurse Schedule at [facility] 11/01/2020 - David Mccoy MD* I12.9 Hypertensive chronic kidney disease with stage 1 through stage 4 chronic kidney disease, or unspecified chronic kidney disease * N18.30 Chronic kidney disease, stage 3 unspecified * J45.40 Moderate persistent asthma, uncomplicated * 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 systemic steroids * [...] FOR RT LOWER LEG PAIN Closed 07/25/2020 [facility] [address] [place] [address] [phone]
--- OUTSIDE RECORDS SUMMARY | 2021-01-31 14:11 | CCD | Continuity of Care Document ---
Author Author Chloe SIMS PA Organization Unknown Address [address] [place] [address] Phone [phone] Care Team Providers Care Histology Specialist Name Role Phone Aki Pugh MD AUTM [phone] David Mccoy JR, MD AUTM Unavailable Zoie Aldrich MD AUTM [phone] Kris Roa MD AUTM [phone] [facility] AUTM [phone] Dale Rommel DO AUTM [phone] [facility] A - chief port director AUTM [phone] Problems Active Problems Provider Date Conduction disorder [...] Daily 90tabs David Mccoy MD 10/06/2018 Ipratropium [place] 0.03% Solution 2 sprays each nostril 2-3x/day as needed 90ml John Claros FNP 07/23/2018 Atenolol 25mg Tablets take 1 tablet daily 90tabs David Mccoy MD 06/24/2017 Ipratropium [place] 0.02% Solution use 1 vial via nebulizer [...] Misc use as direct ed 1units David Mccyo MD 05/07/2008 Calcium 1200 [id number] Chew tabs 1 by mouth every day [...] Of Flu Vaccine Inj ection Hyacinth Lovell [facility] 12/20/2009 Administration Of Flu Vaccine Inj [...] CPT Code Status Date Vaccine Lot # 54728 Given 12/28/2019 Influenza Vaccin e Quadrivalent Preser/Antibiotic Free Im Use [id number] 98812 Given 01/08/2019 Influenza Vaccin e Quadrivalent Preser/Antibiotic Free Im Use 735152 10192 Given 01/02/2018 Influenza Virus Vaccine, Quadrivalent (Cciiv4), Derived From Cell 64730 Given 01/08/2017 Influenza Vaccin e Quadrivalent Preser/Antibiotic Free Im Use [id number] Q2037 Given 02/13/2016 Fluvirin Virus Vaccine 32592 01 34454 Given 12/20/2015 Adacel- Tetanus Diphtheria P ertussis (Age64 & Under) [id number] Q2037 Given 12/27/2014 Fluvirin Virus Vaccine 74668 01 Q2037 Given 01/22/2014 Fluvirin Virus Vaccine 16261 21 Q2037 Given 01/16/2013 Fluvirin Virus Vaccine 21069 01 Q2037 Given 01/04/2012 Fluvirin Virus Vaccine Q2037 Given 01/04/2012 Fluvirin Virus Vaccine Q2037 Given 01/16/2011 Fluvirin Virus Vaccine 52370 Given 05/22/2009 Influenza Virus Vaccine 47806 Given 01/03/2009 Influenza Virus Vaccine 44690 Given 01/06/2008 Influenza Virus Vaccine 03687 Given 01/23/2007 Influenza Virus Vaccine 50146 Given 01/11/2005 Influenza Virus Vaccine 68118 Given 01/06/2004 Influenza Virus Vaccine 63339 Given 01/05/2003 Influenza Virus Vaccine 82280 Given 01/05/2002 Influenza Virus Vaccine 27586 Given 01/09/2001 Influenza Virus Vaccine 24781 Given 03/06/2000 Pneumovax 23 87027 Given 01/20/1999 Influenza Virus Vaccine 28834 Given 01/03/1998 Influenza Virus Vaccine Vital Signs [...] H/L Range Note Ua Dipstick Only 11/29/2020 [facility] White Sugar Syrup Operator: [place] [address] [phone] Urine Color YELLOW Yellow Urine Appearance CLOUDY Abnormal Clear Urine PH 6.5 units 5.0 - 9.0 Urine Specific [place] 1.015 1.005 - 1.030 Urine Leukocytes LARGE Abnormal Negative Urine Blood SMALL Abnormal Negative Urine Protein 1+ Abnormal Negative -Trace Urine Glucose NEGATIVE mg/dL Negative Urine Nitrite POSITIVE Abnormal Negative Urine Ketone NEGATIVE mg/dL Negative Urine Bilirubin NEGATIVE Negative Urine Urobilinogen 0.2 mg/dL 0.2 - 1.0 Laboratory test finding 11/29/2020 [facility] [address] [place] [address] [phone] Urine Culture <pending> Complete Blood Count 11/01/2020 [facility] White Sugar Syrup Operator: [place] [address] [phone] WBC 12.7 x10*3/UL High 4.1 - 10.9 [...] x10*3/UL High 2.0 - 7.8 A1c 11/01/2020 [facility] , White Sugar Syrup Operator: [place] [address] [phone] Hba1c 6.3 % High <5.7 1 Est Avg Glucose 134 mg/dL High 60 - 110 Comprehensive Chem Profile 11/01/2020 [facility] [place] Sugar Syrup Operator: [place] David [place] [address] [phone] Glucose 136 mg/dL High 74 - 99 [...] Low >60 3 Ua Dipstick Only 06/27/2020 [facility] [place] Sugar Syrup Operator: Dr David [place] [address] [phone] Urine Color YELLOW Yellow Urine Appearance CLOUDY Abnormal Clear Urine PH 6.0 units 5.0 - 9.0 Urine Specific [place] 1.020 1.005 - 1.030 Urine Leukocytes LARGE Abnormal Negative Urine Blood LARGE Abnormal Negative Urine Protein 3+ Abnormal Negative -Trace Urine Glucose NEGATIVE mg/dL Negative Urine Nitrite POSITIVE Abnormal Negative Urine Ketone NEGATIVE mg/dL Negative Urine Bilirubin NEGATIVE Negative Urine Urobilinogen 0.2 mg/dL 0.2 - 1.0 Laboratory test finding 06/27/[address] [address] [phone] Urine Culture FULL REPORT IN L <SEE NOTE> Normal 4 Thyroid Profile 06/21/2020 [facility] nter [address] [place] [address] [phone] T Uptake 34 % Normal 30-39 Thyroxine (T4) 6.8 g/dL Normal 4.5-12.0 Free Thyroxine Index 2.3 % Normal 1.3-4.8 Thyroid Stimulating Hormone 1.780 uIU/ML Normal 0.358-3.740 Anti-Sjogrens A&B Antibodies 06/21/[address] [address] [phone] Ssa Sjogrens A <0.2 AI Normal 0.0-0.9 SSB Sjogrens B <0.2 AI Normal 0.0-0.9 5 Laboratory test finding 06/21/[address] [address] [phone] Free T3 3.2 pg/mL Normal 2.2-4.0 6 Free T4 0.79 ng/dL Normal 0.76-1.46 7 Laboratory test finding 06/07/[address] [address] [phone] Digoxin Level 0.7 NG/ML Normal 0.5-2.0 8 Complete Blood Count 06/07/2020 [facility] White Sugar Syrup Operator: [place] [address] [phone] WBC 8.3 x10*3/UL 4.1 - 10.9 RBC [...] 2.0 - 7.8 Comprehensive Chem Profile 06/07/2020 [facility] White Sugar Syrup Operator: [place] [address] [phone] Glucose 95 mg/dL 74 - 99 9 [...] LITTLE GFR LEFT ESRD GFR <15 ON DIRECTOR PATIENT FINANCIAL SERVICES 4 FULL REPORT IN LAB NOTES (eC [...] ESBL 5 Performed at: RN - [facility] [address] [id number] White Sugar Syrup Operator: Cathryn Presley MD, Phone: [phone] 6 note:<nlbl:demographic_chang ed> 7 note:<nlbl:demographic_chang ed> 8 note:<nlbl:demographic_[facility] ed> 9 100-125 mg/dL PRE-DIABET ES/FASTING >126 mg/dL DIABETES/FASTING 10 CHRONIC KIDNEY DISEASE STAGI NG PER NKF STAGE I & II GFR >= 60 NORMAL TO MILDLY DECREASED STAGE III GFR 30-59 MODERATELY DECREASED STAGE IV GFR 15-29 SEVERELY DECREASED STAGE V GFR <15 VERY LITTLE GFR LEFT ESRD GFR <15 ON DIRECTOR PATIENT FINANCIAL SERVICES Procedures Date Code Description Status 11/10/2020 [id number] Mammogram Completed 11/01/2020 05339 Office/Outpatient Established Mo d MDM 30-39 Min Completed 06/27/2020 83164 Office/Outpatient Established Mo d MDM 30-39 Min Completed 06/07/2020 60043 Office/Outpatient Established Lo w MDM 20-29 Min Completed 12/15/2019 [id number] Diabetic Retinal Eye Exam Comple [facility] 11/23/2019 [id number] Mammogram Completed 10/21/2018 [id number] Mammogram Completed 10/10/2017 [id number] Bone Mineral Density Test Comple joycelyn 10/10/2017 [id number] Mammogram Completed 10/04/2016 [id number] Mammogram Completed 09/04/2016 [id number] Colonoscopy Completed 08/13/2016 [id number] Colonoscopy Completed 10/04/2015 [id number] Mammogram Completed 09/01/2015 [id number] Bone Mineral Density Test Comple joycelyn 02/03/2015 [id number] Mammogram Completed 09/29/2014 [id number] Mammogram Completed 09/03/2013 [id number] Mammogram Completed 02/05/2013 [id number] Bone Mineral Density Test Comple joycelyn 09/02/2012 [id number] Mammogram Completed 08/08/2012 [id number] Diabetic Foot Exam Completed 05/26/2012 [id number] Diabetic Foot Exam Completed 09/17/2011 [id number] Mammogram Completed 08/28/2011 [id number] Diabetic Retinal Eye Exam Comple [facility] 03/19/2011 [id number] Mammogram Completed 12/15/2010 [id number] Diabetic Retinal Eye Exam Comple [facility] 09/13/2010 [id number] Mammogram Completed 09/07/2010 [id number] Mammogram Completed 05/05/2010 [id number] Mammogram Completed 08/30/2009 [id number] Mammogram Completed 09/07/2008 [id number] Mammogram Completed 08/26/2008 [id number] Bone Mineral Density Test Comple joycelyn 08/20/2008 [id number] Mammogram Completed Medical Devices Description No Information Available Encounters Type Date Location Provider Dx Diagnosis Office Visit 11/01/2020 10:40a [facility] 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 AMI Henderson JR M54.5 Low [...] unco mplicated David Mccoy MD 06/27/2020 Z79.52 USP (current) use of syste amira [...] 9:20 am - David Mccoy MD at [facility] * 12/19/2020 8:30 am - Nurse Schedule at [facility] 11/29/2020 - AMI Saha JR* [...] FOR RT LOWER LEG PAIN Closed 07/25/2020 [facility] [address] [place] [address] [phone]
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
--- OUTSIDE RECORDS SUMMARY | 2021-01-31 14:12 | CCD | Continuity of Care Document ---
Author Author Chloe BARROKristina [place] [address] Phone [phone] Care Team Providers Care Stunt Woman Name Role Phone David Mccoy MD @ [facility] Int AUTM Problems Active Problems Provider [...] 24 yrs, quit 1977 Smoking Status Reviewed: 11/23/20 Patient is a former smoker hx : [...] Qnty Indications Ordering Provide r Date Ipratropium [place] 0.06% Solution 2 intranasal puffs twice a day 1units R91.8 Rommel Barr D.O. Flovent HFA 220mcg/Act Aerosol 2 puff twice a day 12gm AMI Berrios 04/22/2018 Atenolol 25mg Tablets 1 by mouth every day 30tabs Unknown Lanoxin 0.25mg Tablets 1 by mouth every other day Unknown Icaps Capsules 2 by mouth ev mckinley Unknown Amitriptyline HCL 10mg Tablets 1 by mouth every day 90tabs Unknown Simvastatin 20mg Tablets 1 by mouth every day Unknown Vitamin D3 Complete Tablets 1 by mouth every day Unknown Ipratropium [place]/Albuterol Sulfate 0.5-2.5(3)mg/3ML Solution 1 vial via neb four times a day as needed Unknown Prednisone 5mg Tablets 1 by mouth every day 90tabs J32.4 Unknown Ventolin HFA 108(90Base) mcg/Act A erosol 2 puffs four times a day as needed Unknown Budesonide 32mcg/Act Suspension 2 intranasal puffs twice a day Unknown Immunizations CPT Code Status Date Vaccine Lot # [id number] Given 01/07/2019 Afluria, Quadrivalent, 0.5ml , [facility]# [id number] 70587 Given 01/25/2016 Influenza Virus Split 3 Yrs And Above For Intramuscular Use 30538 Given 01/14/2014 Influenza Virus Split 3 Yrs And Above For Intramuscular Use Q2036 Given 01/09/2012 Influenza Vaccine 3 Years Of Age Or Older (Flulaval) Q2036 Given 01/10/2011 Influenza Vaccine 3 Years Of Age Or Older (Flulaval) 26404 Given 01/11/2010 Influenza Virus Split 3 Yrs And Above For Intramuscular Use 27281 Given 12/09/2007 Influenza Vaccine 01124 Given Unknown Influenza Vaccine Vital Signs Date Vital Result Comment 11/23/2020 8:42am BP Systolic 110 mmHg BP Diastolic 60 mmHg Heart Rate 63 /min O2 % BldC Oximetry 97 % Height 60 inches 5'0" Weight 109.00 lb BMI (Body Mass Index) 21.3 kg/m2 [place] Body Weight 100 lb Weight 49.442 kg BSA (Body Surface Area) 1.44 m2 06/06/2020 10:15am BP Systolic 120 mmHg BP Diastolic 60 mmHg Heart Rate 62 /min O2 % BldC Oximetry 98 % Body Temperature 96.7 F Height 60 inches 5'0" Weight 109.00 lb BMI (Body Mass Index) 21.3 kg/m2 [place] Body Weight 100 lb Weight 49.442 kg BSA (Body Surface Area) 1.44 m2 Results Test Acquired Date Facility Test Result H/L Range Note FVL/[place] 11/23/2020 [employer] PDFReport SEE IMAGE FVC-Pred 1.96 L FVC-Pre 1.71 L FVC-%Pred-Pre 87 L FVC-LLN 1.35 L Fev1-Pred 1.43 L Fev1-Pre 1.10 L Fev1-%Pred-Pre 76 L Fev1-LLN 0.92 L Fev6-Pred 1.83 L Fev6-Pre 1.71 L Fev6-%Pred-Pre 93 L Fev6-LLN 1.23 L Ypk5jnr-Nmqb 73 % Wdh6bhq-Qup 65 % Ctv0ujz-%Pred-Pre 88 % Dgc9lrv-DFB 63 % Rsm5ini-Wnii 93 % Nzq4gkt-Soe 100 % Irw7ddz-%Pred-Pre 107 % FEFMax-Pred 3.80 L/E/sec FEFMax-Pre 2.93 L/E/sec FEFMax-%Pred-Pre 77 L/E/sec FEFMax-LLN 2.29 L/E/sec Rvx7594-Lcck 0.98 L/E/sec Qtm3390-Igr 0.57 L/E/sec Wik5427-%Pred-Pre 57 L/E/sec Yqu8946-WYX -0.11 L/E/sec ExpTime-Pre 5.84 sec Voy3hsr6-Glnm 77 % Nao7own8-Cgz 65 % Fni1gwz1-%Pred-Pre 83 % Idt2etm4-NOP 68 % FVL/[place] 06/06/2020 [employer] PDFReport SEE IMAGE FVC-Pred 1.96 L FVC-Pre 1.83 L FVC-%Pred-Pre 93 L FVC-LLN 1.35 L Fev1-Pred 1.43 L Fev1-Pre 1.24 L Fev1-%Pred-Pre 86 L Fev1-LLN 0.92 L Fev6-Pred 1.83 L Fev6-Pre 1.83 L Fev6-%Pred-Pre 100 L Fev6-LLN 1.23 L Sud0fab-Ubqg 73 % Egg1azk-Mqi 68 % Rih8aos-%Pred-Pre 92 % Zqm7evy-JKY 63 % Rgg4nfs-Jdaa 93 % Vfx3lrr-Nxe 100 % Bmy9jfk-%Pred-Pre 107 % FEFMax-Pred 3.80 L/E/sec FEFMax-Pre 3.73 L/E/sec FEFMax-%Pred-Pre 98 L/E/sec FEFMax-LLN 2.29 L/E/sec Puv1646-Znug 0.98 L/E/sec Dfc8028-Mxo 0.71 L/E/sec Bgk3529-%Pred-Pre 72 L/E/sec Wss3735-FOV -0.11 L/E/sec ExpTime-Pre 6.03 sec Cvu2kto5-Httj 77 % Trz9mpp8-Uss 68 % Vtk2geh4-%Pred-Pre 88 % Ios8fpa0-YSV 68 % Procedures Date Code Description Status 06/06/2020 64771 Office/Outpatient Established Lo w MDM 20-29 Min Completed 06/06/2020 37191 Spirometry Completed Medical Devices Description No Information Available Encounters Type Date Location Provider Dx Diagnosis Office Visit 06/06/2020 10:30a [facility] Rommel Se tami D.O. J45.20 Mild intermittent asthma, uncomplicated Z87.891 Personal history of nicotine dependence Assessments Date Code Description Provider 06/06/2020 J45.20 Mild intermittent asthma, uncomp licated Rommel Barr D.O. 06/06/2020 Z87.891 Personal history of nicotine dep endence Rommel Barr D.O. Plan of Treatment 06/06/2020 - Rommel Barr D.O.* J45.20 Mild intermittent asthma, uncomplicated * Z87.891 Personal history of nicotine dependence * * Follow up:* Follow up in six months with Spirometry, 15 min me rossy or Carl. Functional Status Functional Condition Comment Date Status Independent with all ADL's Activ e Independent with all IADL's Acti ve Mental Status Mental Condition Comment Date Status Cognitive ability not impaired A ctive Referrals Description No Information Available
--- OUTSIDE RECORDS SUMMARY | 2021-01-31 14:12 | CCD | Continuity of Care Document ---
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 Rommel [...] Qnty Indications Ordering Provide r Date Ipratropium [place] 0.06% Solution 2 intranasal puffs twice a [...] 1 by mouth every day Unknown Ipratropium [place]/Albuterol Sulfate 0.5-2.5(3)mg/3ML Solution 1 vial via neb four times a day as needed Unknown Prednisone 5mg Tablets 1 by mouth every day 90tabs J32.4 Unknown Ventolin HFA 108(90Base) mcg/Act A erosol 2 puffs four times a day as needed Unknown Budesonide 32mcg/Act Suspension 2 intranasal puffs twice a day Unknown Immunizations CPT Code Status Date Vaccine Lot # [id number] Given 01/07/2019 Afluria, Quadrivalent, 0.5ml , [facility]# [id number] 25895 Given 01/25/2016 Influenza Virus Split 3 Yrs And Above For Intramuscular Use 10361 Given 01/14/2014 Influenza Virus Split 3 Yrs And Above For Intramuscular Use Q2036 Given 01/09/2012 Influenza Vaccine 3 Years Of Age Or Older (Flulaval) Q2036 Given 01/10/2011 Influenza Vaccine 3 Years Of Age Or Older (Flulaval) 69995 Given 01/11/2010 Influenza Virus Split 3 Yrs And Above For Intramuscular Use 20588 Given 12/09/2007 Influenza Vaccine 78601 Given Unknown Influenza Vaccine Vital Signs Date Vital Result Comment 11/23/2020 8:42am BP Systolic 110 mmHg BP Diastolic 60 mmHg Heart Rate 63 /min O2 % BldC Oximetry 97 % Height 60 inches 5'0" Weight 109.00 lb BMI (Body Mass Index) 21.3 kg/m2 [place] Body Weight 100 lb Weight 49.442 kg BSA (Body Surface Area) 1.44 m2 06/06/2020 10:15am BP Systolic 120 mmHg BP Diastolic 60 mmHg Heart Rate 62 /min O2 % BldC Oximetry 98 % Body Temperature 96.7 F Height 60 inches 5'0" Weight 109.00 lb BMI (Body Mass Index) 21.3 kg/m2 [place] Body Weight 100 lb Weight 49.442 kg BSA (Body Surface Area) 1.44 m2 Results Test Acquired Date Facility Test Result H/L Range Note FVL/[place] 11/23/2020 [employer] PDFReport SEE IMAGE FVC-Pred 1.96 L FVC-Pre 1.71 L FVC-%Pred-Pre 87 L FVC-LLN 1.35 L Fev1-Pred 1.43 L Fev1-Pre 1.10 L Fev1-%Pred-Pre 76 L Fev1-LLN 0.92 L Fev6-Pred 1.83 L Fev6-Pre 1.71 L Fev6-%Pred-Pre 93 L Fev6-LLN 1.23 L Yal2ply-Uyik 73 % Vuk0kse-Cpn 65 % Bcy2thy-%Pred-Pre 88 % Owh0qtr-LUR 63 % Fxz0xtu-Ebga 93 % Dky3vqc-Hxd 100 % Rzq5vhq-%Pred-Pre 107 % FEFMax-Pred 3.80 L/E/sec FEFMax-Pre 2.93 L/E/sec FEFMax-%Pred-Pre 77 L/E/sec FEFMax-LLN 2.29 L/E/sec Jco1079-Kkbw 0.98 L/E/sec Vxr9572-Kyx 0.57 L/E/sec Kwe1996-%Pred-Pre 57 L/E/sec Jrz3199-OTN -0.11 L/E/sec ExpTime-Pre 5.84 sec Dgc0xrb4-Oryu 77 % Rzi4gol6-Dwz 65 % Skb6mdo3-%Pred-Pre 83 % Pmg9rfe9-OJX 68 % FVL/[place] 06/06/2020 [employer] PDFReport SEE IMAGE FVC-Pred 1.96 L FVC-Pre 1.83 L FVC-%Pred-Pre 93 L FVC-LLN 1.35 L Fev1-Pred 1.43 L Fev1-Pre 1.24 L Fev1-%Pred-Pre 86 L Fev1-LLN 0.92 L Fev6-Pred 1.83 L Fev6-Pre 1.83 L Fev6-%Pred-Pre 100 L Fev6-LLN 1.23 L Zfo9mzf-Kncx 73 % Uwn2xna-Jbq 68 % Jmp4ymp-%Pred-Pre 92 % Cbr2fek-BGR 63 % Jlq5wfg-Nnma 93 % Szy1trm-Kdc 100 % Crl8rlp-%Pred-Pre 107 % FEFMax-Pred 3.80 L/E/sec FEFMax-Pre 3.73 L/E/sec FEFMax-%Pred-Pre 98 L/E/sec FEFMax-LLN 2.29 L/E/sec Luo2732-Uhdx 0.98 L/E/sec Eew1269-Gza 0.71 L/E/sec Ctp1564-%Pred-Pre 72 L/E/sec Tst2836-EAN -0.11 L/E/sec ExpTime-Pre 6.03 sec Crr2tby9-Oxey 77 % Lxu0pks9-Mbs 68 % Dpe1bom7-%Pred-Pre 88 % Oot4jjl5-TDL 68 % Procedures Date Code Description Status 11/23/2020 38920 Office/Outpatient Established Mo d MDM 30-39 Min Completed 11/23/2020 28145 Spirometry Completed 06/06/2020 03000 Office/Outpatient Established Lo w MDM 20-29 Min Completed 06/06/2020 54772 Spirometry Completed Medical Devices Description No Information Available Encounters Type Date Location Provider Dx Diagnosis Office Visit 11/23/2020 9:00a [facility] Pulmonary/Thoracic Rommel Se ars, D.O. J45.20 Mild intermittent asthma, uncomplicated Z87.891 Personal history of nicotine dependence Office Visit 06/06/2020 10:30a [facility] Pulmonary/Thoracic Rommel garrett D.O. J45.20 Mild intermittent asthma, uncomplicated Z87.891 Personal history of nicotine dependence Assessments Date Code Description Provider 11/23/2020 J45.20 Mild intermittent asthma, uncomp licated Miley Garrett.OKristina 11/23/2020 Z87.891 Personal history of nicotine dep endence Karie GarrettOKristina 06/06/2020 J45.20 Mild intermittent asthma, uncomp licated RommeliMley Canchola.OKristina 06/06/2020 Z87.891 Personal history of nicotine dep endence Miley Garrett.Diana Plan of Treatment Future Appointment(s):* 12/02/2020 9:15 am - Rommel Barr D.O. at [facility] Pulmonary/Thoracic 11/23/2020 - Rommel Barr D.O.* J45.20 Mild intermittent asthma, uncomplicated * Z87.891 Personal history of nicotine dependence * * New Labs:* FVL/[place], Ordered: 11/23/20 * Follow up:* Follow up in two weeks with spirometry, 15 okay. Functional Status Functional Condition Comment Date Status Independent with all ADL's Activ e Independent with all IADL's Acti ve Mental Status Mental Condition Comment Date Status Cognitive ability not impaired A ctive Referrals Description No Information Available
--- OUTSIDE RECORDS SUMMARY | 2021-01-31 14:12 | CCD | Continuity of Care Document ---
Author Author Chloe SIMS PA Organization Unknown Address [address] [place] [address] Phone [phone] Care Team Providers Care Puncher And Fastener Name Role Phone Aki Pugh MD AUTM [phone] David Mccoy JR, MD AUTM Unavailable Zoie Aldrich MD AUTM [phone] Kris Roa MD AUTM [phone] [facility] [phone] Dale Rommel DO AUTM [phone] [facility] - new account interviewer AUTM Problems Active Problems Provider Date Conduction [...] Mccoy MD Onse t: 01/16/2011 Chronic sinusitis aDvid Mccoy MD Onset: 01/16/2011 Anemia David Mccoy [...] Daily 90tabs David Mccoy MD 10/06/2018 Ipratropium [place] 0.03% Solution 2 sprays each nostril 2-3x/day as needed 90ml John Claros FNP 07/23/2018 Atenolol 25mg Tablets take 1 tablet daily 90tabs David Mccoy MD 06/24/2017 Ipratropium [place] 0.02% Solution use 1 vial via nebulizer [...] 1units David Mccoy MD 05/07/2008 Calcium 1200 8740-6228vk-Brrf Chew tabs 1 by mouth every day [...] Of Flu Vaccine Inj ection Hyacinth Lovell [facility] 12/20/2009 Administration Of Flu Vaccine Inj suzanne [...] CPT Code Status Date Vaccine Lot # 31448 Given 12/28/2019 Influenza Vaccin e Quadrivalent Preser/Antibiotic Free Im Use [id number] 02460 Given 01/08/2019 Influenza Vaccin e Quadrivalent Preser/Antibiotic Free Im Use 051193 36038 Given 01/02/2018 Influenza Virus Vaccine, Quadrivalent (Cciiv4), Derived From Cell 92871 Given 01/08/2017 Influenza Vaccin e Quadrivalent Preser/Antibiotic Free Im Use 455151 Q2037 Given 02/13/2016 Fluvirin Virus Vaccine 88775 01 21787 Given 12/20/2015 Adacel- Tetanus Diphtheria P ertussis (Age64 & Under) [id number] Q2037 Given 12/27/2014 Fluvirin Virus Vaccine 73438 01 Q2037 Given 01/22/2014 Fluvirin Virus Vaccine 80455 21 Q2037 Given 01/16/2013 Fluvirin Virus Vaccine 87642 01 Q2037 Given 01/04/2012 Fluvirin Virus Vaccine Q2037 Given 01/04/2012 Fluvirin Virus Vaccine Q2037 Given 01/16/2011 Fluvirin Virus Vaccine 01798 Given 05/22/2009 Influenza Virus Vaccine 48809 Given 01/03/2009 Influenza Virus Vaccine 99068 Given 01/06/2008 Influenza Virus Vaccine 03282 Given 01/23/2007 Influenza Virus Vaccine 13115 Given 01/11/2005 Influenza Virus Vaccine 89025 Given 01/06/2004 Influenza Virus Vaccine 03586 Given 01/05/2003 Influenza Virus Vaccine 79074 Given 01/05/2002 Influenza Virus Vaccine 53957 Given 01/09/2001 Influenza Virus Vaccine 73296 Given 03/06/2000 Pneumovax 23 16055 Given 01/20/1999 Influenza Virus Vaccine 15975 Given 01/03/1998 Influenza Virus Vaccine Vital Signs [...] H/L Range Note Ua Dipstick Only 11/29/2020 [facility] Property Maintenance Technician: [place] [address] [phone] Urine Color YELLOW Yellow Urine Appearance CLOUDY Abnormal Clear Urine PH 6.5 units 5.0 - 9.0 Urine Specific [place] 1.015 1.005 - 1.030 Urine Leukocytes LARGE Abnormal Negative Urine Blood SMALL Abnormal Negative Urine Protein 1+ Abnormal Negative -Trace Urine Glucose NEGATIVE mg/dL Negative Urine Nitrite POSITIVE Abnormal Negative Urine Ketone NEGATIVE mg/dL Negative Urine Bilirubin NEGATIVE Negative Urine Urobilinogen 0.2 mg/dL 0.2 - 1.0 Laboratory test finding 11/29/2020 [facility] [address] [place] [address] [phone] Urine Culture <pending> Complete Blood Count 11/01/2020 [facility] Property Maintenance Technician: [place] [address] [phone] WBC 12.7 x10*3/UL High 4.1 - 10.9 [...] x10*3/UL High 2.0 - 7.8 A1c 11/01/2020 [facility] , Property Maintenance Technician: [place] [address] [phone] Hba1c 6.3 % High <5.7 1 Est Avg Glucose 134 mg/dL High 60 - 110 Comprehensive Chem Profile 11/01/2020 [facility], Property Maintenance Technician: [place] [address] [phone] Glucose 136 mg/dL High 74 - 99 [...] Low >60 3 Ua Dipstick Only 06/27/2020 [facility] Property Maintenance Technician: [place] [address] [phone] Urine Color YELLOW Yellow Urine Appearance CLOUDY Abnormal Clear Urine PH 6.0 units 5.0 - 9.0 Urine Specific [place] 1.020 1.005 - 1.030 Urine Leukocytes LARGE Abnormal Negative Urine Blood LARGE Abnormal Negative Urine Protein 3+ Abnormal Negative -Trace Urine Glucose NEGATIVE mg/dL Negative Urine Nitrite POSITIVE Abnormal Negative Urine Ketone NEGATIVE mg/dL Negative Urine Bilirubin NEGATIVE Negative Urine Urobilinogen 0.2 mg/dL 0.2 - 1.0 Laboratory test finding 06/27/[address] [address] [phone] Urine Culture FULL REPORT IN L <SEE NOTE> Normal 4 Thyroid Profile 06/21/2020 [facility] [address] [address] [place] [address] [phone] T Uptake 34 % Normal 30-39 Thyroxine (T4) 6.8 g/dL Normal 4.5-12.0 Free Thyroxine Index 2.3 % Normal 1.3-4.8 Thyroid Stimulating Hormone 1.780 uIU/ML Normal 0.358-3.740 Anti-Sjogrens A&B Antibodies 06/21/[address] [address] [phone] Ssa Sjogrens A <0.2 AI Normal 0.0-0.9 SSB Sjogrens B <0.2 AI Normal 0.0-0.9 5 Laboratory test finding 06/21/[address] [address] [phone] Free T3 3.2 pg/mL Normal 2.2-4.0 6 Free T4 0.79 ng/dL Normal 0.76-1.46 7 Laboratory test finding 06/07/[address] [address] [phone] Digoxin Level 0.7 NG/ML Normal 0.5-2.0 8 Complete Blood Count 06/07/2020 [facility] Property Maintenance Technician: [place] [address] [phone] WBC 8.3 x10*3/UL 4.1 - 10.9 RBC [...] 2.0 - 7.8 Comprehensive Chem Profile 06/07/2020 [facility] Property Maintenance Technician: [place] [address] [phone] Glucose 95 mg/dL 74 - 99 9 [...] LITTLE GFR LEFT ESRD GFR <15 ON CABIN EQUIPMENT SUPERVISOR 4 FULL REPORT IN LAB NOTES (eC [...] ESBL 5 Performed at: RN - [facility] [address] [id number] Property Maintenance Technician: Cathryn Presley MD, Phone: [phone] 6 note:<nlbl:demographic_chang ed> 7 note:<nlbl:demographic_chang ed> 8 note:<nlbl:demographic_[facility] ed> 9 100-125 mg/dL PRE-DIABET ES/FASTING >126 mg/dL DIABETES/FASTING 10 CHRONIC KIDNEY DISEASE STAGI NG PER NKF STAGE I & II GFR >= 60 NORMAL TO MILDLY DECREASED STAGE III GFR 30-59 MODERATELY DECREASED STAGE IV GFR 15-29 SEVERELY DECREASED STAGE V GFR <15 VERY LITTLE GFR LEFT ESRD GFR <15 ON CABIN EQUIPMENT SUPERVISOR Procedures Date Code Description Status 11/10/2020 [id number] Mammogram Completed 11/01/2020 94999 Office/Outpatient Established Mo d MDM 30-39 Min Completed 06/27/2020 46552 Office/Outpatient Established Mo d MDM 30-39 Min Completed 06/07/2020 00577 Office/Outpatient Established Lo w MDM 20-29 Min Completed 12/15/2019 [id number] Diabetic Retinal Eye Exam Comple joycelyn 11/23/2019 [id number] Mammogram Completed 10/21/2018 [id number] Mammogram Completed 10/10/2017 [id number] Bone Mineral Density Test Comple joycelyn 10/10/2017 [id number] Mammogram Completed 10/04/2016 [id number] Mammogram Completed 09/04/2016 [id number] Colonoscopy Completed 08/13/2016 [id number] Colonoscopy Completed 10/04/2015 [id number] Mammogram Completed 09/01/2015 [id number] Bone Mineral Density Test Comple joycelyn 02/03/2015 [id number] Mammogram Completed 09/29/2014 [id number] Mammogram Completed 09/03/2013 [id number] Mammogram Completed 02/05/2013 [id number] Bone Mineral Density Test Comple joycelyn 09/02/2012 [id number] Mammogram Completed 08/08/2012 [id number] Diabetic Foot Exam Completed 05/26/2012 [id number] Diabetic Foot Exam Completed 09/17/2011 [id number] Mammogram Completed 08/28/2011 [id number] Diabetic Retinal [facility] 03/19/2011 [id number] Mammogram Completed 12/15/2010 [id number] Diabetic Retinal Eye Exam Comple [facility] 09/13/2010 [id number] Mammogram Completed 09/07/2010 [id number] Mammogram Completed 05/05/2010 [id number] Mammogram Completed 08/30/2009 [id number] Mammogram Completed 09/07/2008 [id number] Mammogram Completed 08/26/2008 [id number] Bone Mineral Density Test Comple joycelyn 08/20/2008 [id number] Mammogram Completed Medical Devices Description No Information Available Encounters Type Date Location Provider Dx Diagnosis Office Visit 11/01/2020 10:40a [facility] 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 AMI Henderson JR M54.5 Low [...] unco mplicated David Mccoy MD 11/01/2020 Z79.52 alf (current) use of syste amira steroids David [...] unco mplicated David Mccoy MD 06/27/2020 Z79.52 alf (current) use of syste amira steroids David [...] 9:20 am - David Mccoy MD at [facility] * 12/19/2020 8:30 am - Nurse Schedule at [facility] 11/29/2020 - AMI Saha JR* [...] FOR RT LOWER LEG PAIN Closed 07/25/2020 [facility] [address] [place] [address] [phone]
--- OUTSIDE RECORDS SUMMARY | 2021-01-31 14:12 | CCD | Continuity of Care Document ---
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 Name Role Phone Aki Pugh MD AUTM [phone] David Mccoy JR, MD AUTM Unavailable Zoie Aldrich MD AUTM [phone] Kris Roa MD AUTM [phone] [facility] AUTM [phone] Rommel Hunter AUTM [phone] Problems Active Problems Provider Date Conduction disorder [...] DAY Allergies, Adverse Reactions, Alerts Active Allergies Reaction Severity Comments Date Sulfa 01/20/2010 Tavist D 01/20/2010 Ibuprofen asthma asthma 12/01/2010 Lidoderm rash 12/01/2010 Amoxicillin Hives,Trouble Breathing 01/31 Cephalexin Chest Pain Red Head To Toe 0 05/19/2013 Guiatex LA Rash 05/19/2013 Aleve Wheezing 05/19/2013 Ambien Dizzy, Stomach Upset 014 Ativan SOB, Dizzy Coordination 05/02 Penicillins Severe 10/19/2013 Cefuroxime Rash 01/30/2017 Erythromycin Rash 01/30/2017 Cipro Rash 01/30/2017 Doxycycline Rash 01/30/2017 Biaxin Rash 01/30/2017 Avelox Nausea 01/30/2017 Declomycin Rash 01/30/2017 Tussionex N/V 01/30/2017 Demerol N/V 01/30/2017 Guaifenesin Nose bleed 01/30/2017 Codeine Nausea 01/30/2017 Pneumovax Arm swelled 01/30/2017 Aspirin Cough, wheezing 01/30/2017 Levaquin bad headache 01/30/2017 Morphine N/V 01/30/2017 Alprazolam Terrible Headache 01/30/2017 Tobramycin Headache, Asthma problems Medications Active Medications SIG Qnty Indications Ordering Provide r Date Shingrix 50mcg/0.5ML Suspension Re c administer 0.5 [...] Daily 90tabs David Mccoy MD 10/06/2018 Ipratropium [place] 0.03% Solution 2 sprays each nostril 2-3x/day as needed 90ml John Claros,[facility] 07/23/2018 Atenolol 25mg Tablets take 1 tablet daily 90tabs David Mccoy MD 06/24/2017 Ipratropium [place] 0.02% Solution use 1 vial via nebulizer [...] Acacia Renteria, GARRETT 08/23/2010 Simvastatin 20mg Tablets Take 1 Tablet AT Bedtime *Lupin* 90tabs David Mccoy MD 09/18/19 09 Nebulizer Misc use as direct ed 1units David Mccoy MD 05/07/2008 Calcium 1200 [id number] Chew tabs 1 by mouth every day Unknown Budesonide 0.5mg/2ML Suspension via neb twice a day 120ml David Mccoy MD Gabapentin 100mg Capsules take one capsule by mouth three times a day Unknown Medications Administered in Office Medication SIG Qnty Indications Ordering Provider Date Covid-19 vaccine, Unspecified Inj ection Unknown 05/23/2020 Covid-19 vaccine, Unspecified Inj ection Unknown 04/25/2020 Administration Of Flu Vaccine Inj olegarioion David Mccoy MD 12/28/2019 Administration Of Flu Vaccine Inj ection David Mccoy MD 01/08/2019 Administration Of Flu Vaccine Inj olegarioion David Mccoy MD 01/02/2018 Administration Of Flu Vaccine Inj suzanne Mccoy MD 01/08/2017 Administration Of Flu Vaccine Inj olegarioion David Mccoy MD 02/13/2016 Administration Of Flu Vaccine Inj ection Acacia Renteria, GARRETT 12/27/2014 Administration Of Flu Vaccine Inj olegarioion David Mccoy MD 01/22/2014 Administration Of Flu Vaccine Inj olegarioion David Mccoy MD 01/16/2013 Administration Of Flu Vaccine Inj suzanne Mccoy MD 01/04/2012 Administration Of Flu Vaccine Inj suzanne Mccoy MD 01/16/2011 Administration Of Flu Vaccine Inj ection Hyacinth Lovell [facility] 12/20/2009 Administration Of Flu Vaccine Inj ection David Mccoy MD 01/03/2009 Administration Of Flu Vaccine Inj suzanne Mccoy MD 01/06/2008 Administration Of Flu Vaccine Inj olegarioion David Mccoy MD 01/23/2007 Administration Of Flu Vaccine Inj olegarioion David Mccoy MD 01/11/2005 Administration Of Flu Vaccine Inj suzanne Mccoy MD 01/06/2004 Administration Of Flu Vaccine Inj ection Acacia Renteria, GARRETT 01/05/2003 Administration Of Flu Vaccine Inj ection Acacia Renteria, GARRETT 01/05/2002 Administration Of Flu Vaccine Inj ection David Mccoy MD 01/09/2001 Immunizations CPT Code Status Date Vaccine Lot # [id number] Given 12/28/2019 Influenza Vaccin e Quadrivalent Preser/Antibiotic Free Im Use [id number] 15170 Given 01/08/2019 Influenza Vaccin e Quadrivalent Preser/Antibiotic Free Im Use [id number] 89781 Given 01/02/2018 Influenza Virus Vaccine, Quadrivalent ([id number]), Derived From Cell 11399 Given 01/08/2017 Influenza Vaccin e Quadrivalent Preser/Antibiotic Free Im Use [id number] Q2037 Given 02/13/2016 Fluvirin Virus Vaccine 93329 01 63042 Given 12/20/2015 Adacel- Tetanus Diphtheria P ertussis (Age64 & Under) [id number] Q2037 Given 12/27/2014 Fluvirin Virus Vaccine 66623 01 Q2037 Given 01/22/2014 Fluvirin Virus Vaccine 00122 21 Q2037 Given 01/16/2013 Fluvirin Virus Vaccine 10922 01 Q2037 Given 01/04/2012 Fluvirin Virus Vaccine Q2037 Given 01/04/2012 Fluvirin Virus Vaccine Q2037 Given 01/16/2011 Fluvirin Virus Vaccine 87095 Given 05/22/2009 Influenza Virus Vaccine 36602 Given 01/03/2009 Influenza Virus Vaccine 86444 Given 01/06/2008 Influenza Virus Vaccine 93973 Given 01/23/2007 Influenza Virus Vaccine 18264 Given 01/11/2005 Influenza Virus Vaccine 81497 Given 01/06/2004 Influenza Virus Vaccine 50246 Given 01/05/2003 Influenza Virus Vaccine 85822 Given 01/05/2002 Influenza Virus Vaccine 82190 Given 01/09/2001 Influenza Virus Vaccine 80348 Given 03/06/2000 Pneumovax 23 36824 Given 01/20/1999 Influenza Virus Vaccine 61777 Given 01/03/1998 Influenza Virus Vaccine Vital Signs Date Vital Result Comment 11/01/2020 10:27am BP Systolic 132 mmHg BP Diastolic 678 mmHg Heart Rate 70 /min Height 59 inches 4'11" Weight 108.00 lb BMI (Body Mass Index) 21.8 kg/m2 06/27/2020 10:37am BP Systolic 124 mmHg BP Diastolic 60 mmHg Height 59.50 inches 4'11.50" Weight 111.38 lb BMI (Body Mass Index) 22.1 kg/m2 Results Test Acquired Date Facility Test Result H/L Range Note Complete Blood Count 11/01/2020 [facility] Medical Records Secretary: [place] [address] [phone] WBC 12.7 x10*3/UL High 4.1 - 10.9 [...] x10*3/UL High 2.0 - 7.8 A1c 11/01/2020 [facility] , Medical Records Secretary: Dr David Mccyo [place], [place] [id number] [phone] Hba1c 6.3 % High <5.7 1 Est Avg Glucose 134 mg/dL High 60 - 110 Comprehensive Chem Profile 11/01/2020 [facility], Medical Records Secretary: Dr David Mccoy [place], [place] [id number] [phone] Glucose 136 mg/dL High 74 - 99 [...] Low >60 3 Ua Dipstick Only 06/27/2020 [facility] Medical Records Secretary: [place] [address] [phone] Urine Color YELLOW Yellow Urine Appearance CLOUDY Abnormal Clear Urine PH 6.0 units 5.0 - 9.0 Urine Specific [place] 1.020 1.005 - 1.030 Urine Leukocytes LARGE Abnormal Negative Urine Blood LARGE Abnormal Negative Urine Protein 3+ Abnormal Negative -Trace Urine Glucose NEGATIVE mg/dL Negative Urine Nitrite POSITIVE Abnormal Negative Urine Ketone NEGATIVE mg/dL Negative Urine Bilirubin NEGATIVE Negative Urine Urobilinogen 0.2 mg/dL 0.2 - 1.0 Laboratory test finding 06/27/[address] [address] [phone] Urine Culture FULL REPORT IN L <SEE NOTE> Normal 4 Thyroid Profile 06/21/2020 [facility] nter [address] [place] [address] [phone] T Uptake 34 % Normal 30-39 Thyroxine (T4) 6.8 g/dL Normal 4.5-12.0 Free Thyroxine Index 2.3 % Normal 1.3-4.8 Thyroid Stimulating Hormone 1.780 uIU/ML Normal 0.358-3.740 Anti-Sjogrens A&B Antibodies 06/21/[address] [address] [phone] Ssa Sjogrens A <0.2 AI Normal 0.0-0.9 SSB Sjogrens B <0.2 AI Normal 0.0-0.9 5 Laboratory test finding 06/21/[address] [address] [phone] Free T3 3.2 pg/mL Normal 2.2-4.0 6 Free T4 0.79 ng/dL Normal 0.76-1.46 7 Laboratory test finding 06/07/[address] [address] [phone] Digoxin Level 0.7 NG/ML Normal 0.5-2.0 8 Complete Blood Count 06/07/2020 [facility] Medical Records Secretary: [place] [address] [phone] WBC 8.3 x10*3/UL 4.1 - 10.9 RBC [...] 2.0 - 7.8 Comprehensive Chem Profile 06/07/2020 [facility] Medical Records Secretary: [place] [address] [phone] Glucose 95 mg/dL 74 - 99 9 [...] LITTLE GFR LEFT ESRD GFR <15 ON PROCUREMENT SERVICES MANAGER 4 FULL REPORT IN LAB NOTES (eC [...] ESBL 5 Performed at: RN - [facility] [address] [id number] Medical Records Secretary: Cathryn Presley MD, Phone: [phone] 6 note:<nlbl:demographic_chang ed> 7 note:<nlbl:demographic_chang ed> 8 note:<nlbl:demographic_[facility] ed> 9 100-125 mg/dL PRE-DIABET ES/FASTING >126 mg/dL DIABETES/FASTING 10 CHRONIC KIDNEY DISEASE STAGI NG PER NKF STAGE I & II GFR >= 60 NORMAL TO MILDLY DECREASED STAGE III GFR 30-59 MODERATELY DECREASED STAGE IV GFR 15-29 SEVERELY DECREASED STAGE V GFR <15 VERY LITTLE GFR LEFT ESRD GFR <15 ON PROCUREMENT SERVICES MANAGER Procedures Date Code Description Status 11/01/2020 66636 Office/Outpatient Established Mo d MDM 30-39 Min Completed 06/27/2020 13486 Office/Outpatient Established Mo d MDM 30-39 Min Completed 06/07/2020 67492 Office/Outpatient Established Lo w MDM 20-29 Min Completed 12/15/2019 [id number] Diabetic Retinal Eye Exam Comple [facility] 11/23/2019 [id number] Mammogram Completed 10/21/2018 [id number] Mammogram Completed 10/10/2017 [id number] Bone Mineral Density Test Comple [facility] 10/10/2017 [id number] Mammogram Completed 10/04/2016 [id number] Mammogram Completed 09/04/2016 [id number] Colonoscopy Completed 08/13/2016 [id number] Colonoscopy Completed 10/04/2015 [id number] Mammogram Completed 09/01/2015 [id number] Bone Mineral Density Test Comple [facility] 02/03/2015 [id number] Mammogram Completed 09/29/2014 [id number] Mammogram Completed 09/03/2013 [id number] Mammogram Completed 02/05/2013 [id number] Bone Mineral Density Test Comple [facility] 09/02/2012 [id number] Mammogram Completed 08/08/2012 [id number] Diabetic Foot Exam Completed 05/26/2012 [id number] Diabetic Foot Exam Completed 09/17/2011 [id number] Mammogram Completed 08/28/2011 [id number] Diabetic Retinal Eye Exam Comple [facility] 03/19/2011 [id number] Mammogram Completed 12/15/2010 [id number] Diabetic Retinal Eye Exam Comple [facility] 09/13/2010 [id number] Mammogram Completed 09/07/2010 [id number] Mammogram Completed 05/05/2010 [id number] Mammogram Completed 08/30/2009 [id number] Mammogram Completed 09/07/2008 [id number] Mammogram Completed 08/26/2008 [id number] Bone Mineral Density Test Comple [facility] 08/20/2008 [id number] Mammogram Completed Medical Devices Description No Information Available Encounters Type Date Location Provider Dx Diagnosis [facility] 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 N18.30 Chronic kidney disease, stag e 3 unspecified J45.40 Moderate persistent asthma, uncomplicated 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 steroids 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 T38.0x5D Adverse effect of glucocort/ synth analog, subs K21.9 Gastro-esophageal reflux dis ease without esophagitis I47.1 Supraventricular tachycardia M54.5 Low back pain Office Visit 06/27/2020 11[facility] M79.604 Pain in right leg I12.9 Hypertensive chronic kidney disease w stg 1-4/unsp chr kdny N18.30 Chronic kidney disease, stag e 3 unspecified J45.40 Moderate persistent asthma, uncomplicated Z79.52 [facility] (current) use of s ystemic steroids T38.0x5A Adverse effect of glucocort/ synth analog, init 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 I47.1 Supraventricular tachycardia K21.9 Gastro-esophageal reflux dis ease without esophagitis R31.9 Hematuria, unspecified Z13.89 Encounter for screening for other disorder Office Visit 06/07/2020 2[facility]p [facility] M54.5 Low back pain M79.604 Pain in right leg Assessments Date Code Description Provider 11/01/2020 I12.9 Hypertensive chronic kidney disease with stage 1 through stage 4 chronic kidney disease, or unspecified chronic kidney disease David Mccoy MD 11/01/2020 N18.30 Chronic kidney disease, stage 3 unspecified David Mccoy MD 11/01/2020 J45.40 Moderate persistent asthma, unco mplicated David Mccoy MD 11/01/2020 Z79.52 [facility] (current) use of syste amira steroids David [...] unco mplicated David Mccoy MD 06/27/2020 Z79.52 [facility] (current) use of syste amira steroids David [...] Schedule 06/07/2020 M54.5 Low back pain AMI Grimalod JR 06/07/2020 I47.1 Supraventricular tachycardia Col jackson [...] 9:20 am - David Mccoy MD at [facility] * 12/19/2020 8:30 am - Nurse Schedule at [facility] 11/01/2020 - David Mccoy MD* I12.9 Hypertensive chronic kidney disease with stage 1 through stage 4 chronic kidney disease, or unspecified chronic kidney disease * N18.30 Chronic kidney disease, stage 3 unspecified * J45.40 Moderate persistent asthma, uncomplicated * Z79.52 [facility] (current) use of systemic steroids * E09.22 [...] FOR RT LOWER LEG PAIN Closed 07/25/2020 [facility] [address] [place] [address] [phone]
--- OUTSIDE RECORDS SUMMARY | 2021-01-31 14:12 | CCD | Continuity of Care Document ---
Author Author Chloe BARROKristina [place] [address] Phone [phone] Care Team Providers Care Administrator Social Welfare Name Role Phone David Mccoy MD @ [facility] Int AUTM Problems Active Problems Provider [...] Qnty Indications Ordering Provide r Date Ipratropium [place] 0.06% Solution 2 intranasal puffs twice a [...] 1 by mouth every day Unknown Ipratropium [place]/Albuterol Sulfate 0.5-2.5(3)mg/3ML Solution 1 vial via neb four times a day as needed Unknown Prednisone 5mg Tablets 1 by mouth every day 90tabs J32.4 Unknown Ventolin HFA 108(90Base) mcg/Act A erosol 2 puffs four times a day as needed Unknown Budesonide 32mcg/Act Suspension 2 intranasal puffs twice a day Unknown Immunizations CPT Code Status Date Vaccine Lot # [id number] Given 01/07/2019 Afluria, Quadrivalent, 0.5ml , [facility]# [id number] 30184 Given 01/25/2016 Influenza Virus Split 3 Yrs And Above For Intramuscular Use 12905 Given 01/14/2014 Influenza Virus Split 3 Yrs And Above For Intramuscular Use Q2036 Given 01/09/2012 Influenza Vaccine 3 Years Of Age Or Older (Flulaval) Q2036 Given 01/10/2011 Influenza Vaccine 3 Years Of Age Or Older (Flulaval) 48579 Given 01/11/2010 Influenza Virus Split 3 Yrs And Above For Intramuscular Use 20613 Given 12/09/2007 Influenza Vaccine 27219 Given Unknown Influenza Vaccine Vital Signs Date Vital Result Comment 11/23/2020 8:42am BP Systolic 110 mmHg BP Diastolic 60 mmHg Heart Rate 63 /min O2 % BldC Oximetry 97 % Height 60 inches 5'0" Weight 109.00 lb BMI (Body Mass Index) 21.3 kg/m2 Harper Body Weight 100 lb Weight 49.442 kg BSA (Body Surface Area) 1.44 m2 06/06/2020 10:15am BP Systolic 120 mmHg BP Diastolic 60 mmHg Heart Rate 62 /min O2 % BldC Oximetry 98 % Body Temperature 96.7 F Height 60 inches 5'0" Weight 109.00 lb BMI (Body Mass Index) 21.3 kg/m2 Harper Body Weight 100 lb Weight 49.442 kg BSA (Body Surface Area) 1.44 m2 Results Test Acquired Date Facility Test Result H/L Range Note [facility]/[place] 11/23/2020 [facility] SEE IMAGE FVC-Pred 1.96 L FVC-Pre 1.71 L FVC-%Pred-Pre 87 L FVC-LLN 1.35 L Fev1-Pred 1.43 L Fev1-Pre 1.10 L Fev1-%Pred-Pre 76 L Fev1-LLN 0.92 L Fev6-Pred 1.83 L Fev6-Pre 1.71 L Fev6-%Pred-Pre 93 L Fev6-LLN 1.23 L Sbk9cny-Mwbc 73 % Ysv1gpz-Yqt 65 % Fnf4gyw-%Pred-Pre 88 % Bjy3uuf-LYU 63 % Spw0dia-Snbu 93 % Ugt5vnh-Rhl 100 % Tze3brb-%Pred-Pre 107 % FEFMax-Pred 3.80 L/E/sec FEFMax-Pre 2.93 L/E/sec FEFMax-%Pred-Pre 77 L/E/sec FEFMax-LLN 2.29 L/E/sec Cxb5426-Jxpl 0.98 L/E/sec Ran8003-Crt 0.57 L/E/sec Foo4063-%Pred-Pre 57 L/E/sec Tlf5827-NJH -0.11 L/E/sec ExpTime-Pre 5.84 sec Xuk1vfr5-Fqtz 77 % Xdb3tms1-Ier 65 % Jus3evd1-%Pred-Pre 83 % Hwy3iqs3-EAH 68 % FVL/[place] 06/06/2020 PLDT PDFReport SEE IMAGE FVC-Pred 1.96 L FVC-Pre 1.83 L FVC-%Pred-Pre 93 L FVC-LLN 1.35 L Fev1-Pred 1.43 L Fev1-Pre 1.24 L Fev1-%Pred-Pre 86 L Fev1-LLN 0.92 L Fev6-Pred 1.83 L Fev6-Pre 1.83 L Fev6-%Pred-Pre 100 L Fev6-LLN 1.23 L Snc9pui-Xflt 73 % Ldj6bqw-Imh 68 % Bke6qgl-%Pred-Pre 92 % Fvr1xkz-HHJ 63 % Bmj9pgs-Ycgl 93 % Mok4vat-Cot 100 % Pgi1bid-%Pred-Pre 107 % FEFMax-Pred 3.80 L/E/sec FEFMax-Pre 3.73 L/E/sec FEFMax-%Pred-Pre 98 L/E/sec FEFMax-LLN 2.29 L/E/sec Rjm2580-Muia 0.98 L/E/sec Vit7542-Unk 0.71 L/E/sec Dly8161-%Pred-Pre 72 L/E/sec Vnj2148-PFW -0.11 L/E/sec ExpTime-Pre 6.03 sec Ilp6ayg0-Pweb 77 % Jsy3epf9-Aga 68 % Dfx4whj1-%Pred-Pre 88 % Eaq6vis4-UCY 68 % Procedures Date Code Description Status 06/06/2020 01405 Office/Outpatient Established Lo w MDM 20-29 Min Completed 06/06/2020 84512 Spirometry Completed Medical Devices Description No Information Available Encounters Type Date Location Provider Dx Diagnosis Office Visit 06/06/2020 10:30a [facility] Rommel garrett D.O. J45.20 Mild intermittent asthma, uncomplicated Z87.891 Personal history of nicotine dependence Assessments Date Code Description Provider 11/23/2020 J45.20 Mild intermittent asthma, uncomp licated Miley Garrett.O. 11/23/2020 Z87.891 Personal history of nicotine dep endence Karie GarrettO. 06/06/2020 J45.20 Mild intermittent asthma, uncomp licated Miley Garrett.O. 06/06/2020 Z87.891 Personal history of nicotine dep endence Rommel Barr D.O. Plan of Treatment Future Appointment(s):* 12/02/2020 9:15 am - Rommel Barr D.O. at [facility]monary[facility]Th[facility]acic 11/23/2020 - Rommel Barr D.O.* J45.20 Mild intermittent asthma, uncomplicated * Z87.891 Personal history of nicotine dependence * * New Labs:* FVL/[place], Ordered: 11/23/20 * Follow up:* Follow up in 2 weeks with severo, 15 ok Functional Status Functional Condition Comment Date Status Independent with all ADL's Activ e Independent with all IADL's Acti ve Mental Status Mental Condition Comment Date Status Cognitive ability not impaired A ctive Referrals Description No Information Available
--- OUTSIDE RECORDS SUMMARY | 2021-01-31 14:12 | CCD | Continuity of Care Document ---
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 [phone] Problems Active Problems Provider Date Conduction disorder [...] Daily 90tabs David Mccoy MD 10/06/2018 Ipratropium [place] 0.03% Solution 2 sprays each nostril 2-3x/day as needed 90ml John Claros FNP 07/23/2018 Atenolol 25mg Tablets take 1 tablet daily 90tabs David Mccoy MD 06/24/2017 Ipratropium [place] 0.02% Solution use 1 vial via nebulizer [...] 1units David Mccoy MD 05/07/2008 Calcium 1200 [id number] Chew tabs 1 by mouth every day [...] Of Flu Vaccine Inj ection Hyacinth Lovell [facility] 12/20/2009 Administration Of Flu Vaccine Inj suzanne [...] CPT Code Status Date Vaccine Lot # 49981 Given 12/28/2019 Influenza Vaccin e Quadrivalent Preser/Antibiotic Free Im Use 230561 68721 Given 01/08/2019 Influenza Vaccin e Quadrivalent Preser/Antibiotic Free Im Use [id number] 72274 Given 01/02/2018 Influenza Virus Vaccine, Quadrivalent (Cciiv4), Derived From Cell 36868 Given 01/08/2017 Influenza Vaccin e Quadrivalent Preser/Antibiotic Free Im Use 112097 Q2037 Given 02/13/2016 Fluvirin Virus Vaccine 28949 01 94509 Given 12/20/2015 Adacel- Tetanus Diphtheria P ertussis (Age64 & Under) [id number] Q2037 Given 12/27/2014 Fluvirin Virus Vaccine 25638 01 Q2037 Given 01/22/2014 Fluvirin Virus Vaccine 66836 21 Q2037 Given 01/16/2013 Fluvirin Virus Vaccine 43982 01 Q2037 Given 01/04/2012 Fluvirin Virus Vaccine Q2037 Given 01/04/2012 Fluvirin Virus Vaccine Q2037 Given 01/16/2011 Fluvirin Virus Vaccine 13861 Given 05/22/2009 Influenza Virus Vaccine 82636 Given 01/03/2009 Influenza Virus Vaccine 50327 Given 01/06/2008 Influenza Virus Vaccine 83239 Given 01/23/2007 Influenza Virus Vaccine 88272 Given 01/11/2005 Influenza Virus Vaccine 81596 Given 01/06/2004 Influenza Virus Vaccine 30611 Given 01/05/2003 Influenza Virus Vaccine 82747 Given 01/05/2002 Influenza Virus Vaccine 22973 Given 01/09/2001 Influenza Virus Vaccine 44145 Given 03/06/2000 Pneumovax 23 78057 Given 01/20/1999 Influenza Virus Vaccine 92082 Given 01/03/1998 Influenza Virus Vaccine Vital Signs [...] H/L Range Note Ua Dipstick Only 11/29/2020 [facility] Scrap Sorter: [place] [address] [phone] Urine Color YELLOW Yellow Urine Appearance CLOUDY Abnormal Clear Urine PH 6.5 units 5.0 - 9.0 Urine Specific [place] 1.015 1.005 - 1.030 Urine Leukocytes LARGE Abnormal Negative Urine Blood SMALL Abnormal Negative Urine Protein 1+ Abnormal Negative -Trace Urine Glucose NEGATIVE mg/dL Negative Urine Nitrite POSITIVE Abnormal Negative Urine Ketone NEGATIVE mg/dL Negative Urine Bilirubin NEGATIVE Negative Urine Urobilinogen 0.2 mg/dL 0.2 - 1.0 Laboratory test finding 11/29/2020 [facility] [address] [place] [address] [phone] Urine Culture <pending> Complete Blood Count 11/01/2020 [facility] Scrap Sorter: [place] [address] [phone] WBC 12.7 x10*3/UL High 4.1 - 10.9 [...] x10*3/UL High 2.0 - 7.8 A1c 11/01/2020 [facility] , Scrap Sorter: [place] [address] [phone] Hba1c 6.3 % High <5.7 1 Est Avg Glucose 134 mg/dL High 60 - 110 Comprehensive Chem Profile 11/01/2020 [facility], Scrap Sorter: [facility] [place] [address] [phone] Glucose 136 mg/dL High 74 - 99 [...] Low >60 3 Ua Dipstick Only 06/27/2020 [facility] Scrap Sorter: Dr David [place] [address] [phone] Urine Color YELLOW Yellow Urine Appearance CLOUDY Abnormal Clear Urine PH 6.0 units 5.0 - 9.0 Urine Specific [place] 1.020 1.005 - 1.030 Urine Leukocytes LARGE Abnormal Negative Urine Blood LARGE Abnormal Negative Urine Protein 3+ Abnormal Negative -Trace Urine Glucose NEGATIVE mg/dL Negative Urine Nitrite POSITIVE Abnormal Negative Urine Ketone NEGATIVE mg/dL Negative Urine Bilirubin NEGATIVE Negative Urine Urobilinogen 0.2 mg/dL 0.2 - 1.0 Laboratory test finding 06/27/[address] [address] [phone] Urine Culture FULL REPORT IN L <SEE NOTE> Normal 4 Thyroid Profile 06/21/2020 [facility] nter [address] [place] [address] [phone] T Uptake 34 % Normal 30-39 Thyroxine (T4) 6.8 g/dL Normal 4.5-12.0 Free Thyroxine Index 2.3 % Normal 1.3-4.8 Thyroid Stimulating Hormone 1.780 uIU/ML Normal 0.358-3.740 Anti-Sjogrens A&B Antibodies 06/21/[address] [address] [phone] Ssa Sjogrens A <0.2 AI Normal 0.0-0.9 SSB Sjogrens B <0.2 AI Normal 0.0-0.9 5 Laboratory test finding 06/21/[address] [address] [phone] Free T3 3.2 pg/mL Normal 2.2-4.0 6 Free T4 0.79 ng/dL Normal 0.76-1.46 7 Laboratory test finding 06/07/[address] [address] [phone] Digoxin Level 0.7 NG/ML Normal 0.5-2.0 8 Complete Blood Count 06/07/2020 [facility] Scrap Sorter: [place] [address] [phone] WBC 8.3 x10*3/UL 4.1 - 10.9 RBC [...] 2.0 - 7.8 Comprehensive Chem Profile 06/07/2020 [facility] Scrap Sorter: [place] [address] [phone] Glucose 95 mg/dL 74 - 99 9 [...] LITTLE GFR LEFT ESRD GFR <15 ON ANIMAL KILLER 4 FULL REPORT IN LAB NOTES (eC [...] ESBL 5 Performed at: RN - [facility] [address] [id number] Scrap Sorter: Cathryn Presley MD, Phone: [phone] 6 note:<nlbl:demographic_chang ed> 7 note:<nlbl:demographic_chang ed> 8 note:<nlbl:demographic_[facility] ed> 9 100-125 mg/dL PRE-DIABET ES/FASTING >126 mg/dL DIABETES/FASTING 10 CHRONIC KIDNEY DISEASE STAGI NG PER NKF STAGE I & II GFR >= 60 NORMAL TO MILDLY DECREASED STAGE III GFR 30-59 MODERATELY DECREASED STAGE IV GFR 15-29 SEVERELY DECREASED STAGE V GFR <15 VERY LITTLE GFR LEFT ESRD GFR <15 ON ANIMAL KILLER Procedures Date Code Description Status 11/10/2020 89710671 Mammogram Completed 11/01/2020 92803 Office/Outpatient Established Mo d MDM 30-39 Min Completed 06/27/2020 42101 Office/Outpatient Established Mo d MDM 30-39 Min Completed 06/07/2020 83665 Office/Outpatient Established Lo w MDM 20-29 Min Completed 12/15/2019 [id number] Diabetic Retinal Eye Exam Comple joycelyn 11/23/2019 [id number] Mammogram Completed 10/21/2018 [id number] Mammogram Completed 10/10/2017 [id number] Bone Mineral Density Test Comple joycelyn 10/10/2017 [id number] Mammogram Completed 10/04/2016 [id number] Mammogram Completed 09/04/2016 [id number] Colonoscopy Completed 08/13/2016 [id number] Colonoscopy Completed 10/04/2015 [id number] Mammogram Completed 09/01/2015 [id number] Bone Mineral Density Test Comple joycelyn 02/03/2015 [id number] Mammogram Completed 09/29/2014 [id number] Mammogram Completed 09/03/2013 [id number] Mammogram Completed 02/05/2013 [id number] Bone Mineral Density Test Comple joycelyn 09/02/2012 [id number] Mammogram Completed 08/08/2012 [id number] Diabetic Foot Exam Completed 05/26/2012 [id number] Diabetic Foot Exam Completed 09/17/2011 [id number] Mammogram Completed 08/28/2011 [id number] Diabetic Retinal Eye Exam Comple [facility] 03/19/2011 [id number] Mammogram Completed 12/15/2010 [id number] Diabetic Retinal Eye Exam Comple [facility] 09/13/2010 [id number] Mammogram Completed 09/07/2010 [id number] Mammogram Completed 05/05/2010 [id number] Mammogram Completed 08/30/2009 [id number] Mammogram Completed 09/07/2008 [id number] Mammogram Completed 08/26/2008 [id number] Bone Mineral Density Test Comple joycelyn 08/20/2008 [id number] Mammogram Completed Medical Devices Description No Information Available Encounters Type Date Location Provider Dx Diagnosis Office Visit 11/01/2020 10:40a [facility] 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 AMI Henderson JR M54.5 Low [...] unco mplicated David Mccoy MD 11/01/2020 Z79.52 FDC (current) use of syste amira steroids David [...] unco mplicated David Mccoy MD 06/27/2020 Z79.52 FDC (current) use of syste amira steroids David [...] 9:20 am - David Mccoy MD at [facility] * 12/19/2020 8:30 am - Nurse Schedule at [facility] 11/29/2020 - AMI Saha JR* [...] FOR RT LOWER LEG PAIN Closed 07/25/2020 [facility] [address] [place] [address] [phone]
--- OUTSIDE RECORDS SUMMARY | 2021-01-31 14:13 | CCD | Continuity of Care Document ---
Author Author Chloe Mccoy MD Organization Unknown Address [address] [facility] [address] [place] [address] Phone [phone] Care Team Providers Care Generation Technologist Name Role Phone Aki Pugh MD AUTM [phone] David Mccoy JR, MD AUTM Unavailable Zoie Aldrich MD AUTM [phone] Kris Roa MD AUTM [phone] [facility] AUTM [phone] Rommel Hunter AUTM [phone] Problems Active Problems Provider Date Conduction disorder of the heart David Mccoy MD Onset : 12/17/1997 Palpitations David Mccoy MD Onset: 12/17/1997 Pain in limb HEATHER Pleitez Onset: 12/07/2010 Paroxysmal supraventricular tachycardia HEATHER Pleitez Onset: 01/16/2011 Nasal polyp Davdi Mccoy MD Onset: 01/16/2011 Pure hypercholesterolemia David [...] Daily 90tabs David Mccoy MD 10/06/2018 Ipratropium [place] 0.03% Solution 2 sprays each nostril 2-3x/day as needed 90ml John Claros,[facility] 07/23/2018 Atenolol 25mg Tablets take 1 tablet daily 90tabs David Mccoy MD 06/24/2017 Ipratropium [place] 0.02% Solution use 1 vial via nebulizer [...] 1units David Mccoy MD 05/07/2008 Calcium 1200 [id number] Chew tabs 1 by mouth every day [...] Of Flu Vaccine Inj ection Hyacinth Lovell [facility] 12/20/2009 Administration Of Flu Vaccine Inj ection [...] CPT Code Status Date Vaccine Lot # 37099 Given 12/28/2019 Influenza Vaccin e Quadrivalent Preser/Antibiotic Free Im Use [id number] 97502 Given 01/08/2019 Influenza Vaccin e Quadrivalent Preser/Antibiotic Free Im Use [id number] 73225 Given 01/02/2018 Influenza Virus Vaccine, Quadrivalent (Cciiv4), Derived From Cell 50129 Given 01/08/2017 Influenza Vaccin e Quadrivalent Preser/Antibiotic Free Im Use 668119 Q2037 Given 02/13/2016 Fluvirin Virus Vaccine 38301 01 29888 Given 12/20/2015 Adacel- Tetanus Diphtheria P ertussis (Age64 & Under) [id number] Q2037 Given 12/27/2014 Fluvirin Virus Vaccine 67818 01 Q2037 Given 01/22/2014 Fluvirin Virus Vaccine 17732 21 Q2037 Given 01/16/2013 Fluvirin Virus Vaccine 05612 01 Q2037 Given 01/04/2012 Fluvirin Virus Vaccine Q2037 Given 01/04/2012 Fluvirin Virus Vaccine Q2037 Given 01/16/2011 Fluvirin Virus Vaccine 89273 Given 05/22/2009 Influenza Virus Vaccine 71844 Given 01/03/2009 Influenza Virus Vaccine 74244 Given 01/06/2008 Influenza Virus Vaccine 79233 Given 01/23/2007 Influenza Virus Vaccine 05077 Given 01/11/2005 Influenza Virus Vaccine 09121 Given 01/06/2004 Influenza Virus Vaccine 12997 Given 01/05/2003 Influenza Virus Vaccine 90082 Given 01/05/2002 Influenza Virus Vaccine 91186 Given 01/09/2001 Influenza Virus Vaccine 62175 Given 03/06/2000 Pneumovax 23 14229 Given 01/20/1999 Influenza Virus Vaccine 69073 Given 01/03/1998 Influenza Virus Vaccine Vital Signs [...] Range Note Complete Blood Count 11/01/2020 [facility] Ride Operator: [place] [address] [phone] WBC 12.7 x10*3/UL High 4.1 - 10.9 [...] x10*3/UL High 2.0 - 7.8 A1c 11/01/2020 [facility] , Ride Operator: Dr David Mccoy [place], [place] [id number] [phone] Hba1c 6.3 % High <5.7 1 Est Avg Glucose 134 mg/dL High 60 - 110 Comprehensive Chem Profile 11/01/2020 [facility], Ride Operator: Dr David Mccoy [place], [place] [id number] [phone] Glucose 136 mg/dL High 74 - 99 [...] Low >60 3 Ua Dipstick Only 06/27/2020 [facility] Ride Operator: [place] [address] [phone] Urine Color YELLOW Yellow Urine Appearance CLOUDY Abnormal Clear Urine PH 6.0 units 5.0 - 9.0 Urine Specific Timbo 1.020 1.005 - 1.030 Urine Leukocytes LARGE Abnormal Negative Urine Blood LARGE Abnormal Negative Urine Protein 3+ Abnormal Negative -Trace Urine Glucose NEGATIVE mg/dL Negative Urine Nitrite POSITIVE Abnormal Negative Urine Ketone NEGATIVE mg/dL Negative Urine Bilirubin NEGATIVE Negative Urine Urobilinogen 0.2 mg/dL 0.2 - 1.0 Laboratory test finding 06/27/[address] [address] [phone] Urine Culture FULL REPORT IN L <SEE NOTE> Normal 4 Thyroid Profile 06/21/2020 [facility] [address] [place] [address] [phone] T Uptake 34 % Normal 30-39 Thyroxine (T4) 6.8 g/dL Normal 4.5-12.0 Free Thyroxine Index 2.3 % Normal 1.3-4.8 Thyroid Stimulating Hormone 1.780 uIU/ML Normal 0.358-3.740 Anti-Sjogrens A&B Antibodies 06/21/[address] [address] [phone] Ssa Sjogrens A <0.2 AI Normal 0.0-0.9 SSB Sjogrens B <0.2 AI Normal 0.0-0.9 5 Laboratory test finding 06/21/[address] [address] [phone] Free T3 3.2 pg/mL Normal 2.2-4.0 6 Free T4 0.79 ng/dL Normal 0.76-1.46 7 Laboratory test finding 06/07/[address] [address] [phone] Digoxin Level 0.7 NG/ML Normal 0.5-2.0 8 Complete Blood Count 06/07/2020 [facility] [place] [facility] Ride Operator: [place] [address] [phone] WBC 8.3 x10*3/UL 4.1 - 10.9 RBC [...] 2.0 - 7.8 Comprehensive Chem Profile 06/07/2020 [place] [facility] Ride Operator: [place] [address] [phone] Glucose 95 mg/dL 74 - 99 9 [...] LITTLE GFR LEFT ESRD GFR <15 ON CUPOLA LINER HELPER 4 FULL REPORT IN LAB NOTES [...] ESBL 5 Performed at: RN - [facility] [address] [id number] Ride Operator: Cathryn Presley MD, Phone: [phone] 6 note:<nlbl:demographic_chang ed> 7 note:<nlbl:demographic_chang ed> 8 note:<nlbl:demographic_[facility] ed> 9 100-125 mg/dL PRE-DIABET ES/FASTING >126 mg/dL DIABETES/FASTING 10 CHRONIC KIDNEY DISEASE STAGI NG PER NKF STAGE I & II GFR >= 60 NORMAL TO MILDLY DECREASED STAGE III GFR 30-59 MODERATELY DECREASED STAGE IV GFR 15-29 SEVERELY DECREASED STAGE V GFR <15 VERY LITTLE GFR LEFT ESRD GFR <15 ON CUPOLA LINER HELPER Procedures Date Code Description Status 06/27/2020 08795 Office/Outpatient Established Mo d MDM 30-39 Min Completed 06/07/2020 52542 Office/Outpatient Established Lo w MDM 20-29 Min Completed 12/15/2019 [id number] Diabetic Retinal Eye Exam Comple joycelyn 11/23/2019 [id number] Mammogram Completed 10/21/2018 [id number] Mammogram Completed 10/10/2017 [id number] Bone Mineral Density Test Comple joycelyn 10/10/2017 [id number] Mammogram Completed 10/04/2016 [id number] Mammogram Completed 09/04/2016 [id number] Colonoscopy Completed 08/13/2016 [id number] Colonoscopy Completed 10/04/2015 [id number] Mammogram Completed 09/01/2015 [id number] Bone Mineral Density Test Comple joycelyn 02/03/2015 [id number] Mammogram Completed 09/29/2014 [id number] Mammogram Completed 09/03/2013 [id number] Mammogram Completed 02/05/2013 [id number] Bone Mineral Density Test Comple joycelyn 09/02/2012 [id number] Mammogram Completed 08/08/2012 [id number] Diabetic Foot Exam Completed 05/26/2012 [id number] Diabetic Foot Exam Completed 09/17/2011 [id number] Mammogram Completed 08/28/2011 [id number] Diabetic Retinal Eye Exam Comple joycelyn 03/19/2011 [id number] Mammogram Completed 12/15/2010 [id number] Diabetic Retinal Eye Exam Comple joycelyn 09/13/2010 [id number] Mammogram Completed 09/07/2010 [id number] Mammogram Completed 05/05/2010 [id number] Mammogram Completed 08/30/2009 [id number] Mammogram Completed 09/07/2008 [id number] Mammogram Completed 08/26/2008 [id number] Bone Mineral Density Test Comple joycelyn 08/20/2008 [id number] Mammogram Completed Medical Devices Description No Information Available Encounters Type Date Location Provider Dx Diagnosis Office Visit 06/27/2020 11:00a [facility] M79.604 Pain in right leg I12.9 Hypertensive chronic kidney disease w stg 1-4/unsp chr kdny N18.30 Chronic kidney disease, stag e 3 unspecified J45.40 Moderate persistent asthma, uncomplicated Z79.52 roasterman (current) use of s ystemic steroids T38.0x5A Adverse effect of glucocort/ synth analog, init 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 I47.1 Supraventricular tachycardia K21.9 Gastro-esophageal reflux dis ease without esophagitis R31.9 Hematuria, unspecified Z13.89 Encounter for screening for other disorder Office Visit 06/07/2020 2:00p [facility] Calabrese [facility] PA M54.5 Low back pain M79.604 Pain in right leg Assessments Date Code Description Provider 11/01/2020 I12.9 Hypertensive chronic kidney disease with stage 1 through stage 4 chronic kidney disease, or unspecified chronic kidney disease David Mccoy MD 11/01/2020 N18.30 Chronic kidney disease, stage 3 unspecified David Mccoy MD 11/01/2020 J45.40 Moderate persistent asthma, unco mplicated David Mccoy MD 11/01/2020 Z79.52 roasterman (current) use of syste amira steroids David Mccoy MD 11/01/2020 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 * 12/19/2020 8:30 am - Nurse Schedule at [facility] 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
--- OUTSIDE RECORDS SUMMARY | 2021-01-31 14:14 | CCD ---
Author Author [facility] Organization [facility] Address Unknown Phone Unavailable Care Team Providers Care Invasive Cardiologist Name Role Phone Leeanna SIMS JRC Unavailable Unavailable PICKERAL Leeanna WARE PA-C Unavailable Unavailable PICKERAL Leeanna WARE PA-C Unavailable Unavailable Leeanna SIMS JR PA-C Unavailable Unavailable PICKERAL Leeanna WARE PA-C Unavailable Unavailable PICKLeeanna SAL JR PA-C Unavailable Unavailable PICKERAL Leeanna WARE PA-C Unavailable Unavailable PICKERAL JR J BALTA PA-C Unavailable Unavailable PICKERAL JR J BALTA PA-C Unavailable Unavailable PICKERAL Leeanna WARE PA-C Unavailable Unavailable HOMERERAL JR J BALTA PA-C Unavailable Unavailable Leeanna SIMS JR PA-C Unavailable Unavailable Leeanna SIMS JR PA-C Unavailable Unavailable LEVI WARE J BALTA PA-C Unavailable Unavailable HOMERERAL JR J BALTA PA-C Unavailable Unavailable Leeanna SIMS JR PA-C Unavailable Unavailable Leeanna SIMS JR PA-C Unavailable Unavailable Leeanna SIMS JR PA-C Unavailable Unavailable PICKJONELLE WARE J BALTA PA-C Unavailable Unavailable PICKERAL JR J BALTA PA-C Unavailable Unavailable PICKERAL JR, Leeanna BALTA PA-C Unavailable Unavailable PICKERAL JR, J BALTA PA-C Unavailable Unavailable PICKERAL JR, J BALTA PA-C Unavailable Unavailable PICKERAL JR, J BALTA PA-C Unavailable Unavailable PICKERAL JR, J BALTA PA-C Unavailable Unavailable PICKERAL JR, J BALTA PA-C Unavailable Unavailable PICKERAL JR, J BALTA PA-C Unavailable Unavailable GREENKY, B RYAN MD Unavailable Unavailable GREENKY, B RYAN MD Unavailable Unavailable GREENKY, B RYAN MD Unavailable Unavailable GREENKY, B RYAN MD Unavailable Unavailable GREENKY, B RYAN MD Unavailable Unavailable GREENKY, B RYAN MD Unavailable Unavailable GREENKY, B RYAN MD Unavailable Unavailable GREENKY, B RYAN MD Unavailable Unavailable GREENKY, B RYAN MD Unavailable Unavailable GREENKY, B RYAN MD Unavailable Unavailable GREENKY, B RYAN MD Unavailable Unavailable GREENKY, B RYAN MD Unavailable Unavailable GREENKY, B RYAN MD Unavailable Unavailable GREENKY, B RYAN MD Unavailable Unavailable GREENKY, B RYAN MD Unavailable Unavailable GREENKY, B RYAN MD Unavailable Unavailable GREENKY, B RYAN MD Unavailable Unavailable GREENKY, B RYAN MD Unavailable Unavailable GREENKY, B RYAN MD Unavailable Unavailable GREENKY, B RYAN MD Unavailable Unavailable GREENKY, B RYAN MD Unavailable Unavailable GREENKY, B RYAN MD Unavailable Unavailable GREENKY, B RYAN MD Unavailable Unavailable GREENKY, B RYAN MD Unavailable Unavailable GREENKY, B RYAN MD Unavailable Unavailable GREENKY, B RYAN MD Unavailable Unavailable GREENKY, B RYAN MD Unavailable Unavailable GREENKY, B RYAN MD Unavailable Unavailable GREENKY, B RYAN MD Unavailable Unavailable GREENKY, B RYAN MD Unavailable Unavailable GREENKY, B RYAN MD Unavailable Unavailable GREENKY, B RYAN MD Unavailable Unavailable GREENKY, B RYAN MD Unavailable Unavailable GREENKY, B RYAN MD Unavailable Unavailable GREENKY, B RYAN MD Unavailable Unavailable GREENKY, B RYAN MD Unavailable Unavailable GREENKY, B RYAN MD Unavailable Unavailable GREENKY, B RYAN MD Unavailable Unavailable GREENKY, B RYAN MD Unavailable Unavailable GREENKY, B RYAN MD Unavailable Unavailable GREENKY, B RYAN MD Unavailable Unavailable GREENKY, B RYAN MD Unavailable Unavailable GREENKY, B RYAN MD Unavailable Unavailable GREENKY, B RYAN MD Unavailable Unavailable GREENKY, B RYAN MD Unavailable Unavailable GREENKY, B RYAN MD Unavailable Unavailable GREENKY, B RYAN MD Unavailable Unavailable GREENKY, B RYAN MD Unavailable Unavailable GREENKY, B RYAN MD Unavailable Unavailable GREENKY, B RYAN MD Unavailable Unavailable GREENKY, B RYAN MD Unavailable Unavailable GREENKY, B RYAN MD Unavailable Unavailable GREENKY, B RYAN MD Unavailable Unavailable GREENKY, B RYAN MD Unavailable Unavailable GREENKY, B RYAN MD Unavailable Unavailable GREENKY, B RYAN MD Unavailable Unavailable GREENKY, B RYAN MD Unavailable Unavailable GREENKY, B RYAN MD Unavailable Unavailable GREENKY, B RYAN MD Unavailable Unavailable GREENKY, B RYAN MD Unavailable Unavailable GREENKY, B RYAN MD Unavailable Unavailable GREENKY, B RYAN MD Unavailable Unavailable GREENKY, B RYAN MD Unavailable Unavailable GREENKY, B RYAN MD Unavailable Unavailable GREENKY, B RYAN MD Unavailable Unavailable GREENKY, B RYAN MD Unavailable Unavailable GREENKY, B RYAN MD Unavailable Unavailable GREENKY, B RYAN MD Unavailable Unavailable GREENKY, B RYAN MD Unavailable Unavailable GREENKY, B RYAN MD Unavailable Unavailable GREENKY, B RYAN MD Unavailable Unavailable GREENKY, B RYAN MD Unavailable Unavailable GREENKY, B RYAN MD Unavailable Unavailable GREENKY, B RYAN MD Unavailable Unavailable GREENKY, B RYAN MD Unavailable Unavailable GREENKY, B RYAN MD Unavailable Unavailable GREENKY, B RYAN MD Unavailable Unavailable GREENKY, B RYAN MD Unavailable Unavailable GREENKY, B RYAN MD Unavailable Unavailable GREENKY, B RYAN MD Unavailable Unavailable GREENKY, B RYAN MD Unavailable Unavailable GREENKY, B RYAN MD Unavailable Unavailable GREENKY, B RYAN MD Unavailable Unavailable GREENKY, B RYAN MD Unavailable Unavailable GREENKY, B RYAN MD Unavailable Unavailable GREENKY, B RYAN MD Unavailable Unavailable GREENKY, B RYAN MD Unavailable Unavailable GREENKY, B RYAN MD Unavailable Unavailable GREENKY, B RYAN MD Unavailable Unavailable GREENKY, B RYAN MD Unavailable Unavailable GREENKY, B RYAN MD Unavailable Unavailable GREENKY, B RYAN MD Unavailable Unavailable SEARS, A SANFORD DO Unavailable Unavailable SEARS, A SANFORD DO Unavailable Unavailable SEARS, A SANFORD DO Unavailable Unavailable SEARS, A SANFORD DO Unavailable Unavailable SEARS, A SANFORD DO Unavailable Unavailable SEARS, A ASNFORD DO Unavailable Unavailable SEARS, A SANFORD DO Unavailable Unavailable SEARS, A SANFORD DO Unavailable Unavailable SEARS, A SANFORD DO Unavailable Unavailable SEARS, A SANFORD DO Unavailable Unavailable SEARS, A SANFORD DO Unavailable Unavailable SEARS, A SANFORD DO Unavailable Unavailable SEARS, A SANFORD DO Unavailable Unavailable SEARS, A SANFORD DO Unavailable Unavailable SEARS, A SANFORD DO Unavailable Unavailable SEARS, A SANFORD DO Unavailable Unavailable SEARS, A SANFORD DO Unavailable Unavailable SEARS, A SANFORD DO Unavailable Unavailable SEARS, A SANFORD DO Unavailable Unavailable SEARS, A SANFORD DO Unavailable Unavailable SEARS, A SANFORD DO Unavailable Unavailable SEARS, A SANFORD DO Unavailable Unavailable SEARS, A SANFORD DO Unavailable Unavailable SEARS, A SANFORD DO Unavailable Unavailable SEARS, A SANFORD DO Unavailable Unavailable SEARS, A SANFORD DO Unavailable Unavailable SEARS, A SANFORD DO Unavailable Unavailable SEARS, A SANFORD DO Unavailable Unavailable SEARS, A SANFORD DO Unavailable Unavailable SEARS, A SANFORD DO Unavailable Unavailable SEARS, A SANFORD DO Unavailable Unavailable SEARS, A SANFORD DO Unavailable Unavailable SEARS, A SANFORD DO Unavailable Unavailable SEARS, A SANFORD DO Unavailable Unavailable SEARS, A SANFORD DO Unavailable Unavailable SEARS, A SANFORD DO Unavailable Unavailable SEARS, A SANFORD DO Unavailable Unavailable SEARS, A SANFORD DO Unavailable Unavailable SEARS, A SANFORD DO Unavailable Unavailable SEARS, A SANFORD DO Unavailable Unavailable SEARS, A SANFORD DO Unavailable Unavailable SEARS, A SANFORD DO Unavailable Unavailable SEARS, A SANFORD DO Unavailable Unavailable SEARS, A SANFORD DO Unavailable Unavailable SEARS, A SANFORD DO Unavailable Unavailable SEARS, A SANFORD DO Unavailable Unavailable SEARS, A SANFORD DO Unavailable Unavailable SEARS, A SANFORD DO Unavailable Unavailable MAJAK, R AYANNA DPM Unavailable Unavailable MAJAK, R AYANNA DPM Unavailable Unavailable MAJAK, R AYANNA DPM Unavailable Unavailable MAJAK, R AYANNA DPM Unavailable Unavailable MAJAK, R AYANNA DPM Unavailable Unavailable MAJAK, R AYANNA DPM Unavailable Unavailable MAJAK, R AYANNA DPM Unavailable Unavailable MAJAK, R AYANNA DPM Unavailable Unavailable MAJAK, R AYANNA DPM Unavailable Unavailable MAJAK, R AYANNA DPM Unavailable Unavailable MAJAK, R AYANNA DPM Unavailable Unavailable MAJAK, R AYANNA DPM Unavailable Unavailable MAJAK, R AYANNA DPM Unavailable Unavailable MAJAK, R AYANNA DPM Unavailable Unavailable MAJAK, R AYANNA DPM Unavailable Unavailable MAJAK, R AYANNA DPM Unavailable Unavailable MAJAK, R AYANNA DPM Unavailable Unavailable MAJAK, R AYANNA DPM Unavailable Unavailable MAJAK, R AYANNA DPM Unavailable Unavailable MAJAK, R AYANNA DPM Unavailable Unavailable MAJAK, R AYANNA DPM Unavailable Unavailable MAJAK, R AYANNA DPM Unavailable Unavailable MAJAK, R AYANNA DPM Unavailable Unavailable MAJAK, R AYANNA DPM Unavailable Unavailable MAJAK, R AYANNA DPM Unavailable Unavailable MAJAK, R AYANNA DPM Unavailable Unavailable MAJAK, R AYANNA DPM Unavailable Unavailable MAJAK, R AYANNA DPM Unavailable Unavailable MAJAK, R AYANNA DPM Unavailable Unavailable MAJAK, R AYANNA DPM Unavailable Unavailable MAJAK, R AYANNA DPM Unavailable Unavailable Lux Mccoy MD Unavailable Unavailable IcardLux MD Unavailable Unavailable IcardLux MD Unavailable Unavailable NadineLux jose MD Unavailable Unavailable NadineLux jose MD Unavailable Unavailable NadineLux jose MD Unavailable Unavailable NadineLux MD Unavailable Unavailable IcardLux jose MD Unavailable Unavailable IcardLux jose MD Unavailable Unavailable IcardLux jose MD Unavailable Unavailable IcardLux jose MD Unavailable Unavailable NadineLux jose MD Unavailable Unavailable NadineLux jose MD Unavailable Unavailable NadineLux jose MD Unavailable Unavailable IcardLux jose MD Unavailable Unavailable IcardLux jose MD Unavailable Unavailable NadineLux jose MD Unavailable Unavailable IcardLux jose MD Unavailable Unavailable NadineLux jose MD Unavailable Unavailable IcardLux jose MD Unavailable Unavailable NadineLux jose MD Unavailable Unavailable NadineLux jose MD Unavailable Unavailable IcardLux jose MD Unavailable Unavailable NadineLux jose MD Unavailable Unavailable IcardLux jose MD Unavailable Unavailable NadineLux jose MD Unavailable Unavailable NadineLux jose MD Unavailable Unavailable NadineLux MD Unavailable Unavailable NadineLux jose MD Unavailable Unavailable NadineLux jose MD Unavailable Unavailable IcardLux MD Unavailable Unavailable NadineLux MD Unavailable Unavailable IcardLux jose MD Unavailable Unavailable NadineLux jose MD Unavailable Unavailable IcardLux MD Unavailable Unavailable NadineLux MD Unavailable Unavailable NadineLux MD Unavailable Unavailable IcardLux MD Unavailable Unavailable IcardLux MD Unavailable Unavailable Nadine, F Hernandez MD Unavailable Unavailable NadineLux MD Unavailable Unavailable Nadine, Lux Hernandez MD Unavailable Unavailable IcardLux MD Unavailable Unavailable Nadine, Lux Hernandez MD Unavailable Unavailable NadineLux MD Unavailable Unavailable NadineLux MD Unavailable Unavailable IcardLux MD Unavailable Unavailable IcardLux MD Unavailable Unavailable IcardLux MD Unavailable Unavailable IcardLux MD Unavailable Unavailable IcardLux MD Unavailable Unavailable IcardLux MD Unavailable Unavailable NadineLux MD Unavailable Unavailable IcardLux MD Unavailable Unavailable NadineLux MD Unavailable Unavailable NadineLux MD Unavailable Unavailable IcardLux MD Unavailable Unavailable NadineLux MD Unavailable Unavailable NadineLux MD Unavailable Unavailable IcardLux MD Unavailable Unavailable IcardLux MD Unavailable Unavailable NadineLux MD Unavailable Unavailable IcardLux MD Unavailable Unavailable IcardLux MD Unavailable Unavailable IcardLux MD Unavailable Unavailable IcardLux MD Unavailable Unavailable IcardLux MD Unavailable Unavailable NadineLux MD Unavailable Unavailable IcardLux MD Unavailable Unavailable NadineLux MD Unavailable Unavailable IcardLxu MD Unavailable Unavailable NadineLux MD Unavailable Unavailable NadineLux jose MD Unavailable Unavailable IcardLux jose MD Unavailable Unavailable NadineLux jose MD Unavailable Unavailable NadineLux jose MD Unavailable Unavailable NadineLux jose MD Unavailable Unavailable NadineLux jose MD Unavailable Unavailable NadineLux jose MD Unavailable Unavailable IcardLux jose MD Unavailable Unavailable NadineLux jose MD Unavailable Unavailable IcardLux jose MD Unavailable Unavailable NadineLux MD Unavailable Unavailable NadineLux MD Unavailable Unavailable NadineLxu MD Unavailable Unavailable IcardLux MD Unavailable Unavailable HANIFIN, M KRISTIAN PA Unavailable Unavailable HANIFIN, M KRISTIAN PA Unavailable Unavailable HANIFIN, M KRISTIAN PA Unavailable Unavailable HANIFIN, M KRISTIAN PA Unavailable Unavailable HANIFIN, M KRISTIAN PA Unavailable Unavailable HANIFIN, M KRISTIAN PA Unavailable Unavailable HANIFIN, M KRISTIAN PA Unavailable Unavailable HANIFIN, M KRISTIAN PA Unavailable Unavailable HANIFIN, M KRISTIAN PA Unavailable Unavailable HANIFIN, M KRISTIAN PA Unavailable Unavailable HANIFIN, M KRISTIAN PA Unavailable Unavailable HANIFIN, M KRISTIAN PA Unavailable Unavailable HANIFIN, M KRISTIAN PA Unavailable Unavailable HANIFIN, M KRISTIAN PA Unavailable Unavailable HANIFIN, M KRISTIAN PA Unavailable Unavailable HANIFIN, M KRISTIAN PA Unavailable Unavailable HANIFIN, M KRISTIAN PA Unavailable Unavailable HANIFIN, M KRISTIAN PA Unavailable Unavailable HANIFIN, M KRISTIAN PA Unavailable Unavailable HANIFIN, M KRISTIAN PA Unavailable Unavailable HANIFIN, M KRISTIAN PA Unavailable Unavailable HANIFIN, M KRISTIAN PA Unavailable Unavailable HANIFIN, M KRISTIAN PA Unavailable Unavailable HANIFIN, M KRISTIAN PA Unavailable Unavailable HANIFIN, M KRISTIAN PA Unavailable Unavailable HANIFIN, M KRISTIAN PA Unavailable Unavailable HANIFIN, M KRISTIAN PA Unavailable Unavailable HANIFIN, M KRISTIAN PA Unavailable Unavailable HANIFIN, M KRISTIAN PA Unavailable Unavailable HANIFIN, M KRISTIAN PA Unavailable Unavailable HANIFIN, M KRISTIAN PA Unavailable Unavailable HANIFIN, M KRISTIAN PA Unavailable Unavailable HANIFIN, M KRISTIAN PA Unavailable Unavailable HANIFIN, M KRISTIAN PA Unavailable Unavailable HANIFIN, M KRISTIAN PA Unavailable Unavailable HANIFIN, M KRISTIAN PA Unavailable Unavailable HANIFIN, M KRISTIAN PA Unavailable Unavailable HANIFIN, M KRISTIAN PA Unavailable Unavailable HANIFIN, M KRISTIAN PA Unavailable Unavailable HANIFIN, M KRISTIAN PA Unavailable Unavailable HANIFIN, M KRISTIAN PA Unavailable Unavailable HANIFIN, M KRISTIAN PA Unavailable Unavailable HANIFIN, M KRISTIAN PA Unavailable Unavailable HANIFIN, M KRISTIAN PA Unavailable Unavailable HANIFIN, M KRISTIAN PA Unavailable Unavailable HANIFIN, M KRISTIAN PA Unavailable Unavailable HANIFIN, M KRISTIAN PA Unavailable Unavailable HANIFIN, M KRISTIAN PA Unavailable Unavailable HANIFIN, M KRISTIAN PA Unavailable Unavailable HANIFIN, M KRISTIAN PA Unavailable Unavailable HANIFIN, M KRISTIAN PA Unavailable Unavailable HANIFIN, M KRISTIAN PA Unavailable Unavailable HANIFIN, M KRISTIAN PA Unavailable Unavailable HANIFIN, M KRISTIAN PA Unavailable Unavailable Pardeep KENNY MD Unavailable Unavailable Pardeep KENNY MD Unavailable Unavailable Pardeep KENNY MD Unavailable Unavailable Pardeep KENNY MD Unavailable Unavailable Pardeep KENNY MD Unavailable Unavailable Pardeep KENNY MD Unavailable Unavailable Pardeep KENNY MD Unavailable Unavailable Pardeep KENNY MD Unavailable Unavailable Pardeep KENNY MD Unavailable Unavailable Pardeep KENNY MD Unavailable Unavailable Pardeep KENNY MD Unavailable Unavailable Pardeep KENNY MD Unavailable Unavailable Pardeep KENNY MD Unavailable Unavailable Pardeep KENNY MD Unavailable Unavailable Pardeep KENNY MD Unavailable Unavailable Pardeep KENNY MD Unavailable Unavailable Pardeep KENNY MD Unavailable Unavailable Pardeep KENNY MD Unavailable Unavailable Pardeep KENNY MD Unavailable Unavailable Pardeep KENNY MD Unavailable Unavailable Pardeep KENNY MD Unavailable Unavailable Pardeep KENNY MD Unavailable Unavailable Pardeep KENNY MD Unavailable Unavailable Pardeep KENNY MD Unavailable Unavailable Pardeep KENNY MD Unavailable Unavailable Pardeep KENNY MD Unavailable Unavailable Pardeep KENNY MD Unavailable Unavailable Pardeep KENNY MD Unavailable Unavailable Pardeep KENNY MD Unavailable Unavailable Pardeep KENNY MD Unavailable Unavailable Pardeep KENNY MD Unavailable Unavailable Pardeep KENNY MD Unavailable Unavailable Pardeep KENNY MD Unavailable Unavailable Pardeep KENNY MD Unavailable Unavailable Pardeep KENNY MD Unavailable Unavailable Pardeep KENNY MD Unavailable Unavailable Pardeep KENNY MD Unavailable Unavailable Pardeep KENNY MD Unavailable Unavailable Pardeep KENNY MD Unavailable Unavailable Pardeep KENNY MD Unavailable Unavailable Pardeep KENNY MD Unavailable Unavailable Pardeep KENNY MD Unavailable Unavailable Pardeep KENNY MD Unavailable Unavailable Pardeep KENNY MD Unavailable Unavailable Pardeep KENNY MD Unavailable Unavailable Pardeep KENNY MD Unavailable Unavailable Leeanna BABIN MD Unavailable Unavailable Leeanna BABIN MD Unavailable Unavailable Leeanna BABIN MD Unavailable Unavailable TALYA, Leeanna VENCES MD Unavailable Unavailable TALYA, Leeanna VENCES MD Unavailable Unavailable TALYA, Leeanna VENCES MD Unavailable Unavailable TALYA, Leeanna VENCES MD Unavailable Unavailable TALYA, Leeanna VENCES MD Unavailable Unavailable TALYA, Leeanna VENCES MD Unavailable Unavailable TALYA, Leeanna VENCES MD Unavailable Unavailable TALYA, Leeanna VENCES MD Unavailable Unavailable TALYA, Leeanna VENCES MD Unavailable Unavailable TALYA, Leeanna VENCES MD Unavailable Unavailable TALYA, Leeanna VENCES MD Unavailable Unavailable TALYA, Leeanna VENCES MD Unavailable Unavailable TALYA, Leeanna VENCES MD Unavailable Unavailable TALYA, Leeanna VENCES MD Unavailable Unavailable TALYA, Leeanna VENCES MD Unavailable Unavailable TALYA, Leeanna VENCES MD Unavailable Unavailable TALYA, Leeanna VENCES MD Unavailable Unavailable TALYA, Leeanna VENCES MD Unavailable Unavailable TALYA, Leeanna VENCES MD Unavailable Unavailable TALYA, Leeanna VENCES MD Unavailable Unavailable TALYA, Leeanna VENCES MD Unavailable Unavailable TALYA, Leeanna VENCES MD Unavailable Unavailable TALYA, Leeanna VENCES MD Unavailable Unavailable TALYA, Leeanna VENCES MD Unavailable Unavailable TALYA, Leeanna VENCES MD Unavailable Unavailable TALYA, Leeanna VENCES MD Unavailable Unavailable TALYA, Leeanna VENCES MD Unavailable Unavailable TALYA, Leeanna VENCES MD Unavailable Unavailable TALYA, Leeanna VENCES MD Unavailable Unavailable TALYA, Leeanna VENCES MD Unavailable Unavailable TALYA, Leeanna VENCES MD Unavailable Unavailable TALYA, Leeanna VENCES MD Unavailable Unavailable TALYA, Leeanna VENCES MD Unavailable Unavailable TALYA, Leeanna VENCES MD Unavailable Unavailable TALYA, Leeanna VENCES MD Unavailable Unavailable TALYA, Leeanna VENCES MD Unavailable Unavailable TALYA, Leeanna VENCES MD Unavailable Unavailable TALYA, Leeanna VENCES MD Unavailable Unavailable TALYA, Leeanna VENCES MD Unavailable Unavailable TALYA, Leeanna VENCES MD Unavailable Unavailable TALYA, Leeanna VENCES MD Unavailable Unavailable TALYA, Leeanna VENCES MD Unavailable Unavailable TALYA, Leeanna VENCES MD Unavailable Unavailable TALYA, Leeanna VENCES MD Unavailable Unavailable TALYA, Leeanna VENCES MD Unavailable Unavailable TALYA, Leeanna VENCES MD Unavailable Unavailable TALYA, Leeanna VENCES MD Unavailable Unavailable TALYA, Leeanna VENCES MD Unavailable Unavailable TALYA, Leeanna VENCES MD Unavailable Unavailable TALYA, Leeanna VENCES MD Unavailable Unavailable TALYA, Leeanna RU MD Unavailable Unavailable TALYALeeanna MD Unavailable Unavailable TALYALeeanna MD Unavailable Unavailable TALYA, Leeanna VENCES MD Unavailable Unavailable TALYA, Leeanna VENCES MD Unavailable Unavailable TALYA, Leeanna VENCES MD Unavailable Unavailable TALYALeeanna MD Unavailable Unavailable TALYALeeanna MD Unavailable Unavailable TALYA, Leeanna VENCES MD Unavailable Unavailable TALYALeeanna MD Unavailable Unavailable TALYA, Leeanna VENCES MD Unavailable Unavailable TALYA, Leeanna VENCES MD Unavailable Unavailable TALYA, Leeanna VENCES MD Unavailable Unavailable TALYALeeanna MD Unavailable Unavailable TALYA, Leeanna VENCES MD Unavailable Unavailable TALYA, Leeanna VENCES MD Unavailable Unavailable TALYA, Leeanna VENCES MD Unavailable Unavailable TALYA, Leeanna VENCES MD Unavailable Unavailable TALYA, Leeanna VENCES MD Unavailable Unavailable TALYA, Leeanna VENCES MD Unavailable Unavailable TALYA, Leeanna VENCES MD Unavailable Unavailable TALYALeeanna MD Unavailable Unavailable TALYA, Leeanna VENCES MD Unavailable Unavailable TALYA, Leeanna VENCES MD Unavailable Unavailable TALYA, Leeanna VENCES MD Unavailable Unavailable TALYALeeanna MD Unavailable Unavailable TALYA, Leeanna VENCES MD Unavailable Unavailable TALYALeeanna MD Unavailable Unavailable TALYA, Leeanna VENCES MD Unavailable Unavailable TALYA, Leeanna VENCES MD Unavailable Unavailable TALYA, Leeanna VENCES MD Unavailable Unavailable TALYALeeanna MD Unavailable Unavailable TALYALeeanna MD Unavailable Unavailable TALYALeeanna MD Unavailable Unavailable TALYALeeanna MD Unavailable Unavailable TALYALeeanna MD Unavailable Unavailable TALYA, Leeanna VENCES MD Unavailable Unavailable TALYALeeanna MD Unavailable Unavailable MICKI, M STACIE PA Unavailable Unavailable MICKI, M STACIE PA Unavailable Unavailable MICKI, M STACIE PA Unavailable Unavailable MICKI, M STACIE PA Unavailable Unavailable MICKI, M STACIE PA Unavailable Unavailable MICKI, M STACIE PA Unavailable Unavailable MICKI, M STACIE PA Unavailable Unavailable MICKI, M STACIE PA Unavailable Unavailable MICKI, M STACIE PA Unavailable Unavailable MICKI, M STACIE PA Unavailable Unavailable MICKI, M STACIE PA Unavailable Unavailable MICKI, M STACIE PA Unavailable Unavailable MICKI, M STACIE PA Unavailable Unavailable MICKI, M STACIE PA Unavailable Unavailable MICKI, M STACIE PA Unavailable Unavailable MICKI, M STACIE PA Unavailable Unavailable MICKI, M STACIE PA Unavailable Unavailable MICKI, M STACIE PA Unavailable Unavailable MICKI, M STACIE PA Unavailable Unavailable MICKI, M STACIE PA Unavailable Unavailable MICKI, M STACIE PA Unavailable Unavailable MICKI, M STACIE PA Unavailable Unavailable MICKI, M STACIE PA Unavailable Unavailable MICKI, M STACIE PA Unavailable Unavailable Re-disclosure Warning The records that you are about to access may contain information from federally-assisted alcohol or drug abuse programs. If such information is present, then the following federally mandated warning applies: This information has been disclosed to you from records protected by federal confidentiality rules (42 CFR part 2). The federal rules prohibit you from making any further disclosure of this information unless further disclosure is expressly permitted by the written consent of the person to whom it pertains or as otherwise permitted by 42 CFR part 2. A general authorization for the release of medical or other information is NOT sufficient for this purpose. The Federal rules restrict any use of the information to criminally investigate or prosecute any alcohol or drug abuse patient.The records that you are about to access may contain highly sensitive health information, the redisclosure of which is protected by Article 27-F of the [facility] Public Health law. If you continue you may have access to information: Regarding HIV / AIDS; Provided by facilities licensed or operated by the [facility] Office of Mental Health; or Provided by the [facility] Office for People With Developmental Disabilities. If such information is present, then the following [facility] mandated warning applies: This information has been disclosed to you from confidential records which are protected by state law. State law prohibits you from making any further disclosure of this information without the specific written consent of the person to whom it pertains, or as otherwise permitted by law. Any unauthorized further disclosure in violation of state law may result in a fine or care home sentence or both. A general authorization for the release of medical or other information is NOT sufficient authorization for further disc losure. Family History Family Member Name Family Member Gender Family Member Status Date o f Status Description Data Source(s) Unknown Male Problem MED[facility] ([facility] Unknown Male Problem MED[facility] ([facility] () Unknown Unknown Problem MED[facility] ([facility] Unknown Unknown Problem MEDENT ([facility]) sisters x2 Unknown Unknown Problem MEDENT ([facility] ) Unknown Unknown Problem MEDENT ([facility] ) Unknown Female Problem MEDENT ([facility]) Unknown Female Problem MEDENT ([facility]) Unknown Female Problem MEDENT ([facility]) Unknown Female Problem MEDENT ([facility]) Unknown Female Problem MEDENT ([facility]) Unknown Male Problem MEDENT ([facility] [place]) Encounters Encounter Providers Location Date Indications Data Source(s ) Outpatient Attender: BALTA Ibarra 0 11/29/2020 02:40:00 PM EDT MEDENT ([facility] ) Outpatient Attender: SANFORD Banuelos/Robles/Qasim/Diana 11/23/2020 09:00:00 AM EDT MED[facility] ([facility] ) Outpatient Attender: David Ibarra 0 11/01/2020 10:40:00 AM EDT MEDENT ([facility] ) Outpatient [address] [facility] [place] [address] 10/25/2020 12:00:00 AM EDT eCW1 ([facility]) Recurring Patient Referrer: RU BABIN MD 09/28/2020 11: 51:16 AM EDT [facility] Outpatient Attender: LAURA KENNY MDReferrer: David arcos MD 09/27/2020 01:09:29 PM EDT [facility] Recurring Patient Referrer: RU BABIN MD 09/23/2020 12: 39:43 PM EDT [facility] Recurring Patient Referrer: RU BABIN MD 09/23/2020 12: 14:25 PM EDT [facility] Recurring Patient Referrer: RU BABIN MD 09/23/2020 12: 14:08 PM EDT [facility] Outpatient [address] [facility] [place] [address] 09/07/2020 12:00:00 AM EDT eCW1 ([facility]) Outpatient Attender: KRISTIAN Saezer: David rizo MD 08/20/2020 06:29:25 PM EDT [facility] Recurring Patient Referrer: RU BABIN MD 08/19/2020 10: 53:24 AM EDT [facility] Recurring Patient Referrer: RU BABIN MD 08/19/2020 10: 52:13 AM EDT [facility] Recurring Patient Attender: RYAN VILLEGAS MDReferrer: David figueroa MD 08/17/2020 12:11:28 PM EDT [facility] Outpatient Attender: AYANNA WHITT [facility] 09/2020 01:45:00 PM EDT MED[facility] ([facility] Recurring Patient Attender: RYAN VILLEGAS MDReferrer: David figueroa MD 08/01/2020 02:21:18 PM EDT [facility] Recurring Patient Attender: RYAN VILLEGAS MDReferrer: David figueroa MD 08/01/2020 02:00:20 PM EDT [facility] Outpatient Attender: KRISTIAN Alanizerrer: David rizo MD 07/28/2020 11:07:06 AM EDT [facility] Outpatient Attender: David Ibarra 0 06/27/2020 11:00:00 AM EDT MEDENT ([facility] ) Recurring Patient Attender: RYAN VILLEGAS MDReferrer: David figueroa MD 06/21/2020 04:11:23 PM EDT [facility] Outpatient Attender: BALTA Ibarra 0 06/07/2020 01:00:00 PM EST MED[facility] ([facility] ) Outpatient Attender: SANFORD Banuelos/Robles/Qasim/Diana 06/06/2020 09:30:00 AM EST MED[facility] ([facility] Outpatient Attender: AYANNA WHITT [facility] 07/2020 12:45:00 PM EST [facility] ([facility] TeleMedicine Phone E/M by Phys 11-20 Min [address] [place] [address] 04/07/2020 12:00:00 AM EST eCW1 ([facility]) (PN Proc 45) Pain Procedure 45 [address] [place] [address] 03/09/2020 12:00:00 AM EST eCW1 ([facility]) Unknown [address] [facility] [address] 03/08/2020 12:00:00 AM EST eCW1 ([facility]) Outpatient Attender: BALTA Ibarra 1 05/05/2019 12:20:00 PM EST MEDENT ([facility] ) Unknown [address] [facility] [address] 02/18/2020 12:00:00 AM EST eCW1 ([facility]) Outpatient Attender: BALTA Ibarra 1 04/03/2019 02:20:00 PM EST MEDENT ([facility] ) Outpatient Attender: STACIE MUELLER Physical Therapy 12/31 02:00:00 PM EDT MED[facility] ([facility]) Outpatient Attender: David Ibarra 0 12/28/2019 10:40:00 AM EDT MED[facility] ([facility] ) [facility]: [facility] 10:45:00 AM EDT [facility] ([facility] Immunizations Vaccine Date Status Description Data Source(s) Influenza, injectable, MDCK, preservative free, juan valent 12/29/2020 08:16:00 AM EDT completed [facility] ([facility]) COVID-19 VACCINE Moderna 05/23/2020 12:00:00 AM EST completed [facility] Vaccine Series Complete: YESThis Data wa s Submitted to [facility] Via [employer]. COVID-19 VACCINE Moderna 04/25/2020 12:00:00 AM EST completed [facility] Vaccine Series Complete: NOThis Data was Submitted to [facility] Via [employer]. Influenza, injectable, MDCK, preservative free, juan valent 12/28/2019 10:48:00 AM EDT completed [facility] ([facility]) Medications Medication Brand Name Start Date Product Form Dose Route Admi nistrative Instructions Pharmacy Instructions Status Indications Reaction Description Data Source(s) tizanidine 2 MG Oral Tablet TIZANIDINE HCL 01/26/2021 12:00:00 AM EDT tablet 15 TAKE 1/2 TABLET BY MOUTH ONCE A DAY N EEDED FOR SEVERE PAIN AND MUSCLE SPASMS TAKE 1/2 TABLET BY MOUTH ONCE A DAY NEEDED FOR MERLINE RE PAIN AND MUSCLE SPASMS SOLD: 01/26/2021 [facility] Administration Of Flu Vaccine 12/29/2020 12:00:00 AM EDT completed [facility] ([facility]) Medication administered onsite NITROFURANTOIN, MACROCRYSTALS 25 MG / Ni trofurantoin, Monohydrate 75 MG Oral Capsule 100 mg NITROFURANTOIN MONOHYD/M-CRYST 11/29/2020 12:00:00 AM EDT ca psule 10 TAKE ONE CAPSULE BY MOUTH TWO TI MES A DAY FOR 5 DAYS TAKE ONE CAPSULE BY MOUTH TWO TIMES A DAY FOR 5 DAYS SOLD: 11/29/2020 [facility] NITROFURANTOIN, MACROCRYSTALS 25 MG / Ni trofurantoin, Monohydrate 75 MG Oral Capsule Nitrofurantoin Monohyd Macro 11/29/2020 12:00:00 AM EDT ORAL active MEDENT ([facility]) 220 mcg/actuation 11/23/2020 12:00:00 AM EDT HFA aerosol inh aler 12 INHALE 2 PUFFS BY MOUTH TWO TIMES A DAY INHALE 2 PUFFS BY MOUTH TWO TIMES A DAY SOLD: 11/23/2020 [facility] 220 mcg/actuation 11/23/2020 12:00:00 AM EDT HFA aerosol inh aler 12 INHALE 2 PUFFS BY MOUTH TWO TIMES A DAY INHALE 2 PUFFS BY MOUTH TWO TIMES A DAY SOLD: 12/20/2020 CURRENT Esomeprazole 20 MG Delayed Release Oral Capsule ESOMEPRAZOLE MAGNESIUM 11/02/2020 12:00:00 AM EDT capsule,delayed release(DR/EC) 90 TAKE ONE CAPSULE BY MOUTH ONCE DAILY TAKE ONE CAPSULE BY MOUTH ONCE DAILY SOLD: 11/04/2020 CURRENT Shingrix Shingrix 09/20/2020 12:00:00 AM EDT activ e MEDENT ([facility]) 50 mg 09/08/2020 12:00:00 AM EDT tablet 30 TAKE ONE-HALF TABLET BY MOUTH TWICE A DAY, MAXIMUM DAILY DOSE = ONE TABLET TAKE ONE-HALF TABLET BY MOUTH TWICE A DAY, MAXIMUM DAILY DOSE = ONE TABLET SOLD: 09/10/2020 CURRENT tramadol hydrochloride 50 MG Oral Tablet traMADol HCl 50 MG traMADol HCl 50 MG 09/07/2020 12:00:00 AM EDT active traMADol HCl 50 MG eCW1 ([facility]) tramadol hydrochloride 50 MG Oral Tablet traMADol HCl 50 MG traMADol HCl 50 MG 09/07/2020 12:00:00 AM EDT active traMADol HCl 50 MG eCW1 ([facility]) 50 mg 09/03/2020 12:00:00 AM EDT tablet 14 TAKE ONE TABLET BY MOUTH TWO TIMES A DAY MAXIMUM DAILY DOSE = 2 TABLETS TAKE ONE TABLET BY MOUTH TWO TIMES A DAY MAXIMUM DAILY DOSE = 2 TABLETS SOLD: 09/06/2020 [facility] 50 mg 07/25/2020 12:00:00 AM EDT tablet 14 TAKE ONE TABLET BY MOUTH TWICE A DAY NEEDED , MAXIMUM DAILY DOSE = 2 TABLETS TAKE ONE TABLET BY MOUTH TWICE A DAY NEEDED , MAXIMUM DAILY DOSE = 2 TABLETS SOLD: 07/25/2020 [facility] Covid-19 vaccine, Unspecified 05/23/2020 12:00:00 AM EST completed [facility] ([facility]) Medication administered onsite Covid-19 vaccine, Unspecified 04/25/2020 12:00:00 AM EST completed [facility] ([facility]) Medication administered onsite Esomeprazole 20 MG Delayed Release Oral Capsule ESOMEPRAZOLE MAGNESIUM 03/22/2020 12:00:00 AM EST capsule,delayed release(DR/EC) 90 TAKE ONE CAPSULE BY MOUTH EVERY DAY TAKE ONE CAPSULE BY MOUTH EVERY DAY SOLD: 03/22/2020 [facility] Albuterol 0.83 MG/ML Inhalant Solution Albuterol Sulfate 1 04/19/2019 12:00:00 AM EST active [facility] ([facility]) 2.5 mg /3 mL (0.083 %) 02/18/2020 12:00:00 AM EST solu tion for nebulization 900 INHALE THE CONTENTS OF ONE VIAL VIA NEBU LIZER FOUR TIMES A DAY INHALE THE CONTENTS OF ONE VIAL VIA NEBULIZER FOUR TIMES A DAY SOLD: 02/20/2020 [facility] 0.02 % 02/17/2020 12:00:00 AM EST solution 875 INHALE THE CONTENTS OF ONE VIAL VIA NEBULIZER FOUR TIMES A DAY INHALE THE CONTENTS OF ONE VIAL VIA NEBULIZER FOUR TIMES A DAY SOLD: 01/07/2021 [facility] 0.02 % 02/17/2020 12:00:00 AM EST solution 812 INHALE THE CONTENTS OF ONE VIAL VIA NEBULIZER FOUR TIMES A DAY INHALE THE CONTENTS OF ONE VIAL VIA NEBULIZER FOUR TIMES A DAY SOLD: 02/20/2020 [facility] 100 mg 01/20/2020 12:00:00 AM EDT capsule 270 TAKE ONE CAPSULE BY MOUTH THREE TIMES A DAY FOR 1 WEEK THEN TAKE TWO CAPSULES BY MOUTH THREE TIMES A DAY FOR 1 WEEK THEN TAKE THREE CAPSULES BY MOUTH THREE TIMES A DAY - STOP AT LOWEST EFFECTIVE DOSE TAKE ONE CAPSULE BY MOUTH THREE TIMES A DAY FOR 1 WEEK THEN TAKE TWO CAPSULES BY MOUTH THREE TIMES A DAY FOR 1 WEEK THEN TAKE THREE CAPSULES BY MOUTH THREE TIMES A DAY - STOP AT LOWEST EFFECTIVE DOSE SOLD: 02/28/2020 [facility] 500 mg 01/20/2020 12:00:00 AM EDT tablet 90 TAKE 1/2 - 1 TABLET BY MOUTH THREE TIMES A DAY NEEDED FOR SPASMS , MAXIMUM DAILY DOSE = 3 TABLETS TAKE 1/2 - 1 TABLET BY MOUTH THREE TIMES A DAY NEEDED FOR SPASMS , MAXIMUM DAILY DOSE = 3 TABLETS SOLD: 01/20/2020 [facility] Methocarbamol 500 MG Oral Tablet Methocarbamol 01/20/2020 12:00:00 AM EDT ORAL active [facility] ([facility]) gabapentin 100 MG Oral Capsule Gabapentin 01/20/2020 12:00:00 AM EDT ORAL active [facility] ([facility]) 100 mg 01/20/2020 12:00:00 AM EDT capsule 270 TAKE ONE CAPSULE BY MOUTH THREE TIMES A DAY FOR 1 WEEK THEN TAKE TWO CAPSULES BY MOUTH THREE TIMES A DAY FOR 1 WEEK THEN TAKE THREE CAPSULES BY MOUTH THREE TIMES A DAY - STOP AT LOWEST EFFECTIVE DOSE TAKE ONE CAPSULE BY MOUTH THREE TIMES A DAY FOR 1 WEEK THEN TAKE TWO CAPSULES BY MOUTH THREE TIMES A DAY FOR 1 WEEK THEN TAKE THREE CAPSULES BY MOUTH THREE TIMES A DAY - STOP AT LOWEST EFFECTIVE DOSE SOLD: 01/20/2020 [facility] 5-325 mg 01/18/2020 12:00:00 AM EDT tablet 14 TAKE ONE TABLET BY MOUTH EVERY 12 HOURS NEEDED FOR PAIN, MAXIMUM DAILY DOSE = TWO TABLETS TAKE ONE TABLET BY MOUTH EVERY 12 HOURS NEEDED FOR PAIN, MAXIMUM DAILY DOSE = TWO TABLETS SOLD: 01/19/2020 [facility] 90 mcg/actuation 01/07/2020 12:00:00 AM EDT HFA aerosol inha ler 54 INHALE TWO PUFFS BY MOUTH FOUR TIMES A DAY NEEDED INHALE TWO PUFFS BY MOUTH FOUR TIMES A DAY NEEDED SOLD: 11/21/2020 [facility] 90 mcg/actuation 01/07/2020 12:00:00 AM EDT HFA aerosol inha ler 54 INHALE TWO PUFFS BY MOUTH FOUR TIMES A DAY NEEDED INHALE TWO PUFFS BY MOUTH FOUR TIMES A DAY NEEDED SOLD: 07/05/2020 [facility] 90 mcg/actuation 01/07/2020 12:00:00 AM EDT HFA aerosol inha ler 54 INHALE TWO PUFFS BY MOUTH FOUR TIMES A DAY NEEDED INHALE TWO PUFFS BY MOUTH FOUR TIMES A DAY NEEDED SOLD: 03/14/2020 [facility] 90 mcg/actuation 01/07/2020 12:00:00 AM EDT HFA aerosol inha ler 54 INHALE TWO PUFFS BY MOUTH FOUR TIMES A DAY NEEDED INHALE TWO PUFFS BY MOUTH FOUR TIMES A DAY NEEDED SOLD: 01/07/2020 [facility] 90 mcg/actuation 01/07/2020 12:00:00 AM EDT HFA aerosol inha ler 54 INHALE TWO PUFFS BY MOUTH FOUR TIMES A DAY NEEDED INHALE TWO PUFFS BY MOUTH FOUR TIMES A DAY NEEDED SOLD: 09/06/2020 [facility] 60 ACTUAT Albuterol 0.09 MG/ACTUAT Metered Dose Inhaler Albu terol Sulfate HFA 01/05/2020 12:00:00 AM EDT RESPIRATORY completed MEDENT ([facility]) Administration Of Flu Vaccine 12/28/2019 12:00:00 AM EDT completed [facility] ([facility]) Medication administered onsite 0.5 mg/2 mL 12/15/2019 12:00:00 AM EDT suspension for nebuli zation 120 INHALE 1 AMPOULE VIA NEBULIZER TWO TIMES A DAY INHALE 1 AMPOULE VIA NEBULIZER TWO TIMES A DAY SOLD: 12/16/2019 [facility] bacitracin zinc 0.5 UNT/MG Topical Ointment Bacitracin (Exte rnal) 12/14/2019 12:00:00 AM EDT active M EDENT ([facility] 300 mg 12/10/2019 12:00:00 AM EDT capsule 2 TAKE TWO CAPSULES BY MOUTH 1 HOUR PRIOR TO DENTAL APPOINTMENT TAKE TWO CAPSULES BY MOUTH 1 HOUR PRIOR TO DENTAL APPOINTMENT SOLD: 12/11/2019 [facility] Insurance Providers Payer name Policy type / Coverage type Policy ID Covered libertarian ID Covered libertarian's relationship to dotson Policy [place] Plan Information DME Jurisdiction A [facility] C [id number] SELF [id number] MEDICARE [id number] SP [id number] A [facility] BCBS [id number] Nany XXP [id number] MEDICARE A [id number] Self [id number] A MEDICARE [id number] Nany [id number] Medicare Natl Govt Servic Medicare Primary [id number] [id number] Self 0 [id number] Medicare Part B [facility] [id number] 0 [id number] Medicare Natl Govt Servic Medicare Primary [id number]5.8888.0 Self 0 [id number] Medicare Natl Govt Servic Medicare Primary [id number] 2.16.840.1.279716.3.227.99.4595.8888.0 Self 6 [id number] Medicare Natl Govt Servic Medicare Primary [id number] 2.16.840.1.794281.3.227.99.4595.8888.0 Self 0 [id number] Medicare Natl Govt Serv Medicare Primary [id number] 2.16.840.1.335451.3.227.99.4595.8888.0 Self 0 [id number] [place] Medicare Primary [id number] 2.16.840.1.766768.3.227.99.8646.38436.0 Self [id number] Medicare Medicare Primary [id number] 2.16.840.1.510701.3.227. 99.802.49480.0 Self [id number] Medicare Natl Govt Serv Medicare Primary [id number] 2.16.840.1.849041.3.227.99.4595.8888.0 Self 6 [id number] Medicare Natl Govt Serv Medicare Primary [id number] 2.16.840.1.727000.3.227.99.4595.8888.0 Self 0 [id number] MEDICARE A [id number] Self [id number] Medicare Natl Govt Serv Medicare Primary [id number] 2.16.840.1.854514.3.227.99.4595.8888.0 Self 0 [id number] Medicare Natl Govt Servic Medicare Primary [id number] 2.16.840.1.829309.3.227.99.4595.8888.0 Self 6 [id number] MEDICARE [id number] SP [id number] Medicare Natl Govt Servic Medicare Primary [id number] 2.16.840.1.332952.3.227.99.4595.8888.0 Self 0 [id number] Medicare Natl Govt Servic Medicare Primary [id number] 2.16840.1.592347.3.227.99.4595.8888.0 Self 0 [id number] Medicare C [id number] SELF [id number] [id number] Medicare Natl Govt Servic Medicare Primary [id number] Self [id number] Medicare Natl Govt Servic Medicare Primary [id number] 2.16840.1.439048.3.227.99.4595.8888.0 Self 0 [id number] Medicare Natl Govt Servic Medicare Primary [id number] 2.16840.1.308534.3.227.99.4595.8888.0 Self [id number] Medicare Natl Govt Serv Medicare Primary [id number] 2.0.1.038989.3.227.99.4595.8888.0 Self 6 [id number] Medicare Natl Govt Servic Medicare Primary [id number] Self [id number] Medicare Natl Govt Servic Medicare Primary [id number] 2.16840.1.448827.3.227.99.4595.8888.0 Self 0 [id number] Medicare Natl Govt Servic Medicare Primary [id number] 2.160.1.027381.3.227.99.4595.8888.0 Self 0 [id number] Medicare [place]/[facility] Medicare Primary [id number] 3.3.227.99.8646.27701.0 Self Medicare Natl Govt Servic Medicare Primary [id number] Self Medicare Natl Govt Servic Medicare Primary [id number] 2.16840.1.931816.3.227.99.4595.8888.0 Self 6 [id number] Medicare Medicare Primary [id number] Self Medicare C [id number] SELF [id number] P52 Medicare Medicare Primary [id number] 2.0.1.249736.3.227. 99.802.08311.0 Self [id number] Medicare Natl Govt Servic Medicare Primary [id number] 2.0.1.013853.3.227.99.4595.8888.0 Self 6 [id number] Medicare Natl Govt Servic Medicare Primary [id number] 2.0.1.218135.3.227.99.4595.8888.0 Self 6 [id number] Medicare Natl Govt Servic Medicare Primary [id number] 2.0.1.571311.3.227.99.4595.8888.0 Self 0 [id number] BLUE CARD C [id number] Self [id number] BLUE CARD C [id number] Self [id number] Medicare [place] Medicare Primary [id number] Self BS [place] Part B [id number] Self Medicare [place] Medicare Primary [id number] 2.0.1.083058.3.227.99.991.7530.0 Self 07 [id number] Medicare [place] Medicare Primary [id number] 2.0.1.794777.3.227.99.991.7530.0 Self 07 [id number] [place] Medicare Primary [id number] 2.0.1.458738.3.227.99.991.7530.0 Self 07 [id number] [place] Medigap Part B [id number] 2.0.1.1138 83.3.227.99.991.7530.0 Self [id number] Medicare [place] Medicare Primary [id number] 2.0.1.900676.3.227.99.991.7530.0 Self 07 [id number] Medicare [place] Medicare Primary [id number] 2.0.1.628517.3.227.99.991.7530.0 Self 07 [id number] Medicare [place] Medicare Primary [id number] 2.16.840.1.714421.3.227.99.991.7530.0 Self 07 [id number] [facility] Part B 2.16840.1.392862.3.227. 99.991.7530.0 Self Medicare [place] Medicare Primary 2.16840.1.373913.3.227. 99.991.7530.0 Self Medicare [place] Medigap Part B [id number] 2.840.1.1138 83.3.227.99.991.7530.0 Self [id number] Medicare [place] Medigap Part B [id number] 2.840.1.710588.3.227.99.991.7530.0 Self [id number] Medicare [place] Medicare Primary [id number] 2.0.1.376898.3.227.99.991.7530.0 Self 07 [id number] Medicare [place] Medicare Primary [id number] 2.16840.1.475606.3.227.99.991.7530.0 Self 07 [id number] [facility] Part B [id number] 2.840.1.040219.3.227.99.991.7530.0 Self [id number] Medicare [place] Medigap Part B [id number] 2.0.1.1138 83.3.227.99.991.7530.0 Self [id number] Medicare [place] Medigap Part B [id number] 2.0.1.601452.3.227.99.991.7530.0 Self [id number] Blue Cross Blue Shield P [id number] SELF [id number] [place] 200/700 [id number] [place]2 [id number] [place] 200/700 [id number] SP [id number] Blue Cross Blue Shield P [id number] SELF [id number] Blue Cross Blue Shield P [id number] SELF [id number] Blue Cross Blue Shield P [id number] SELF [id number] Blue Cross Blue Shield P [id number] SELF [id number] Blue Cross Blue Shield P [id number] SELF [id number] Blue Cross Blue Shield P [id number] SELF [id number] BCBS [place] 200/700 [id number] SP [id number] Medicare C [id number] SELF [id number] P52 Medicare Part B [place] [id number] 0 [id number] DME Jurisdiction A [facility] C [id number] SELF [id number] Progressive Eval Service Medigap Part B [id number] Family Dep endent BCBS [place] 200/700 [id number] SP [id number] BCBS Of [facility] Part B [id number] Self [place] 20 S [id number] S [id number] A BCBS [place] PPO 302/307 [id number] SP [id number] MEDICARE [id number] SP [id number] P52 [place] 200/700 [id number] WI2 [id number] BCBS [place] PPO 302/307 [id number] SP [id number] MEDICARE C [id number] S [id number] P52 EXCELLUS BCBS B [id number] S [id number] [id number] BCBS [place] PPO 302/307 [id number] [id number] [place]UE[place] BLUEIELD O PPO POS [id number] [facility] [id number] Family Dependent [id number] BS [facility] [id number] Family Dependent [id number] BS [place] Part B [id number] Self [id number] Medicare Medicare Primary [id number] Self [id number] BS [facility] [id number] ..1.971190.3.227.99.4595.8888.0 Family Dependent X [id number] [place] [facility] Part B [id number] ..1.771797.3.227.99.936.90328.0 Self X [id number] Medicare Medicare Primary [id number] ..1.657983.3.227. 99.936.66406.0 Self [id number] BS [facility] [id number] ..1.473309.3.227.99.4595.8888.0 Family Dependent X [id number] MEDICARE PI PI EXCELLUS BCBS PI PI BS [facility] [id number] .0.1.794101.3.227.99.4595.8888.0 Family Dependent X [id number] [facility] [id number] .0.1.570759.3.227.99.4595.8888.0 Family Dependent X [id number] [facility] [id number] ..1.935921.3.227.99.4595.8888.0 Family Dependent X [id number] Progressive Eval Service [facility] Part B [id number] 2.16.840.1.386347.3.227.99.991.7530.0 Family Dependent [id number] Medicare [place] Medicare Primary [id number] 2.16.840.1.672073.3.227.99.991.7530.0 Self 07 [id number] Progressive Eval Service [facility] Part B [id number] 2.16.840.1.432647.3.227.99.991.7530.0 Family Dependent [id number] Medicare [place] Medicare Primary [id number] 2.16.840.1.387053.3.227.99.991.7530.0 Self 07 [id number] [facility] [id number] 2.16.840.1.515461.3.227.99.4595.8888.0 Family Dependent X [id number] [facility] [id number] 2.16.840.1.912710.3.227.99.4595.8888.0 Family Dependent X [id number] Progressive Eval Service [facility] Part B [id number] 2.16.840.1.271565.3.227.99.991.7530.0 Family Dependent [id number] [place] [id number] 2.16.840.1.808714.3.227.99.991.7530.0 Self 6N [id number] Progressive Eval Service [facility] Part B [id number] 2.16.840.1.064132.3.227.99.991.7530.0 Family Dependent [id number] [place] Primary [id number] 2.16.840.1.456999.3.227.99.991.7530.0 Self 6N [id number] Medicare Medigap Part B [id number] 2.16.840.1.717540.3.227.99.802. 89963.0 Self [id number] [facility] [id number] 2.0.1.551251.3.227.99 .802.73581.0 Self [id number] [facility] [id number] 2.0.1.635633.3.227.99.991.7530.0 Family Dependent [id number] [place] Primary [id number] 2.0.1.336011.3.227.99.991.7530.0 Self 6N [id number] [place] 200/700 [id number] SP [id number] BS [facility] [id number] 2.0.1.527038.3.227.99.4595.8888.0 Family Dependent X [id number] BS [facility] [id number] 2.0.1.379001.3.227.99.4595.8888.0 Family Dependent X [id number] MEDICARE C [id number] S [id number] A BS [facility] [id number] 2.0.1.775489.3.227.99.4595.8888.0 Family Dependent X [id number] BS [facility] [id number] 2.0.1.536168.3.227.99.4595.8888.0 Family Dependent X [id number] [facility] [id number] 2.16.840.1.923598.3.227.99.991.7530.0 Family Dependent [id number] [facility] [id number] 2.16840.1.928484.3.227.99.4595.8888.0 Family Dependent X [id number] [facility] [id number] 2.0.1.284680.3.227.99.991.7530.0 Family Dependent [id number] [facility] [id number] Family Dependent [id number] [facility] [id number] Family Dependent X [id number] [facility] [id number] Self [id number] [facility] Medigap Part B [id number] [id number] Self [id number] [facility] [id number] [id number] Family Dependent X [id number] [facility] [id number] Family Dependent X [id number] BCBS/Blue Card Medigap Part B [id number] Self [id number] Medicare Natl Gov't Servi Medicare Primary [id number] Self [id number] Progressive Eval Service [facility] Part B [id number] Family Dependent [id number] Progressive Eval Service [facility] Part B [id number] Family Dependent [id number] [facility] [id number] Family Dependent X [id number] BS [facility] [id number] Family Dependent X [id number] Progressive Eval Service [facility] Part B [id number] Family Dependent [id number] Progressive Eval Service [facility] Part B [id number] Family Dependent [id number] BS [facility] [id number] Family Dependent X [id number] [facility] [id number] Family Dependent X [id number] Medicare - NGS Medicare Primary [id number] Self 0 [id number] Progressive Eval Service Medigap Part B [id number] Family Dependent [id number] BS [facility] [id number] Family Dependent X [id number] BS [facility] [id number] Family Dependent X [id number] BCBS/Blue Card Medigap Part B [id number] Self Medicare Natl Gov't Servi Medicare Primary [id number] Self Excell[employer]BS Medigap Part B [id number] Self BS [facility] [id number] Family Dependent 200 [employer] [place] Medigap Part B Mass [id number] 3.0 Self Mass Progressive Eval Service Medigap Part B [id number] Family Dependent EXCELLUS BCBS B [id number] S XXP [id number] Problems, Conditions, and Diagnoses Code Display Name Description Problem Type Effective Dates Data Source(s) G62.9 Neuropathy Neuropathy Problem 10/25/2020 12:00:00 AM ED T eCW1 ([facility]) 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 Lumbar degenerative disc disease Problem 09/07/2020 12:00:00 AM EDT eCW1 ([facility]) M51.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 Problem 04/07/19 12:00:00 AM EST eCW1 ([facility]) L84 Corns and callosities Corns and callosities Problem 12/27/2019 12:00:00 AM EDT MEDENT ([facility] L60.0 Ingrowing nail Ingrowing nail Problem 12/27/2019 12:00: 00 AM EDT MEDENT ([facility] Surgeries/Procedures Procedure Description Date Indications Data Source(s) OFFICE OUTPATIENT VISIT 10 MINUTES 11/29/2020 12:00:00 AM EDT MEDZINA ([facility]) Spirometry 11/23/2020 12:00:00 AM EDT [facility] BOBO ([facility], ) OFFICE OUTPATIENT VISIT 25 MINUTES 11/23/2020 12:00:00 AM EDT MEDZINA ([facility], ) Mammogram 11/10/2020 12:00:00 AM EDT Catracho BOBO ([facility]) OFFICE OUTPATIENT VISIT 25 MINUTES 11/01/2020 12:00:00 AM EDT MEDZINA ([facility]) OFFICE OUTPATIENT VISIT 25 MINUTES 06/27/2020 12:00:00 AM EDT MEDZINA ([facility]) OFFICE OUTPATIENT VISIT 15 MINUTES 06/07/2020 12:00:00 AM EST MEDZINA ([facility]) Spirometry 06/06/2020 12:00:00 AM EST [facility] BOBO ([facility], ) OFFICE OUTPATIENT VISIT 15 MINUTES 06/06/2020 12:00:00 AM EST MEDENT ([facility], ) Medication: Benadryl Tab 25mg Orally (Diphenhydramine) 03/09/2020 12:00:00 AM EST eCW1 ([facility]) Unclassified drugs 03/09/2020 12:00:00 AM EST eCW1 ([facility]) ECG ROUTINE ECG W/LEAST 12 LDS W/I&R 12/28/2019 12:00: 00 AM EDT MEDENT ([facility]) Diabetic Retinal Eye Exam 12/15/2019 12:00:00 AM EDT MEDENT ([facility]) Results ID Date Data Source [id number] 12/02/2020 08:43:00 AM EDT MEDENT ([facility]) Name Value Range Interpretation Code Description Data Kamilla rce(s) Supporting Document(s) PDFReport Laboratory test result MEDENT ([facility]) FVC-Pred 1.96 L MEDENT ([facility]) FVC-%Pred-Pre 102 L MEDENT ([facility]) FVC-LLN 1.35 L MEDENT ([facility]) FVC-Pre 2.00 L MEDENT ([facility]) Fev1-Pre 1.53 L MEDENT ([facility]) Fev1-Pred 1.43 L MEDENT ([facility]) Fev1-%Pred-Pre 107 L MEDENT ([facility]) Fev1-LLN 0.92 L MEDENT ([facility]) Fev6-Pred 1.83 L MEDENT ([facility]) Fev6-Pre 2.00 L MEDENT ([facility]) Fev6-%Pred-Pre 109 L MEDENT ([facility]) Inn3stn-Vijv 73 % MEDENT ([facility]) Fev6-LLN 1.23 L MEDENT ([facility]) Kbr3lwt-Ull 76 % MEDENT ([facility]) Wam6ctk-%Pred-Pre 104 % MEDENT ([facility]) Wco7ufe-DEC 63 % MEDENT ([facility]) Bke3smm-Pqiw 93 % MEDENT ([facility]) Chm6owk-Vzu 100 % MEDENT ([facility]) FEFMax-Pre 4.30 L/E/sec MEDENT ([facility]) FEFMax-Pred 3.80 L/E/sec MEDENT ([facility]) Ohe8yjo-%Pred-Pre 107 % MEDENT ([facility]) FEFMax-%Pred-Pre 113 L/E/sec MEDENT ([facility]) Cer5016-Mfci 0.98 L/E/sec MEDENT ([facility]) FEFMax-LLN 2.29 L/E/sec MEDENT ([facility]) Cbi2136-%Pred-Pre 125 L/E/sec MEDENT ([facility]) Kpp7341-Wsz 1.23 L/E/sec MEDENT ([facility]) Bey3473-LXK -0.11 L/E/sec MEDENT ([facility]) ExpTime-Pre 5.64 sec MEDENT ([facility]) Rfv4pua6-Kyoc 77 % MEDENT ([facility]) Gyx4exr3-%Pred-Pre 99 % MEDENT ([facility]) Jrn4wlv1-Tzz 76 % MEDENT ([facility]) Oua7nxm8-TKP 68 % MEDENT ([facility]) ID Date Data Source [id number] 11/29/2020 02:27:00 PM EDT MEDENT ([facility] Name Value Range Interpretation Code Description Data Kamilla rce(s) Supporting Document(s) Bacteria identified in Urine by Culture Laboratory test result [facility] <content>FULL REPORT IN LAB NOTES ([facility]</content>
<content></content>
<content>ORGANISM 1: ESCHERICHIA COLI</content>
<content></content>
<content>COLONY COUNT > 100,000</content>
<content></content>
<content></content>
<content>O RGANISM 1: ESCHERICHIA COLI</content>
<content></content>
<content> ESCHERICHIA COLI: REACTION</content>
<content>TRIMETHOPRIM/SULFAMETHOXAZOLE IV 160mg TMP & 800mg SMXq6h <=20 S</content>
<content> TRIMETHOPRIM/SULFAMETHOXAZOLE PO Bactrim DS Bid <=20 S</content>
<content>AMPICILLIN IV 500mg q6h <=2 S</content>
<content>AMPICILLIN PO 500mg q6h fasting <=2 S</content>
<content>GENTAMICIN IV 80mg q8h <=1 S</content>
<content>NITROFURANTOIN PO 100mg BID <=16 S</content>
<content>CEFAZOLIN IV 1gm q8h <=4 S</content>
<content> LEVOFLOXACIN IV 500mg qd <=0.12 S</content>
<content>LEVOFLOXACIN PO 250mg qd <=0.12 S</content>
<content>LEVOFLOXACIN PO 500mg qd <=0.12 S</content>
<content>TOBRAMYCIN IV 80mg q8h <=1 S</content>
<content>CEFTRIAXONE IV 1gm q24h <=1 S</content>
<content>CEFTAZIDIME IV 1gm q8h <=1 S</content>
<content> AMPICILLIN/SULBACTAM IV 1.5g q6h <=2 S</content>
<content>PIPERACILLIN/TAZOBACTAM IV 2.25 gm q6h <=4 S</content>
<content>AZTREONAM IV 1gm q8h <=1 S</content>
<content>ERTAPENEM IV 1gm qd <=0.5 S</content>
<content>MEROPENEM IV 1 gm q8h <=0.25 S</content>
<content>MEROPENEM IV 500 mg q8h <=0.25 S</content>
<content> TIGECYCLINE IV 50mg q12h <=0.5 S</content>
<content>CEFEPIME IV 1 gm q12h <=1 S</content>
<content>CEFEPIME IV 2 gm q12h <=1 S</content>
<content>EXTD BRD SPCTRM BETA LACTAMASE IV NEGATIVE FOR ESBL</content>
<content></content> ID Date Data Source [id number] 11/29/2020 02:27:00 PM EDT MEDENT ([facility]) Name Value Range Interpretation Code Description Data Kamilla rce(s) Supporting Document(s) Urine Color Laboratory test result MEDEN T ([facility]) Urine Appearance Laboratory test result Abnormal (applies to non-numeric results) MEDENT ([facility]) Specific gravity of Urine 1.015 1.005-1.030 TX DENT ([facility]) Urine PH 6.5 units 5.0-9.0 [facility]) Urine Leukocytes Laboratory test result Abnormal (applies to non-numeric results) MEDENT ([facility]) Urine Blood Laboratory test result Abnormal (applies to non-numeric results) MEDENT ([facility]) Urine Protein Laboratory test result 0-0 Abnormal (applies to non-numeric results) MEDENT ([facility]) Urine Nitrite Laboratory test result Abnormal (applies to non-numeric results) MEDENT ([facility]) Glucose [Presence] in Urine Laboratory test result MEDENT ([facility]) Bilirubin.total [Mass/volume] in Serum or Plasma Laboratory test resu lt MEDENT ([facility]) Urine Ketone Laboratory test result MEDE NT ([facility]) Urine Urobilinogen 0.2 mg/dL 0.2-1.0 MEDENT ([facility]) ID Date Data Source [id number] 11/23/2020 08:42:00 AM EDT MEDENT ([facility] Name Value Range Interpretation Code Description Data Kamilla rce(s) Supporting Document(s) PDFReport Laboratory test result MEDENT ([facility], ) FVC-Pred 1.96 L MEDENT ([facility]) FVC-Pre 1.71 L MEDENT ([facility]) FVC-%Pred-Pre 87 L MEDENT ([facility]) FVC-LLN 1.35 L MEDENT ([facility]) Fev1-Pred 1.43 L MEDENT ([facility]) Fev1-LLN 0.92 L MEDENT ([facility]) Fev1-%Pred-Pre 76 L MEDENT ([facility]) Fev1-Pre 1.10 L MEDENT ([facility]) Fev6-Pred 1.83 L MEDENT ([facility]) Fev6-Pre 1.71 L MEDENT ([facility]) Fev6-LLN 1.23 L MEDENT ([facility]) Fev6-%Pred-Pre 93 L MEDENT ([facility]) Lxt5uvd-Mgyc 73 % MEDENT ([facility]) Qaz8cjy-Dee 65 % MEDENT ([facility]) Wml3liq-%Pred-Pre 88 % MEDENT ([facility]) Yno7eso-AXS 63 % MEDENT ([facility]) Psr4bxk-Kpae 93 % MEDENT ([facility]) Wwa4lil-%Pred-Pre 107 % MEDENT ([facility]) Boh9udf-Mij 100 % MEDENT ([facility]) FEFMax-Pred 3.80 L/E/sec MEDENT ([facility]) FEFMax-%Pred-Pre 77 L/E/sec MEDENT ([facility]) FEFMax-Pre 2.93 L/E/sec MEDENT ([facility]) FEFMax-LLN 2.29 L/E/sec MEDENT ([facility], ) Sse8546-Ezzz 0.98 L/E/sec MEDENT ([facility]) Vhp7288-Sjx 0.57 L/E/sec MEDENT ([facility]) Enw4722-NCB -0.11 L/E/sec MEDENT ([facility]) Cuu1928-%Pred-Pre 57 L/E/sec MEDENT ([facility]) Mqb1pbq0-Xib 65 % MEDENT ([facility]) Pgg7vrd6-Shza 77 % MEDENT ([facility]) ExpTime-Pre 5.84 sec MEDENT ([facility]) Jgk1pdv4-%Pred-Pre 83 % MEDENT ([facility]) Ney5rsd2-KWI 68 % MEDENT ([facility]) ID Date Data Source [id number] 11/01/2020 11:08:00 AM EDT MEDENT ([facility]) Name Value Range Interpretation Code Description Data Kamilla rce(s) Supporting Document(s) Glucose [Mass/volume] in Serum or Plasma 136 mg/dL 74-99 MEDENT ([facility]) 100-125 mg/dL PRE-DIABETES/FASTING >126 mg/dL DIABETES/FASTING Creatinine 1.4 mg/dL 0.6-1.3 MEDENT ([facility]) Urea nitrogen [Mass/volume] in Serum or Plasma 37 mg/dL 7-18 MEDENT ([facility]) Chloride [Moles/volume] in Serum or Plasma 102 meq/L 98-107 MEDENT ([facility]) Potassium [Moles/volume] in Serum or Plasma 4.6 meq/L 3.5-5.1 MEDENT ([facility]) Sodium [Moles/volume] in Serum or Plasma 140 meq/L 136-145 MEDENT ([facility]) Calcium [Mass/volume] in Serum or Plasma 9.7 mg/dL 8.5-10.1 MEDENT ([facility]) Alkaline phosphatase isoenzyme [Units/volume] in Serum or Pl asma 43 mg/dL 46-116 MEDENT ([facility]) Carbon dioxide, total [Moles/volume] in Serum or Plasma 27 meq/L 21 -32 MEDENT ([facility]) Alanine aminotransferase [Enzymatic activity/volume] in Seru m or Plasma 42 U/L 12-78 MEDENT ([facility]) Aspartate aminotransferase [Enzymatic activity/volume] in Serum or Plasma 24 U/L 15-37 MEDENT ([facility] ) Total Bilirubin 0.6 mg/dL 0.2-1.0 MEDENT ([facility]) Proteinase 3 Ab [Units/volume] in Serum 7.3 g/dL 6.4-8.2 MEDENT ([facility]) Albumin [Mass/volume] in Serum or Plasma 3.7 g/dL 3.4-5.0 MEDENT ([facility]) A/G Ratio 1.03 CALC 1.00-1.90 [facility]ENT ([facility]) Glomerular filtration rate/1.73 sq M pre dicted among blacks [Volume Rate/Area] in Serum or Plasma by Creatinine-based formula (MDRD) 43 mL/min [facility] <content>CHRONIC KIDNEY DISEASE STAGING PER NKF</content>
<content></content>
<content>STAGE I & II GFR >= 60 NORMAL TO MILDLY DECREASED</content>
<content>STAGE III GFR 30-59 MODERATELY DECREASED</content>
<content>STAGE IV GFR 15-29 SEVERELY DECREASED</content>
<content>STAGE V GFR <15 VERY LITTLE GFR LEFT</content>
<content>ESRD GFR <15 ON COMBINATION PRESSER</content>
<content></content> Glomerular filtration rate/1.73 sq M pre dicted among non-blacks [Volume Rate/Area] in Serum or Plasma by Creatinine-based formula (MDRD) 36 mL/min MEDENT ([facility]) ID Date Data Source [id number] 11/01/2020 11:08:00 AM EDT MEDENT ([facility]) Name Value Range Interpretation Code Description Data Kamilla rce(s) Supporting Document(s) Hemoglobin A1c/Hemoglobin.total in Blood 6.3 % MEDENT ([facility] Lab Result Notes: Pre-Diabetes 5.7 - 6.4 % Diabetes = or > 6.5% Glucose mean value [Mass/volume] in Blood Estimated fr om glycated hemoglobin 134 mg/dL 60-110 MEDENT ([facility] ) ID Date Data Source [id number] 11/01/2020 11:08:00 AM EDT MEDENT ([facility]) Name Value Range Interpretation Code Description Data Kamilla rce(s) Supporting Document(s) Leukocytes [#/volume] in Blood by Automated count 12.7 x10*3/UL 4.1-1 0.9 MEDENT ([facility]) Hemoglobin [Mass/volume] in Blood 12.0 g/dL 12.0-18.0 [facility] ([facility] Erythrocytes [#/volume] in Blood by Automated count 3.80 x10*6/UL 4.2 0-6.30 MEDENT ([facility]) MCV 90.6 fL 80.0-97.0 MEDENT ([facility]) Hematocrit [Volume Fraction] of Blood by Automated count 34.4 % 3 7.0-51.0 MEDENT ([facility]) MCH 31.5 pg 26.0-32.0 MEDENT ([facility]) Platelets [#/volume] in Blood by Automated count 246 x10*3/UL 140-440 MED[facility] Erythrocyte distribution width [Ratio] by Automated count 14.0 % 11.6-13.7 [facility] ([facility] MCHC 34.8 g/dL 31.0-38.0 MEDENT ([facility]) Mid % 3.3 % 1.7-9.3 MEDENT ([facility]) MPV 9.1 FL 7.8-11.0 MED[facility] Lymph % 10.1 % 10.0-58.5 MEDENT ([facility]) Lymph # 1.2 x10*3/UL 0.6-4.1 MEDENT ([facility]) Mid # 0.5 x10*3/UL 0.1-0.6 MEDENT ([facility]) Neut % 86.6 % 37.0-92.0 [facility] Neut # 11.0 x10*3/UL 2.0-7.8 MED[facility] ([facility]) ID Date Data Source [id number] 09/27/2020 01:09:29 PM EDT [facility] PCName: Alisha WootenB: 1935Provider: Carlos Kenny: 09/23/2020 Chief ComplaintRight buttock pain. Chief Complaint 2 MA completing section: ROSE Rebolledo Established Intake At today's visit patient presents with their Daughter and Self . Patient is not currently working. Implanted Devices The patient does not have any implanted devices. Glucose Monitor Device The patient does not have a glucose monitoring device. The patient is being seen for an initial evaluation. History of Present IllnessHistory of Present Illness The patient is an 85-year-old female with a recent onset of right buttock pain that is worse when she is active but can be present when she is sitting. The pain is described as pins and needles and aching. She does feel like sitting down helps more than standing. The patient underwent a left hip arthroplasty several years ago. She was referred today by the [facility] spine group for the consideration of a right-sided SI joint injection. Today's pain is an 8/10. On a good day it is a 7/10. On a bad day it is a 10/10. She takes 0.5 to 0.25 of tramadol on occasion, the last being several weeks ago. We were tasked with taking over her tramadol prescription but she states that she has an excessive amount of these pills already. The patient denies any lower extremity symptoms, weakness, or bowel or bladder incontinence. Active Problems 1. Sacroiliitis (720.2) (M46.1) Allergies Aleve Shortness of breath; Wheezing; Lungs fill-up; Recorded By: Maximino Gutiérrez; 09/19/2020 12:04:17 PM Aspirin TABS Wheezing; Cough; Rash; Recorded By: Maximino Gutiérrez; 09/19/2020 12:04:17 PM Ativan Shortness of breath; Confusion; Dizziness; Gatrointestinal upset; Recorded By: Maximino Gutiérrez; 09/23/2020 4:33:50 PM Avelox Asthma; Myalgia; Nausea; Recorded By: Maximino Gutiérrez; 09/19/2020 12:04:17 PM ibuprofen Wheezing; Cough; Recorded By: Maximino Gutiérrez; 09/23/2020 4:33:50 PM Pneumococcal Vaccines Swelling; Rash; Recorded By: Maximino Gutiérrez; 09/19/2020 12:04:17 PM tobramycin Asthma;; Recorded By: Maximino Gutiérrez; 09/19/2020 12:04:17 PM alprazolam Headache; Recorded By: Maximino Gutiérrez; 09/19/2020 12:04:17 PM Ambien Dizziness; Nausea; Recorded By: Maximino Gutiérrez; 09/19/2020 12:04:17 PM Amoxicillin TABS Rash; Recorded By: Maximino Gutiérrez; 09/19/2020 12:04:17 PM atropine Diarrhea; Gatrointestinal upset; Recorded By: Maximino Gutiérrez; 09/23/2020 4:33:50 PM Biaxin Rash; Recorded By: Maximino Gutiérrez; 09/19/2020 12:04:17 PM cefdinir Headache; Nausea; Recorded By: Maximino Gutiérrez; 09/19/2020 12:04:17 PM cephalexin Rash; Recorded By: Maximino Gutiérrez; 09/19/2020 12:04:17 PM ciprofloxacin Diarrhea; Rash; stomach pain; Recorded By: Maximino Gutiérrez; 09/19/2020 12:04:17 PM Codeine Derivatives Nausea; Rash; Recorded By: Maximino Gutiérrez; 09/19/2020 12:04:17 PM Declomycin Rash; Recorded By: Maximino Gutiérrez; 09/19/2020 12:04:17 PM Demerol TABS Headache; Nausea; Recorded By: Maximino Gutiérrez; 09/19/2020 12:04:17 PM doxycycline Headache; nose bleed; Recorded By: Maximino Gutiérrez; 09/19/2020 12:04:17 PM Erythromycin Derivatives Rash; Recorded By: Maximino Gutiérrez; 09/19/2020 12:04:17 PM Guiatex Rash; Recorded By: Maximino Gutiérrez; 09/19/2020 12:04:17 PM HYDROcodone-Acetaminophen TABS Itching; Recorded By: Maximino Gutiérrez; 09/19/2020 12:04:17 PM Levaquin TABS Headache; Recorded By: Maximino Gutiérrez; 09/23/2020 4:33:50 PM Morphine Derivatives Nausea; Recorded By: Maximino Gutiérrez; 09/19/2020 12:04:17 PM Oruvail Rash; Recorded By: Maximino Gutiérrez; 09/19/2020 12:04:17 PM Penicillins Rash; Recorded By: Maximino Gutiérrez; 09/19/2020 12:04:17 PM Robitussin Rash; Recorded By: Maximino Gutiérrez; 09/19/2020 12:04:17 PM Seldane-D Headache; Recorded By: Maximino Gutiérrez; 09/19/2020 12:04:17 PM Sulfur Rash; Recorded By: Maximino Gutiérrez; 09/19/2020 12:04:17 PM Tavist Headache; Rash; Recorded By: Maximino Gutiérrez; 09/19/2020 12:04:17 PM Tussionex Pennkinetic ER LQCR Nausea; Recorded By: Maximino Gutiérrez; 09/19/2020 12:04:17 PMDenied Adhesive Tape Recorded By: Maximino Gutiérrez; 09/19/2020 12:04:17 PM Iodinated Contrast Media Recorded By: Maximino Gutiérrez; 09/19/2020 12:04:17 PM Latex Recorded By: Maximino Gutiérrez; 09/19/2020 12:04:17 PM Current Meds Amitriptyline HCl - 10 MG Oral Tablet;Ther apy: (Recorded:19Sep2020) to Recorded Atenolol 25 MG Oral Tablet;Therapy: (Recorded:19Sep2020) to Recorded Calcium TABS;Therapy: (Recorded:19Sep2020) to Recorded Clindamycin HCl - 300 MG Oral Capsule;Therapy: (Recorded:[id number]) to Recorded Digoxin-Tab 0.25 MG TABS;Therapy: (Recorded:69Syg0918) to Recorded Esomeprazole Magnesium 20 MG Oral Capsule Delayed Release;Therapy: (Recorded:92Nuq1335) to Recorded Glucophage 850 MG TABS;Therapy: (Recorded:60Gbz7845) to Recorded ICaps MV TABS;Therapy: (Recorded:59Lgh7373) to Recorded Ipratropium-Albuterol 0.5-2.5 (3) MG/3ML Inhalation Solution;Therapy: (Recorded:29Izc0132) to Recorded predniSONE 5 MG Oral Tablet;Therapy: (Recorded:01Raz4624) to Recorded Simvastatin 20 MG Oral Tablet;Therapy: (Recorded:22Wdb3050) to Recorded traMADol HCl - 50 MG Oral Tablet;Therapy: (Recorded:43Zmv7171) to RecordedLD-2 weeks ago Tylenol TABS;Therapy: (Recorded:05Eun9042) to Recorded Ventolin HFA AERS;Therapy: (Recorded:10Twq2532) to Recorded Vitamin D3 50 MCG (1999 UT) Oral Capsule;Therapy: (Recorded:89Guj0244) to Recorded Past Medical History Denied: History of Clotting disorder History of anemia (V12.3) (Z86.2) Denied: History of anticoagulant therapy History of arthritis (V13.4) (Z87.39) History of asthma (V12.69) (Z87.09) History of chronic obstructive lung disease (V12.69) (Z87.09) History of gastroesophageal reflux (GERD) (V12.79) (Z87.19) History of hyperlipidemia (V12.29) (Z86.39) History of hypertension (V12.59) (Z86.79) History of type 2 diabetes mellitus (V12.29) (Z86.39) History of Prediabetes (790.29) (R73.03) Surgical History Denied: History of Cardioverter defibrillator insertion History of Cataract surgery 11/23/09-RT History of Cholecystectomy History of Colonic polypectomy History of Foot surgery History of Hip replacement 01/2011-RT, 05/19/18-LT History of Hysterectomy History of Neck surgery 1995-discectomy Denied: History of Pacemaker insertion History of Rectal tumor removal History of Sinus surgery 09/02/10 History of Tonsillectomy VitalsVital Signs Recorded: 23Sep2020 12:54PM Height: 4 ft 10.5 inWeight: 111 lb BMI Calculated: 22.8BSA Calculated: 1.43Systolic: 116, SittingDiastolic: 74, SittingHeart Rate: 64Respiration: 16Height measured w/wo shoes: w/shoesPain Scale: 8Depression: 0ORT: LR Physical ExamPhysical Exam:. The patient is a well-nourished, well-developed female in no acute distress who janny ears stated age without any assistive devices.The patient is alert and oriented times 3 with normal speech and affect. The heart and lung examinations are within normal limits.MSK Lumbar:She has tenderness to palpation over the right SI joint.There is a positive TED, Gaenslen's, compression, and distraction tests.She has minimal pain with back extension or forward flexion. Results/DataMRI of the lumbar spine performed on 08/13/2020 is remarkable for severe central canal stenosis at the L3-4 level due to degenerative changes. Assessment 1. Sacroiliitis (720.2) (M46.1) Plan 1. MIPS - Survey Evaluation Evaluation Status: Complete Done: [id number] Depression Screening - Patient's PHQ-9 score is: : 0 - 4 none ...No fup plan neededHave you EVER received a Pneumococcal Vaccine...? : No - Patient has never received a Pneumococcal vaccinationFLU - Have you received a flu shot in 2020 ? : No - Influenza not previously received due to patient declined or other patient reasonsBMI for Patients 18 and over : 18.5 - 24.9 BMI within normal parameters, no follow-up plan neededDo you use any kind of Tobacco? (smokes or uses smokeless tobacco): : Patient identified as a NON-Tobacco User<OBX.5.1><OBX.5.1.1>WOMEN </OBX.5.1.1><OBX.5.1.2> ANYONE >/= 65 - How many times in the past year have you had 4 or more</OBX.5.1.2></OBX.5.1> drinks in a day? : ZeroMEN < 65 - How many times in the past year have you had 5 or more drinks in a day? : N/A Patient was counseled on all of the following: Medications: We will not start any new medications today. CIRCULAR KNIFE CUTTER MACHINE was consulted by my designee and I have reviewed the information presented to me and find no aberrant compliance issues. Patient has been informed. Nerve Blocks: An order was placed for a right-sided SI joint injection to be completed under fluoroscopic guidance. Clearance, no. NSAIDs, no. Sedation, no. ASIPP Risk Stratification of Patients presenting for Interventional Pain Procedures: Decreasing Morbidity of COVID-19 Points: 3Points: 3Points: 2Points: 0Points: 0Points: 0Points: 0Points: 0Total Points: 8 According to the Covid-19 ASIPP guidelines and the medical history as relayed to me by the patient, the Covid-19 risk stratification is medium. NERVE BLOCK: The material risks, benefits, alternatives have been discussed with the patient, including no treatment. They include, but are not limited to, bleeding, bruising, infection, damage to targeted and non-targeted tissue, increased pain, nerve injury or other reaction, if severe, could lead to CVA, arrhythmias or . The patient was given procedure instructions and educational material for this specific proce dure at the time of the visit. Patient denies current treatment with anti- coagulation therapy. PHQ-9 Patient's PHQ-9 score was 0-4 suggesting a Minimal level of Depression. No further plan is required at this time. The PHQ-9 was administered today as part of routine health risk screening for depression and psychosocial functioning. Screening for depression in chronic pain patients is standard of care due to the high rate of co-morbidity between these illnesses. In conjunction with other health risk assessment screening data, such as the Opioid Risk Tool and Visual Analogue Scale, this information is imperative for determining the patients risk factors and potential comorbidities prior to determining a safe and effective treatment plan. Medical Risk Factors: The medical risk factors include chronic prednisone therapy for sinusitis. Discussion/SummaryThidamion is an 85-year-old female patient with right-sided sacroiliitis. Her primary pain complaint does seem to be the SI joint despite having severe central canal stenosis on a recent MRI scan of the lumbar spine. She does not endorse any claudicatory symptoms in her lower extremities and her pain can be present with a flexion position as well. The patient has a complicated allergy/hypersensitivity history. She did say that recent steroid injections that were given to her in the gluteal region in an office setting in [place], [place], did not cause any issues with her, although there is some information she gave us about a shot causing trouble with her heart. She is on chronic prednisone for sinusitis and was asking about immunosuppression with steroids, but I advised her that steroids we administer with the SI joint injection would not worsen any immunocompromised state that she is already in with her chronic steroid usage. The patient inquired about getting the shingles vaccine and I did advise her to wait at least 2 weeks before or after our injection before obtaining that and that if she is already on chronic prednisone therapy, it is probably a moot point. The risks and benefits of the right-sided SI joint injection were discussed with the patient at length today and all her questions were answered to their fullest extent with a teaching sheet provided. Per the COVID-19 risk stratification table, the patient is at moderate risk. She was fully vaccinated against COVID-19 on 05/23/2020. ScribeNYSW Scribe Detail Form: Darlyn Thomason . (iScribes) Signatures Electronically signed by : Laura Kenny MD; Sep 27 2020 1:09PM EST (Author) Name Value Range Interpretation Code Description Data Kamilla rce(s) Supporting Document(s) ID Date Data Source [id number] 08/20/2020 06:29:25 PM EDT [facility] PCName: Chloe MoncadaDOB: 1935Provider: Yessenia Estes: 08/17/2020 Reason For VisitChloe Moncada is here today for L Spine. Chloe had his first Covid vaccine on 04/25/20. Chloe had his second Covid vaccine on 05/23/20. Chloe Moncada is here for evaluation of MRI results and Chloe Moncada is here for a medication refill. L Spine MRI review done at [facility] on 08/13/20, needs refill on tramadol Other DOI/DOO: 05/2018. The patient has had a course of physical therapy for greater than 4 weeks. Physical therapy and/or home exercise program has not been effective. The patient has not had a course of NSAIDs for greater than 4 weeks. The patient's pain is managed by [facility] . Patient is retired. History of Present IllnessThidamion is an 85-year-old female who continues to struggle with pain in the lower back and right buttock. She gets some referred pain into the right lateral calf and diffusely into the right foot as well. She tells me that she has increased pain with extensive standing, bending, twisting, etc. This got worse with manipulation of her back and legs with a physical therapist. She is here to review her lumbar MRI scan. Results/Data OtherLumbar MRI scan was performed at [facility] 08[facility]13[facility]. This shows advanced multilevel degenerative disc and joint disease diffusely. There is moderate to severe central stenosis at L3-4. Moderate to severe multilevel foraminal stenosis, more severe on the right, L3-4 and L4-5. Severe bilateral foraminal stenosis bilateral L5-S1. PlanPlan, Assessment and Recommendation(s) Assessment: Lumb ar stenosis without claudication, diffuse degenerative disc disease lumbar spine, facet arthropathy lumbar spine. Plan: Although she does have diffuse stenosis in her lower back, her symptoms are more suspicious for SI joint dysfunction in my opinion. I am referring her to [facility] for an SI joint injection on the right for both diagnostic and therapeutic purposes. I am also requesting that they take over her tramadol. I am happy to cover that in the meantime because she takes it very sparingly and it does help. If the SI joint injection does not help, I recommend an epidural injection at L4-5. I would not recommend surgery, nor does the patient want it. Follow-up with me as needed only. This document was dictated and electronically signed using CellPhire Speaking software. A reasonable attempt at proof reading has been made to minimize errors. Please call with any questions. Signatures Electronically signed by : Margot Lei; Aug 17 2020 1:59PM EST (Author) Electronically signed by : Zach Hilliard M.D.; Aug 20 2020 6:29PM EST Name Value Range Interpretation Code Description Data Kamilla rce(s) Supporting Document(s) ID Date Data Source [id number] 07/28/2020 11:07:06 AM EDT [facility] PCName: Chloe WootenB: 1935Provider: Yessenia Estes: 07/25/2020 Reason For VisitChloe Moncada is here today for L Spine. Chloe had his first Covid vaccine on 04/25/20. Chloe had his second Covid vaccine on 05/23/20. Chloe Moncada is an established patient here for follow up. L Spine follow up,last seen 2019 by [facility], did have some xrays , did attend some PT, reports LBP with radiation to RLE Other DOI/DOO: 05/2018. The patient has had a course of physical therapy for greater than 4 weeks. The patient has not had a course of NSAIDs for greater than 4 weeks. The patient's pain is managed by [facility] . Patient is retired. History of Present IllnessThis is an 85-year-old female complaining of chronic lower back pain. She was going to physical therapy in January 2020. She tells me the therapist manipulated her right leg and she has had increased pain ever since. She tells me her right foot now face is slightly awkward since that manipulation. 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 She describes numbness and tingling in the right lower leg and right foot. She has a history of lumbar stenosis. She has been advised not to take NSAIDs due to her cardiac history. She has had rashes in the past with codeine derivatives. The pain is mainly in the right lower back extending into the belt line and right upper buttock. She really does not complain of any other leg pain. She has had trigger point injections in the past without relief. She has never had any epidural injections or surgery in the low back. Results/Data I reviewed the report of previous xrays taken at [facility] on 06/21/2020. Moderately oblique pelvis on x-ray. Moderate to severe diffuse degenerative disc changes most severe at L2-3 L3-4. 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 Plan: I recommend an updated lumbar MRI scan to fur ther evaluate her symptoms. She may benefit from epidural injections versus right SI joint injection depending on MRI results. I did give her a small supply of tramadol in the meantime. Unfortunately there are not really a lot of options for pain medications given her history of allergies. This document was dictated and electronically signed using SlideRocket software. A reasonable attempt at proof reading has been made to minimize errors. Please call with any questions. Signatures Electronically signed by : Margot Lei; Jul 25 2020 1:09PM EST (Author) Electronically signed by : Zach Hilliard M.D.; Jul 28 2020 11:07AM EST Name Value Range Interpretation Code Description Data Kamilla rce(s) Supporting Document(s) ID Date Data Source [id number] 06/27/2020 11:50:00 AM EDT [facility] ([facility]) Name Value Range Interpretation Code Description Data Kamilla rce(s) Supporting Document(s) Bacteria identified in Urine by Culture Laboratory test result [facility] ([facility]) <content>FULL REPORT IN LAB NOTES ([facility] nd [facility]).</content>
<content></content>
<content>ORGANISM 1: ESCHERICHIA COLI</content>
<content></content>
<content>COLONY COUNT > 100,000</content>
<content></content>
<content></content>
<content>O RGANISM 1: ESCHERICHIA COLI</content>
<content></content>
<content> ESCHERICHIA COLI: REACTION</content>
<content>TRIMETHOPRIM/SULFAMETHOXAZOLE IV 160mg TMP & 800mg SMXq6h <=20 S</content>
<content> TRIMETHOPRIM/SULFAMETHOXAZOLE PO Bactrim DS Bid <=20 S</content>
<content>AMPICILLIN IV 500mg q6h 4 S</content>
<content>AMPICILLIN PO 500mg q6h fasting 4 S</content>
<content>GENTAMICIN IV 80mg q8h <=1 S</content>
<content>NITROFURANTOIN PO 100mg BID <=16 S</content>
<content>CEFAZOLIN IV 1gm q8h <=4 S</content>
<content> LEVOFLOXACIN IV 500mg qd <=0.12 S</content>
<content>LEVOFLOXACIN PO 250mg qd <=0.12 S</content>
<content>LEVOFLOXACIN PO 500mg qd <=0.12 S</content>
<content>TOBRAMYCIN IV 80mg q8h <=1 S</content>
<content>CEFTRIAXONE IV 1gm q24h <=1 S</content>
<content>CEFTAZIDIME IV 1gm q8h <=1 S</content>
<content> AMPICILLIN/SULBACTAM IV 1.5g q6h <=2 S</content>
<content>PIPERACILLIN/TAZOBACTAM IV 2.25 gm q6h <=4 S</content>
<content>AZTREONAM IV 1gm q8h <=1 S</content>
<content>ERTAPENEM IV 1gm qd <=0.5 S</content>
<content>MEROPENEM IV 1 gm q8h <=0.25 S</content>
<content>MEROPENEM IV 500 mg q8h <=0.25 S</content>
<content>TIGECYCLINE IV 50mg q12h <=0.5 S</content>
<content>CEFEPIME IV 1 gm q12h <=1 S</content>
<content>CEFEPIME IV 2 gm q12h <=1 S</content>
<content>EXTD BRD SPCTRM BETA LACTAMASE IV NEGATIVE FOR ESBL</content>
<content></content> ID Date Data Source [id number] 06/27/2020 11:50:00 AM EDT [facility] ([facility]) Name Value Range Interpretation Code Description Data Kamilla rce(s) Supporting Document(s) Urine Color Laboratory test result [facility] T ([facility]) Urine PH 6.0 units 5.0-9.0 [facility] Urine Appearance Laboratory test result Abnormal (applies to non-numeric results) [facility] Specific gravity of Urine 1.020 1.005-1.030 [facility] Urine Leukocytes Laboratory test result Abnormal (applies to non-numeric results) [facility] Urine Protein Laboratory test result 0-0 Abnormal (applies to non-numeric results) [facility] Urine Blood Laboratory test result Abnormal (applies to non-numeric results) [facility] ([facility]) Glucose [Presence] in Urine Laboratory test result [facility] Urine Nitrite Laboratory test result Abnormal (applies to non-numeric results) [facility] Urine Ketone Laboratory test result [facility] ([facility]) Bilirubin.total [Mass/volume] in Serum or Plasma Laboratory test resu lt [facility] Urine Urobilinogen 0.2 mg/dL 0.2-1.0 [facility] ([facility]) ID Date Data Source [id number] 06/21/2020 10:05:00 AM EDT [facility] Name Value Range Interpretation Code Description Data Kamilla rce(s) Supporting Document(s) Triiodothyronine (T3) Free [Mass/volume] in Serum or Plasma 3.2 pg/ mL 2.2-4.0 [facility] ([facility]) <content>note:<nlbl:demographic_changed> </content>
<content></content> Thyroxine (T4) free [Mass/volume] in Serum or Plasma 0.79 ng/dL 0.76- 1.46 [facility] ([facility]) <content>note:<nlbl:demographic_changed> </content>
<content></content> ID Date Data Source [id number] 06/21/2020 10:05:00 AM EDT [facility] Name Value Range Interpretation Code Description Data Kamilla rce(s) Supporting Document(s) Ssa Sjogrens A Laboratory test result 0.0-0.9 [facility] SSB Sjogrens B Laboratory test result 0.0-0.9 [facility] ([facility]) Performed at: RN - [facility] [address] [id number] Studio Technician: Cathryn Presley MD, Phone: [phone] ID Date Data Source [id number] 06/21/2020 10:05:00 AM EDT [facility] ([facility]) Name Value Range Interpretation Code Description Data Kamilla rce(s) Supporting Document(s) T Uptake 34 % 30-39 [facility]) Thyroxine (T4) 6.8 ug/dL 4.5-12.0 [facility] ([facility]) Free Thyroxine Index 2.3 % 1.3-4.8 [facility] ([facility]) Thyroid Stimulating Hormone 1.780 uIU/ML 0.358-3.740 [facility] ([facility]) ID Date Data Source [id number] 06/07/2020 08:46:00 AM EST [facility] ([facility]) Name Value Range Interpretation Code Description Data Kamilla rce(s) Supporting Document(s) Digoxin [Mass/volume] in Serum or Plasma 0.7 ng/mL 0.5-2.0 [facility] ([facility]) <content>note:<nlbl:demographic_changed> </content>
<content></content> ID Date Data Source [id number] 06/07/2020 08:45:00 AM EST [facility] ([facility]) Name Value Range Interpretation Code Description Data Kamilla rce(s) Supporting Document(s) Glucose [Mass/volume] in Serum or Plasma 95 mg/dL 74-99 [facility] ([facility]) 100-125 mg/dL PRE-DIABETES/FASTING >126 mg/dL DIABETES/FASTING Urea nitrogen [Mass/volume] in Serum or Plasma 30 mg/dL 7-18 [facility] ([facility]) Sodium [Moles/volume] in Serum or Plasma 142 meq/L 136-145 [facility] ([facility]) Creatinine 1.3 mg/dL 0.6-1.3 [facility]) Potassium [Moles/volume] in Serum or Plasma 3.9 meq/L 3.5-5.1 [facility] ([facility]) Chloride [Moles/volume] in Serum or Plasma 103 meq/L 98-107 [facility] ([facility]) Carbon dioxide, total [Moles/volume] in Serum or Plasma 30 meq/L 21 -32 [facility] ([facility]) Calcium [Mass/volume] in Serum or Plasma 8.9 mg/dL 8.5-10.1 [facility] ([facility]) Alkaline phosphatase isoenzyme [Units/volume] in Serum or Pl asma 34 mg/dL 46-116 [facility] ([facility]) Total Bilirubin 0.4 mg/dL 0.2-1.0 [facility] ([facility]) Alanine aminotransferase [Enzymatic activity/volume] in Seru m or Plasma 35 U/L 12-78 [facility] ([facility]) Aspartate aminotransferase [Enzymatic activity/volume] in Serum or Plasma 22 U/L 15-37 [facility] ([facility] ) Albumin [Mass/volume] in Serum or Plasma 3.8 g/dL 3.4-5.0 [facility] ([facility]) Proteinase 3 Ab [Units/volume] in Serum 7.4 g/dL 6.4-8.2 [facility] ([facility]) A/G Ratio 1.06 CALC 1.00-1.90 [facility]) Glomerular filtration rate/1.73 sq M pre dicted among blacks [Volume Rate/Area] in Serum or Plasma by Creatinine-based formula (MDRD) 47 mL/min [facility] <content>CHRONIC KIDNEY DISEASE STAGING PER NKF</content>
<content></content>
<content>STAGE I & II GFR >= 60 NORMAL TO MILDLY DECREASED</content>
<content>STAGE III GFR 30-59 MODERATELY DECREASED</content>
<content>STAGE IV GFR 15-29 SEVERELY DECREASED</content>
<content>STAGE V GFR <15 VERY LITTLE GFR LEFT</content>
<content>ESRD GFR <15 ON COMBINATION PRESSER</content>
<content></content> Glomerular filtration rate/1.73 sq M pre dicted among non-blacks [Volume Rate/Area] in Serum or Plasma by Creatinine-based formula (MDRD) 39 mL/min [facility] ([facility]) ID Date Data Source [id number] 06/07/2020 08:45:00 AM EST [facility] ([facility]) Name Value Range Interpretation Code Description Data Kamilla rce(s) Supporting Document(s) Leukocytes [#/volume] in Blood by Automated count 8.3 x10*3/UL 4.1-10 .9 [facility] ([facility]) Erythrocytes [#/volume] in Blood by Automated count 3.65 x10*6/UL 4.2 0-6.30 [facility] ([facility]) Hemoglobin [Mass/volume] in Blood 12.0 g/dL 12.0-18.0 [facility] ([facility]) MCV 93.2 fL 80.0-97.0 [facility]) Hematocrit [Volume Fraction] of Blood by Automated count 34.0 % 3 7.0-51.0 [facility] ([facility]) MCHC 35.4 g/dL 31.0-38.0 [facility] MCH 33.0 pg 26.0-32.0 [facility]) Erythrocyte distribution width [Ratio] by Automated count 12.6 % 11.6-13.7 [facility] ([facility]) Platelets [#/volume] in Blood by Automated count 218 x10*3/UL 140-440 [facility] ([facility]) MPV 8.3 FL 7.8-11.0 [facility] Lymph % 22.4 % 10.0-58.5 [facility] Neut % 71.3 % 37.0-92.0 [facility] Mid % 6.3 % 1.7-9.3 [facility] Lymph # 1.8 x10*3/UL 0.6-4.1 [facility] ([facility]) Mid # 0.6 x10*3/UL 0.1-0.6 [facility] ([facility]) Neut # 5.9 x10*3/UL 2.0-7.8 [facility] ([facility]) ID Date Data Source [id number] 06/06/2020 10:14:00 AM EST [facility] ([facility], ) Name Value Range Interpretation Code Description Data Kamilla rce(s) Supporting Document(s) PDFReport Laboratory test result [facility] ([facility], ) FVC-Pred 1.96 L [facility] ([facility]) FVC-%Pred-Pre 93 L [facility] ([facility]) FVC-LLN 1.35 L [facility] ([facility]) FVC-Pre 1.83 L [facility] ([facility]) Fev1-%Pred-Pre 86 L [facility] ([facility]) Fev1-Pre 1.24 L [facility] ([facility]) Fev1-Pred 1.43 L [facility] ([facility]) Fev6-Pred 1.83 L [facility] ([facility]) Fev1-LLN 0.92 L [facility] ([facility]) Fev6-Pre 1.83 L [facility] ([facility]) Fev6-%Pred-Pre 100 L [facility] ([facility]) Fev6-LLN 1.23 L [facility] ([facility]) Jqa7doj-Eooc 73 % [facility] ([facility]) Tqr2uzg-%Pred-Pre 92 % [facility] ([facility]) Eku3bcq-Kgz 68 % [facility] ([facility]) Nll1efs-Ryx 100 % [facility] ([facility]) Zzo7niv-Krsz 93 % [facility] ([facility]) Njf3dnb-VXE 63 % [facility] ([facility]) Xha9gvm-%Pred-Pre 107 % [facility] ([facility]) FEFMax-Pred 3.80 L/E/sec [facility] ([facility]) FEFMax-LLN 2.29 L/E/sec [facility] ([facility]) FEFMax-%Pred-Pre 98 L/E/sec [facility] ([facility]) FEFMax-Pre 3.73 L/E/sec [facility] ([facility]) Wgm8742-Rizm 0.98 L/E/sec [facility] ([facility]) Mwa3109-Sau 0.71 L/E/sec [facility] ([facility]) Jik8648-IGR -0.11 L/E/sec [facility] ([facility]) Ygb3555-%Pred-Pre 72 L/E/sec [facility] ([facility]) Znv6szt4-Csl 68 % [facility] ([facility]) Gmm4wzv9-Depw 77 % [facility] ([facility]) ExpTime-Pre 6.03 sec [facility] ([facility]) Hwj5vyt4-%Pred-Pre 88 % [facility] ([facility]) Aom3psq5-FQE 68 % [facility] ([facility]) ID Date Data Source [id number] 03/04/2020 10:00:00 AM EST [facility] Name Value Range Interpretation Code Description Data Kamilla rce(s) Supporting Document(s) SARS coronavirus 2 RNA [facility] This lab was ordered by [facility] and reported by [facility]. ID Date Data Source [id number] 12/28/2019 11:06:00 AM EDT [facility] ([facility]) Name Value Range Interpretation Code Description Data Kamilla rce(s) Supporting Document(s) Digoxin [Mass/volume] in Serum or Plasma 1.1 ng/mL 0.5-2.0 [facility] ([facility]) <content>note:<nlbl:demographic_changed> </content>
<content></content> ID Date Data Source [id number] 12/28/2019 11:06:00 AM EDT [facility] ([facility]) Name Value Range Interpretation Code Description Data Kamilla rce(s) Supporting Document(s) Glucose [Mass/volume] in Serum or Plasma 114 mg/dL 74-99 [facility] ([facility]) 100-125 mg/dL PRE-DIABETES/FASTING >126 mg/dL DIABETES/FASTING Urea nitrogen [Mass/volume] in Serum or Plasma 24 mg/dL 7-18 [facility] ([facility]) Sodium [Moles/volume] in Serum or Plasma 140 meq/L 136-145 [facility] ([facility]) Creatinine 1.2 mg/dL 0.6-1.3 [facility] Potassium [Moles/volume] in Serum or Plasma 4.3 meq/L 3.5-5.1 [facility] ([facility]) Chloride [Moles/volume] in Serum or Plasma 104 meq/L 98-107 [facility] ([facility]) Alkaline phosphatase isoenzyme [Units/volume] in Serum or Pl asma 33 mg/dL 46-116 [facility] ([facility]) Carbon dioxide, total [Moles/volume] in Serum or Plasma 27 meq/L 21 -32 [facility] ([facility]) Calcium [Mass/volume] in Serum or Plasma 9.3 mg/dL 8.5-10.1 [facility] ([facility]) Aspartate aminotransferase [Enzymatic activity/volume] in Serum or Plasma 25 U/L 15-37 [facility] ([facility] ) Total Bilirubin 0.5 mg/dL 0.2-1.0 [facility] ([facility]) Alanine aminotransferase [Enzymatic activity/volume] in Seru m or Plasma 34 U/L 12-78 [facility] ([facility]) Albumin [Mass/volume] in Serum or Plasma 3.8 g/dL 3.4-5.0 [facility] ([facility]) A/G Ratio 0.93 CALC 1.00-1.90 [facility] ([facility]) Proteinase 3 Ab [Units/volume] in Serum 7.9 g/dL 6.4-8.2 [facility] ([facility]) Glomerular filtration rate/1.73 sq M pre dicted among non-blacks [Volume Rate/Area] in Serum or Plasma by Creatinine-based formula (MDRD) 43 mL/min [facility] Glomerular filtration rate/1.73 sq M pre dicted among blacks [Volume Rate/Area] in Serum or Plasma by Creatinine-based formula (MDRD) 52 mL/min [facility] <content>CHRONIC KIDNEY DISEASE STAGING PER NK[facility]</content>
<content></content>
<content>STAGE I & II GFR >= 60 NORMAL TO MILDLY DECREASED</content>
<content>STAGE III GFR 30-59 MODERATELY DECREASED</content>
<content>STAGE IV GFR 15-29 SEVERELY DECREASED</content>
<content>STAGE V GFR <15 VERY LITTLE GFR LEFT</content>
<content>ESRD GFR <15 ON COMBINATION PRESSER</content>
<content></content> ID Date Data Source [id number] 12/28/2019 11:06:00 AM EDT [facility]) Name Value Range Interpretation Code Description Data Kamilla rce(s) Supporting Document(s) Glucose mean value [Mass/volume] in Blood Estimated fr om glycated hemoglobin 137 mg/dL 60-110 [facility] ([facility] ) Hemoglobin A1c/Hemoglobin.total in Blood 6.4 % [facility] ([facility]) Lab Result Notes: Pre-Diabetes 5.7 - 6.4 % Diabetes = or > 6.5% ID Date Data Source [id number] 12/28/2019 11:06:00 AM EDT [facility]) Name Value Range Interpretation Code Description Data Kamilla rce(s) Supporting Document(s) Leukocytes [#/volume] in Blood by Automated count 11.0 x10*3/UL 4.1-1 0.9 [facility] Hemoglobin [Mass/volume] in Blood 12.1 g/dL 12.0-18.0 [facility] Erythrocytes [#/volume] in Blood by Automated count 3.75 x10*6/UL 4.2 0-6.30 [facility] Hematocrit [Volume Fraction] of Blood by Automated count 34.4 % 3 7.0-51.0 [facility]) MCV 91.8 fL 80.0-97.0 [facility] ([facility]) MCH 32.3 pg 26.0-32.0 [facility] ([facility]) Platelets [#/volume] in Blood by Automated count 223 x10*3/UL 140-440 [facility] Erythrocyte distribution width [Ratio] by Automated count 12.8 % 11.6-13.7 [facility] ([facility] MCHC 35.2 g/dL 31.0-38.0 [facility] ([facility]) Lymph % 10.9 % 10.0-58.5 [facility] ([facility]) Mid % 4.2 % 1.7-9.3 [facility] ([facility]) MPV 8.5 FL 7.8-11.0 [facility] ([facility]) Lymph # 1.2 x10*3/UL 0.6-4.1 [facility] ([facility]) Neut # 9.3 x10*3/UL 2.0-7.8 [facility] ([facility]) Mid # 0.5 x10*3/UL 0.1-0.6 [facility] ([facility]) Neut % 84.9 % 37.0-92.0 [facility] ([facility]) ID Date Data Source [id number] 12/28/2019 11:06:00 AM EDT [facility] ([facility]) Name Value Range Interpretation Code Description Data Kamilla rce(s) Supporting Document(s) Hemoglobin A1c/Hemoglobin.total in Blood Laboratory test result [facility] Procedure Social History Code Duration Value Status Description Data Source(s ) Smoking 12/02/2020 12:00:00 AM EDT Patient is a former smoker completed Patient is a former smoker [facility] ([facility] ) Smoking 10/25/2020 12:00:00 AM EDT Former Smoker completed Former Smoker eCW1 ([facility]) Smoking 09/07/2020 12:00:00 AM EDT Former Smoker completed Former Smoker eCW1 ([facility]) Vital Signs ID Date Data Source UNK Name Value Range Interpretation Code Description Data Source(s) Systolic blood pressure 128 mm[Hg] 128 mm[Hg] [facility]) [place] body weight 100 [lb_av] 100 [lb_av[facility] Body surface area Derived from formula 1.44 m2 1.44 m2 [facility] ([facility]) Body mass index (BMI) [Ratio] 21.1 kg/m2 21.1 k g/m2 [facility] ([facility]) Body weight 48.989 kg 48.989 kg [facility] ([facility]) Diastolic blood pressure 72 mm[Hg] 72 mm[Hg] [facility] ([facility]) Heart rate 59 /min 59 /min [facility] ([facility]) Oxygen saturation in Arterial blood by Pulse oximetry 99 % 99 % [facility] ([facility]) Body height 60 [in_i] 60 [in_i] [facility] ([facility]) 5'0" Body weight 108.00 [lb_av] 108.00 [lb_av] [facility] ([facility]) Body weight 107.00 [lb_av] 107.00 [lb_av] [facility] Systolic blood pressure 120 mm[Hg] 120 mm[Hg] [facility] ([facility]) Diastolic blood pressure 60 mm[Hg] 60 mm[Hg] [facility] ([facility]) Heart rate 60 /min 60 /min [facility] ([facility]) Body height 59 [in_i] 59 [in_i] [facility] ([facility]) 4'11" Body mass index (BMI) [Ratio] 21.6 kg/m2 21.6 k g/m2 [facility] ([facility]) Systolic blood pressure 110 mm[Hg] 110 mm[Hg] [facility] ([facility]) Body mass index (BMI) [Ratio] 21.3 kg/m2 21.3 k g/m2 [facility] ([facility]) Body height 60 [in_i] 60 [in_i] [facility] ([facility]) 5'0" Body weight 109.00 [lb_av] 109.00 [lb_av] [facility] ([facility]) Body surface area Derived from formula 1.44 m2 1.44 m2 [facility] ([facility]) Heart rate 63 /min 63 /min [facility] ([facility]) Diastolic blood pressure 60 mm[Hg] 60 mm[Hg] [facility] ([facility]) Oxygen saturation in Arterial blood by Pulse oximetry 97 % 97 % [facility] ([facility]) [place] body weight 100 [lb_av] 100 [lb_av] [facility] T ([facility]) Body weight 49.442 kg 49.442 kg [facility] ([facility]) Body weight 108.00 [lb_av] 108.00 [lb_av] [facility] T ([facility]) Diastolic blood pressure 678 mm[Hg] 678 mm[Hg] [facility] ([facility]) Systolic blood pressure 132 mm[Hg] 132 mm[Hg] [facility]) Body height 59 [in_i] 59 [in_i] [facility] ([facility]) 4'11" Body mass index (BMI) [Ratio] 21.8 kg/m2 21.8 k g/m2 [facility] ([facility]) Heart rate 70 /min 70 /min [facility] ([facility]) Body weight 100 [lb_av] 100 [lb_av] eCW1 ([facility]) Body height 60 [in_i] 60 [in_i] eCW1 ([facility]) Body mass index (BMI) [Ratio] 19.53 kg/m2 19.53 kg/m2 eCW1 ([facility]) Heart rate 61 /min 61 /min eCW1 ([facility]) Respiratory rate 18 /min 18 /min eCW1 ([facility]) Body temperature [degF] eCW1 ([facility]) Systolic blood pressure 153 mm[Hg] 153 mm[Hg] e CW1 ([facility]) Diastolic blood pressure 65 mm[Hg] 65 mm[Hg] eCW1 ([facility]) Diastolic blood pressure 67 mm[Hg] 67 mm[Hg] eCW1 ([facility]) Body weight 111.4 [lb_av] 111.4 [lb_av] eCW1 ([facility]) Body height 60 [in_i] 60 [in_i] eCW1 ([facility]) Body mass index (BMI) [Ratio] 21.75 kg/m2 21.75 kg/m2 eCW1 ([facility]) Heart rate 61 /min 61 /min eCW1 ([facility]) Respiratory rate 18 /min 18 /min eCW1 ([facility]) Body temperature 98.0 [degF] 98.0 [degF] eCW1 ( [facility]) Systolic blood pressure 150 mm[Hg] 150 mm[Hg] e CW1 ([facility]) Systolic blood pressure 124 mm[Hg] 124 mm[Hg] M [facility] ([facility]) Body weight 111.38 [lb_av] 111.38 [lb_av] [facility] T ([facility]) Diastolic blood pressure 60 mm[Hg] 60 mm[Hg] [facility] ([facility]) Body height 59.50 [in_i] 59.50 [in_i] [facility] ([facility]) .50" Body mass index (BMI) [Ratio] 22.1 kg/m2 22.1 k g/m2 [facility] ([facility]) Diastolic blood pressure 70 mm[Hg] 70 mm[Hg] [facility] ([facility]) Heart rate 67 /min 67 /min [facility] ([facility]) Body height 59.50 [in_i] 59.50 [in_i] [facility] ([facility]) 11.50" Body weight 110.00 [lb_av] 110.00 [lb_av] [facility] T ([facility]) Body mass index (BMI) [Ratio] 21.8 kg/m2 21.8 k g/m2 [facility] ([facility]) Systolic blood pressure 118 mm[Hg] 118 mm[Hg] M [facility] ([facility]) Systolic blood pressure 120 mm[Hg] 120 mm[Hg] [facility]) Diastolic blood pressure 60 mm[Hg] 60 mm[Hg] [facility] ([facility]) Body height 60 [in_i] 60 [in_i] [facility] ([facility]) 5'0" Body weight 109.00 [lb_av] 109.00 [lb_av] [facility] Body mass index (BMI) [Ratio] 21.3 kg/m2 21.3 k g/m2 [facility] ([facility]) [place] body weight 100 [lb_av] 100 [lb_av] [facility] Body weight 49.442 kg 49.442 kg [facility] ([facility]) Heart rate 62 /min 62 /min [facility] ([facility]) Oxygen saturation in Arterial blood by Pulse oximetry 98 % 98 % [facility] ([facility]) Body temperature 96.7 [degF] 96.7 [degF] [facility] ([facility]) Body surface area Derived from formula 1.44 m2 1.44 m2 [facility] ([facility]) Body weight 108.4 [lb_av] 108.4 [lb_av] eCW1 ([facility]) Body height 60 [in_i] 60 [in_i] eCW1 ([facility]) Body mass index (BMI) [Ratio] 21.17 kg/m2 21.17 kg/m2 W1 ([facility]) Heart rate 76 /min 76 /min eCW1 ([facility]) Respiratory rate 18 /min 18 /min eCW1 ([facility]) Body temperature 97.9 [degF] 97.9 [degF] eCW1 ( [facility]) Systolic blood pressure 179 mm[Hg] 179 mm[Hg] e CW1 ([facility]) Diastolic blood pressure 78 mm[Hg] 78 mm[Hg] eCW1 ([facility]) Body weight 108.00 [lb_av] 108.00 [lb_av] [facility] T ([facility]) Body mass index (BMI) [Ratio] 21.4 kg/m2 21.4 k g/m2 [facility] ([facility]) Systolic blood pressure 120 mm[Hg] 120 mm[Hg] M [facility] ([facility]) Diastolic blood pressure 70 mm[Hg] 70 mm[Hg] [facility] ([facility]) Body height 59.50 [in_i] 59.50 [in_i] [facility] ([facility]) 4'11.50" Body height 59.50 [in_i] 59.50 [in_i] [facility] ([facility]) 4'11.50" Diastolic blood pressure 68 mm[Hg] 68 mm[Hg] [facility] ([facility]) Body weight 106.00 [lb_av] 106.00 [lb_av] [facility] T ([facility]) Body mass index (BMI) [Ratio] 21.0 kg/m2 21.0 k g/m2 [facility] ([facility]) Systolic blood pressure 110 mm[Hg] 110 mm[Hg] M [facility] ([facility]) Body temperature 97.4 [degF] 97.4 [degF] [facility] ([facility] ) Systolic blood pressure 162 mm[Hg] 162 mm[Hg] M [facility] ([facility]) Body height 59.50 [in_i] 59.50 [in_i] [facility] ([facility]) 4'11.50" Body weight 112.00 [lb_av] 112.00 [lb_av] [facility] T ([facility]) Body mass index (BMI) [Ratio] 22.2 kg/m2 22.2 k g/m2 [facility] ([facility]) Diastolic blood pressure 70 mm[Hg] 70 mm[Hg] [facility] ([facility]) Heart rate 56 /min 56 /min [facility] ([facility]) Diastolic blood pressure 58 mm[Hg] 58 mm[Hg] [facility] Heart rate 51 /min 51 /min [facility] Body mass index (BMI) [Ratio] 21.3 kg/m2 21.3 k g/m2 [facility] ([facility] Body height 60 [in_i] 60 [in_i] [facility] ([facility] 5'0" Body weight 109.00 [lb_av] 109.00 [lb_av] [facility] T ([facility] Systolic blood pressure 150 mm[Hg] 150 mm[Hg] M [facility] ([facility] Patient Treatment Plan of Care Planned Activity Planned Date Details Description Data Source (s) tramadol hydrochloride 50 MG Oral Tablet 09/07/2020 12:00:00 AM EDT eCW1 ([facility]) tramadol hydrochloride 50 MG Oral Tablet 09/07/2020 12:00:00 AM EDT eCW1 ([facility])
[2021-01-31] MEDS: NS 1,000 ML IV SCH (14:50)
[2021-01-31 14:59] LABS: CK-MB VALUE MASS 2.4 NG/ML (<3.6); CPK CREATINE PHOSPHOKINASE 105 U/L (26-192); MB/CK RELATIVE INDEX 2.29 (< OR =4); TROPONIN I < 0.02 NG/ML (< 0.10)
--- NOTE | 2021-01-31 18:36 | ECGEPIP ---
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
[2021-01-31] MEDS: ACETAMINOPHEN TAB 650MG DOSE (2X325MG) PO PRN ×2 (19:29→23:41)
[2021-01-31 20:00] VITALS: BP 142/52
[2021-01-31 20:14] LABS: CK-MB VALUE MASS 2.7 NG/ML (<3.6); CPK CREATINE PHOSPHOKINASE 142 U/L (26-192); TROPONIN I < 0.02 NG/ML (< 0.10)
[2021-01-31] MEDS: FLUTICASONE HFA 220 MCG 12 GM INHALER (FLOVENT) INH SCH (20:45)
[2021-01-31] MEDS: AMITRIPTYLINE 10MG TABLET PO SCH (21:00)
[2021-01-31] MEDS: DOCUSATE SODIUM 100MG CAPSULE PO SCH (21:01)
[2021-01-31] MEDS: SIMVASTATIN 20 MG TAB PO SCH (21:01)
[2021-01-31] MEDS: HEPARIN SOD (PORCINE) 5000UNITS/ML 1ML VIAL/SYRINGE SC SCH (21:02)
[2021-02-01] VITALS: BP 147/67
[2021-02-01] MEDS: MORPHINE 4 MG/ML 1ML VIAL/SYRINGE (J2270) IV PRN ×4 (01:10→17:48)
[2021-02-01] MEDS: NS 1,000 ML IV SCH (03:57)
[2021-02-01 04:00] VITALS: BP 147/70
[2021-02-01] MEDS: ACETAMINOPHEN TAB 650MG DOSE (2X325MG) PO PRN (04:14)
[2021-02-01 05:45] LABS: BASO % 0.3 % (0.0-1.0); EOS # 0.5 10^3/uL (0.0-0.5); HEMATOCRIT 33.7 % (36.0-47.0); HEMOGLOBIN 10.8 g/dl (12.0-15.5); LYMPH # 1.6 10^3/uL (1.5-5.0); LYMPH % 17.4 % (24.0-44.0); MEAN CORPUSCULAR HEMOGLOBIN 32.1 pg (27.0-33.0); MEAN CORPUSCULAR VOLUME 100.3 fl (80.0-96.0); MONO # 1.5 10^3/uL (0.0-0.8); MONO % 15.8 % (2.0-8.0); NEUTROPHILS # 5.8 10^3/uL (1.5-8.5); NEUTROPHILS % 60.9 % (36.0-66.0); PLATELET COUNT, AUTOMATED 166 10^3/uL (150-450); RED BLOOD COUNT 3.36 10^6/uL (4.00-5.40); WHITE BLOOD COUNT 9.4 10^3/uL (4.0-10.0)
[2021-02-01 06:11] LABS: CALCIUM LEVEL 8.1 MG/DL (8.8-10.2); CREATININE FOR GFR 1.23 MG/DL (0.55-1.30); GLOMERULAR FILTRATION RATE 44.3 (>32); MAGNESIUM LEVEL 2.2 MG/DL (1.8-2.4); POTASSIUM SERUM 4.5 MEQ/L (3.5-5.1)
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
[2021-02-01 08:00] VITALS: BP 146/66
[2021-02-01] MEDS: FLUTICASONE HFA 220 MCG 12 GM INHALER (FLOVENT) INH SCH ×2 (08:14→19:33)
[2021-02-01] MEDS: atenoloL 25 MG TAB PO SCH (08:26)
[2021-02-01] MEDS: DOCUSATE SODIUM 100MG CAPSULE PO SCH ×2 (08:27→20:30)
[2021-02-01] MEDS: OMEPRAZOLE 20 MG CAP PO SCH (08:27)
[2021-02-01] MEDS: MORPHINE 15 MG SA TAB PO SCH ×2 (08:27→20:31)
[2021-02-01] MEDS: VITAMIN D 1,000 INTERNATIONAL UNITS TABLET PO SCH (08:28)
[2021-02-01] MEDS: HEPARIN SOD (PORCINE) 5000UNITS/ML 1ML VIAL/SYRINGE SC SCH ×2 (08:28→20:31)
[2021-02-01] MEDS: predniSONE 5 MG TAB PO SCH (08:28)
[2021-02-01] MEDS ORDERED: DIGOXIN 0.25 MG TAB PO SCH (09:00)
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
--- NOTE | 2021-02-01 10:48 | REP ---
INDICATION: Evaluate for rib/sternum fractures. COMPARISON: CT chest 01/31/2021 TECHNIQUE: AP supine chest with multiple bilateral rib images. FINDINGS: AP supine chest: Lungs are well inflated. There is no pleural effusion or acute infiltrate. Some chronic mild interstitial changes are suggested. Heart size not grossly enlarged. There is calcified at the arch in without gross aneurysm. Airway midline. No effusion or pneumothorax. Visualized bones show some degenerative changes spine and shoulders but no gross fracture. There are right upper quadrant clips from prior cholecystectomy. Bilateral ribs: There is no visible or displaced rib fracture or focal lesion. No lateral pleural thickening or haziness in either lung zimmerman suggest a layering pleural effusion on this supine exam. Clavicles and shoulders as well spine shows some degenerative changes but no acute bony finding. IMPRESSION: 1. No plain film evidence of displaced rib fracture, pleural thickening, effusion or pneumothorax although the exam would be insensitive for that for as it is a supine exam. Please note the sternum is poorly evaluated on this study but was seen well on yesterday's CT chest without a visible disrupted cortical fracture. However there does appear to be some mild soft tissue swelling over the central sternum and a smooth uninterrupted contour concavity of the upper sternum on the sagittal reconstructions. Please correlate clinically with palpation. I have placed an arrow on image 55 of the sagittal reconstructions on that CT showing the area of mild soft tissue swelling. Is there point tenderness in this region? <Electronically signed by Jaime More > 02/01/21 1040
[2021-02-01 12:00] VITALS: BP 136/71
[2021-02-01 13:00] VITALS: BP 133/63
[2021-02-01] MEDS: SIMVASTATIN 20 MG TAB PO SCH (20:30)
[2021-02-01] MEDS: AMITRIPTYLINE 10MG TABLET PO SCH (20:31)
[2021-02-01 22:00] VITALS: BP 162/68
[2021-02-02] MEDS: MORPHINE 4 MG/ML 1ML VIAL/SYRINGE (J2270) IV PRN ×2 (03:44→11:01)
[2021-02-02 06:00] VITALS: BP 146/67
[2021-02-02 07:21] LABS: BASO % 0.3 % (0.0-1.0); EOS # 0.5 10^3/uL (0.0-0.5); EOS % 3.8 % (0.0-3.0); HEMATOCRIT 34.7 % (36.0-47.0); HEMOGLOBIN 11.3 g/dl (12.0-15.5); LYMPH # 1.9 10^3/uL (1.5-5.0); LYMPH % 15.9 % (24.0-44.0); MEAN CORPUSCULAR HEMOGLOBIN 32.1 pg (27.0-33.0); MEAN CORPUSCULAR HGB CONC 32.6 g/dl (32.0-36.5); MEAN CORPUSCULAR VOLUME 98.6 fl (80.0-96.0); MONO # 1.4 10^3/uL (0.0-0.8); MONO % 11.4 % (2.0-8.0); NEUTROPHILS # 8.1 10^3/uL (1.5-8.5); NEUTROPHILS % 68.3 % (36.0-66.0); PLATELET COUNT, AUTOMATED 144 10^3/uL (150-450); RED BLOOD COUNT 3.52 10^6/uL (4.00-5.40); WHITE BLOOD COUNT 11.8 10^3/uL (4.0-10.0)
[2021-02-02 07:44] LABS: CALCIUM LEVEL 8.3 MG/DL (8.8-10.2); CREATININE FOR GFR 1.03 MG/DL (0.55-1.30); GLOMERULAR FILTRATION RATE 54.3 (>32); MAGNESIUM LEVEL 2.3 MG/DL (1.8-2.4); POTASSIUM SERUM 4.3 MEQ/L (3.5-5.1)
[2021-02-02] MEDS: FLUTICASONE HFA 220 MCG 12 GM INHALER (FLOVENT) INH SCH (07:45)
[2021-02-02] MEDS: HEPARIN SOD (PORCINE) 5000UNITS/ML 1ML VIAL/SYRINGE SC SCH (08:00)
[2021-02-02] MEDS: DOCUSATE SODIUM 100MG CAPSULE PO SCH (08:01)
[2021-02-02] MEDS: OMEPRAZOLE 20 MG CAP PO SCH (08:01)
[2021-02-02] MEDS: VITAMIN D 1,000 INTERNATIONAL UNITS TABLET PO SCH (08:01)
[2021-02-02] MEDS: MORPHINE 15 MG SA TAB PO SCH (08:02)
[2021-02-02] MEDS: predniSONE 5 MG TAB PO SCH (08:02)
[2021-02-02 08:03] VITALS: BP 149/65
[2021-02-02] MEDS: atenoloL 25 MG TAB PO SCH (08:03)
[2021-02-02] MEDS ORDERED: LIDOCAINE 5% (LIDODERM) PATCH TD SCH (09:00)
[2021-02-02] MEDS ORDERED: MORP15TASA PO (10:53)
[2021-02-02] MEDS ORDERED: MORP4INJ2 IV (10:53)
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
[2021-02-02] MEDS ORDERED: **NOTE PATIENT COMMENT** MISC XX SCH (21:00)
== END 2021-02-02 13:19 | DRG 384 ==
LOC: EDBD 10:06 → M ED 11:14 → M ED INP 13:58 → ENRESERV 19:10 → M PCU 19:36 → M MSPAV 02-01 12:59
PROVIDERS: ADMIT Internal Medicine; ATTEND Internal Medicine
DX: S20.219A Contusion of unspecified front wall of thorax, initial encounter (principal); E87.2 Acidosis; I48.91 Unspecified atrial fibrillation; J45.909 Unspecified asthma, uncomplicated; E78.5 Hyperlipidemia, unspecified; E55.9 Vitamin D deficiency, unspecified; K21.9 Gastro-esophageal reflux disease without esophagitis; H26.9 Unspecified cataract; Z98.1 Arthrodesis status; Z96.643 Presence of artificial hip joint, bilateral; Z87.891 Personal history of nicotine dependence; R07.89 Other chest pain; M54.9 Dorsalgia, unspecified; Z20.822 Contact with and (suspected) exposure to COVID-19; Z79.52 Long term (current) use of systemic steroids; Z79.899 Other long term (current) drug therapy; Z88.6 Allergy status to analgesic agent; Z88.1 Allergy status to other antibiotic agents; Z88.2 Allergy status to sulfonamides; Z88.5 Allergy status to narcotic agent; Z88.8 Allergy status to other drugs, medicaments and biological substances; V43.53XA Car driver injured in collision with pick-up truck in traffic accident, initial encounter; Y92.410 Unspecified street and highway as the place of occurrence of the external cause; Y99.8 Other external cause status; Y93.89 Activity, other specified

== ENCOUNTER 2021-02-02 12:42 | Inpatient (IN) | payer OTHER, MEDICARE, BC ==
[~2021-02-02] VITALS: Ht 144.8 cm; Wt 50.8 kg
[~2021-02-02 12:42] MED LIST changes: +D31000TA2 PO; +ESOM0.1C PO; +FLUT22IN INH; +IPRA2IN NEB; +MORP15TASA PO; +MORP4INJ2 IV
[2021-02-02] MEDS ORDERED: ACETAMINOPHEN TAB 650MG DOSE (2X325MG) PO PRN (13:00)
[2021-02-02 14:00] VITALS: BP 152/67
--- OUTSIDE RECORDS SUMMARY | 2021-02-02 14:19 | CCD ---
Author Author [facility] Organization [facility] Address Unknown Phone Unavailable Care Team Providers Care Tube Backer Name Role Phone Leeanna SIMS JRC Unavailable Unavailable PICKLeeanna SAL JR PA-C Unavailable Unavailable PICKERAL Leeanna WARE PA-C Unavailable Unavailable Leeanna SIMS JR PA-C Unavailable Unavailable Leeanna SIMS JR PA-C Unavailable Unavailable PICKLeeanna SAL JR PA-C Unavailable Unavailable PICKLeeanna SAL JR PA-C Unavailable Unavailable PICKERAL JR J BALTA PA-C Unavailable Unavailable PICKERAL JR J BALTA PA-C Unavailable Unavailable PICKERAL JR J BALTA PA-C Unavailable Unavailable HOMERERAL JR J BALTA PA-C Unavailable Unavailable Leeanna SIMS JR PA-C Unavailable Unavailable Leeanna SIMS JR PA-C Unavailable Unavailable LEVI WARE J BALTA PA-C Unavailable Unavailable LEVI WARE J BALTA PA-C Unavailable Unavailable Leeanna SIMS JR PA-C Unavailable Unavailable Leeanna SIMS JR PA-C Unavailable Unavailable Leeanna SIMS JR PA-C Unavailable Unavailable PICKJONELLE WARE J BALTA PA-C Unavailable Unavailable PICKJONELLE WARE J BALTA PA-C Unavailable Unavailable PICKERAL JR, J BALTA PA-C Unavailable Unavailable PICKERAL JR, J BALTA PA-C Unavailable Unavailable PICKERAL JR, J BALTA PA-C Unavailable Unavailable PICKERAL JR, J BALTA PA-C Unavailable Unavailable PICKERAL JR, J BALTA PA-C Unavailable Unavailable PICKERAL JR, J BALTA PA-C Unavailable Unavailable PICKERAL JR, J BALTA PA-C Unavailable Unavailable SEARS, A SANFORD DO Unavailable [...] R AYANNA DPM Unavailable Unavailable MAJAK, R AYANAN DPM Unavailable Unavailable MAJAK, R AYANNA DPM [...] Unavailable Unavailable Lux Mccoy MD Unavailable Unavailable Lux Mccoy MD Unavailable Unavailable Lux Mccoy MD Unavailable Unavailable Lux Mccoy MD Unavailable Unavailable Lux Mccoy MD Unavailable Unavailable Lux Mccoy MD Unavailable Unavailable Lux Mccoy MD Unavailable Unavailable Lux Mccoy MD Unavailable Unavailable NadineLux jose MD Unavailable Unavailable NadineLux jose MD Unavailable Unavailable Lux Mccoy MD Unavailable Unavailable NadineLux jose MD Unavailable Unavailable NadineLux jose MD Unavailable Unavailable WoodlandLux jose MD Unavailable Unavailable NadineLux jose MD Unavailable Unavailable WoodlandLux jose MD Unavailable Unavailable WoodlandLux jose MD Unavailable Unavailable NadineLux jose MD Unavailable Unavailable WoodlandLux jose MD Unavailable Unavailable WoodlandLux jose MD Unavailable Unavailable WoodlandLux MD Unavailable Unavailable WoodlandLux MD Unavailable Unavailable NadineLux MD Unavailable Unavailable NadineLux MD Unavailable Unavailable NadineLux MD Unavailable Unavailable WoodlandLux MD Unavailable Unavailable NadineLux MD Unavailable Unavailable WoodlandLux MD Unavailable Unavailable NadineLux MD Unavailable Unavailable NadineLux MD Unavailable Unavailable WoodlandLux MD Unavailable Unavailable NadineLux MD Unavailable Unavailable WoodlandLux MD Unavailable Unavailable NadineLux MD Unavailable Unavailable NadineLux MD Unavailable Unavailable NadineLux MD Unavailable Unavailable WoodlandLux MD Unavailable Unavailable WoodlandLux MD Unavailable Unavailable WoodlandLux MD Unavailable Unavailable WoodlandLux MD Unavailable Unavailable NadineLux MD Unavailable Unavailable WoodlandLux MD Unavailable Unavailable WoodlandLux MD Unavailable Unavailable WoodlandLux MD Unavailable Unavailable WoodlandLux MD Unavailable Unavailable NadineLux MD Unavailable Unavailable NadineLux MD Unavailable Unavailable NadineLux MD Unavailable Unavailable WoodlandLux MD Unavailable Unavailable NadineLux MD Unavailable Unavailable WoodlandLux MD Unavailable Unavailable WoodlandLux MD Unavailable Unavailable NadineLux MD Unavailable Unavailable WoodlandLux MD Unavailable Unavailable WoodlandLux MD Unavailable Unavailable WoodlandLux jose MD Unavailable Unavailable NadineLux MD Unavailable Unavailable NadineLux MD Unavailable Unavailable NadineLux jose MD Unavailable Unavailable NadineLux MD Unavailable Unavailable NadineLux MD Unavailable Unavailable NadineLux jose MD Unavailable Unavailable NadineLux jose MD Unavailable Unavailable NadineLux MD Unavailable Unavailable NadineLux MD Unavailable Unavailable WoodlandLux MD Unavailable Unavailable NadineLux MD Unavailable Unavailable WoodlandLux MD Unavailable Unavailable NadineLux MD Unavailable Unavailable WoodlandLux MD Unavailable Unavailable NadineLux MD Unavailable Unavailable WoodlandLux MD Unavailable Unavailable NadineLux MD Unavailable Unavailable NadineLux MD Unavailable Unavailable NadineLux MD Unavailable Unavailable NadineLux MD Unavailable Unavailable NadineLux MD Unavailable Unavailable NadineLux MD Unavailable Unavailable WoodlandLux MD Unavailable Unavailable [place], Lux Hernandez MD Unavailable Unavailable Nadine, Lux Hernandez MD Unavailable Unavailable WoodlandLux MD Unavailable Unavailable NadineLux MD Unavailable Unavailable NadineLux MD Unavailable Unavailable NadineLux MD Unavailable Unavailable NadineLux MD Unavailable Unavailable TALYA, Leeanna VENCES MD [...] Unavailable TALYALeeanna MD Unavailable Unavailable TALYA, Leeanna EVNCES MD Unavailable Unavailable TALYA, Leeanna VENCES MD [...] Unavailable TALYA, Leeanna VENCES MD Unavailable Unavailable GREENKY, B RYAN MD [...] Unavailable GREENKY, B RYAN MD Unavailable Unavailable Filomena VILLEGAS MD Unavailable Unavailable Filomena VILLEGAS MD Unavailable Unavailable Filomena VILLEGAS MD Unavailable Unavailable Filomena VILLEGAS MD Unavailable Unavailable Filomena VILLEGAS MD Unavailable Unavailable Filomena VILLEGAS MD Unavailable Unavailable Filomena VILLEGAS MD Unavailable Unavailable Filomena VILLEGAS MD Unavailable Unavailable Filomena VILLEGAS MD Unavailable Unavailable Filomena VILLEGAS MD Unavailable Unavailable Filomena VILLEGAS MD Unavailable Unavailable Filomena VILLEGAS MD Unavailable Unavailable Filomena VILLEGSA MD Unavailable Unavailable Filomena VILLEGAS MD Unavailable Unavailable Filomena VILLEGAS MD Unavailable Unavailable Filomena VILLEGAS MD Unavailable Unavailable Filomena VILLEGAS MD Unavailable Unavailable Filomena VILLEGAS MD Unavailable Unavailable Filomena VILLEGAS MD Unavailable Unavailable Filomena VILLEGAS MD Unavailable Unavailable Filomena VILLEGAS MD Unavailable Unavailable Filomena VILLEGAS MD Unavailable Unavailable Filomena VILLEGAS MD Unavailable Unavailable Filomena VILLEGAS MD Unavailable Unavailable Filomena VILLEGAS MD Unavailable Unavailable Filomena VILLEGAS MD Unavailable Unavailable Filomena VILLEGAS MD Unavailable Unavailable Filomena VILLEGAS MD Unavailable Unavailable Filomena VILLEGAS MD Unavailable Unavailable Filomena VILLEGAS MD Unavailable Unavailable Filomena VILLEGAS MD Unavailable Unavailable Filomena VILLEGAS MD Unavailable Unavailable Filomena VILLEGAS MD Unavailable Unavailable Filomena VILLEGAS MD Unavailable Unavailable Filomena VILLEGAS MD Unavailable Unavailable Filomena VILLEGAS MD Unavailable Unavailable HANIFIN, M KRISTIAN PA [...] Unavailable Unavailable Pardeep KENNY MD Unavailable Unavailable Lux Mccoy MD Unavailable Unavailable Lux Mccoy MD Unavailable Unavailable Lux Mccoy MD Unavailable Unavailable Lux Mccoy MD Unavailable Unavailable Lux Mccoy MD Unavailable Unavailable Lux Mccoy MD Unavailable Unavailable Lux Mccoy MD Unavailable Unavailable Lux Mccoy MD Unavailable Unavailable Lux Mccoy MD Unavailable Unavailable Lux Mccoy MD Unavailable Unavailable Lux Mccoy MD Unavailable Unavailable Lux Mccoy MD Unavailable Unavailable Lux Mccoy MD Unavailable Unavailable Lux Mccoy MD Unavailable Unavailable WoodlandLux MD Unavailable Unavailable WoodlandLux MD Unavailable Unavailable WoodlandLux MD Unavailable Unavailable NadineLux MD Unavailable Unavailable NadineLux MD Unavailable Unavailable WoodlandLux MD Unavailable Unavailable WoodlandLux MD Unavailable Unavailable WoodlandLux MD Unavailable Unavailable NadineLux MD Unavailable Unavailable NadineLux MD Unavailable Unavailable NadineLux MD Unavailable Unavailable WoodlandLux MD Unavailable Unavailable WoodlandLux MD Unavailable Unavailable NadineLux MD Unavailable Unavailable NadineLxu MD Unavailable Unavailable NadineLux MD Unavailable Unavailable WoodlandLux MD Unavailable Unavailable WoodlandLux MD Unavailable Unavailable WoodlandLux MD Unavailable Unavailable NadineLux MD Unavailable Unavailable NadineLux MD Unavailable Unavailable WoodlandLux MD Unavailable Unavailable WoodlandLux MD Unavailable Unavailable NadineLux MD Unavailable Unavailable WoodlanduLx MD Unavailable Unavailable NadineLux MD Unavailable Unavailable WoodlandLux MD Unavailable Unavailable NadineLux MD Unavailable Unavailable WoodlandLux MD Unavailable Unavailable NadineLux MD Unavailable Unavailable WoodlandLux MD Unavailable Unavailable WoodlandLux MD Unavailable Unavailable NadineLux MD Unavailable Unavailable WoodlandLux MD Unavailable Unavailable NadineLux MD Unavailable Unavailable WoodlandLux MD Unavailable Unavailable WoodlandLux MD Unavailable Unavailable WoodlandLux MD Unavailable Unavailable WoodlandLux MD Unavailable Unavailable WoodlandLux MD Unavailable Unavailable WoodlandLux MD Unavailable Unavailable WoodlandLux MD Unavailable Unavailable WoodlandLux MD Unavailable Unavailable NadineLux MD Unavailable Unavailable WoodlandLux MD Unavailable Unavailable WoodlandLux MD Unavailable Unavailable WoodlandLux MD Unavailable Unavailable WoodlandLux MD Unavailable Unavailable NadineLux MD Unavailable Unavailable NadineLux MD Unavailable Unavailable NadineLux MD Unavailable Unavailable NadnieLux MD Unavailable Unavailable WoodlandLux MD Unavailable Unavailable NadineLux MD Unavailable Unavailable WoodlandLux MD Unavailable Unavailable Nadine, Lux David PHILLIPS Unavailable Unavailable Woodland Lux David PHILLIPS Unavailable Unavailable Nadine Lux David PHILLIPS Unavailable Unavailable Nadine Lux David PHILLIPS Unavailable Unavailable Woodland Lux David HPILLIPS Unavailable Unavailable Nadine Lux David PHILLIPS Unavailable Unavailable Nadine Lux David PHILLIPS Unavailable Unavailable Woodland, Lux David PHILLIPS Unavailable Unavailable Nadine, Lux David PHILLIPS Unavailable Unavailable Woodland, Lux David PHILLIPS Unavailable Unavailable Nadine Lux David PHILLIPS Unavailable Unavailable Nadine Lux David MD Unavailable Unavailable Woodland, Lux David MD Unavailable Unavailable Woodland, Lux David MD Unavailable Unavailable Nadine, Lux David MD Unavailable Unavailable Nadine, Lux David MD Unavailable Unavailable Woodland, Lux David MD Unavailable Unavailable MICKI, M STACIE PA [...] M STACIE PA Unavailable Unavailable MICKI, M STAICE PA Unavailable Unavailable MICKI, M STACIE PA [...] is protected by Article 27-F of the [facility] Public Health law. If you continue you may have access to information: Regarding HIV / AIDS; Provided by facilities licensed or operated by the [facility] Office of Mental Health; or Provided by the [facility] Office for People With Developmental Disabilities. If such information is present, then the following [facility] mandated warning applies: This information has been [...] law may result in a fine or penitentiary sentence or both. A general authorization for the release of medical or other information is NOT sufficient authorization for further disc losure. Family History Family Member Name Family Member Gender Family Member Status Date o f Status Description Data Source(s) Unknown Male Problem [facility] ([facility] Unknown Male Problem [facility] () Unknown Unknown Problem [facility]) Unknown Unknown Problem [facility] ([facility]) sisters x2 Unknown Unknown Problem [facility] ([facility] ) Unknown Unknown Problem [facility] ([facility] ) Unknown Female Problem [facility] ([facility] Unknown Female Problem [facility] ([facility] ) Unknown Female Problem [facility] ([facility]) Unknown Female Problem [facility] ([facility] ) Unknown Female Problem MED[facility] ([facility] ) Unknown Male Problem [facility] ([facility] Encounters Encounter Providers Location Date Indications Data Source(s ) Outpatient Attender: BALTA Ibarra 0 11/29/2020 02:40:00 PM EDT MED[facility] ([facility] ) Outpatient Attender: SANFORD Banuelos/Robles/Qasim/Diana 11/23/2020 09:00:00 AM EDT [facility] ([facility] Outpatient Attender: David Ibarra 0 11/01/2020 10:40:00 AM EDT [facility] ([facility] ) Outpatient [address] [facility] [address] 10/25/2020 12:00:00 AM EDT eCW1 ([facility]) Recurring Patient Referrer: RU BABIN MD 09/28/2020 11: 51:16 AM EDT [facility] Outpatient Attender: LAURA KENNY MDReferrer: David arcos MD 09/27/2020 01:09:29 PM EDT [facility] Recurring Patient Referrer: RU BABIN MD 09/23/2020 12: 39:43 PM EDT [facility] Recurring Patient Referrer: RU BABIN MD 09/23/2020 12: 14:25 PM EDT [facility] Recurring Patient Referrer: RU BABIN MD 09/23/2020 12: 14:08 PM EDT [facility] Outpatient [address] [facility] [address] 09/07/2020 12:00:00 AM EDT eCW1 ([facility]) Outpatient Attender: KRISTIAN EM PAReferrer: David rizo MD 08/20/2020 06:29:25 PM EDT [facility] Recurring Patient Referrer: RU BABIN MD 08/19/2020 10: 53:24 AM EDT [facility] Recurring Patient Referrer: RU BABIN MD 08/19/2020 10: 52:13 AM EDT [facility] Recurring Patient Attender: RYAN VILLEGAS MDReferrer: David figueroa MD 08/17/2020 12:11:28 PM EDT [facility] Outpatient Attender: AYANNA WHITT [facility] 09/2020 01:45:00 PM EDT [facility] ([facility] Recurring Patient Attender: RYAN VILLEGAS MDReferrer: David figueroa MD 08/01/2020 02:21:18 PM EDT [facility] Recurring Patient Attender: RYAN VILLEGAS MDReferrer: David figueroa MD 08/01/2020 02:00:20 PM EDT [facility] Outpatient Attender: KRISTIAN EM PAReferrer: David rizo MD 07/28/2020 11:07:06 AM EDT [facility] Outpatient Attender: David Ibarra 0 06/27/2020 11:00:00 AM EDT MED[facility] ([facility] ) Recurring Patient Attender: RYNA GARCIAeferrer: David figueroa MD 06/21/2020 04:11:23 PM EDT [facility] Outpatient Attender: BALTA Ibarra 0 06/07/2020 01:00:00 PM EST [facility] ([facility] ) Outpatient Attender: SANFORD Banuelos/Robles/Qasim/Reindl 06/06/2020 09:30:00 AM EST [facility] ([facility] ) Outpatient Attender: AYANNA WHITT [facility] 07/2020 12:45:00 PM EST [facility] ([facility] TeleMedicine Phone E/M by Phys 11-20 Min [address] [place] [address] 04/07/2020 12:00:00 AM EST eCW1 ([facility]) (PN Proc 45) Pain Procedure 45 [address] [place] [address] 03/09/2020 12:00:00 AM EST eCW1 ([facility]) Unknown [address] [facility] [address] 03/08/2020 12:00:00 AM EST eCW1 ([facility]) Outpatient Attender: BALTA Ibarra 1 05/05/2019 12:20:00 PM EST [facility] ([facility] ) [place] [address] [facility] [address] 02/18/2020 12:00:00 AM EST eCW1 ([facility]) Outpatient Attender: BALTA Ibarra 1 04/03/2019 02:20:00 PM EST MED[facility] ([facility] ) Outpatient Attender: STACIE MUELLER Physical Therapy 12/31 02:00:00 PM EDT [facility] ([facility]) Outpatient Attender: David Ibarra 0 12/28/2019 10:40:00 AM EDT MED[facility] ([facility] ) Outpatient Attender: AYANNA WHITT DPM [facility] 11/30 10:45:00 AM EDT [facility] ([facility] Immunizations Vaccine Date Status Description Data Source(s) Influenza, injectable, MDCK, preservative free, juan valent 12/29/2020 08:16:00 AM EDT completed [facility] COVID-19 VACCINE Moderna 05/23/2020 12:00:00 AM EST completed [facility] Vaccine Series Complete: YESThis Data wa s Submitted to [facility] Via [employer]. COVID-19 VACCINE Moderna 04/25/2020 12:00:00 AM EST completed [facility] Vaccine Series Complete: NOThis Data was Submitted to [facility] Via [employer]. Influenza, injectable, MDCK, preservative free, juan valent 12/28/2019 10:48:00 AM EDT completed [facility]) Medications Medication Brand Name Start [...] RE PAIN AND MUSCLE SPASMS SOLD: 01/26/2021 [facility] Administration Of Flu Vaccine 12/29/2020 12:00:00 AM EDT completed [facility] ([facility]) Medication administered onsite NITROFURANTOIN, MACROCRYSTALS 25 MG / Ni trofurantoin, Monohydrate 75 MG Oral Capsule 100 mg NITROFURANTOIN MONOHYD/M-CRYST 11/29/2020 12:00:00 AM EDT ca psule 10 TAKE ONE CAPSULE BY MOUTH TWO TI MES A DAY FOR 5 DAYS TAKE ONE CAPSULE BY MOUTH TWO TIMES A DAY FOR 5 DAYS SOLD: 11/29/2020 [facility] NITROFURANTOIN, MACROCRYSTALS 25 MG / Ni trofurantoin, Monohydrate 75 MG Oral Capsule Nitrofurantoin Monohyd Macro 11/29/2020 12:00:00 AM EDT ORAL active [facility] ([facility]) 220 mcg/actuation 11/23/2020 12:00:00 AM EDT HFA aerosol inh aler 12 INHALE 2 PUFFS BY MOUTH TWO TIMES A DAY INHALE 2 PUFFS BY MOUTH TWO TIMES A DAY SOLD: 11/23/2020 [facility] 220 mcg/actuation 11/23/2020 12:00:00 AM EDT HFA aerosol inh aler 12 INHALE 2 PUFFS BY MOUTH TWO TIMES A DAY INHALE 2 PUFFS BY MOUTH TWO TIMES A DAY SOLD: 12/20/2020 [facility] Esomeprazole 20 MG Delayed Release Oral Capsule ESOMEPRAZOLE MAGNESIUM 11/02/2020 12:00:00 AM EDT capsule,delayed release(DR/EC) 90 TAKE ONE CAPSULE BY MOUTH ONCE DAILY TAKE ONE CAPSULE BY MOUTH ONCE DAILY SOLD: 11/04/2020 [facility] Shingrix Shingrix 09/20/2020 12:00:00 AM EDT activ e [facility] ([facility]) 50 mg 09/08/2020 12:00:00 AM EDT tablet 30 TAKE ONE-HALF TABLET BY MOUTH TWICE A DAY, MAXIMUM DAILY DOSE = ONE TABLET TAKE ONE-HALF TABLET BY MOUTH TWICE A DAY, MAXIMUM DAILY DOSE = ONE TABLET SOLD: 09/10/2020 [employer] [facility] tramadol hydrochloride 50 MG Oral Tablet traMADol HCl 50 MG traMADol HCl 50 MG 09/07/2020 12:00:00 AM EDT active traMADol HCl 50 MG eCW1 ([facility]) tramadol hydrochloride 50 MG Oral Tablet traMADol HCl 50 MG traMADol HCl 50 MG 09/07/2020 12:00:00 AM EDT active traMADol HCl 50 MG eCW1 ([facility]) 50 mg 09/03/2020 12:00:00 AM EDT tablet 14 TAKE ONE TABLET BY MOUTH TWO TIMES A DAY MAXIMUM DAILY DOSE = 2 TABLETS TAKE ONE TABLET BY MOUTH TWO TIMES A DAY MAXIMUM DAILY DOSE = 2 TABLETS SOLD: 09/06/2020 [facility] 50 mg 07/25/2020 12:00:00 AM EDT tablet 14 TAKE ONE TABLET BY MOUTH TWICE A DAY NEEDED , MAXIMUM DAILY DOSE = 2 TABLETS TAKE ONE TABLET BY MOUTH TWICE A DAY NEEDED , MAXIMUM DAILY DOSE = 2 TABLETS SOLD: 07/25/2020 [facility] Covid-19 vaccine, Unspecified 05/23/2020 12:00:00 AM EST completed [facility] Medication administered onsite Covid-19 vaccine, Unspecified 04/25/2020 12:00:00 AM EST completed [facility]) Medication administered onsite Esomeprazole 20 MG Delayed Release Oral Capsule ESOMEPRAZOLE MAGNESIUM 03/22/2020 12:00:00 AM EST capsule,delayed release(DR/EC) 90 TAKE ONE CAPSULE BY MOUTH EVERY DAY TAKE ONE CAPSULE BY MOUTH EVERY DAY SOLD: 03/22/2020 [facility] Albuterol 0.83 MG/ML Inhalant Solution Albuterol Sulfate 1 04/19/2019 12:00:00 AM EST active [facility] ([facility]) 2.5 mg /3 mL [...] 01/20/2020 12:00:00 AM EDT ORAL active MED[facility] ([facility]) gabapentin 100 MG Oral Capsule Gabapentin 01/20/2020 12:00:00 AM EDT ORAL active [facility] ([facility]) 100 mg 01/20/2020 12:00:00 [...] FOUR TIMES A DAY NEEDED SOLD: 03/14/2020 [facility] 90 mcg/actuation 01/07/2020 12:00:00 [...] FOUR TIMES A DAY NEEDED SOLD: 09/06/2020 [facility] 60 ACTUAT Albuterol 0.09 MG/ACTUAT Metered Dose Inhaler Albu terol Sulfate HFA 01/05/2020 12:00:00 AM EDT RESPIRATORY completed [facility] ([facility]) Administration Of Flu Vaccine 12/28/2019 12:00:00 AM EDT completed [facility]) Medication administered onsite 0.5 mg/2 mL 12/15/2019 12:00:00 AM EDT suspension for nebuli zation 120 INHALE 1 AMPOULE VIA NEBULIZER TWO TIMES A DAY INHALE 1 AMPOULE VIA NEBULIZER TWO TIMES A DAY SOLD: 12/16/2019 [facility] bacitracin zinc 0.5 UNT/MG Topical Ointment Bacitracin (Exte rnal) 12/14/2019 12:00:00 AM EDT active M [facility]ENT ([facility] 300 mg 12/10/2019 12:00:00 AM EDT capsule 2 TAKE TWO CAPSULES BY MOUTH 1 HOUR PRIOR TO DENTAL APPOINTMENT TAKE TWO CAPSULES BY MOUTH 1 HOUR PRIOR TO DENTAL APPOINTMENT SOLD: 12/11/2019 [facility] Insurance Providers Payer name Policy type / Coverage type Policy ID Covered alliance party ID Covered alliance party's relationship to dotson Policy [place] Plan Information Medicare Natl Govt Serv Medicare Primary [id number] Self 0 [id number] MEDICARE [id number] SP [id number] A [facility] [id number] Nany XXP [id number] MEDICARE A [id number] Self [id number] A MEDICARE [id number] Nany [id number] Medicare [facility] Primary [id number] Self 0 [id number] Medicare Part B [facility] [id number] 0 [id number] Medicare Natl Govt [facility] Medicare Primary [id number] Self 0 [id number] Medicare Natl Govt Serv Medicare Primary [id number] Self 6 [id number] Medicare [facility] Govt [facility] Medicare Primary [id number] Self 0 [id number] Medicare [facility] Govt Serv Medicare Primary [id number] Self 0 [id number] [place] Primary [id number] Self [id number] Medicare Medicare Primary [id number] Self [id number] Medicare Natl Govt Servic Medicare Primary [id number] Self 6 [id number] Medicare Natl Govt Servic Medicare Primary [id number] Self 0 [id number] MEDICARE A [id number] Self [id number] [id number] Medicare Natl Govt Servic Medicare Primary [id number] Self 0 [id number] Medicare Natl Govt Serv Medicare Primary [id number] Self 6 [id number] MEDICARE [id number] SP [id number] P52 Medicare Natl Govt Servic Medicare Primary [id number] Self 0 [id number] Medicare Natl Govt Serv Medicare Primary [id number] Self 0 [id number] [facility] Jurisdiction A [facility] C [id number] SELF [id number] Medicare Natl Govt Servic Medicare Primary [id number] Self [id number] Medicare Natl Govt Servic Medicare Primary [id number] Self 0 [id number] Medicare Natl Govt Servic Medicare Primary [id number] Self 6 [id number] Medicare C [id number] SELF [id number] P52 Medicare Natl Govt Servic Medicare Primary [id number] Self [id number] Medicare Natl Govt Servic Medicare Primary [id number] Self [id number] Medicare Natl Govt Servic Medicare Primary [id number] 2.16.840.1.519875.3.227.99.4595.8888.0 Self 0 [id number] Medicare Natl Govt Servic Medicare Primary [id number] 2.16.840.1.577741.3.227.99.4595.8888.0 Self 0 [id number] [place] Medicare Primary 2.16.840.1.58420 3.3.227.99.8646.19284.0 Self Medicare Natl Govt Servic Medicare Primary [id number] Self Medicare Natl Govt Servic Medicare Primary [id number] 2.16.840.1.037022.3.227.99.4595.8888.0 Self 6 [id number] Medicare Medicare Primary [id number] Self Medicare Medicare Primary [id number] 2.16.840.1.662688.3.227. 99.802.83803.0 Self [id number] Medicare C [id number] SELF [id number] P52 Medicare Natl Govt Servic Medicare Primary [id number] 2.16.840.1.931301.3.227.99.4595.8888.0 Self 6 [id number] Medicare Natl Govt Servic Medicare Primary [id number] 2.16.840.1.374343.3.227.99.4595.8888.0 Self 6 [id number] BLUE CARD C [id number] Self [id number] [facility] [id number] Self [id number] [facility] Medigap Part B [id number] Self [place] Primary [id number] Self [place] Medicare Primary [id number] 2.16.840.1.852390.3.227.99.991.7530.0 Self 07 [id number] [place] Medicare Primary [id number] 2.16.840.1.946147.3.227.99.991.7530.0 Self 07 [id number] Medicare [place] Medicare Primary [id number] 2.16.840.1.514791.3.227.99.991.7530.0 Self 07 [id number] [place] Medicare Primary [id number] 2.16840.1.466526.3.227.99.991.7530.0 Self 07 [id number] [place] Medicare Primary [id number] 2.840.1.098222.3.227.99.991.7530.0 Self 07 [id number] [facility] Part B 2.0.1.694553.3.227. 99.991.7530.0 Self [place] Medicare Primary [id number] 2.840.1.449326.3.227.99.991.7530.0 Self 07 [id number] [place] Medicare Primary 2.840.1.926424.3.227. 99.991.7530.0 Self [place] Medigap Part B [id number] 2.840.1.1138 83.3.227.99.991.7530.0 Self [id number] [place] Medigap Part B [id number] 2.840.1.798043.3.227.99.991.7530.0 Self [id number] [id number] Medicare [place] Medicare Primary [id number] 2.16840.1.637673.3.227.99.991.7530.0 Self 07 [id number] Medicare [place] Medicare Primary [id number] 2.16840.1.685519.3.227.99.991.7530.0 Self 07 [id number] [facility] Medigap Part B [id number] 2.16.840.1.343895.3.227.99.991.7530.0 Self [id number] [place] Medigap Part B [id number] 2.16.840.1.1138 83.3.227.99.991.7530.0 Self [id number] [place] Medigap Part B [id number] 2.16.840.1.1138 83.3.227.99.991.7530.0 Self [id number] [place] Medigap Part B [id number] 2.16.840.1.593971.3.227.99.991.7530.0 Self 6N [id number] Blue Cross Blue Shield P [id number] SELF [id number] [place] 200/700 [id number] SP [id number] Blue Cross Blue Shield P [id number] SELF [id number] [place] 200/700 [id number] WI2 [id number] Blue Cross Blue Shield P [id number] SELF [id number] Blue Cross Blue Shield P [id number] SELF [id number] Blue Cross Blue Shield P [id number] SELF [id number] Blue Cross Blue Shield P [id number] SELF [id number] [place] [place] 200/700 [id number] SP [id number] Blue Cross Blue Shield P [id number] SELF [id number] Medicare C [id number] SELF [id number] P52 Medicare Part B [facility] [id number] [facility] Jurisdiction A [facility] C [id number] SELF [id number] [place] 200/700 [id number] SP [id number] Progressive Eval Service Medigap Part B [id number] Family Dep endent BCBS Of [facility] Part B [id number] Self [place] 20 S [id number] S [id number] A BCBS [place] PPO 302/307 [id number] SP [id number] MEDICARE [id number] SP [id number] P52 MEDICARE [id number] SP [id number] P52 BCBS [place] PPO 302/307 [id number] SP [id number] [place] 200/700 [id number] WI2 [id number] MEDICARE C [id number] S [id number] P52 EXCELLUS BCBS B [id number] S [id number] [id number] BCBS [place] PPO 302/307 [id number] UNK2 [id number] [facility] P[facility] POS [id number] BS [facility] [id number] Family Dependent [id number] BS [facility] [id number] Family Dependent [id number] [place] [facility] Part B [id number] Self [id number] Medicare Medicare Primary [id number] Self [id number] BS [facility] [id number] 2.16.840.1.791856.3.227.99.4595.8888.0 Family Dependent X [id number] [place] [facility] [id number] 2.16.840.1.599542.3.227.99.936.02415.0 Self X [id number] Medicare Medicare Primary [id number] 2.16.840.1.367334.3.227. 99.936.79219.0 Self [id number] [facility] [id number] 2.16.840.1.992831.3.227.99.4595.8888.0 Family Dependent X [id number] MEDICARE PI PI [facility] PI PI [facility] [id number] 2.0.1.744074.3.227.99.4595.8888.0 Family Dependent X [id number] [facility] [id number] 2.0.1.882565.3.227.99.4595.8888.0 Family Dependent X [id number] [facility] [id number] 2.0.1.411088.3.227.99.4595.8888.0 Family Dependent X [id number] Progressive Eval Service [facility] [id number] 2..840.1.622405.3.227.99.991.7530.0 Family Dependent [id number] Medicare [place] Medicare Primary [id number] 2.16.840.1.815105.3.227.99.991.7530.0 Self 07 [id number] Progressive Eval Service [facility] B [id number] 2.16.840.1.093617.3.227.99.991.7530.0 Family Dependent [id number] Medicare [place] Medicare Primary [id number] 2.16.840.1.758979.3.227.99.991.7530.0 Self 07 [id number] [facility] [id number] 2.16.840.1.940828.3.227.99.4595.8888.0 Family Dependent X [id number] [facility] [id number] 2.16.840.1.865981.3.227.99.4595.8888.0 Family Dependent X [id number] Progressive Eval Service Medigap Part B [id number] 2.16.840.1.214038.3.227.99.991.7530.0 Family Dependent [id number] [place] Medicare Primary [id number] 2.16.840.1.205813.3.227.99.991.7530.0 Self 6N [id number] Progressive Eval Service [facility] Part B [id number] 2.16.840.1.974691.3.227.99.991.7530.0 Family Dependent [id number] [place] Medicare Primary [id number] 2.16.840.1.880202.3.227.99.991.7530.0 Self 6N [id number] Medicare Medigap Part B [id number] 2.16.840.1.790991.3.227.99.802. 81574.0 Self [id number] [facility] Medigap Part B [id number] 2.16.840.1.924393.3.227.99 .802.13192.0 Self [id number] Progressive Eval Service Medigap Part B [id number] 2.16.840.1.741016.3.227.99.991.7530.0 Family Dependent [id number] Medicare [place] Medicare Primary [id number] 2.16.840.1.870311.3.227.99.991.7530.0 Self 6N [id number] BCBS [facility] 200/700 [id number] SP [id number] BS [facility] [id number] 2.16.0.1.803463.3.227.99.4595.8888.0 Family Dependent X [id number] BS [facility] [id number] 2.16.840.1.359545.3.227.99.4595.8888.0 Family Dependent X [id number] MEDICARE C [id number] S [id number] A [facility] [id number] 2.0.1.873460.3.227.99.4595.8888.0 Family Dependent X [id number] [facility] [id number] 2.16.840.1.303334.3.227.99.4595.8888.0 Family Dependent X [id number] Progressive Eval Service [facility] Part B [id number] 2.16.840.1.567112.3.227.99.991.7530.0 Family Dependent [id number] [facility] [id number] 2.16840.1.019304.3.227.99.4595.8888.0 Family Dependent X [id number] Progressive Eval Service [facility] Part B [id number] 2.16.840.1.669199.3.227.99.991.7530.0 Family Dependent [id number] Progressive Eval Service [facility] Part B [id number] 2.16.840.1.411764.3.227.99.991.7530.0 Family Dependent [id number] [facility] [id number] 2.16.840.1.744098.3.227.99.4595.8888.0 Family Dependent X [id number] [employer] Medigap Part B [id number] 2.16.840.1.123480.3.227.99.8646.39206.0 Self [id number] [place] Med[place] Part B [id number] 2.16.0.1.865620.3.227.99 .802.72339.0 Self [id number] [facility] [id number] 2.16.0.1.923289.3.227.99.4595.8888.0 Family Dependent X [id number] [facility] [id number] 2.160.1.367399.3.227.99.4595.8888.0 Family Dependent X [id number] BCBS/Blue Card Medigap Part B [id number] 2.16840.1.655155.3.227.99.1767.04225.0 Self [id number] Medicare Natl Gov't Servi Medicare Primary [id number] 2.0.1.879812.3.227.99.1767.58402.0 Self [id number] Progressive Eval Service Medigap Part B [id number] 2.16840.1.841041.3.227.99.991.7530.0 Family Dependent [id number] Progressive Eval Service Medigap Part B [id number] 2.160.1.055545.3.227.99.991.7530.0 Family Dependent [id number] BS [facility] [id number] 2.16.840.1.779937.3.227.99.4595.8888.0 Family Dependent X [id number] BS [facility] [id number] 2.16.840.1.835436.3.227.99.4595.8888.0 Family Dependent X [id number] Progressive Eval Service [facility] [id number] 2..0.1.345281.3.227.99.991.7530.0 Family Dependent [id number] Progressive Eval Service [facility] [id number] 2.0.1.780843.3.227.99.991.7530.0 Family Dependent [id number] [facility] [id number] 2.0.1.609784.3.227.99.4595.8888.0 Family Dependent X [id number] BC/BS [facility] [id number] 2.0.1.896387.3.227.99.177.66669.0 Family Dependent X [id number] Medicare - NGS Medicare Primary [id number] 2.0.1.296384.3.227.99.177.37254.0 Self 0 [id number] Progressive Eval Service [facility] [id number] 2..0.1.642558.3.227.99.991.7530.0 Family Dependent [id number] [facility] [id number] 2.840.1.551851.3.227.99.4595.8888.0 Family Dependent X [id number] [facility] [id number] 2.16.840.1.688724.3.227.99.4595.8888.0 Family Dependent X [id number] BCBS/Blue Card Medigap Part B 2.16.840.1.031239.3.227.99.176 7.03153.0 Self Medicare Natl Gov't Servi Medicare Primary 2.16.840.1.683795.3.227.99.1767.56330.0 Self [employer] Medigap Part B 2.16.840.1.897525.3.227.99.8646 .42229.0 Self BS [place] [employer] [id number] Family Dependent 200 BCBS [place] Medigap Part B Mass 2.16.840.1.786467.3.227.99.802.5202 3.0 Self Mass Progressive Eval Service Medigap Part B 2.16.840.1.113 883.3.227.99.991.7530.0 Family Dependent EXCELLUS BCBS B [id number] S [id number] Problems, Conditions, and Diagnoses Code Display Name Description Problem Type Effective Dates Data Source(s) G62.9 Neuropathy Neuropathy Problem 10/25/2020 12:00:00 AM ED T eCW1 ([facility]) 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 Lumbar degenerative disc disease Problem 09/07/2020 12:00:00 AM EDT eCW1 ([facility]) 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) OFFICE OUTPATIENT VISIT 25 MINUTES 11/23/2020 12:00:00 AM EDT MED[facility] ([facility]) Mammogram 11/10/2020 12:00:00 AM EDT M EDENT ([facility]) OFFICE OUTPATIENT VISIT 25 MINUTES 11/01/2020 12:00:00 AM EDT MED[facility] ([facility]) OFFICE OUTPATIENT VISIT 25 MINUTES 06/27/2020 12:00:00 AM EDT MEDENT ([facility]) OFFICE OUTPATIENT VISIT 15 MINUTES 06/07/2020 12:00:00 AM EST MEDENT ([facility]) Spirometry 06/06/2020 [facility] OFFICE OUTPATIENT VISIT 15 MINUTES 06/06/2020 12:00:00 AM EST MED[facility] ([facility]) Medication: Benadryl Tab 25mg Orally (Diphenhydramine) 03/09/2020 12:00:00 AM EST eCW1 ([facility]) Unclassified drugs 03/09/2020 12:00:00 AM EST eCW1 ([facility]) ECG ROUTINE ECG W/LEAST 12 LDS W/I&R 12/28/2019 12:00: 00 AM [facility] Diabetic Retinal Eye Exam 12/15/2019 12:00:00 AM EDT MED[facility] ([facility]) Results ID Date Data Source [id number] 01/31/2021 11:36:00 AM EDT [facility] Name Value Range Interpretation Code Description Data Kamilla rce(s) Supporting Document(s) SARS coronavirus 2 RNA [Presence] in Res piratory specimen by GUILLERMO with probe detection NEGATIVE [facility] This lab was ordered by [facility] a nd reported by [facility]. ID Date Data Source [id number] 12/02/2020 08:43:00 AM EDT MED[facility] ([facility]) Name Value Range Interpretation Code Description Data Kamilla rce(s) Supporting Document(s) PDFReport Laboratory test result MEDENT ([facility], ) FVC-Pred 1.96 L MEDENT ([facility]) FVC-%Pred-Pre 102 L MEDENT ([facility]) FVC-LLN 1.35 L [facility] ([facility]) FVC-Pre 2.00 L [facility] ([facility]) Fev1-Pre 1.53 L [facility] ([facility]) Fev1-Pred 1.43 L [facility] ([facility]) Fev1-%Pred-Pre 107 L MED[facility] ([facility]) Fev1-LLN 0.92 L [facility] ([facility]) Fev6-Pred 1.83 L [facility] ([facility]) Fev6-Pre 2.00 L [facility] ([facility]) Fev6-%Pred-Pre 109 L [facility] ([facility]) Ocn8qrr-Yjro 73 % [facility] ([facility]) Fev6-LLN 1.23 L [facility] ([facility]) Fsc5bar-Azf 76 % [facility] ([facility]) Iaj6wna-%Pred-Pre 104 % MED[facility] ([facility]) Cnc7bds-XQO 63 % [facility] ([facility]) Neo6jvc-Ssym 93 % [facility] ([facility]) Nfp1cxw-Acz 100 % [facility] ([facility]) FEFMax-Pre 4.30 L/E/sec MED[facility] ([facility]) FEFMax-Pred 3.80 L/E/sec MED[facility] ([facility]) Rxs7jjn-%Pred-Pre 107 % [facility] ([facility]) FEFMax-%Pred-Pre 113 L/E/sec [facility] ([facility]) Xja5535-Ttwt 0.98 L/E/sec MED[facility] ([facility], ) FEFMax-LLN 2.29 L/E/sec [facility] ([facility]) Ete8120-%Pred-Pre 125 L/E/sec MED[facility] ([facility]) Fti8355-Ezs 1.23 L/E/sec [facility] ([facility], ) Kes4464-ZVO -0.11 L/E/sec [facility] ([facility]) ExpTime-Pre 5.64 sec [facility] ([facility]) Xol5xjy8-Zngp 77 % [facility] ([facility]) Trr4agg1-%Pred-Pre 99 % [facility] ([facility]) Ifv2hze3-Tgu 76 % [facility] ([facility]) Blb6ngw9-PSF 68 % [facility] ([facility]) ID Date Data Source [id number] 11/29/2020 02:27:00 PM EDT [facility] ([facility]) Name Value Range Interpretation Code Description Data Kamilla rce(s) Supporting Document(s) Bacteria identified in Urine by Culture Laboratory test result [facility] <content>FULL REPORT IN LAB NOTES ([facility]</content>
<content></content>
<content>ORGANISM 1: ESCHERICHIA COLI</content>
<content></content>
<content>COLONY [...] S</content>
<content>CEFAZOLIN IV 1gm q8h <=4 S</content>
<content>LEVOFLOXACIN IV 500mg qd <=0.12 S</content>
<content>LEVOFLOXACIN PO 250mg qd <=0.12 S</content>
<content>LEVOFLOXACIN PO 500mg qd <=0.12 S</content>
<content>TOBRAMYCIN IV 80mg q8h <=1 S</content>
<content> CEFTRIAXONE IV 1gm q24h <=1 S</content>
<content>CEFTAZIDIME IV 1gm q8h <=1 S</content>
<content>AMPICILLIN/SULBACTAM IV 1.5g q6h <=2 S</content>
<content>PIPERACILLIN/TAZOBACTAM IV 2.25 gm q6h <=4 S</content>
<content>AZTREONAM IV 1gm q8h <=1 S</content>
<content>ERTAPENEM IV 1gm qd <=0.5 S</content>
<content> MEROPENEM IV 1 gm q8h <=0.25 S</content>
<content>MEROPENEM IV 500 mg q8h <=0.25 S</content>
<content>TIGECYCLINE IV 50mg q12h <=0.5 S</content>
<content>CEFEPIME IV 1 gm q12h <=1 S</content>
<content>CEFEPIME IV 2 gm q12h <=1 S</content>
<content>EXTD BRD SPCTRM BETA LACTAMASE IV NEGATIVE FOR ESBL</content>
<content></content> ID Date Data Source [id number] 11/29/2020 02:27:00 PM EDT MED[facility] ([facility]) Name Value Range Interpretation Code Description Data Kamilla rce(s) Supporting Document(s) Urine Color Laboratory test result MEDEN T ([facility]) Urine Appearance Laboratory test result Abnormal (applies to non-numeric results) [facility] ([facility]) Specific gravity of Urine 1.015 1.005-1.030 ME DENT ([facility]) Urine PH 6.5 units 5.0-9.0 [facility]) Urine Leukocytes Laboratory test result Abnormal (applies to non-numeric results) [facility] ([facility]) Urine Blood Laboratory test result Abnormal (applies to non-numeric results) [facility] ([facility]) Urine Protein Laboratory test result 0-0 Abnormal (applies to non-numeric results) [facility] ([facility]) Urine Nitrite Laboratory test result Abnormal (applies to non-numeric results) [facility] ([facility]) Glucose [Presence] in Urine Laboratory test result [facility] ([facility]) Bilirubin.total [Mass/volume] in Serum or Plasma Laboratory test resu lt [facility] ([facility]) Urine Ketone Laboratory test result MEDE NT ([facility]) Urine Urobilinogen 0.2 mg/dL 0.2-1.0 MED[facility] ([facility]) ID Date Data Source [id number] 11/23/2020 08:42:00 AM EDT MED[facility] ([facility] ) Name Value Range Interpretation Code Description Data Kamilla rce(s) Supporting Document(s) PDFReport Laboratory test result MEDENT ([facility], ) FVC-Pred 1.96 L MED[facility] ([facility]) FVC-Pre 1.71 L [facility] ([facility]) FVC-%Pred-Pre 87 L MED[facility] ([facility] ) FVC-LLN 1.35 L MED[facility] ([facility], ) Fev1-Pred 1.43 L [facility] ([facility], ) Fev1-LLN 0.92 L [facility] ([facility]) Fev1-%Pred-Pre 76 L MED[facility] ([facility]) Fev1-Pre 1.10 L [facility] ([facility]) Fev6-Pred 1.83 L [facility] ([facility]) Fev6-Pre 1.71 L [facility] ([facility]) Fev6-LLN 1.23 L [facility] ([facility]) Fev6-%Pred-Pre 93 L MED[facility] ([facility]) Fjl0okj-Kuyj 73 % [facility] ([facility]) Ocd1zrd-Uvt 65 % [facility] ([facility]) Nsj6xke-%Pred-Pre 88 % [facility] ([facility]) Jon7lzk-VQI 63 % [facility] ([facility]) Jbe2nzo-Vkyq 93 % [facility] ([facility]) Pph4rsq-%Pred-Pre 107 % [facility] ([facility]) Akd1hpp-Wqr 100 % [facility] ([facility]) FEFMax-Pred 3.80 L/E/sec MED[facility] ([facility]) FEFMax-%Pred-Pre 77 L/E/sec [facility] ([facility]) FEFMax-Pre 2.93 L/E/sec [facility] ([facility]) FEFMax-LLN 2.29 L/E/sec [facility] ([facility]) Nxs0930-Kmzg 0.98 L/E/sec [facility] ([facility]) Qrc2014-Jga 0.57 L/E/sec [facility] ([facility]) Bgg4117-RQM -0.11 L/E/sec [facility] ([facility]) Ogh4140-%Pred-Pre 57 L/E/sec [facility] ([facility]) Phb6fgx3-Wox 65 % [facility] ([facility]) Jiv3cvo4-Ywxz 77 % [facility] ([facility]) ExpTime-Pre 5.84 sec [facility] ([facility]) Jdc8yvd2-%Pred-Pre 83 % [facility] ([facility]) Vzk5luo9-XOB 68 % [facility] ([facility]) ID Date Data Source [id number] 11/01/2020 11:08:00 AM EDT [facility] ([facility] Name Value Range Interpretation Code Description Data Kamilla rce(s) Supporting Document(s) Glucose [Mass/volume] in Serum or Plasma 136 mg/dL 74-99 [facility] ([facility]) 100-125 mg/dL PRE-DIABETES/FASTING >126 mg/dL DIABETES/FASTING Creatinine 1.4 mg/dL 0.6-1.3 [facility] ([facility]) Urea nitrogen [Mass/volume] in Serum or Plasma 37 mg/dL 7-18 [facility] ([facility]) Chloride [Moles/volume] in Serum or Plasma 102 meq/L 98-107 [facility] ([facility]) Potassium [Moles/volume] in Serum or Plasma 4.6 meq/L 3.5-5.1 [facility] ([facility]) Sodium [Moles/volume] in Serum or Plasma 140 meq/L 136-145 [facility] ([facility]) Calcium [Mass/volume] in Serum or Plasma 9.7 mg/dL 8.5-10.1 [facility] ([facility]) Alkaline phosphatase isoenzyme [Units/volume] in Serum or Pl asma 43 mg/dL 46-116 [facility] ([facility]) Carbon dioxide, total [Moles/volume] in Serum or Plasma 27 meq/L 21 -32 [facility] ([facility]) Alanine aminotransferase [Enzymatic activity/volume] in Seru m or Plasma 42 U/L 12-78 [facility] ([facility]) Aspartate aminotransferase [Enzymatic activity/volume] in Serum or Plasma 24 U/L 15-37 [facility] ([facility] ) Total Bilirubin 0.6 mg/dL 0.2-1.0 [facility] ([facility]) Proteinase 3 Ab [Units/volume] in Serum 7.3 g/dL 6.4-8.2 [facility] ([facility]) Albumin [Mass/volume] in Serum or Plasma 3.7 g/dL 3.4-5.0 [facility] ([facility]) A/G Ratio 1.03 CALC 1.00-1.90 [facility] Glomerular filtration rate/1.73 sq M pre dicted among blacks [Volume Rate/Area] in Serum or Plasma by Creatinine-based formula (MDRD) 43 mL/min [facility] <content>CHRONIC KIDNEY DISEASE STAGING PER NKF</content>
<content></content>
<content>STAGE I & II GFR >= 60 NORMAL TO MILDLY DECREASED</content>
<content>STAGE III GFR 30-59 MODERATELY DECREASED</content>
<content>STAGE IV GFR 15-29 SEVERELY DECREASED</content>
<content>STAGE V GFR <15 VERY LITTLE GFR LEFT</content>
<content>ESRD GFR <15 ON SAIL FINISHER HAND</content>
<content></content> Glomerular filtration rate/1.73 sq M pre dicted among non-blacks [Volume Rate/Area] in Serum or Plasma by Creatinine-based formula (MDRD) 36 mL/min [facility] ([facility]) ID Date Data Source [id number] 11/01/2020 11:08:00 [facility] Name Value Range Interpretation Code Description Data Kamilla rce(s) Supporting Document(s) Hemoglobin A1c/Hemoglobin.total in Blood 6.3 % [facility] ([facility]) Lab Result Notes: Pre-Diabetes 5.7 - 6.4 % Diabetes = or > 6.5% Glucose mean value [Mass/volume] in Blood Estimated fr om glycated hemoglobin 134 mg/dL 60-110 [facility] ([facility] ID Date Data Source [id number] [facility]/01[facility]2020 [facility] Name Value Range Interpretation Code Description Data Kamilla rce(s) Supporting Document(s) Leukocytes [#/volume] in Blood by Automated count 12.7 x10*3/UL 4.1-1 0.9 [facility] ([facility]) Hemoglobin [Mass/volume] in Blood 12.0 g/dL 12.0-18.0 [facility] ([facility]) Erythrocytes [#/volume] in Blood by Automated count 3.80 x10*6/UL 4.2 0-6.30 [facility] ([facility]) MCV 90.6 fL 80.0-97.0 [facility] Hematocrit [Volume Fraction] of Blood by Automated count 34.4 % 3 7.0-51.0 [facility] ([facility]) MCH 31.5 pg 26.0-32.0 [facility]) Platelets [#/volume] in Blood by Automated count 246 x10*3/UL 140-440 [facility] ([facility]) Erythrocyte distribution width [Ratio] by Automated count 14.0 % 11.6-13.7 [facility] ([facility]) MCHC 34.8 g/dL 31.0-38.0 [facility] Mid % 3.3 % 1.7-9.3 [facility] MPV 9.1 FL 7.8-11.0 [facility] Lymph % 10.1 % 10.0-58.5 [facility] Lymph # 1.2 x10*3/UL 0.6-4.1 [facility] ([facility]) Mid # 0.5 x10*3/UL 0.1-0.6 [facility] ([facility]) Neut % 86.6 % 37.0-92.0 [facility] Neut # 11.0 x10*3/UL 2.0-7.8 [facility] ([facility]) ID Date Data Source [id number] 09/27/2020 01:09:29 PM EDT [facility]: Alisha WootenB: 1935Provider: aCrlos Kenny: 09/23/2020 Chief ComplaintRight buttock pain. Chief [...] ago. She was referred today by the [facility] for the consideration of a [...] Oral Tablet;Therapy: (Recorded:19Sep2020) to Recorded Calcium TABS;Therapy: (Recorded:09Uga0601) to Recorded Clindamycin HCl - 300 MG Oral Capsule;Therapy: (Recorded:20Xgf7165) to Recorded Digoxin-Tab 0.25 MG TABS;Therapy: (Recorded:00Oxe8150) to Recorded Esomeprazole Magnesium 20 MG Oral Capsule Delayed Release;Therapy: (Recorded:13Inh0770) to Recorded Glucophage 850 MG TABS;Therapy: (Recorded:80Rki3553) to Recorded ICaps MV TABS;Therapy: (Recorded:79Ahm8167) to Recorded Ipratropium-Albuterol 0.5-2.5 (3) MG/3ML Inhalation Solution;Therapy: (Recorded:19Sep2020) to Recorded predniSONE 5 MG Oral Tablet;Therapy: (Recorded:19Sep2020) to Recorded Simvastatin 20 MG Oral Tablet;Therapy: (Recorded:19Sep2020) to Recorded traMADol HCl - 50 MG Oral Tablet;Therapy: (Recorded:23Sep2020) to RecordedLD-2 weeks ago Tylenol TABS;Therapy: (Recorded:19Sep2020) to Recorded Ventolin HFA AERS;Therapy: (Recorded:19Sep2020) to Recorded Vitamin D3 50 MCG (1999 [place]) Oral Capsule;Therapy: (Recorded:19Sep2020) to Recorded Past Medical History Denied: History [...] - Survey Evaluation Evaluation Status: Complete Done: [id number] Depression Screening - Patient's PHQ-9 score is: [...] will not start any new medications today. [facility] was consulted by my designee and I [...] factors include chronic prednisone therapy for sinusitis. Discussion/SummaryThis is an 85-year-old female patient with right-sided [...] gluteal region in an office setting in [place], [place], did not cause any issues with [...] rce(s) Supporting Document(s) ID Date Data Source [id number] 08/20/2020 06:29:25 PM EDT [facility] PCName: Chloe MoncadaDOB: 1935Provider: Yessenia Em: 08/17/2020 Reason For VisitChloe Moncada is here today for L Spine. Chloe had his first Covid vaccine on 04/25/20. Chloe had his second Covid vaccine on 05/23/20. Chloe Moncada is here for evaluation of MRI results and Chloe Moncada is here for a medication refill. L Spine MRI review done at [facility] on 08/13/20, needs refill on tramadol Other DOI/DOO: 05/2018. The patient has had a course of physical therapy for greater than 4 weeks. Physical therapy and/or home exercise program has not been effective. The patient has not had a course of NSAIDs for greater than 4 weeks. The patient's pain is managed by [facility] . Patient is retired. History [...] Results/Data OtherLumbar MRI scan was [facility] 08[facility]13[facility]. This shows advanced multilevel [...] my opinion. I am referring [facility] to [facility] [place] for an SI joint injection on the [...] document was dictated and electronically signed using [employer] software. A reasonable attempt at proof reading has been made to minimize errors. Please call with any questions. Signatures Electronically signed by : Margot Lei; Aug 17 2020 1:59PM EST (Author) Electronically signed by : Zach Hilliard M.D.; Aug 20 2020 6:29PM EST Name Value Range Interpretation Code Description Data Kamilla rce(s) Supporting Document(s) ID Date Data Source [id number] 07/28/2020 11:07:06 AM EDT [facility] PCName: Chloe MoncadaDOB: 1935Provider: Yessenia Em: 07/25/2020 Reason For VisitChloe Moncada is here [...] weeks. The patient's pain is managed by [facility] . Patient is retired. History [...] the report of previous xrays taken at [facility]. Moderately oblique pelvis [...] document was dictated and electronically signed using [employer] software. A reasonable attempt at proof reading has been made to minimize errors. Please call with any questions. Signatures Electronically signed by : Margot Lei; Jul 25 2020 1:09PM EST (Author) Electronically signed by : Zach Hilliard M.D.; Jul 28 2020 11:07AM EST Name Value Range Interpretation Code Description Data Kamilla rce(s) Supporting Document(s) ID Date Data Source [id number] 06/27/2020 11:50:00 AM EDT [facility] ([facility]) Name Value Range Interpretation Code Description Data Kamilla rce(s) Supporting Document(s) Bacteria identified in Urine by Culture Laboratory test result [facility] ([facility]) <content>FULL REPORT IN LAB NOTES (eCW [...] FOR ESBL</content>
<content></content> ID Date Data Source [id number] 06/27/2020 11:50:00 AM EDT [facility] ([facility]) Name Value Range Interpretation Code Description Data Kamilla rce(s) Supporting Document(s) Urine Color Laboratory test result [facility] T ([facility]) Urine PH 6.0 units 5.0-9.0 [facility]) Urine Appearance Laboratory test result Abnormal (applies to non-numeric results) [facility] ([facility]) Specific gravity of Urine 1.020 1.005-1.030 [facility] ([facility]) Urine Leukocytes Laboratory test result Abnormal (applies to non-numeric results) [facility] ([facility]) Urine Protein Laboratory test result 0-0 Abnormal (applies to non-numeric results) [facility] ([facility]) Urine Blood Laboratory test result Abnormal (applies to non-numeric results) [facility] ([facility]) Glucose [Presence] in Urine Laboratory test result [facility] ([facility]) Urine Nitrite Laboratory test result Abnormal (applies to non-numeric results) [facility] ([facility]) Urine Ketone Laboratory test result [facility] NT ([facility]) Bilirubin.total [Mass/volume] in Serum or Plasma Laboratory test resu lt [facility] ([facility]) Urine Urobilinogen 0.2 mg/dL 0.2-1.0 [facility] ([facility]) ID Date Data Source [id number] 06/21/2020 10:05:00 AM EDT [facility] ([facility]) Name Value Range Interpretation Code Description Data Kamilla rce(s) Supporting Document(s) Triiodothyronine (T3) Free [Mass/volume] in Serum or Plasma 3.2 pg/ mL 2.2-4.0 [facility] <content>note:<nlbl:demographic_changed> </content>
<content></content> Thyroxine (T4) free [Mass/volume] in Serum or Plasma 0.79 ng/dL 0.76- 1.46 [facility] <content>note:<nlbl:demographic_changed> </content>
<content></content> ID Date Data Source [id number] 06/21/2020 10:05:00 AM EDT [facility] ([facility]) Name Value Range Interpretation Code Description Data Kamilla rce(s) Supporting Document(s) Ssa Sjogrens A Laboratory test result 0.0-0.9 [facility] ([facility]) SSB Sjogrens B Laboratory test result 0.0-0.9 [facility] ([facility]) Performed at: RN - [facility] [address] [id number] Student Financial Aid Manager: Cathryn Presley MD, Phone: [phone] ID Date Data Source [id number] 06/21/2020 10:05:00 AM EDT [facility] Name Value Range Interpretation Code Description Data Kamilla rce(s) Supporting Document(s) T Uptake 34 % 30-39 [facility]) Thyroxine (T4) 6.8 ug/dL 4.5-12.0 [facility] ([facility]) Free Thyroxine Index 2.3 % 1.3-4.8 [facility] ( [facility] Thyroid Stimulating Hormone 1.780 uIU/ML 0.358-3.740 [facility] ([facility]) ID Date Data Source [id number] 06/07/2020 08:46:00 AM EST [facility] ([facility]) Name Value Range Interpretation Code Description Data Kamilla rce(s) Supporting Document(s) Digoxin [Mass/volume] in Serum or Plasma 0.7 ng/mL 0.5-2.0 [facility] ([facility]) <content>note:<nlbl:demographic_changed> </content>
<content></content> ID Date Data Source [id number] 06/07/2020 08:45:00 AM EST [facility] ([facility]) Name Value Range Interpretation Code Description Data Kamilla rce(s) Supporting Document(s) Glucose [Mass/volume] in Serum or Plasma 95 mg/dL 74-99 [facility] ([facility]) 100-125 mg/dL PRE-DIABETES/FASTING >126 mg/dL DIABETES/FASTING Urea nitrogen [Mass/volume] in Serum or Plasma 30 mg/dL 7-18 [facility] ([facility]) Sodium [Moles/volume] in Serum or Plasma 142 meq/L 136-145 [facility] ([facility]) Creatinine 1.3 mg/dL 0.6-1.3 [facility] Potassium [Moles/volume] in Serum or Plasma 3.9 meq/L 3.5-5.1 [facility] ([facility]) Chloride [Moles/volume] in Serum or Plasma 103 meq/L 98-107 [facility] ([facility]) Carbon dioxide, total [Moles/volume] in Serum or Plasma 30 meq/L 21 -32 [facility] ([facility]) Calcium [Mass/volume] in Serum or Plasma 8.9 mg/dL 8.5-10.1 [facility] ([facility]) Alkaline phosphatase isoenzyme [Units/volume] in Serum or Pl asma 34 mg/dL 46-116 [facility] ([facility]) Total Bilirubin 0.4 mg/dL 0.2-1.0 [facility] ([facility]) Alanine aminotransferase [Enzymatic activity/volume] in Seru m or Plasma 35 U/L 12-78 [facility] ([facility]) Aspartate aminotransferase [Enzymatic activity/volume] in Serum or Plasma 22 U/L 15-37 [facility] ([facility] Albumin [Mass/volume] in Serum or Plasma 3.8 g/dL 3.4-5.0 [facility] ([facility]) Proteinase 3 Ab [Units/volume] in Serum 7.4 g/dL 6.4-8.2 [facility] ([facility]) A/G Ratio 1.06 CALC 1.00-1.90 [facility] Glomerular filtration rate/1.73 sq M pre dicted among blacks [Volume Rate/Area] in Serum or Plasma by Creatinine-based formula (MDRD) 47 mL/min [facility]) <content>CHRONIC KIDNEY DISEASE STAGING PER NKF</content>
<content></content>
<content>STAGE I & II GFR >= 60 NORMAL TO MILDLY DECREASED</content>
<content>STAGE III GFR 30-59 MODERATELY DECREASED</content>
<content>STAGE IV GFR 15-29 SEVERELY DECREASED</content>
<content>STAGE V GFR <15 VERY LITTLE GFR LEFT</content>
<content>ESRD GFR <15 ON SAIL FINISHER HAND</content>
<content></content> Glomerular filtration rate/1.73 sq M pre dicted among non-blacks [Volume Rate/Area] in Serum or Plasma by Creatinine-based formula (MDRD) 39 mL/min [facility]) ID Date Data Source [id number] 06/07/2020 08:45:00 AM EST [facility] ([facility]) Name Value Range Interpretation Code Description Data Kamilla rce(s) Supporting Document(s) Leukocytes [#/volume] in Blood by Automated count 8.3 x10*3/UL 4.1-10 .9 [facility] ([facility]) Erythrocytes [#/volume] in Blood by Automated count 3.65 x10*6/UL 4.2 0-6.30 [facility] ([facility]) Hemoglobin [Mass/volume] in Blood 12.0 g/dL 12.0-18.0 [facility] ([facility]) MCV 93.2 fL 80.0-97.0 [facility]) Hematocrit [Volume Fraction] of Blood by Automated count 34.0 % 3 7.0-51.0 [facility] ([facility]) MCHC 35.4 g/dL 31.0-38.0 [facility]) MCH 33.0 pg 26.0-32.0 [facility]) Erythrocyte distribution width [Ratio] by Automated count 12.6 % 11.6-13.7 [facility] ([facility]) Platelets [#/volume] in Blood by Automated count 218 x10*3/UL 140-440 [facility] ([facility]) MPV 8.3 FL 7.8-11.0 [facility] ([facility]) Lymph % 22.4 % 10.0-58.5 [facility] Neut % 71.3 % 37.0-92.0 [facility]) Mid % 6.3 % 1.7-9.3 [facility]) Lymph # 1.8 x10*3/UL 0.6-4.1 [facility] ([facility]) Mid # 0.6 x10*3/UL 0.1-0.6 [facility] ([facility]) Neut # 5.9 x10*3/UL 2.0-7.8 [facility] ([facility]) ID Date Data Source [id number] 06/06/2020 10:14:00 AM EST [facility] ([facility], ) Name Value Range Interpretation Code Description Data Kamilla rce(s) Supporting Document(s) PDFReport Laboratory test result [facility] ([facility]) FVC-Pred 1.96 L [facility] ([facility], ) FVC-%Pred-Pre 93 L [facility] ([facility], ) FVC-LLN 1.35 L [facility] ([facility], ) FVC-Pre 1.83 L [facility] ([facility], ) Fev1-%Pred-Pre 86 L [facility] ([facility], ) Fev1-Pre 1.24 L [facility] ([facility], ) Fev1-Pred 1.43 L [facility] ([facility], ) Fev6-Pred 1.83 L [facility] ([facility], ) Fev1-LLN 0.92 L [facility] ([facility], ) Fev6-Pre 1.83 L [facility] ([facility], ) Fev6-%Pred-Pre 100 L [facility] ([facility], ) Fev6-LLN 1.23 L [facility] ([facility], ) Mda7zhj-Xrxr 73 % [facility] ([facility], ) Fkj1pae-%Pred-Pre 92 % [facility] ([facility], ) Fnq0jkz-Bwu 68 % [facility] ([facility]) Zhg6xtn-Ltb 100 % [facility] ([facility], ) Ksf3xxd-Geae 93 % [facility] ([facility], ) Vdq9uzn-KHZ 63 % [facility] ([facility], ) Yke9cji-%Pred-Pre 107 % [facility] ([facility], ) FEFMax-Pred 3.80 L/E/sec [facility] ([facility], ) FEFMax-LLN 2.29 L/E/sec [facility] ([facility], ) FEFMax-%Pred-Pre 98 L/E/sec [facility] ([facility], ) FEFMax-Pre 3.73 L/E/sec [facility] ([facility], ) Yvj5708-Zmtd 0.98 L/E/sec [facility] ([facility]) Muy0640-Ajs 0.71 L/E/sec [facility] ([facility]) Qst0800-KOI -0.11 L/E/sec [facility] ([facility]) Mqv1241-%Pred-Pre 72 L/E/sec [facility] ([facility]) Nid1bot6-Xfg 68 % [facility] ([facility]) Qlh8usw2-Ryjq 77 % [facility] ([facility]) ExpTime-Pre 6.03 sec [facility] ([facility]) Sta9qpm2-%Pred-Pre 88 % [facility] ([facility]) Thd9nob1-CBS 68 % [facility] ([facility]) ID Date Data Source [id number] 03/04/2020 10:00:00 AM EST [facility] Name Value Range Interpretation Code Description Data Kamilla rce(s) Supporting Document(s) SARS coronavirus 2 RNA [facility] This lab was ordered by [facility] and reported by [facility]. ID Date Data Source [id number] 12/28/2019 11:06:00 AM EDT [facility] ([facility]) Name Value Range Interpretation Code Description Data Kamilla rce(s) Supporting Document(s) Digoxin [Mass/volume] in Serum or Plasma 1.1 ng/mL 0.5-2.0 [facility] ([facility]) <content>note:<nlbl:demographic_changed> </content>
<content></content> ID Date Data Source [id number] 12/28/2019 11:06:00 AM EDT [facility] ([facility]) Name Value Range Interpretation Code Description Data Kamilla rce(s) Supporting Document(s) Glucose [Mass/volume] in Serum or Plasma 114 mg/dL 74-99 [facility] ([facility]) 100-125 mg/dL PRE-DIABETES/FASTING >126 mg/dL DIABETES/FASTING Urea nitrogen [Mass/volume] in Serum or Plasma 24 mg/dL 7-18 [facility] ([facility]) Sodium [Moles/volume] in Serum or Plasma 140 meq/L 136-145 [facility] ([facility]) Creatinine 1.2 mg/dL 0.6-1.3 [facility] Potassium [Moles/volume] in Serum or Plasma 4.3 meq/L 3.5-5.1 [facility] ([facility]) Chloride [Moles/volume] in Serum or Plasma 104 meq/L 98-107 [facility] ([facility]) Alkaline phosphatase isoenzyme [Units/volume] in Serum or Pl asma 33 mg/dL 46-116 [facility] ([facility]) Carbon dioxide, total [Moles/volume] in Serum or Plasma 27 meq/L 21 -32 [facility] ([facility]) Calcium [Mass/volume] in Serum or Plasma 9.3 mg/dL 8.5-10.1 [facility] ([facility]) Aspartate aminotransferase [Enzymatic activity/volume] in Serum or Plasma 25 U/L 15-37 [facility] ([facility] ) Total Bilirubin 0.5 mg/dL 0.2-1.0 [facility] ([facility]) Alanine aminotransferase [Enzymatic activity/volume] in Seru m or Plasma 34 U/L 12-78 [facility] ([facility]) Albumin [Mass/volume] in Serum or Plasma 3.8 g/dL 3.4-5.0 [facility] ([facility]) A/G Ratio 0.93 CALC 1.00-1.90 [facility]) Proteinase 3 Ab [Units/volume] in Serum 7.9 g/dL 6.4-8.2 [facility] ([facility]) Glomerular filtration rate/1.73 sq M pre dicted among non-blacks [Volume Rate/Area] in Serum or Plasma by Creatinine-based formula (MDRD) 43 mL/min [facility] ([facility]) Glomerular filtration rate/1.73 sq M pre dicted among blacks [Volume Rate/Area] in Serum or Plasma by Creatinine-based formula (MDRD) 52 mL/min [facility] ([facility]) <content>CHRONIC KIDNEY DISEASE STAGING PER NKF</content>
<content></content>
<content>STAGE I & II GFR >= 60 NORMAL TO MILDLY DECREASED</content>
<content>STAGE III GFR 30-59 MODERATELY DECREASED</content>
<content>STAGE IV GFR 15-29 SEVERELY DECREASED</content>
<content>STAGE V GFR <15 VERY LITTLE GFR LEFT</content>
<content>ESRD GFR <15 ON SAIL FINISHER HAND</content>
<content></content> ID Date Data Source [id number] 12/28/2019 11:06:00 AM EDT [facility] Name Value Range Interpretation Code Description Data Kamilla rce(s) Supporting Document(s) Glucose mean value [Mass/volume] in Blood Estimated fr om glycated hemoglobin 137 mg/dL 60-110 [facility] Hemoglobin A1c/Hemoglobin.total in Blood 6.4 % [facility] ([facility] Lab Result Notes: Pre-Diabetes 5.7 - 6.4 % Diabetes = or > 6.5% ID Date Data Source [id number] 12/28/2019 11:06:00 AM EDT [facility] Name Value Range Interpretation Code Description Data Kamilla rce(s) Supporting Document(s) Leukocytes [#/volume] in Blood by Automated count 11.0 x10*3/UL 4.1-1 0.9 [facility] ([facility]) Hemoglobin [Mass/volume] in Blood 12.1 g/dL 12.0-18.0 [facility] Erythrocytes [#/volume] in Blood by Automated count 3.75 x10*6/UL 4.2 0-6.30 [facility]) Hematocrit [Volume Fraction] of Blood by Automated count 34.4 % 3 7.0-51.0 [facility] ([facility]) MCV 91.8 fL 80.0-97.0 [facility]) MCH 32.3 pg 26.0-32.0 [facility]) Platelets [#/volume] in Blood by Automated count 223 x10*3/UL 140-440 [facility] Erythrocyte distribution width [Ratio] by Automated count 12.8 % 11.6-13.7 [facility] ([facility]) MCHC 35.2 g/dL 31.0-38.0 [facility] Lymph % 10.9 % 10.0-58.5 [facility] ([facility]) Mid % 4.2 % 1.7-9.3 [facility] MPV 8.5 FL 7.8-11.0 [facility] Lymph # 1.2 x10*3/UL 0.6-4.1 [facility] ([facility]) Neut # 9.3 x10*3/UL 2.0-7.8 [facility] ([facility]) Mid # 0.5 x10*3/UL 0.1-0.6 [facility] ([facility]) Neut % 84.9 % 37.0-92.0 [facility] ID Date Data Source [id number] 12/28/2019 11:06:00 AM EDT [facility] Name Value Range Interpretation Code Description Data Kamilla rce(s) Supporting Document(s) Hemoglobin A1c/Hemoglobin.total in Blood Laboratory test result [facility] ([facility]) Procedure Social History Code Duration Value Status Description Data Source(s ) Smoking 12/02/2020 12:00:00 AM EDT Patient is a former smoker completed Patient is a former smoker [facility] ([facility]) Smoking 10/25/2020 12:00:00 AM EDT Former Smoker completed Former Smoker eCW1 ([facility]) Smoking 09/07/2020 12:00:00 AM EDT Former Smoker completed Former Smoker eCW1 ([facility]) Vital Signs ID Date Data Source UNK Name Value Range Interpretation Code Description Data Source(s) Systolic blood pressure 128 mm[Hg] 128 mm[Hg] [facility] [place] body weight 100 [lb_av] 100 [lb_av] YOVANYEN T ([facility]) Body weight 48.989 kg 48.989 kg [facility] ([facility]) Body surface area Derived from formula 1.44 m2 1.44 m2 [facility] ([facility]) Body mass index (BMI) [Ratio] 21.1 kg/m2 21.1 k g/m2 [facility] ([facility]) Diastolic blood pressure 72 mm[Hg] 72 mm[Hg] [facility] ([facility]) Heart rate 59 /min 59 /min [facility] ([facility]) Oxygen saturation in Arterial blood by Pulse oximetry 99 % 99 % [facility] ([facility]) Body height 60 [in_i] 60 [in_i] [facility] ([facility]) 5'0" Body weight 108.00 [lb_av] 108.00 [lb_av] [facility] ([facility]) Body weight 107.00 [lb_av] 107.00 [lb_av] [facility] ([facility]) Systolic blood pressure 120 mm[Hg] 120 mm[Hg] [facility] ([facility]) Diastolic blood pressure 60 mm[Hg] 60 mm[Hg] [facility] ([facility]) Heart rate 60 /min 60 /min [facility] ([facility]) Body height 59 [in_i] 59 [in_i] [facility] ([facility]) 4'11" Body mass index (BMI) [Ratio] 21.6 kg/m2 21.6 k g/m2 [facility] Systolic blood pressure 110 mm[Hg] 110 mm[Hg] [facility] ([facility]) Body mass index (BMI) [Ratio] 21.3 kg/m2 21.3 k g/m2 [facility] ([facility]) Body height 60 [in_i] 60 [in_i] [facility] ([facility]) 5'0" Body weight 109.00 [lb_av] 109.00 [lb_av] [facility] ([facility]) Body surface area Derived from formula 1.44 m2 1.44 m2 [facility] ([facility]) Heart rate 63 /min 63 /min [facility] ([facility], ) Diastolic blood pressure 60 mm[Hg] 60 mm[Hg] [facility] ([facility], ) Oxygen saturation in Arterial blood by Pulse oximetry 97 % 97 % [facility] ([facility], ) [place] body weight 100 [lb_av] 100 [lb_av] MEDEN T ([facility], ) Body weight 49.442 kg 49.442 kg [facility] ([facility], ) Diastolic blood pressure 678 mm[Hg] 678 mm[Hg] MEDENT ([facility]) Body weight 108.00 [lb_av] 108.00 [lb_av] MEDEN T ([facility]) Systolic blood pressure 132 mm[Hg] 132 mm[Hg] M EDENT ([facility]) Body height 59 [in_i] 59 [in_i] MEDENT ([facility]) 4'11" Body mass index (BMI) [Ratio] 21.8 kg/m2 21.8 k g/m2 MEDENT ([facility]) Heart rate 70 /min 70 /min MEDENT ([facility]) Body weight 100 [lb_av] 100 [lb_av] eCW1 (Formerly [facility]) Body height 60 [in_i] 60 [in_i] eCW1 ([facility]) Body mass index (BMI) [Ratio] 19.53 kg/m2 19.53 kg/m2 eCW1 ([facility]) Heart rate 61 /min 61 /min eCW1 [facility] Respiratory rate 18 /min 18 /min eCW1 ([facility]ly [facility], later [facility]) Body temperature [degF] eCW1 ([facility], [facility]) Systolic blood pressure 153 mm[Hg] 153 mm[Hg] e CW1 ([facility]) Diastolic blood pressure 65 mm[Hg] 65 mm[Hg] eCW1 ([facility]) Body weight 111.4 [lb_av] 111.4 [lb_av] eCW1 ([facility]) Body height 60 [in_i] 60 [in_i] eCW1 ([facility]) Body mass index (BMI) [Ratio] 21.75 kg/m2 21.75 kg/m2 eCW1 ([facility]) Heart rate 61 /min 61 /min eCW1 ([facility] Respiratory rate 18 /min 18 /min eCW1 ([facility]ly [facility], [facility]) Body temperature 98.0 [degF] 98.0 [degF] eCW1 ( [facility]) Systolic blood pressure 150 mm[Hg] 150 mm[Hg] e CW1 ([facility]) Diastolic blood pressure 67 mm[Hg] 67 mm[Hg] eCW1 ([facility]) Systolic blood pressure 124 mm[Hg] 124 mm[Hg] M EDENT ([facility]) Body weight 111.38 [lb_av] 111.38 [lb_av] MEDEN T ([facility]) Diastolic blood pressure 60 mm[Hg] 60 mm[Hg] MEDENT ([facility]) Body height 59.50 [in_i] 59.50 [in_i] MEDENT ([facility]) 4'11.50" Body mass index (BMI) [Ratio] 22.1 kg/m2 22.1 k g/m2 MEDENT ([facility]) Diastolic blood pressure 70 mm[Hg] 70 mm[Hg] MEDENT ([facility]) Systolic blood pressure 118 mm[Hg] 118 mm[Hg] M EDENT ([facility]) Heart rate 67 /min 67 /min MEDENT ([facility]) Body height 59.50 [in_i] 59.50 [in_i] MEDENT ([facility]) 4'11.50" Body weight 110.00 [lb_av] 110.00 [lb_av] MEDEN T ([facility]) Body mass index (BMI) [Ratio] 21.8 kg/m2 21.8 k g/m2 MEDENT ([facility]) Systolic blood pressure 120 mm[Hg] 120 mm[Hg] M EDENT ([facility], ) Diastolic blood pressure 60 mm[Hg] 60 mm[Hg] MEDENT ([facility], ) Body height 60 [in_i] 60 [in_i] [facility] ([facility]) 5'0" Body weight 109.00 [lb_av] 109.00 [lb_av] MEDEN T ([facility]) Body mass index (BMI) [Ratio] 21.3 kg/m2 21.3 k g/m2 [facility] ([facility]) [place] body weight 100 [lb_av] 100 [lb_av] MEDEN T ([facility]) Body weight 49.442 kg 49.442 kg [facility] ([facility]) Heart rate 62 /min 62 /min [facility] ([facility]) Oxygen saturation in Arterial blood by Pulse oximetry 98 % 98 % [facility] ([facility]) Body temperature 96.7 [degF] 96.7 [degF] [facility] ([facility]) Body surface area Derived from formula 1.44 m2 1.44 m2 [facility] ([facility]) Body weight 108.4 [lb_av] 108.4 [lb_av] W1 ([facility]) Body height 60 [in_i] 60 [in_i] eCW1 ([facility]) Body mass index (BMI) [Ratio] 21.17 kg/m2 21.17 kg/m2 W1 ([facility]) Heart rate 76 /min 76 /min eCW1 ([facility] Respiratory rate 18 /min 18 /min eCW1 ([facility]) Body temperature 97.9 [degF] 97.9 [degF] eCW1 ( [facility]) Systolic blood pressure 179 mm[Hg] 179 mm[Hg] e CW1 ([facility]) Diastolic blood pressure 78 mm[Hg] 78 mm[Hg] eCW1 ([facility]) Body weight 108.00 [lb_av] 108.00 [lb_av] MEDEN T ([facility]) Body mass index (BMI) [Ratio] 21.4 kg/m2 21.4 k g/m2 MEDENT ([facility]) Systolic blood pressure 120 mm[Hg] 120 mm[Hg] M EDENT ([facility]) Diastolic blood pressure 70 mm[Hg] 70 mm[Hg] MEDENT ([facility]) Body height 59.50 [in_i] 59.50 [in_i] MEDENT ([facility]) 4'11.50" Systolic blood pressure 110 mm[Hg] 110 mm[Hg] EDENT ([facility]) Diastolic blood pressure 68 mm[Hg] 68 mm[Hg] MEDENT ([facility]) Body height 59.50 [in_i] 59.50 [in_i] MEDENT ([facility]) 4'11.50" Body weight 106.00 [lb_av] 106.00 [lb_av] MEDEN T ([facility]) Body mass index (BMI) [Ratio] 21.0 kg/m2 21.0 k g/m2 MED[facility] ([facility]) Body temperature 97.4 [degF] 97.4 [degF] MEDENT ([facility] ) Systolic blood pressure 162 mm[Hg] 162 mm[Hg] M EDENT ([facility]) Diastolic blood pressure 70 mm[Hg] 70 mm[Hg] MEDENT ([facility]) Body height 59.50 [in_i] 59.50 [in_i] MEDENT ([facility]) 4'11.50" Body weight 112.00 [lb_av] 112.00 [lb_av] MEDEN T ([facility]) Body mass index (BMI) [Ratio] 22.2 kg/m2 22.2 k g/m2 MEDENT ([facility]) Heart rate 56 /min 56 /min MEDENT ([facility]) Diastolic blood pressure 58 mm[Hg] 58 mm[Hg] MEDENT ([facility] Heart rate 51 /min 51 /min MED[facility] ([facility] Body mass index (BMI) [Ratio] 21.3 kg/m2 21.3 k g/m2 [facility] Body height 60 [in_i] 60 [in_i] MEDENT ([facility] 5'0" Body weight 109.00 [lb_av] 109.00 [lb_av] MEDEN T ([facility] Systolic blood pressure 150 mm[Hg] 150 mm[Hg] M EDENT ([facility] Patient Treatment Plan of Care Planned Activity Planned Date Details Description Data Source (s) tramadol hydrochloride 50 MG Oral Tablet 09/07/2020 12:00:00 AM EDT eCW1 ([facility]) tramadol hydrochloride 50 MG Oral Tablet 09/07/2020 12:00:00 AM EDT eCW1 ([facility])
[2021-02-02] MEDS ORDERED: HOME MED LIST COMPLETE! XX SCH (15:05)
[2021-02-02] MEDS: ACETAMINOPHEN 500 MG TAB PO SCH ×2 (16:00→21:56)
[2021-02-02] MEDS ORDERED: ACETAMINOPHEN TAB 650MG DOSE (2X325MG) PO SCH (16:00)
[2021-02-02] MEDS ORDERED: ALBUTEROL 90 MCG/ACT 8GM HFA INHALER INH PRN (16:25)
[2021-02-02] MEDS ORDERED: GLYCERIN ADULT SUPP PR PRN (16:35)
[2021-02-02] MEDS ORDERED: SIMETHICONE 80MG CHEW TAB PO PRN (16:35)
[2021-02-02] MEDS ORDERED: ACETAMINOPHEN 500 MG TAB PO SCH (16:53)
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
[2021-02-02] MEDS: MIRALAX *UNIT DOSE* 17GM PACKET PO SCH (17:03)
[2021-02-02 20:00] VITALS: BP 137/64
[2021-02-02] MEDS: AMITRIPTYLINE 10MG TABLET PO SCH (21:53)
[2021-02-02] MEDS: SENOKOT S TAB PO SCH (21:54)
[2021-02-02] MEDS: SIMVASTATIN 40 MG TAB PO SCH (21:54)
[2021-02-02] MEDS: HEPARIN SOD (PORCINE) 5000UNITS/ML 1ML VIAL/SYRINGE SC SCH (21:56)
[2021-02-02] MEDS: MORPHINE 15 MG SA TAB PO SCH (21:57)
[2021-02-03] MEDS: ACETAMINOPHEN 325 MG TAB PO PRN (05:11)
[2021-02-03 06:00] VITALS: BP 155/70
[2021-02-03 06:14] LABS: BASO % 0.2 % (0.0-1.0); EOS # 0.5 10^3/uL (0.0-0.5); EOS % 5.2 % (0.0-3.0); HEMATOCRIT 31.3 % (36.0-47.0); HEMOGLOBIN 10.4 g/dl (12.0-15.5); LYMPH # 1.9 10^3/uL (1.5-5.0); LYMPH % 21.4 % (24.0-44.0); MEAN CORPUSCULAR HEMOGLOBIN 32.4 pg (27.0-33.0); MEAN CORPUSCULAR HGB CONC 33.2 g/dl (32.0-36.5); MEAN CORPUSCULAR VOLUME 97.5 fl (80.0-96.0); MONO % 11.5 % (2.0-8.0); NEUTROPHILS # 5.5 10^3/uL (1.5-8.5); NEUTROPHILS % 61.3 % (36.0-66.0); PLATELET COUNT, AUTOMATED 134 10^3/uL (150-450); RED BLOOD COUNT 3.21 10^6/uL (4.00-5.40); WHITE BLOOD COUNT 8.9 10^3/uL (4.0-10.0)
[2021-02-03 06:46] LABS: ALBUMIN 2.7 GM/DL (3.2-5.2); BILIRUBIN,TOTAL 0.6 MG/DL (0.2-1.0); CALCIUM LEVEL 8.5 MG/DL (8.8-10.2); CREATININE FOR GFR 1.16 MG/DL (0.55-1.30); GLOMERULAR FILTRATION RATE 47.4 (>32); POTASSIUM SERUM 3.9 MEQ/L (3.5-5.1); TOTAL PROTEIN 6.9 GM/DL (6.4-8.2)
[2021-02-03] MEDS: FLUTICASONE HFA 220 MCG 12 GM INHALER (FLOVENT) INH SCH ×2 (07:13→19:07)
[2021-02-03 08:20] LABS: APPEARANCE, URINE CLEAR (CLEAR); BACTERIA, URINE AUTO NEGATIVE (NEGATIVE); BILIRUBIN, URINE AUTO NEGATIVE (NEGATIVE); BLOOD, URINE BLOOD NEGATIVE (NEGATIVE); COLOR, URINE YELLOW (YELLOW); GLUCOSE, URINE (UA) AUTO NEGATIVE (NEGATIVE); KETONE, URINE AUTO TRACE mg/dL (NEGATIVE); LEUKOCYTE ESTERASE, URINE AUTO NEGATIVE (NEGATIVE); NITRITE, URINE AUTO NEGATIVE (NEGATIVE); PROTEIN, URINE AUTO NEGATIVE (NEGATIVE); RBC, URINE AUTO 2 /HPF (0-3); SPECIFIC GRAVITY URINE AUTO 1.013 (1.002-1.035); SQUAMOUS EPITHELIAL CELL UR AU 0 /HPF (0-6); UROBILINOGEN, URINE AUTO 0.2 mg/dL (0.0-2.0); WBC, URINE AUTO 4 /HPF (0-3)
[2021-02-03] MEDS: HEPARIN SOD (PORCINE) 5000UNITS/ML 1ML VIAL/SYRINGE SC SCH ×2 (08:25→20:55)
[2021-02-03] MEDS: VITAMIN D 1,000 INTERNATIONAL UNITS TABLET PO SCH (08:26)
[2021-02-03] MEDS: MIRALAX *UNIT DOSE* 17GM PACKET PO SCH (08:26)
[2021-02-03] MEDS: OMEPRAZOLE 20 MG CAP PO SCH (08:27)
[2021-02-03] MEDS: SENOKOT S TAB PO SCH ×2 (08:27→20:54)
[2021-02-03] MEDS: MULTIVITAMINS/MINERALS THERAP 1 TAB PO SCH (08:27)
[2021-02-03] MEDS: DIGOXIN 0.25 MG TAB PO SCH (08:27)
[2021-02-03] MEDS: atenoloL 25 MG TAB PO SCH (08:28)
[2021-02-03] MEDS: predniSONE 5 MG TAB PO SCH (08:29)
[2021-02-03] MEDS: MORPHINE 15 MG SA TAB PO SCH ×2 (08:31→20:55)
[2021-02-03] MEDS: ACETAMINOPHEN 500 MG TAB PO SCH ×3 (08:32→20:55)
[2021-02-03] MEDS ORDERED: MAGNESIUM CITRATE 300 ML BTL PO ONE (13:15)
[2021-02-03 14:00] VITALS: BP 137/65
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
[2021-02-03 20:00] VITALS: BP 153/70
[2021-02-03] MEDS: AMITRIPTYLINE 10MG TABLET PO SCH (20:55)
[2021-02-03] MEDS: SIMVASTATIN 40 MG TAB PO SCH (20:55)
[2021-02-03] MEDS: ASCORBIC ACID 250 MG TAB PO SCH (20:55)
[2021-02-04] MEDS: ACETAMINOPHEN 325 MG TAB PO PRN (04:19)
[2021-02-04 06:00] VITALS: BP 155/72
[2021-02-04] MEDS: FLUTICASONE HFA 220 MCG 12 GM INHALER (FLOVENT) INH SCH ×2 (07:20→20:06)
[2021-02-04] MEDS: ACETAMINOPHEN 500 MG TAB PO SCH ×3 (09:06→21:00)
[2021-02-04] MEDS: MIRALAX *UNIT DOSE* 17GM PACKET PO SCH (09:06)
[2021-02-04] MEDS: atenoloL 25 MG TAB PO SCH (09:07)
[2021-02-04] MEDS: MULTIVITAMINS/MINERALS THERAP 1 TAB PO SCH (09:07)
[2021-02-04] MEDS: ZINC SULFATE 220 MG CAP PO SCH (09:07)
[2021-02-04] MEDS: SENOKOT S TAB PO SCH ×2 (09:07→20:59)
[2021-02-04] MEDS: HEPARIN SOD (PORCINE) 5000UNITS/ML 1ML VIAL/SYRINGE SC SCH ×2 (09:07→21:01)
[2021-02-04] MEDS: ASCORBIC ACID 250 MG TAB PO SCH ×2 (09:07→21:00)
[2021-02-04] MEDS: VITAMIN D 1,000 INTERNATIONAL UNITS TABLET PO SCH (09:07)
[2021-02-04] MEDS: MORPHINE 15 MG SA TAB PO SCH ×2 (09:07→21:00)
[2021-02-04] MEDS: predniSONE 5 MG TAB PO SCH (09:07)
[2021-02-04] MEDS: OMEPRAZOLE 20 MG CAP PO SCH (09:07)
[2021-02-04 14:00] VITALS: BP 175/73
[2021-02-04 15:49] VITALS: BP 131/61
[2021-02-04 20:00] VITALS: BP 137/64
[2021-02-04] MEDS: SIMVASTATIN 40 MG TAB PO SCH (20:59)
[2021-02-04] MEDS: AMITRIPTYLINE 10MG TABLET PO SCH (20:59)
[2021-02-05] MEDS: ACETAMINOPHEN 325 MG TAB PO PRN (01:43)
[2021-02-05 06:00] VITALS: BP_SYST 148; BP_SYST 174; BP_DIAS 62; BP_DIAS 76
[2021-02-05] MEDS: MORPHINE 15 MG SA TAB PO SCH ×2 (06:50→21:04)
[2021-02-05] MEDS: FLUTICASONE HFA 220 MCG 12 GM INHALER (FLOVENT) INH SCH ×2 (07:16→20:29)
[2021-02-05] MEDS: HEPARIN SOD (PORCINE) 5000UNITS/ML 1ML VIAL/SYRINGE SC SCH ×2 (08:54→21:07)
[2021-02-05] MEDS: predniSONE 5 MG TAB PO SCH (08:55)
[2021-02-05] MEDS: OMEPRAZOLE 20 MG CAP PO SCH (08:55)
[2021-02-05] MEDS: MIRALAX *UNIT DOSE* 17GM PACKET PO SCH (08:55)
[2021-02-05] MEDS: ZINC SULFATE 220 MG CAP PO SCH (08:55)
[2021-02-05] MEDS: atenoloL 25 MG TAB PO SCH (08:55)
[2021-02-05] MEDS: ACETAMINOPHEN 500 MG TAB PO SCH ×3 (08:55→21:06)
[2021-02-05] MEDS: DIGOXIN 0.25 MG TAB PO SCH (08:55)
[2021-02-05] MEDS: SENOKOT S TAB PO SCH ×2 (08:55→21:06)
[2021-02-05] MEDS: VITAMIN D 1,000 INTERNATIONAL UNITS TABLET PO SCH (08:55)
[2021-02-05] MEDS: ASCORBIC ACID 250 MG TAB PO SCH ×2 (08:56→21:06)
[2021-02-05] MEDS: MULTIVITAMINS/MINERALS THERAP 1 TAB PO SCH (08:56)
[2021-02-05 14:00] VITALS: BP 132/58
[2021-02-05 20:00] VITALS: BP 122/62
[2021-02-05] MEDS: SIMVASTATIN 40 MG TAB PO SCH (21:05)
[2021-02-05] MEDS: AMITRIPTYLINE 10MG TABLET PO SCH (21:06)
[2021-02-05] MEDS ORDERED: DOCUSATE SODIUM 100MG CAPSULE PO PRN (22:30)
[2021-02-06] MEDS: ACETAMINOPHEN 325 MG TAB PO PRN (03:08)
[2021-02-06 06:00] VITALS: BP 154/70
[2021-02-06] MEDS: FLUTICASONE HFA 220 MCG 12 GM INHALER (FLOVENT) INH SCH ×2 (07:19→20:33)
[2021-02-06] MEDS: HEPARIN SOD (PORCINE) 5000UNITS/ML 1ML VIAL/SYRINGE SC SCH ×2 (08:15→21:21)
[2021-02-06] MEDS: MIRALAX *UNIT DOSE* 17GM PACKET PO SCH ×2 (08:15→21:00)
[2021-02-06] MEDS: OMEPRAZOLE 20 MG CAP PO SCH (08:16)
[2021-02-06] MEDS: SENOKOT S TAB PO SCH ×2 (08:16→21:19)
[2021-02-06] MEDS: MULTIVITAMINS/MINERALS THERAP 1 TAB PO SCH (08:16)
[2021-02-06] MEDS: ASCORBIC ACID 250 MG TAB PO SCH ×2 (08:16→21:20)
[2021-02-06] MEDS: ACETAMINOPHEN 500 MG TAB PO SCH ×3 (08:18→21:20)
[2021-02-06] MEDS: MORPHINE 15 MG SA TAB PO SCH ×2 (08:18→21:21)
[2021-02-06] MEDS: VITAMIN D 1,000 INTERNATIONAL UNITS TABLET PO SCH (08:18)
[2021-02-06] MEDS: ZINC SULFATE 220 MG CAP PO SCH (08:18)
[2021-02-06] MEDS: predniSONE 5 MG TAB PO SCH (08:19)
[2021-02-06] MEDS: atenoloL 25 MG TAB PO SCH (08:19)
[2021-02-06] MEDS: BISACODYL 10 MG SUPP PR SCH ×2 (09:00→21:20)
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
[2021-02-06 14:00] VITALS: BP 165/70
[2021-02-06 21:00] VITALS: BP 164/60
[2021-02-06] MEDS: SIMVASTATIN 20 MG TAB PO SCH (21:00)
[2021-02-06] MEDS: AMITRIPTYLINE 10MG TABLET PO SCH (21:21)
[2021-02-06] MEDS ORDERED: SIMVASTATIN 20 MG TAB PO SCH (21:29)
[2021-02-06] MEDS: SIMVASTATIN 40 MG TAB PO SCH (21:41)
[2021-02-07 06:00] VITALS: BP 169/71
[2021-02-07] MEDS: ACETAMINOPHEN 325 MG TAB PO PRN (06:02)
[2021-02-07 06:36] VITALS: BP 158/60
[2021-02-07] MEDS: FLUTICASONE HFA 220 MCG 12 GM INHALER (FLOVENT) INH SCH (07:27)
[2021-02-07] MEDS: MIRALAX *UNIT DOSE* 17GM PACKET PO SCH ×2 (08:21→22:12)
[2021-02-07] MEDS: SENOKOT S TAB PO SCH ×3 (08:22→22:28)
[2021-02-07] MEDS: ZINC SULFATE 220 MG CAP PO SCH (08:22)
[2021-02-07] MEDS: HEPARIN SOD (PORCINE) 5000UNITS/ML 1ML VIAL/SYRINGE SC SCH ×2 (08:22→22:10)
[2021-02-07] MEDS: ASCORBIC ACID 250 MG TAB PO SCH ×2 (08:22→22:12)
[2021-02-07] MEDS: OMEPRAZOLE 20 MG CAP PO SCH (08:22)
[2021-02-07] MEDS: MULTIVITAMINS/MINERALS THERAP 1 TAB PO SCH (08:22)
[2021-02-07] MEDS: predniSONE 5 MG TAB PO SCH (08:22)
[2021-02-07] MEDS: VITAMIN D 1,000 INTERNATIONAL UNITS TABLET PO SCH (08:22)
[2021-02-07] MEDS: MORPHINE 15 MG SA TAB PO SCH ×2 (08:23→22:13)
[2021-02-07] MEDS: DIGOXIN 0.25 MG TAB PO SCH (08:23)
[2021-02-07] MEDS: atenoloL 25 MG TAB PO SCH (08:23)
[2021-02-07] MEDS: ACETAMINOPHEN 500 MG TAB PO SCH ×4 (08:24→22:28)
[2021-02-07] MEDS: BISACODYL 10 MG SUPP PR SCH ×4 (09:00→22:28)
[2021-02-07 09:29] LABS: BASO # 0.1 10^3/uL (0.0-0.2); BASO % 0.5 % (0.0-1.0); EOS # 0.6 10^3/uL (0.0-0.5); EOS % 5.6 % (0.0-3.0); HEMATOCRIT 35.5 % (36.0-47.0); HEMOGLOBIN 11.9 g/dl (12.0-15.5); LYMPH # 2.4 10^3/uL (1.5-5.0); LYMPH % 21.6 % (24.0-44.0); MEAN CORPUSCULAR HEMOGLOBIN 32.4 pg (27.0-33.0); MEAN CORPUSCULAR HGB CONC 33.5 g/dl (32.0-36.5); MEAN CORPUSCULAR VOLUME 96.7 fl (80.0-96.0); MONO # 1.1 10^3/uL (0.0-0.8); MONO % 10.4 % (2.0-8.0); NEUTROPHILS # 6.7 10^3/uL (1.5-8.5); NEUTROPHILS % 61.3 % (36.0-66.0); PLATELET COUNT, AUTOMATED 247 10^3/uL (150-450); RED BLOOD COUNT 3.67 10^6/uL (4.00-5.40)
[2021-02-07 09:40] LABS: CALCIUM LEVEL 9.4 MG/DL (8.8-10.2); CREATININE FOR GFR 1.19 MG/DL (0.55-1.30); GLOMERULAR FILTRATION RATE 45.9 (>32); POTASSIUM SERUM 4.4 MEQ/L (3.5-5.1)
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
[2021-02-07] MEDS: amLODIPine 5 MG TAB PO SCH (11:01)
[2021-02-07 14:00] VITALS: BP 161/70
[2021-02-07] MEDS: BISACODYL 5 MG TAB PO SCH (18:54)
[2021-02-07] MEDS ORDERED: FLEET ENEMA PR ONE (19:00)
[2021-02-07 20:00] VITALS: BP 136/63
[2021-02-07] MEDS: SIMVASTATIN 20 MG TAB PO SCH ×2 (22:12→22:29)
[2021-02-07] MEDS: AMITRIPTYLINE 10MG TABLET PO SCH ×2 (22:12→22:28)
[2021-02-08 06:00] VITALS: BP 162/78
[2021-02-08] MEDS: FLUTICASONE HFA 220 MCG 12 GM INHALER (FLOVENT) INH SCH ×2 (08:00→20:00)
[2021-02-08] MEDS: MORPHINE 15 MG SA TAB PO SCH (09:00)
[2021-02-08] MEDS: SENOKOT S TAB PO SCH ×2 (09:00→20:24)
[2021-02-08] MEDS: MIRALAX *UNIT DOSE* 17GM PACKET PO SCH ×2 (09:00→20:23)
[2021-02-08] MEDS: MULTIVITAMINS/MINERALS THERAP 1 TAB PO SCH (09:00)
[2021-02-08] MEDS: BISACODYL 10 MG SUPP PR SCH ×2 (09:00→20:24)
[2021-02-08] MEDS: BISACODYL 5 MG TAB PO SCH (09:00)
[2021-02-08] MEDS: HEPARIN SOD (PORCINE) 5000UNITS/ML 1ML VIAL/SYRINGE SC SCH ×2 (09:52→20:25)
[2021-02-08] MEDS: ASCORBIC ACID 250 MG TAB PO SCH ×2 (09:52→20:26)
[2021-02-08] MEDS: ZINC SULFATE 220 MG CAP PO SCH (09:52)
[2021-02-08] MEDS: VITAMIN D 1,000 INTERNATIONAL UNITS TABLET PO SCH (09:52)
[2021-02-08] MEDS: OMEPRAZOLE 20 MG CAP PO SCH (09:52)
[2021-02-08] MEDS: predniSONE 5 MG TAB PO SCH (09:52)
[2021-02-08] MEDS: amLODIPine 5 MG TAB PO SCH (09:53)
[2021-02-08] MEDS: ACETAMINOPHEN 500 MG TAB PO SCH ×3 (09:53→20:27)
[2021-02-08] MEDS: atenoloL 25 MG TAB PO SCH ×2 (09:53→20:27)
[2021-02-08 10:34] LABS: BASO % 0.2 % (0.0-1.0); EOS # 0.3 10^3/uL (0.0-0.5); EOS % 3.2 % (0.0-3.0); HEMATOCRIT 34.2 % (36.0-47.0); HEMOGLOBIN 11.3 g/dl (12.0-15.5); LYMPH # 1.6 10^3/uL (1.5-5.0); MEAN CORPUSCULAR HEMOGLOBIN 31.8 pg (27.0-33.0); MEAN CORPUSCULAR VOLUME 96.3 fl (80.0-96.0); MONO # 1.1 10^3/uL (0.0-0.8); MONO % 10.5 % (2.0-8.0); NEUTROPHILS # 7.3 10^3/uL (1.5-8.5); NEUTROPHILS % 70.4 % (36.0-66.0); PLATELET COUNT, AUTOMATED 270 10^3/uL (150-450); RED BLOOD COUNT 3.55 10^6/uL (4.00-5.40); WHITE BLOOD COUNT 10.3 10^3/uL (4.0-10.0)
[2021-02-08 10:56] LABS: CALCIUM LEVEL 9.1 MG/DL (8.8-10.2); CREATININE FOR GFR 1.19 MG/DL (0.55-1.30); GLOMERULAR FILTRATION RATE 45.9 (>32); POTASSIUM SERUM 3.9 MEQ/L (3.5-5.1)
[2021-02-08] MEDS ORDERED: ONDANSETRON 4 MG ORAL DISINTEGRATING TAB PO ONE (11:20)
[2021-02-08] MEDS: ACETAMINOPHEN 325 MG TAB PO PRN (13:32)
[2021-02-08 14:00] VITALS: BP 117/53
[2021-02-08] MEDS: SIMETHICONE 80MG CHEW TAB PO SCH ×2 (16:13→20:26)
[2021-02-08 20:00] VITALS: BP 126/59
[2021-02-08] MEDS: AMITRIPTYLINE 10MG TABLET PO SCH (20:26)
[2021-02-08] MEDS: SIMVASTATIN 20 MG TAB PO SCH (20:26)
[2021-02-09 06:00] VITALS: BP 146/65
[2021-02-09] MEDS: OMEPRAZOLE 20 MG CAP PO SCH (07:34)
[2021-02-09] MEDS: SIMETHICONE 80MG CHEW TAB PO SCH ×3 (07:34→20:32)
[2021-02-09] MEDS: ASCORBIC ACID 250 MG TAB PO SCH ×2 (07:34→20:32)
[2021-02-09] MEDS: ACETAMINOPHEN 500 MG TAB PO SCH ×3 (07:34→20:32)
[2021-02-09] MEDS: ZINC SULFATE 220 MG CAP PO SCH (07:35)
[2021-02-09] MEDS: predniSONE 5 MG TAB PO SCH (07:35)
[2021-02-09] MEDS: SENOKOT S TAB PO SCH ×2 (07:35→20:34)
[2021-02-09] MEDS: MIRALAX *UNIT DOSE* 17GM PACKET PO SCH ×2 (07:35→20:34)
[2021-02-09] MEDS: BISACODYL 5 MG TAB PO SCH (07:35)
[2021-02-09] MEDS: MULTIVITAMINS/MINERALS THERAP 1 TAB PO SCH (07:35)
[2021-02-09] MEDS: DIGOXIN 0.25 MG TAB PO SCH (07:35)
[2021-02-09] MEDS: atenoloL 25 MG TAB PO SCH ×2 (07:36→20:36)
[2021-02-09] MEDS: VITAMIN D 1,000 INTERNATIONAL UNITS TABLET PO SCH (07:36)
[2021-02-09] MEDS: HEPARIN SOD (PORCINE) 5000UNITS/ML 1ML VIAL/SYRINGE SC SCH ×2 (07:36→20:33)
[2021-02-09] MEDS: BISACODYL 10 MG SUPP PR SCH ×2 (07:36→20:33)
[2021-02-09] MEDS: FLUTICASONE HFA 220 MCG 12 GM INHALER (FLOVENT) INH SCH ×2 (08:00→21:09)
[2021-02-09] MEDS: ACETAMINOPHEN 325 MG TAB PO PRN (12:53)
[2021-02-09 14:00] VITALS: BP 131/59
[2021-02-09 20:00] VITALS: BP 123/60
[2021-02-09] MEDS: AMITRIPTYLINE 10MG TABLET PO SCH (20:32)
[2021-02-09] MEDS: SIMVASTATIN 20 MG TAB PO SCH (20:32)
[2021-02-10] MEDS: ACETAMINOPHEN 325 MG TAB PO PRN (03:35)
[2021-02-10 06:00] VITALS: BP 133/60
[2021-02-10] MEDS: FLUTICASONE HFA 220 MCG 12 GM INHALER (FLOVENT) INH SCH (08:02)
[2021-02-10 08:40] LABS: BASO % 0.3 % (0.0-1.0); EOS # 0.5 10^3/uL (0.0-0.5); EOS % 5.7 % (0.0-3.0); HEMATOCRIT 32.3 % (36.0-47.0); HEMOGLOBIN 10.8 g/dl (12.0-15.5); LYMPH # 2.2 10^3/uL (1.5-5.0); LYMPH % 24.6 % (24.0-44.0); MEAN CORPUSCULAR HEMOGLOBIN 31.9 pg (27.0-33.0); MEAN CORPUSCULAR HGB CONC 33.4 g/dl (32.0-36.5); MEAN CORPUSCULAR VOLUME 95.3 fl (80.0-96.0); MONO # 1.1 10^3/uL (0.0-0.8); MONO % 12.3 % (2.0-8.0); NEUTROPHILS # 4.9 10^3/uL (1.5-8.5); NEUTROPHILS % 56.4 % (36.0-66.0); PLATELET COUNT, AUTOMATED 316 10^3/uL (150-450); RED BLOOD COUNT 3.39 10^6/uL (4.00-5.40); WHITE BLOOD COUNT 8.7 10^3/uL (4.0-10.0)
[2021-02-10] MEDS: SENOKOT S TAB PO SCH (09:00)
[2021-02-10] MEDS: MIRALAX *UNIT DOSE* 17GM PACKET PO SCH (09:00)
[2021-02-10] MEDS: MULTIVITAMINS/MINERALS THERAP 1 TAB PO SCH (09:00)
[2021-02-10] MEDS: BISACODYL 5 MG TAB PO SCH (09:00)
[2021-02-10] MEDS: BISACODYL 10 MG SUPP PR SCH (09:00)
[2021-02-10 09:05] LABS: CREATININE FOR GFR 1.18 MG/DL (0.55-1.30); GLOMERULAR FILTRATION RATE 46.3 (>32); POTASSIUM SERUM 4.2 MEQ/L (3.5-5.1)
[2021-02-10] MEDS: VITAMIN D 1,000 INTERNATIONAL UNITS TABLET PO SCH (09:12)
[2021-02-10] MEDS: SIMETHICONE 80MG CHEW TAB PO SCH (09:12)
[2021-02-10] MEDS: predniSONE 5 MG TAB PO SCH (09:12)
[2021-02-10] MEDS: ZINC SULFATE 220 MG CAP PO SCH (09:12)
[2021-02-10] MEDS: ASCORBIC ACID 250 MG TAB PO SCH (09:12)
[2021-02-10] MEDS: OMEPRAZOLE 20 MG CAP PO SCH (09:12)
[2021-02-10] MEDS: ACETAMINOPHEN 500 MG TAB PO SCH (09:13)
[2021-02-10] MEDS: HEPARIN SOD (PORCINE) 5000UNITS/ML 1ML VIAL/SYRINGE SC SCH (09:14)
[2021-02-10 09:16] VITALS: BP 135/59
[2021-02-10] MEDS: atenoloL 25 MG TAB PO SCH (09:17)
[2021-02-10] MEDS ORDERED: ESOM0.1C PO (09:28)
[2021-02-10] MEDS ORDERED: ATEN25TA PO (09:28)
[2021-02-10] MEDS ORDERED: SIMV20TA22 PO (09:28)
[2021-02-10] MEDS ORDERED: PRED5TA PO (09:28)
[2021-02-10] MEDS ORDERED: DIGO0.253 PO (09:28)
[2021-02-10] MEDS ORDERED: MI-A80CH PO (09:28)
[2021-02-10] MEDS ORDERED: FLUT22IN INH (09:28)
[2021-02-10] MEDS ORDERED: AMIT10TA7 PO (09:28)
[2021-02-10] MEDS ORDERED: VENTAER INH (09:28)
[2021-02-10] MEDS ORDERED: AMLO1TAB25 PO (09:28)
[2021-02-10] MEDS ORDERED: D31000TA2 PO (09:28)
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
== END 2021-02-10 10:25 | disposition home health service (06) | DRG 861 ==
LOC: M PM&R 13:25
PROVIDERS: ADMIT Physical Medicine & Rehabilitation; ATTEND Physical Medicine & Rehabilitation
DX: G89.21 Chronic pain due to trauma (principal); M48.02 Spinal stenosis, cervical region; I48.91 Unspecified atrial fibrillation; S80.11XD Contusion of right lower leg, subsequent encounter; S80.12XD Contusion of left lower leg, subsequent encounter; M79.89 Other specified soft tissue disorders; J45.909 Unspecified asthma, uncomplicated; E78.5 Hyperlipidemia, unspecified; E55.9 Vitamin D deficiency, unspecified; K21.9 Gastro-esophageal reflux disease without esophagitis; K44.9 Diaphragmatic hernia without obstruction or gangrene; H35.30 Unspecified macular degeneration; M94.0 Chondrocostal junction syndrome [Tietze]; F43.21 Adjustment disorder with depressed mood; R14.3 Flatulence; K59.00 Constipation, unspecified; H26.9 Unspecified cataract; Z74.09 Other reduced mobility; Z74.1 Need for assistance with personal care; Z98.1 Arthrodesis status; Z90.49 Acquired absence of other specified parts of digestive tract; Z87.891 Personal history of nicotine dependence; Z79.899 Other long term (current) drug therapy; Z88.1 Allergy status to other antibiotic agents; Z88.5 Allergy status to narcotic agent; Z88.6 Allergy status to analgesic agent; Z88.2 Allergy status to sulfonamides; Z88.8 Allergy status to other drugs, medicaments and biological substances; V43.53XD Car driver injured in collision with pick-up truck in traffic accident, subsequent encounter; Y92.410 Unspecified street and highway as the place of occurrence of the external cause; Y93.89 Activity, other specified; Y99.9 Unspecified external cause status

== ENCOUNTER → 2021-02-15 | Outpatient (REF) | payer MEDICARE, BC ==
[~2021-02-15] MED LIST changes: +AMLO1TAB25 PO; +MI-A80CH PO; +SIMV20TA22 PO
== END ==
LOC: M LAB REF 16:22
PROVIDERS: ATTEND Internal Medicine
DX: E78.5 Hyperlipidemia, unspecified (principal)

== ENCOUNTER → 2021-02-21 | Outpatient (REF) | payer MEDICARE, BC ==
[2021-02-23 04:11] LABS: LDL DIRECT 59 mg/dL (0-99)
== END ==
LOC: M LAB REF 16:29
PROVIDERS: ATTEND Internal Medicine
DX: E78.00 Pure hypercholesterolemia, unspecified (principal)

== ENCOUNTER → 2021-03-06 | Outpatient (CLI) | payer MEDICARE, BC | LOC: M PAIN 13:00 | PROVIDERS: ATTEND Nurse Practitioner Family | DX: M79.18 Myalgia, other site (principal); I10 Essential (primary) hypertension; I49.9 Cardiac arrhythmia, unspecified; E78.5 Hyperlipidemia, unspecified; M19.90 Unspecified osteoarthritis, unspecified site; J45.909 Unspecified asthma, uncomplicated; E11.9 Type 2 diabetes mellitus without complications; H26.9 Unspecified cataract; M54.50 Low back pain, unspecified; M25.551 Pain in right hip; Z87.891 Personal history of nicotine dependence; Z79.899 Other long term (current) drug therapy; Z88.2 Allergy status to sulfonamides; Z88.5 Allergy status to narcotic agent; Z88.6 Allergy status to analgesic agent; Z88.0 Allergy status to penicillin; Z88.1 Allergy status to other antibiotic agents; Z88.8 Allergy status to other drugs, medicaments and biological substances ==

== ENCOUNTER → 2021-03-08 | Outpatient (CLI) | payer OTHER, MEDICARE, BC ==
--- NOTE | 2021-03-08 11:04 | REP ---
INDICATION: RT LEG SWELLING COMPARISON: None. TECHNIQUE: Baum scale and color Doppler evaluation using linear high frequency transducer. FINDINGS: Ultrasound examination of the lower extremity deep venous structures from the common femoral vein through the popliteal vein demonstrates normal compressibility, flow and wave patterns in response to respiration and augmentation. Evaluation of the calf veins is limited due to subcutaneous edema/swelling. There is no evidence for deep venous thrombosis. Contralateral CFV is patent and normal. There is a small ovoid fluid collection at the level of the mid calf measuring 2.9 x 2.3 x 0.3 cm in the deep subcutaneous tissue superficial to the musculature. IMPRESSION: No evidence for deep venous thrombosis. Small fluid collection in the mid calf subcutaneous tissue. <Electronically signed by Som Rico > 03/08/21 1100
== END ==
LOC: M RAD 10:19
PROVIDERS: ATTEND Obstetrics & Gynecology
DX: R22.41 Localized swelling, mass and lump, right lower limb (principal)

== ENCOUNTER → 2021-03-22 | Outpatient (CLI) | payer MEDICARE, BC | LOC: M PAIN 15:15 | PROVIDERS: ATTEND Nurse Practitioner Family | DX: M79.18 Myalgia, other site (principal); I10 Essential (primary) hypertension; E78.5 Hyperlipidemia, unspecified; J45.909 Unspecified asthma, uncomplicated; E11.9 Type 2 diabetes mellitus without complications; M54.50 Low back pain, unspecified; M25.551 Pain in right hip; H26.9 Unspecified cataract; I49.9 Cardiac arrhythmia, unspecified; Z87.891 Personal history of nicotine dependence; Z79.899 Other long term (current) drug therapy; Z88.1 Allergy status to other antibiotic agents; Z88.5 Allergy status to narcotic agent; Z88.6 Allergy status to analgesic agent; Z88.0 Allergy status to penicillin; Z88.2 Allergy status to sulfonamides; Z88.8 Allergy status to other drugs, medicaments and biological substances ==

== ENCOUNTER → 2021-03-29 | Outpatient (CLI) | payer MEDICARE, BC | LOC: M PAIN 15:15 | PROVIDERS: ATTEND Nurse Practitioner Family | DX: M79.18 Myalgia, other site (principal); I10 Essential (primary) hypertension; E78.5 Hyperlipidemia, unspecified; I49.9 Cardiac arrhythmia, unspecified; M19.90 Unspecified osteoarthritis, unspecified site; J45.909 Unspecified asthma, uncomplicated; E11.9 Type 2 diabetes mellitus without complications; M54.50 Low back pain, unspecified; M25.551 Pain in right hip; Z87.891 Personal history of nicotine dependence; Z79.52 Long term (current) use of systemic steroids; Z79.891 Long term (current) use of opiate analgesic; Z79.899 Other long term (current) drug therapy; Z88.0 Allergy status to penicillin; Z88.1 Allergy status to other antibiotic agents; Z88.2 Allergy status to sulfonamides; Z88.6 Allergy status to analgesic agent; Z88.5 Allergy status to narcotic agent; Z88.8 Allergy status to other drugs, medicaments and biological substances; Z88.7 Allergy status to serum and vaccine ==

== ENCOUNTER → 2021-11-03 | Outpatient (CLI) | payer MEDICARE, BC ==
[~2021-11-03] MED LIST changes: -D31000TA2 PO; +VITA100093 PO
== END ==
LOC: M PAIN 10:15
PROVIDERS: ATTEND Anesthesiology
DX: M79.10 Myalgia, unspecified site (principal); M79.18 Myalgia, other site; M53.3 Sacrococcygeal disorders, not elsewhere classified; I10 Essential (primary) hypertension; E78.5 Hyperlipidemia, unspecified; I49.9 Cardiac arrhythmia, unspecified; M19.90 Unspecified osteoarthritis, unspecified site; J45.909 Unspecified asthma, uncomplicated; E11.9 Type 2 diabetes mellitus without complications; M54.50 Low back pain, unspecified; M25.551 Pain in right hip; H26.9 Unspecified cataract; Z87.891 Personal history of nicotine dependence; Z79.52 Long term (current) use of systemic steroids; Z79.899 Other long term (current) drug therapy; Z88.2 Allergy status to sulfonamides; Z88.5 Allergy status to narcotic agent; Z88.1 Allergy status to other antibiotic agents; Z88.0 Allergy status to penicillin; Z88.8 Allergy status to other drugs, medicaments and biological substances; Z88.6 Allergy status to analgesic agent

== ENCOUNTER → 2021-11-15 | Outpatient (CLI) | payer MEDICARE, BC | LOC: M WHC 12:51 | PROVIDERS: ATTEND Internal Medicine | DX: Z12.31 Encounter for screening mammogram for malignant neoplasm of breast (principal) ==

== ENCOUNTER → 2021-11-20 | Outpatient (REF) | payer MEDICARE, BC ==
[2021-11-22 08:09] LABS: LDL DIRECT 65 mg/dL (0-99)
== END ==
LOC: M LAB REF 16:09
PROVIDERS: ATTEND Internal Medicine
DX: E78.00 Pure hypercholesterolemia, unspecified (principal); I47.1 Supraventricular tachycardia

== ENCOUNTER → 2021-11-28 | Outpatient (CLI) | payer MEDICARE, BC | LOC: M RAD 10:16 | PROVIDERS: ATTEND Anesthesiology | DX: M79.10 Myalgia, unspecified site (principal); M53.3 Sacrococcygeal disorders, not elsewhere classified ==

== ENCOUNTER → 2021-11-29 | Outpatient (CLI) | payer MEDICARE, BC | LOC: M WHC 08:52 | PROVIDERS: ATTEND Internal Medicine | DX: M81.0 Age-related osteoporosis without current pathological fracture (principal); M85.89 Other specified disorders of bone density and structure, multiple sites ==

== ENCOUNTER → 2022-01-19 | Outpatient (CLI) | payer MEDICARE, BC | LOC: M PAIN 10:45 | PROVIDERS: ATTEND Anesthesiology | DX: M54.50 Low back pain, unspecified (principal); M79.10 Myalgia, unspecified site; M79.18 Myalgia, other site; I10 Essential (primary) hypertension; I49.9 Cardiac arrhythmia, unspecified; E78.5 Hyperlipidemia, unspecified; M19.90 Unspecified osteoarthritis, unspecified site; J45.909 Unspecified asthma, uncomplicated; E11.9 Type 2 diabetes mellitus without complications; Z98.41 Cataract extraction status, right eye; Z98.42 Cataract extraction status, left eye; M25.551 Pain in right hip; Z96.643 Presence of artificial hip joint, bilateral; Z87.891 Personal history of nicotine dependence; Z79.52 Long term (current) use of systemic steroids; Z79.899 Other long term (current) drug therapy; Z88.0 Allergy status to penicillin; Z88.1 Allergy status to other antibiotic agents; Z88.2 Allergy status to sulfonamides; Z88.5 Allergy status to narcotic agent; Z88.6 Allergy status to analgesic agent; Z88.8 Allergy status to other drugs, medicaments and biological substances ==

== ENCOUNTER → 2022-02-15 | Outpatient (CLI) | payer MEDICARE, BC ==
[~2022-02-15] MED LIST changes: +BUPIVACAINE HCL 0.25% 10ML VIAL As Ordered ONE; +BUPIVACAINE HCL 0.25% 30ML VIAL As Ordered ONE; +diazePAM 2 MG TAB As Ordered ONE
== END ==
LOC: M PAIN 13:45
PROVIDERS: ATTEND Anesthesiology
DX: M79.18 Myalgia, other site (principal); I10 Essential (primary) hypertension; E78.5 Hyperlipidemia, unspecified; J45.909 Unspecified asthma, uncomplicated; E11.9 Type 2 diabetes mellitus without complications; M54.50 Low back pain, unspecified; M25.551 Pain in right hip; Z98.41 Cataract extraction status, right eye; Z98.42 Cataract extraction status, left eye; I49.9 Cardiac arrhythmia, unspecified; M19.90 Unspecified osteoarthritis, unspecified site; Z87.891 Personal history of nicotine dependence; Z79.899 Other long term (current) drug therapy; Z88.1 Allergy status to other antibiotic agents; Z88.2 Allergy status to sulfonamides; Z88.5 Allergy status to narcotic agent; Z88.6 Allergy status to analgesic agent; Z88.8 Allergy status to other drugs, medicaments and biological substances; Z88.7 Allergy status to serum and vaccine; Z88.0 Allergy status to penicillin

== ENCOUNTER → 2022-05-21 | Outpatient (REF) | payer MEDICARE, BC ==
[~2022-05-21] MED LIST changes: -BUPIVACAINE HCL 0.25% 10ML VIAL As Ordered ONE; -BUPIVACAINE HCL 0.25% 30ML VIAL As Ordered ONE; -diazePAM 2 MG TAB As Ordered ONE
== END ==
LOC: M LAB REF 11:57
PROVIDERS: ATTEND Internal Medicine
DX: I47.1 Supraventricular tachycardia (principal)

== ENCOUNTER 2022-09-19 14:53 | Emergency (ER) | payer MEDICARE, BC ==
[~2022-09-19] VITALS: Ht 152.4 cm; Wt 48.8 kg
[2022-09-19] MEDS ORDERED: ONDA-83 (15:04)
[2022-09-19 17:53] VITALS: TEMP 97.6
[2022-09-19] MEDS ORDERED: METOCLOPRAMIDE INJ 10MG/2ML VIAL IV ONE (18:45)
[2022-09-19] MEDS ORDERED: MORPHINE 2 MG/ML 1ML VIAL IV ONE ×2 (18:45→20:10)
[2022-09-19] MEDS ORDERED: NS 500 ML IV ONE (18:45)
[2022-09-19] MEDS ORDERED: cloNIDine 0.1MG TABLET PO ONE (18:45)
[2022-09-19 19:15] VITALS: BP 210/90
[2022-09-19 20:29] VITALS: O2SAT 97
[2022-09-19 20:51] VITALS: BP 164/73
== END 2022-09-19 21:36 | disposition home or self-care (01) ==
LOC: M ED 14:53
DX: M50.30 Other cervical disc degeneration, unspecified cervical region (principal); I10 Essential (primary) hypertension; M19.90 Unspecified osteoarthritis, unspecified site; Z87.891 Personal history of nicotine dependence; Z88.6 Allergy status to analgesic agent; Z88.2 Allergy status to sulfonamides; Z79.899 Other long term (current) drug therapy; Z79.52 Long term (current) use of systemic steroids; Z79.51 Long term (current) use of inhaled steroids
CPT/HCPCS: 70450; 72125; 96374; 96375; 96376; 99284; J1100; J2765

== ENCOUNTER → 2022-10-05 | Outpatient (REF) | payer MEDICARE, BC ==
[~2022-10-05] MED LIST changes: +ONDA-83
[2022-10-05 15:06] LABS: DIGOXIN LEVEL 0.7 NG/ML (0.8-2.0)
[2022-10-05 15:07] LABS: PERCENT SATURATION 12.8 % (13.2-45.0)
== END ==
LOC: M LAB REF 12:50
PROVIDERS: ATTEND Internal Medicine
DX: I47.1 Supraventricular tachycardia (principal)

== ENCOUNTER → 2022-10-08 | Outpatient (REF) | payer MEDICARE, BC | LOC: M LAB REF 10:22 | PROVIDERS: ATTEND Internal Medicine | DX: K26.9 Duodenal ulcer, unspecified as acute or chronic, without hemorrhage or perforation (principal) ==

== ENCOUNTER 2022-10-15 09:28 | Outpatient (CLI) | payer MEDICARE, BC ==
[2022-10-15 13:20] VITALS: BP 133/65; TEMP 97.4; O2SAT 100
[2022-10-15 13:39] VITALS: BP 120/59; TEMP 98; O2SAT 98
[2022-10-15 14:52] VITALS: BP 148/78; TEMP 98; O2SAT 99
[2022-10-15 15:10] VITALS: BP 147/67; TEMP 97.8; O2SAT 100
== END 2022-10-15 16:45 ==
LOC: M INFU 09:28
PROVIDERS: ATTEND Internal Medicine
DX: D64.9 Anemia, unspecified (principal); Z88.6 Allergy status to analgesic agent; Z88.2 Allergy status to sulfonamides; Z88.1 Allergy status to other antibiotic agents; Z88.8 Allergy status to other drugs, medicaments and biological substances; Z88.7 Allergy status to serum and vaccine; Z88.5 Allergy status to narcotic agent
CPT/HCPCS: 36430; 36592; 86850; 86900; 86901; 86920; P9016

== ENCOUNTER 2022-11-02 12:52 | Day surgery (SDC) | payer MEDICARE, BC ==
[~2022-11-02] VITALS: Ht 152.4 cm; Wt 45.4 kg
[~2022-11-02 12:52] MED LIST changes: +ICAP1CAP PO; +NS 1,000 ML IV ONE
[2022-11-02] MEDS ORDERED: GLYCOPYRROLATE INJ 0.2 MG/ML 2 ML VIAL As Ordered ONE (13:36)
[2022-11-02] MEDS ORDERED: LIDOCAINE 2% 100MG/5ML SDV (FOR ANES.) As Ordered ONE (13:36)
[2022-11-02] MEDS ORDERED: propofoL 200 MG/20 ML VIAL As Ordered ONE ×2 (13:36→14:27)
[2022-11-02] MEDS ORDERED: IPRATROPIUM 0.5MG/ALBUTEROL 2.5MG INH SOL UD 3ML (DUONEB) NEB ONE (13:50)
[2022-11-02 14:56] VITALS: TEMP 97.1
[2022-11-02 15:10] VITALS: BP 137/63; O2SAT 97
== END 2022-11-02 15:41 | disposition home or self-care (01) ==
LOC: M OPP 12:52
PROVIDERS: ATTEND Internal Medicine Gastroenterology
DX: K92.2 Gastrointestinal hemorrhage, unspecified (principal); K31.89 Other diseases of stomach and duodenum; K29.50 Unspecified chronic gastritis without bleeding; Z88.6 Allergy status to analgesic agent

== ENCOUNTER → 2022-11-23 | Outpatient (REF) | payer MEDICARE, BC ==
[~2022-11-23] MED LIST changes: -NS 1,000 ML IV ONE
== END ==
LOC: M LAB REF 11:43
PROVIDERS: ATTEND Internal Medicine
DX: I47.1 Supraventricular tachycardia (principal)

== ENCOUNTER → 2022-12-07 | Outpatient (CLI) | payer MEDICARE, BC | LOC: M WHC 09:13 | PROVIDERS: ATTEND Internal Medicine | DX: Z12.31 Encounter for screening mammogram for malignant neoplasm of breast (principal) ==

== ENCOUNTER → 2023-03-14 | Outpatient (REF) | payer MEDICARE, BC ==
[2023-03-14 13:03] LABS: PERCENT SATURATION 36.4 % (13.2-45.0)
== END ==
LOC: M LAB REF 12:29
PROVIDERS: ATTEND Internal Medicine
DX: D50.0 Iron deficiency anemia secondary to blood loss (chronic) (principal)

== ENCOUNTER 2023-06-24 14:11 | Inpatient (IN) | payer MEDICARE, BC ==
[~2023-06-24] VITALS: Ht 152.4 cm; Wt 52.0 kg
[~2023-06-24 14:11] MED LIST changes: -ONDA-83; +ONDA-83 PO
[2023-06-24] MEDS ORDERED: ACETAMINOPHEN 650MG SUPP PR ONE (14:35)
[2023-06-24 15:28] LABS: HEMATOCRIT 39.6 % (36.0-47.0); MEAN CORPUSCULAR HEMOGLOBIN 31.4 pg (27.0-33.0); MEAN CORPUSCULAR HGB CONC 32.8 g/dl (32.0-36.5); MEAN CORPUSCULAR VOLUME 95.7 fl (80.0-96.0); PLATELET COUNT, AUTOMATED 175 10^3/uL (150-450); RED BLOOD COUNT 4.14 10^6/uL (4.00-5.40); WHITE BLOOD COUNT 9.6 10^3/uL (4.0-10.0)
[2023-06-24] MEDS: ACETAMINOPHEN *IV* 500 MG in IV 1 EA IV ONE (15:31)
[2023-06-24] MEDS: NS 1,000 ML IV ONE ×2 (15:31→17:28)
[2023-06-24 15:51] LABS: C REACTIVE PROTEIN QUANTITATIV 17.9 MG/DL (<1.0)
[2023-06-24 15:53] LABS: ALBUMIN 3.2 G/DL (3.2-5.2); BILIRUBIN,DIRECT 0.2 MG/DL (<0.4); BILIRUBIN,TOTAL 0.6 MG/DL (0.3-1.2); CALCIUM LEVEL 8.2 MG/DL (8.3-10.6); CREATININE FOR GFR 1.21 MG/DL (0.55-1.30); GLOMERULAR FILTRATION RATE 44.8 (>32); POTASSIUM SERUM 4.2 MMOL/L (3.5-5.1); TOTAL PROTEIN 6.4 G/DL (5.7-8.2)
[2023-06-24 15:59] LABS: PROCALCITONIN 7.03 ng/ml
[2023-06-24 16:03] LABS: ATYPICAL LYMPH 3 % (0-5); BASOPHILS 1 % (0-1); LYMPHOCYTES 3 % (16-44); METAMYELOCYTES 1 % (0-0); MONOCYTES 7 % (0-5); MYELOCYTES 2 % (0-0); NEUTROPHILS 67 % (28-66)
[2023-06-24 16:04] LABS: PLATELET ESTIMATE NORMAL (NORMAL); POIKILOCYTOSIS 1+
[2023-06-24 16:07] LABS: VENOUS HCO3 21.2 MMOL/L (23.0-27.0); VENOUS O2 SATURATION 55.3 % (60.0-80.0); VENOUS PARTIAL PRESSURE CO2 39.3 mmHg (38.0-50.0); VENOUS PARTIAL PRESSURE O2 29.7 mmHg (30.0-50.0); VENOUS STANDARD HCO3 20.3 MMOL/L; VENOUS TOTAL CO2 22.4 MMOL/L (24.0-28.0)
[2023-06-24] MEDS: MEROPENEM INJ 1 GM in IV 1 EA IV ONE (16:51)
[2023-06-24] MEDS ORDERED: ISOVUE-370 76% 100ML VIAL As Ordered ONE (17:07)
[2023-06-24] MEDS ORDERED: VENTAER INH (20:09)
[2023-06-24] MEDS ORDERED: SIMV20TA22 PO (20:09)
[2023-06-24] MEDS ORDERED: PRED5PAK PO (20:09)
[2023-06-24] MEDS ORDERED: AMIT-253 PO (20:09)
[2023-06-24] MEDS ORDERED: CHOL12508 PO (20:09)
[2023-06-24] MEDS ORDERED: TRAZ-252 PO (20:10)
[2023-06-24] MEDS ORDERED: HOME MED LIST COMPLETE! XX SCH (20:15)
[2023-06-24] MEDS: SIMVASTATIN 20 MG TAB PO SCH (21:09)
[2023-06-24] MEDS: traZODone 50 MG TAB PO SCH (21:09)
[2023-06-24] MEDS: AMITRIPTYLINE 10MG TABLET PO SCH (21:10)
[2023-06-24 22:30] VITALS: BP 132/48; TEMP 98.9; O2SAT 96
[2023-06-24] MEDS: NS 1,000 ML IV SCH (22:45)
[2023-06-25] VITALS (19 sets, daily range): BP systolic 81–143; BP diastolic 43–70; TEMP 98.6–102.2; O2SAT 94–100
[2023-06-25] MEDS: PROMETHAZINE 25MG/ML 1ML VIAL IV PRN (04:43)
[2023-06-25] MEDS: ACETAMINOPHEN TAB 650MG DOSE (2X325MG) PO PRN (06:03)
[2023-06-25] MEDS: HYDROMORPHONE HCL 0.5 MG/ 0.5 ML SYRINGE IV PRN (06:03)
[2023-06-25 06:49] LABS: BASO % 0.3 % (0.0-1.0); EOS # 0.4 10^3/uL (0.0-0.5); EOS % 5.8 % (0.0-3.0); HEMATOCRIT 31.2 % (36.0-47.0); LYMPH # 0.6 10^3/uL (1.5-5.0); LYMPH % 10.1 % (24.0-44.0); MEAN CORPUSCULAR HEMOGLOBIN 31.5 pg (27.0-33.0); MEAN CORPUSCULAR VOLUME 95.4 fl (80.0-96.0); MONO # 0.5 10^3/uL (0.0-0.8); NEUTROPHILS # 4.8 10^3/uL (1.5-8.5); NEUTROPHILS % 75.3 % (36.0-66.0); PLATELET COUNT, AUTOMATED 125 10^3/uL (150-450); RED BLOOD COUNT 3.27 10^6/uL (4.00-5.40); WHITE BLOOD COUNT 6.3 10^3/uL (4.0-10.0)
[2023-06-25 06:54] LABS: HEMOGLOBIN 10.3 g/dl (12.0-15.5)
[2023-06-25 07:03] LABS: MAGNESIUM LEVEL 1.6 MG/DL (1.8-2.4)
[2023-06-25 07:05] LABS: CALCIUM LEVEL 6.6 MG/DL (8.3-10.6); CREATININE FOR GFR 1.19 MG/DL (0.55-1.30); GLOMERULAR FILTRATION RATE 45.7 (>32); POTASSIUM SERUM 3.5 MMOL/L (3.5-5.1)
[2023-06-25] MEDS: METOPROLOL 5 MG/5 ML VIAL IV SCH (07:10)
[2023-06-25 07:17] LABS: PROCALCITONIN 4.61 ng/ml
[2023-06-25] MEDS: MAG SULF 1GM/100ML (MAG RUN) 1 GM in IV 1 EA IV SCH (08:00)
[2023-06-25] MEDS: PANTOPRAZOLE 40MG VIAL IV SCH (08:00)
[2023-06-25] MEDS: HEPARIN SOD (PORCINE) 5000UNITS/ML 1ML VIAL/SYRINGE SC SCH (08:00)
[2023-06-25] MEDS: PIPERACILLIN/TAZOBACTAM SOD 2.25 GM in D5W MINI-BAG PLUS 50 ML IV SCH (08:00)
[2023-06-25] MEDS: DIGOXIN INJ 0.5 MG/2 ML AMP IV STA (08:01)
[2023-06-25] MEDS ORDERED: DIGOXIN 0.125 MG TAB PO SCH (09:00)
[2023-06-25] MEDS: LR 1,000 ML IV ONE (09:26)
[2023-06-25 09:42] LABS: CORTISOL AM 18.5 UG/DL (4.3-22.4)
[2023-06-25] MEDS: predniSONE 10MG TAB PO SCH (11:27)
[2023-06-25] MEDS ORDERED: LOPERAMIDE 2 MG CAPLET PO PRN (13:55)
[2023-06-25] MEDS: DIGOXIN INJ 0.5 MG/2 ML AMP IV ONE (14:01)
[2023-06-25] MEDS: MIDODRINE 5 MG TAB PO SCH (16:00)
[2023-06-25] MEDS: ALBUTEROL 90 MCG/ACT 8GM HFA INHALER INH PRN (20:52)
[2023-06-25] MEDS: IPRATROPIUM 0.02% SOLN 0.5MG 2.5ML NEB NEB PRN (22:24)
[2023-06-26] VITALS (7 sets, daily range): BP systolic 131–175; BP diastolic 60–79; TEMP 98.4–98.9; O2SAT 94–100
[2023-06-26 05:05] LABS: BASO % 0.3 % (0.0-1.0); HEMATOCRIT 29.3 % (36.0-47.0); HEMOGLOBIN 9.6 g/dl (12.0-15.5); LYMPH # 0.7 10^3/uL (1.5-5.0); MEAN CORPUSCULAR HEMOGLOBIN 30.7 pg (27.0-33.0); MEAN CORPUSCULAR HGB CONC 32.8 g/dl (32.0-36.5); MEAN CORPUSCULAR VOLUME 93.6 fl (80.0-96.0); MONO # 0.5 10^3/uL (0.0-0.8); MONO % 12.5 % (2.0-8.0); NEUTROPHILS # 2.6 10^3/uL (1.5-8.5); NEUTROPHILS % 66.9 % (36.0-66.0); PLATELET COUNT, AUTOMATED 125 10^3/uL (150-450); RED BLOOD COUNT 3.13 10^6/uL (4.00-5.40); WHITE BLOOD COUNT 3.8 10^3/uL (4.0-10.0)
[2023-06-26 05:44] LABS: CALCIUM LEVEL 7.2 MG/DL (8.3-10.6); CREATININE FOR GFR 1.14 MG/DL (0.55-1.30)
[2023-06-26 06:23] LABS: MAGNESIUM LEVEL 2.7 MG/DL (1.8-2.4)
[2023-06-26] MEDS: METOPROLOL TART 50 MG TAB PO SCH (08:55)
[2023-06-26] MEDS: IPRATROPIUM 0.5MG/ALBUTEROL 2.5MG INH SOL UD 3ML (DUONEB) NEB SCH (11:19)
[2023-06-27 00:16] VITALS: BP 138/66; TEMP 98; O2SAT 96
[2023-06-27 03:53] VITALS: BP 144/65; TEMP 98.2; O2SAT 96
[2023-06-27 04:17] LABS: HEMOGLOBIN 9.4 g/dl (12.0-15.5); MEAN CORPUSCULAR HEMOGLOBIN 31.5 pg (27.0-33.0); MEAN CORPUSCULAR HGB CONC 33.6 g/dl (32.0-36.5); PLATELET COUNT, AUTOMATED 144 10^3/uL (150-450); RED BLOOD COUNT 2.98 10^6/uL (4.00-5.40); WHITE BLOOD COUNT 5.2 10^3/uL (4.0-10.0)
[2023-06-27 04:41] LABS: CREATININE FOR GFR 0.99 MG/DL (0.55-1.30); GLOMERULAR FILTRATION RATE 56.5 (>32); POTASSIUM SERUM 3.9 MMOL/L (3.5-5.1)
[2023-06-27 05:22] LABS: ATYPICAL LYMPH 2 % (0-5); EOSINOPHILS 2 % (0-3); LYMPHOCYTES 23 % (16-44); METAMYELOCYTES 3 % (0-0); MONOCYTES 6 % (0-5); MYELOCYTES 1 % (0-0); NEUTROPHILS 63 % (28-66); PLATELET ESTIMATE NORMAL (NORMAL); POIKILOCYTOSIS 1+
[2023-06-27 07:28] LABS: C REACTIVE PROTEIN QUANTITATIV 4.6 MG/DL (<1.0)
[2023-06-27 07:41] LABS: PROCALCITONIN 1.75 ng/ml
[2023-06-27 08:00] VITALS: BP 164/77; TEMP 97.6; O2SAT 97
[2023-06-27] MEDS: BENZONATATE 100MG CAPSULE PO SCH (08:38)
[2023-06-27] MEDS: FUROSEMIDE 20MG/2ML VIAL IV ONE (08:38)
[2023-06-27 08:39] VITALS: BP 164/77
[2023-06-27] MEDS: predniSONE 20 MG TAB PO SCH (08:39)
[2023-06-27 10:00] VITALS: BP 155/74; O2SAT 98
[2023-06-27] MEDS ORDERED: PRED20TA PO (10:40)
[2023-06-27] MEDS ORDERED: AMOX875T2 PO (10:40)
[2023-06-27] MEDS ORDERED: PRED5PAK PO (10:40)
[2023-06-27] MEDS ORDERED: LOPR1TAB6 PO (10:40)
[2023-06-27] MEDS ORDERED: BENZ-18 PO (10:40)
[2023-06-27] MEDS ORDERED: PROBCAP14 PO (10:43)
[2023-06-27 12:00] VITALS: BP 152/72; TEMP 98.2; O2SAT 96
== END 2023-06-27 13:30 | disposition home or self-care (01) | DRG 872 ==
LOC: M ED 14:11 → M ED INP 20:49 → ENRESERV 21:25 → M MS5PR 22:00 → M ICU 06-25 07:01
PROVIDERS: ADMIT Internal Medicine; ATTEND Student in an Organized Health Care Education/Training Program
PROC: B246ZZZ Ultrasonography of Right and Left Heart (ICD-10-PCS; principal; 2023-06-25)
DX: A41.9 Sepsis, unspecified organism (principal); A08.11 Acute gastroenteropathy due to Norwalk agent; J44.1 Chronic obstructive pulmonary disease with (acute) exacerbation; A04.9 Bacterial intestinal infection, unspecified; I48.91 Unspecified atrial fibrillation; K21.9 Gastro-esophageal reflux disease without esophagitis; I25.10 Atherosclerotic heart disease of native coronary artery without angina pectoris; F32.A Depression, unspecified; K44.9 Diaphragmatic hernia without obstruction or gangrene; E83.42 Hypomagnesemia; N18.30 Chronic kidney disease, stage 3 unspecified; D64.9 Anemia, unspecified; J30.9 Allergic rhinitis, unspecified; Z98.1 Arthrodesis status; Z90.49 Acquired absence of other specified parts of digestive tract; Z96.643 Presence of artificial hip joint, bilateral; Z98.41 Cataract extraction status, right eye; Z90.710 Acquired absence of both cervix and uterus; Z87.891 Personal history of nicotine dependence; Z79.52 Long term (current) use of systemic steroids; Z79.899 Other long term (current) drug therapy; Z88.1 Allergy status to other antibiotic agents; Z88.2 Allergy status to sulfonamides; Z88.6 Allergy status to analgesic agent; Z88.8 Allergy status to other drugs, medicaments and biological substances; Z91.048 Other nonmedicinal substance allergy status

== ENCOUNTER → 2023-07-10 | Outpatient (REF) | payer MEDICARE, BC ==
[~2023-07-10] MED LIST changes: +AMIT-253 PO; +AMOX875T2 PO; +BENZ-18 PO; +CHOL12508 PO; +LOPR1TAB6 PO; +PRED20TA PO; +PRED5PAK PO; +PROBCAP14 PO; +TRAZ-252 PO
[2023-07-10 15:02] LABS: DIGOXIN LEVEL 0.8 NG/ML (0.8-2.0); PERCENT SATURATION 16.3 % (13.2-45.0)
== END ==
LOC: M LAB REF 14:14
PROVIDERS: ATTEND Internal Medicine
DX: D64.9 Anemia, unspecified (principal); I48.0 Paroxysmal atrial fibrillation

== ENCOUNTER → 2023-09-12 | Outpatient (CLI) | payer MEDICARE, BC ==
[~2023-09-12] MED LIST changes: -ESOM0.1C PO; +ESOM20CA2 PO
== END ==
LOC: M RAD 14:16
PROVIDERS: ATTEND Physician Assistant
DX: M54.59 Other low back pain (principal)

== ENCOUNTER → 2023-09-16 | Outpatient (REF) | payer MEDICARE, BC | LOC: M LAB REF 12:16 | PROVIDERS: ATTEND Internal Medicine | DX: I48.0 Paroxysmal atrial fibrillation (principal) ==

== ENCOUNTER → 2023-12-12 | Outpatient (CLI) | payer MEDICARE, BC | LOC: M WHC 13:06 | PROVIDERS: ATTEND Internal Medicine | DX: Z12.31 Encounter for screening mammogram for malignant neoplasm of breast (principal); R92.333 Mammographic heterogeneous density, bilateral breasts ==

== ENCOUNTER 2024-02-17 11:11 | Emergency (ER) | payer MEDICARE, BC ==
[~2024-02-17] VITALS: Ht 152.4 cm; Wt 48.6 kg
[2024-02-17] MEDS: ACETAMINOPHEN 500 MG TAB PO ONE (11:48)
[2024-02-17 12:41] VITALS: O2SAT 98
[2024-02-17 12:45] VITALS: BP 166/79
[2024-02-17] MEDS ORDERED: CLIN150C17 PO (12:55)
[2024-02-17 13:08] VITALS: TEMP 98
== END 2024-02-17 13:16 | disposition home or self-care (01) ==
LOC: EDBD 11:11 → M ED 11:11
DX: S00.83XA Contusion of other part of head, initial encounter (principal); Y92.531 Health care provider office as the place of occurrence of the external cause; Y93.9 Activity, unspecified; Y99.9 Unspecified external cause status; W01.10XA Fall on same level from slipping, tripping and stumbling with subsequent striking against unspecified object, initial encounter; I48.91 Unspecified atrial fibrillation; J44.9 Chronic obstructive pulmonary disease, unspecified; F32.A Depression, unspecified; Z88.2 Allergy status to sulfonamides; Z88.8 Allergy status to other drugs, medicaments and biological substances; Z88.1 Allergy status to other antibiotic agents; Z79.51 Long term (current) use of inhaled steroids; Z79.52 Long term (current) use of systemic steroids; Z79.899 Other long term (current) drug therapy

== ENCOUNTER → 2024-03-19 | Outpatient (REF) | payer MEDICARE, BC ==
[~2024-03-19] MED LIST changes: +CLIN150C17 PO
== END ==
LOC: M LAB REF 12:54
PROVIDERS: ATTEND Internal Medicine
DX: I48.0 Paroxysmal atrial fibrillation (principal)

== ENCOUNTER → 2024-06-01 | Outpatient (CLI) | payer MEDICARE, BC | LOC: M PLAIMG 14:24 | PROVIDERS: ATTEND Physician Assistant | DX: M70.61 Trochanteric bursitis, right hip (principal) ==

== ENCOUNTER 2024-11-12 11:18 | Emergency (ER) | payer MEDICARE, BC ==
[~2024-11-12] VITALS: Ht 152.4 cm; Wt 47.6 kg
[~2024-11-12 11:18] MED LIST changes: +AMIT10TA11 PO; -AMIT10TA7 PO; +METO50TA7 PO; +METR-265 PO; +MORP-138 PO; -MORP15TASA PO; +PRES10CA2 PO; +VITA100066 PO
[2024-11-12 12:17] LABS: BASO # 0.0 10^3/uL (0.0-0.2); BASO % 0.2 % (0.0-1.0); EOS # 0.2 10^3/uL (0.0-0.5); EOS % 2.2 % (0.0-3.0); LYMPH # 1.5 10^3/uL (1.5-5.0); LYMPH % 17.6 % (24.0-44.0); MONO # 0.9 10^3/uL (0.0-0.8); MONO % 10.5 % (2.0-8.0); NEUTROPHILS # 5.7 10^3/uL (1.5-8.5); NEUTROPHILS % 68.5 % (36.0-66.0); PLATELET COUNT, AUTOMATED 197 10^3/uL (150-450)
[2024-11-12 12:43] LABS: CALCIUM LEVEL 8.6 MG/DL (8.3-10.6); CARBON DIOXIDE LEVEL 28.0 MMOL/L (20-31); CHLORIDE LEVEL 103.0 MMOL/L (98-107); CREATININE FOR GFR 1.01 MG/DL (0.55-1.30); GLOMERULAR FILTRATION RATE 53.5 (>32); POTASSIUM SERUM 4.0 MMOL/L (3.5-5.1); SODIUM LEVEL 142.0 MMOL/L (136-145)
[2024-11-12 14:05] VITALS: BP 134/92; TEMP 97.8; O2SAT 98
== END 2024-11-12 14:14 | disposition home or self-care (01) ==
LOC: EDBD 11:18 → M ED 11:18
DX: S20.211A Contusion of right front wall of thorax, initial encounter (principal); S70.01XA Contusion of right hip, initial encounter; Y92.019 Unspecified place in single-family (private) house as the place of occurrence of the external cause; Y93.9 Activity, unspecified; Y99.9 Unspecified external cause status; W01.0XXA Fall on same level from slipping, tripping and stumbling without subsequent striking against object, initial encounter; M16.11 Unilateral primary osteoarthritis, right hip; I10 Essential (primary) hypertension; E78.5 Hyperlipidemia, unspecified; J44.9 Chronic obstructive pulmonary disease, unspecified; K21.9 Gastro-esophageal reflux disease without esophagitis; I44.0 Atrioventricular block, first degree; I25.2 Old myocardial infarction; Z88.2 Allergy status to sulfonamides; Z88.6 Allergy status to analgesic agent; Z88.8 Allergy status to other drugs, medicaments and biological substances; Z79.51 Long term (current) use of inhaled steroids; Z79.899 Other long term (current) drug therapy; Z79.52 Long term (current) use of systemic steroids

== ENCOUNTER → 2024-12-18 | Outpatient (CLI) | payer MEDICARE, BC ==
[~2024-12-18] MED LIST changes: -CHOL12508 PO; +[UNRECOGNIZED DRUG - CODE] PO
== END ==
LOC: M WHC 07:44
PROVIDERS: ATTEND Internal Medicine
DX: Z12.31 Encounter for screening mammogram for malignant neoplasm of breast (principal); M81.0 Age-related osteoporosis without current pathological fracture; R92.333 Mammographic heterogeneous density, bilateral breasts

== ENCOUNTER → 2025-03-02 | Outpatient (REF) | payer MEDICARE, BC | LOC: M LAB REF 12:28 | PROVIDERS: ATTEND Internal Medicine | DX: I48.0 Paroxysmal atrial fibrillation (principal); R00.0 Tachycardia, unspecified ==